=== PATIENT | female | born 1970 | race Asian ===

== ENCOUNTER 2018-06-27 02:19 | Outpatient (CLI) | payer MEDICAID, SELFPAY ==
--- NOTE | 2018-06-27 09:00 | DI.US_ITS ---
SYMPTOM/DIAGNOSIS: LT RENAL CYST, N28.1, Z87.441, H.O NEPHROLITHIASIS, YEARLY MONITORING RENAL ULTRASOUND: The kidneys are normal in size and shape. There are multiple echogenic foci seen in both kidneys consistent with nephrolithiasis. No evidence of hydronephrosis. There is a small simple cyst of the mid pole of the left kidney measuring about 10 mm in diameter. Urinary bladder is unremarkable in appearance and empties well with voiding. CONCLUSION: Bilateral non obstructing renal calculi.
== END 2018-06-27 02:39 ==
PROVIDERS: PCP Family Medicine; Visit Provider Family Medicine
DX: N28.1 Cyst of kidney, acquired (principal); N20.0 Calculus of kidney
CPT/HCPCS: 76770

== ENCOUNTER 2018-07-30 19:06 | Emergency (ER) | payer MEDICAID, SELFPAY ==
[2018-07-30 19:10] VITALS: BP 157/90; PULSE 73; RESP 16; TEMP 36.6; O2SAT 100
--- NOTE | 2018-07-30 19:14 | ED.GENADUL_ITS ---
Discharge Plan Disposition Patient Disposition: HOME Condition: Improving Discharge Details Chief Complaint: Abd Prob Clinical Impression: Abdominal pain Primary Care Provider: Jenny Guerra ED Provider: Vicky Greer Home Meds and New Rx's Prescriptions: Continued multivitamin Tablet 1 tab PO DAILY RF: 0 Discharge Instructions Instructions: Abdominal Pain (ED) Additional Instructions: Your CT scan today shows thickening of your bowel, this is likely associated with your diarrhea from yesterday. This is likely the source of your abdominal pain. You have kidney stones that are non obstructing. Your labs are reassuring. You will need to follow up with general surgery for reevaluation and to discuss your CT. Please keep upcoming appointment with primary care physician. If you develop fever/chills, increased pain, inability to stay hydrated or other new/worsening symptoms please seek care urgently once again. Referrals: Ijeoma Bui MD [[facility] STAFF PHYSICIAN] - Jenny Guerra MD [Primary Care Provider] - Medical Decision Making <RICH Austin - Last Filed: 07/30/18 23:19> Patient is a 48-year-old female with history of nephrolithiasis presenting today with chief complaint of upper abdominal pain that began this morning. Reports the pain is moderate, rates at 8/10. States that yesterday she had multiple episodes of watery diarrhea. This seems to have dissipated today. Denies any fevers or chills. No chest pain or shortness of breath. No previous abdominal surgeries. Pain does not change with p.o. intake. Also endorsing a dry cough for the past 2 months. States the cough is worse when she is outside, particular in the morning. Reports that she is attempted to contact her primary care but is been unsuccessful at making appointment. Denies any recent travel. No recent antibiotics. On exam, patient appears comfortable. She is in no acute distress. She is diffusely tender across the upper abdomen but seems quite tender in the right upper quadrant more so. No guarding or peritoneal findings. Abdomen is not tympanitic. Patient is noted to be hypertensive but otherwise vital signs within normal limits. Lungs are clear. No cough noted at this time. Consider pancreatitis, acute cholecystitis, gastric source such as ulcer, cardiac source. Plan to obtain chest x-ray although low suspicion for pneumonia or consolidation. However, this would be to evaluate her ongoing cough. Given the worsening of the cough when outside in the morning, I am considering allergies source of her chronic cough. Will obtain EKG, laboratory evaluation as well as CT of the abdomen. Discussed this patient is in agreement EKG reviewed by Dr. Smith, he was able to compare to previous with no acute abnormalities noted. CXR reviewed by radiologist: FINDINGS: Lungs: Unremarkable. No consolidation. Pleural space: Unremarkable. No pleural effusion. No pneumothorax. Heart/Mediastinum: Unremarkable. No cardiomegaly. Bones/joints: Unremarkable. IMPRESSION: No evidence of active pulmonary disease. I reviewed CT and do not see any pathology, awaiting read from radiologist. Will give GI cocktail. RAdiologist reviewed CT: ABDOMEN: Liver: Normal. No mass. Gallbladder and bile ducts: There is focal thickening and enhancement of the gallbladder wall that may represent adenomyomatosis. Pancreas: Normal. No ductal dilation. Spleen: Normal. No splenomegaly. Adrenals: Normal. No mass. Kidneys and ureters: 3 small 1-2 mm nonobstructing left lower pole renal calculi. Several small bilateral subcentimeter hypodensities too small for accurate CT number determination. Stomach and bowel: There is segmental submucosal thickening of a loop of small bowel anteriorly a trace amount of fluid in the mesentery. Appendix: No evidence of appendicitis. PELVIS: Bladder: Unremarkable as visualized. Reproductive: Unremarkable as visualized. ABDOMEN and PELVIS: Intraperitoneal space: Normal. No free air. No significant fluid collection. Bones/joints: Degenerative changes of the lumbar spine without acute osseous abnormality. Soft tissues: Unremarkable. Vasculature: Atherosclerotic calcifications of the aorta and iliac arteries without evidence of aneurysm. Lymph nodes: Normal. No enlarged lymph nodes. IMPRESSION: 1. There is segmental submucosal thickening of a loop of small bowel anteriorly with a trace amount of fluid in the mesentery. Differential diagnosis would include infection, early changes of inflammatory bowel disease, or ischemia. Clinical correlation is required. 2. There is focal thickening and enhancement of the gallbladder wall that may represent adenomyomatosis. 3. 3 small 1-2 mm nonobstructing left lower pole renal calculi. Patietn feeling improved after GI cocktail. Discussed findings with the patient. Laboratory evaluation is reassuring with no leukocytosis, electrolyte abnormalities, change in kidney or liver function. Lipase is normal. Advised on the thickening of the small bowel. This does correlate with infection given her recent bout of diarrhea although diarrhea has improved. This abdominal pain did come on shortly after her diarrhea. Advised likely viral etiology. She has not had any recent travel or antibiotics. We also discussed the diagnosis of adenomyomatosis. Advised follow-up with the general surgery. Referral will be sent. Encourage hydration. Advise she may continue with Mylanta to help with her discomfort. She is given strict return precautions. All of her questions and concerns were addressed she is in agreement this plan. In regard to her cough times the last 2 months, advised this may be allergic in nature and that she can discuss this further with her primary care. May also try [id number] antihistamines no evidence of infection on clinical exam or chest x-ray. <Cj Smith MD - Last Filed: 07/30/18 20:16> ECG Data Attestation: I personally reviewed and interpreted this ECG (s) as follows: Prior ECG tracings: available for review Interpretation: sinus rhythm, rate of 64, pr 154, no acute st t wave changes compared to ekg from 2014 HPI <RICH Austin - Last Filed: 07/30/18 23:19> General Mode of arrival: ambulatory . Date/Time Provider Initiated Documentation: 07/30/18 19:07 . Limitations to Documentation: no limitations . Information obtained by: patient and RN notes reviewed . History of Present Illness 48 year old F presents to the emergency department with the chief complaint of upper abdominal pain, described as moderate, with intensity rated at 8. Quality is described as aching, and is localized to the abdomen. Patient reports no radiation. Patient started experiencing this day(s) (1) and it has been constant. No relieving factors improve symptom(s), No exacerbating factors reported . Patient notes denies chest pain, cough, diaphoresis, fever/chills, headaches, loss of appetite, nausea/vomiting, shor tness of breath, syncope and weakness. Patient did receive the following treatments prior to arrival, none Related Data Home Medications Medication Instructions Recorded Confirmed multivitamin 1 tab PO DAILY 07/30/18 07/30/18 Allergies Allergy/AdvReac Type Severity Reaction Status Date / Time environmental Allergy Unknown Uncoded 07/30/18 19:14 Review of Systems <RICH Austin - Last Filed: 07/30/18 23:19> Constitutional Reports as per HPI, Denies chills, Denies fatigue, Denies fever(s) and Denies headache(s) ENT Denies headache(s) Cardiovascular Reports as per HPI, Denies chest pain and Denies dyspnea Respiratory Reports as per HPI, Reports cough (dry cough x 2 months, worse in AM and when outside) and Denies dyspnea Gastrointestinal Reports as per HPI, Reports abdominal pain, Denies belching, Denies melena, Reports change in bowel habits, Reports diarrhea (yesterday, since resolved), Denies nausea, Denies vomiting and Denies hematemesis Genitourinary Denies system reviewed and no additional complaints, except as docu (denies change in urinary habits) Musculoskeletal Reports as per HPI and Denies back pain Integumentary/Breasts Reports as per HPI and Denies rash Neurologic Reports as per HPI and Denies headache(s) Endocrine Denies fatigue PFSH <RICH Austin - Last Filed: 07/30/18 23:19> Social History Smoking/Tobacco Use Status: Never Alcohol Intake: never Drug use: Never Do you feel safe at home: Yes Do you feel safe in your relationship?: Yes Female Reproductive History Menstrual control method: none Exam <RICH Austin - Last Filed: 07/30/18 23:19> Const General: cooperative, healthy appearing, comfortable, no acute distress and well developed Nutritional Appearance: average body habitus and well nourished Orientation: alert and awake HENMT Head: normal to inspection Mouth: moist mucous membranes Resp Effort & Inspection: normal respiratory effort, able to speak in complete sentences and no respiratory distress Auscultation: clear to auscultation bilaterally, no rales, no rhonchi and no wheezes Cardio Rate: regular rate Rhythm: regular rhythm Heart Sounds: S1 normal and S2 normal GI Inspection: no abdominal wall ecchymosis, no edema, non-distended, no incisions, no large pannus and no obesity Palpation: soft, no hepatosplenomegaly, no aortic enlargement, not firm, no guarding, not rigid and tender in the epigastrum, in the LUQ and in the RUQ; not at McBurney's point, not periumbilically, not suprapubicly, Ann's sign negative, obturator sign negative, psoas sign negative and with no rebound tenderness Percussion: normal to percussion Auscultation: hypoactive bowel sounds Back/Spine/Pelvis Back: no CVA tenderness Skin General skin exam: no rashes or lesions noted Trauma: no lacerations or abrasions Neuro General: alert and awake Cognition: normal cognition Speech: speech normal Gait: normal gait Extrem General: normal to inspection, normal capillary refill, no pedal edema and no calf tenderness Psych Appearance: grossly normal and well kempt Mental Status: mental status grossly normal Speech and Movement: speech and movement normal
[2018-07-30] MEDS: Normal Saline Flush 10 ML SYR IVP ×2 (20:05→20:44)
[2018-07-30] MEDS: Normal Saline 1,000 ML 1000 ML IV (20:06)
[2018-07-30 20:19] LABS: Abs Immature Grans 0.01 k/cumm (0.0-0.09); Absolute Basophil Count 0.04 k/cumm (0.0-0.2); Absolute Eosinophil Count 0.29 k/cumm (0.0-0.7); Absolute Lymphocyte Count 2.13 k/cumm (1.2-3.4); Absolute Monocyte Count 0.68 k/cumm (0.11-0.7); Absolute Neutrophil Count 3.93 k/cumm (1.2-6.7); Basophils % 0.6; Eosinophils % 4.1; HCT 45.8 % (36.0-46.0); HGB 15.5 g/dL (12.0-15.5); Immature Grans % 0.1; Lymphocytes % 30.1; Mean Corp. HGB Concentration 33.8 g/dL (32.0-36.0); Mean Corpuscular Volume 85.8 fL (80-95); Mean Platelet Volume 9.7 fL (8.0-11.0); Monocytes % 9.6; Neutrophils % 55.5; Platelet Count 253 x1000/uL (130-400); RBC 5.34 m/cumm (4.00-5.20); RBC Distribution Width 13.9 % (11.7-14.6); White Blood Cell Count 7.08 k/cumm (4.4-10.8)
--- NOTE | 2018-07-30 20:23 | DI.COMBO_ITS ---
SYMPTOM/DIAGNOSIS: COUGH, UPPER ABD PAIN PA AND LATERAL CHEST: The heart is normal in size. The lungs are clear. The mediastinal structures and pleura appear intact. CONCLUSION: Normal chest. ABDOMEN AND PELVIC CT: CT examination of the abdomen and pelvis was performed with a bolus infusion of 69 cc's of Omnipaque 350. Images obtained through the lung bases are unremarkable. Liver and spleen appear normal. Gallbladder has a questionably thickened wall. No biliary dilatation is seen. There are tiny non obstructing left renal calculi. Probable tiny bilateral renal cysts also noted. No evidence of hydronephrosis or ureterolithiasis. Abdominal aorta is of normal diameter and no major vascular abnormality is seen. No abdominal wall hernia is seen. No significant abdominal or pelvic adenopathy. [employer]ER structures appear intact. Appendix is normal. There are multiple loops of thick walled small bowel in the mid abdomen including a loop in the mid abdomen with a markedly thickened wall with associated mesenteric edema. The findings are nonspecific but could be associated with enteritis. Inflammatory bowel disease not excluded. No evidence of obstruction. Question mild wall thickening of colon noted at a few sites as well. CONCLUSION: Findings raising the possibility of a predominantly small bowel enteritis. Other etiologies including inflammatory bowel disease not excluded. Appropriate follow up studies requested. Incidental non obstructing left renal calculi noted.
[2018-07-30] MEDS: Omnipaque 350 MG/ML 100 ML BTL IJ (20:28)
--- NOTE | 2018-07-30 20:35 | DI.VRAD_ITS ---
EXAM: XR Chest, 2 Views EXAM DATE/TIME: 07/30/2018 8:29 PM CLINICAL HISTORY: 48 years old, female; Signs and symptoms; Patient HX: Cough for 2 weeks TECHNIQUE: Imaging protocol: XR of the chest, 2 views. COMPARISON: CR CHEST 2 VIEWS PA,LAT 01/23/2014 12:51 AM FINDINGS: Lungs: Unremarkable. No consolidation. Pleural space: Unremarkable. No pleural effusion. No pneumothorax. Heart/Mediastinum: Unremarkable. No cardiomegaly. Bones/joints: Unremarkable. IMPRESSION: No evidence of active pulmonary disease. Dictated and Authenticated by: Bruno Barajas MD. Ordering:GIOVANI Perry MD
[2018-07-30 20:37] LABS: ALT 25 U/L (12-78); AST 13 U/L (15-37); Albumin 3.4 g/dL (3.4-5.0); Alkaline Phosphatase 62 U/L (46-116); Anion Gap 7.5 mmol/L (3-11); BUN 12 mg/dL (7-18); Bilirubin, Total 0.6 mg/dL (0.2-1.0); CO2 29.5 mmol/L (21.0-32.0); CREATININE 0.63 mg/dL (0.55-1.02); Calcium 8.9 mg/dL (8.5-10.1); Chloride 103 mmol/L (98-107); Glucose 101 mg/dL (70-100); Lipase 160 U/L (73-393); Magnesium 2.1 mg/dL (1.8-2.4); Potassium 3.3 mmol/L (3.5-5.1); Sodium 140 mmol/L (136-145); Total Protein 7.5 g/dL (6.4-8.2)
[2018-07-30 20:39] LABS: Troponin I < 0.02 ng/mL (0.00-0.06)
[2018-07-30 20:58] LABS: Bilirubin Negative (Negative); Blood Negative (Negative); Clarity Clear; Glucose Negative (Negative); Ketones Negative (Negative); Leukocyte Esterase Negative (Negative); Nitrite Negative (Negative); Urobilinogen 0.2 EU/dL (Up TO 0.2)
--- NOTE | 2018-07-30 21:03 | DI.VRAD_ITS ---
EXAM: CT Abdomen and Pelvis With Contrast EXAM DATE/TIME: 07/30/2018 7:28 PM CLINICAL HISTORY: 48 years old, female; Localized; Lower; Patient HX: Abdominal pain x2 days. TECHNIQUE: Imaging protocol: Axial computed tomography images of the abdomen and pelvis with intravenous contrast. Coronal and sagittal reformatted images were created and reviewed. Radiation optimization: All CT scans at this facility use at least one of these dose optimization techniques: automated exposure control; mA and/or kV adjustment per patient size (includes targeted exams where dose is matched to clinical indication); or iterative reconstruction. Contrast material: OMNIPAQUE 350; Contrast volume: 69 ml; Contrast route: IV; COMPARISON: CR RT HIP COMPLETE AP PELVIS 09/27/2016 8:38 AM FINDINGS: ABDOMEN: Liver: Normal. No mass. Gallbladder and bile ducts: There is focal thickening and enhancement of the gallbladder wall that may represent adenomyomatosis. Pancreas: Normal. No ductal dilation. Spleen: Normal. No splenomegaly. Adrenals: Normal. No mass. Kidneys and ureters: 3 small 1-2 mm nonobstructing left lower pole renal calculi. Several small bilateral subcentimeter hypodensities too small for accurate CT number determination. Stomach and bowel: There is segmental submucosal thickening of a loop of small bowel anteriorly a trace amount of fluid in the mesentery. Appendix: No evidence of appendicitis. PELVIS: Bladder: Unremarkable as visualized. Reproductive: Unremarkable as visualized. ABDOMEN and PELVIS: Intraperitoneal space: Normal. No free air. No significant fluid collection. Bones/joints: Degenerative changes of the lumbar spine without acute osseous abnormality. Soft tissues: Unremarkable. Vasculature: Atherosclerotic calcifications of the aorta and iliac arteries without evidence of aneurysm. Lymph nodes: Normal. No enlarged lymph nodes. IMPRESSION: 1. There is segmental submucosal thickening of a loop of small bowel anteriorly with a trace amount of fluid in the mesentery. Differential diagnosis would include infection, early changes of inflammatory bowel disease, or ischemia. Clinical correlation is required. 2. There is focal thickening and enhancement of the gallbladder wall that may represent adenomyomatosis. 3. 3 small 1-2 mm nonobstructing left lower pole renal calculi. Dictated and Authenticated by: Bruno Barajas MD. Ordering:GIOVANI Perry MD
[2018-07-30 21:15] VITALS: BP 145/80; PULSE 65; RESP 16; TEMP 37; O2SAT 99
--- NOTE | 2018-07-31 07:08 | NUR.NOTE ---
Nursing Note: Referral faxed to General Surgery for follow up. Catherine Huang.
== END 2018-07-30 21:25 | disposition home or self-care (01) ==
PROVIDERS: Emergency Provider Physician Assistant; PCP Family Medicine
DX: R10.10 Upper abdominal pain, unspecified (principal); R19.7 Diarrhea, unspecified; R05 Cough; N20.0 Calculus of kidney; Z87.442 Personal history of urinary calculi
CPT/HCPCS: 36415; 80053; 83690; 93005; 96360; 99285; 71046; 74177; 81003; 83735; 84484; 85025; 93010; J3490

== ENCOUNTER 2018-07-31 18:26 | Observation (INO) | payer MEDICAID, SELFPAY ==
[2018-07-31 18:35] VITALS: BP 156/68; PULSE 65; RESP 16; TEMP 36.7; O2SAT 99
[2018-07-31 18:53] LABS: Abs Immature Grans 0.02 k/cumm (0.0-0.09); Absolute Basophil Count 0.03 k/cumm (0.0-0.2); Absolute Eosinophil Count 0.17 k/cumm (0.0-0.7); Absolute Monocyte Count 0.77 k/cumm (0.11-0.7); Absolute Neutrophil Count 6.54 k/cumm (1.2-6.7); Basophils % 0.3; Eosinophils % 1.8; HCT 44.7 % (36.0-46.0); HGB 15.5 g/dL (12.0-15.5); Immature Grans % 0.2; Mean Corp. HGB Concentration 34.7 g/dL (32.0-36.0); Mean Corpuscular Hemoglobin 29.7 pg (27.0-33.0); Mean Corpuscular Volume 85.6 fL (80-95); Mean Platelet Volume 9.6 fL (8.0-11.0); Monocytes % 8.1; Neutrophils % 68.6; Platelet Count 248 x1000/uL (130-400); RBC 5.22 m/cumm (4.00-5.20); RBC Distribution Width 13.8 % (11.7-14.6); White Blood Cell Count 9.54 k/cumm (4.4-10.8)
[2018-07-31] MEDS: Normal Saline 1,000 ML 1000 ML IV (19:00)
[2018-07-31 19:13] LABS: ALT 22 U/L (12-78); AST 12 U/L (15-37); Albumin 3.1 g/dL (3.4-5.0); Alkaline Phosphatase 55 U/L (46-116); Anion Gap 10.4 mmol/L (3-11); BUN 12 mg/dL (7-18); Bilirubin, Total 0.6 mg/dL (0.2-1.0); CO2 26.6 mmol/L (21.0-32.0); CREATININE 0.51 mg/dL (0.55-1.02); Chloride 102 mmol/L (98-107); Glucose 116 mg/dL (70-100); Sodium 139 mmol/L (136-145); Total Protein 6.7 g/dL (6.4-8.2)
[2018-07-31 19:15] LABS: Potassium 2.9 mmol/L (3.5-5.1)
--- NOTE | 2018-07-31 19:35 | DI.CT_ITS ---
SYMPTOM/DIAGNOSIS: RIGHT SIDED ABD PAIN, WORSENING, R/O MES ISCH ABDOMINAL AND PELVIC CT ANGIOGRAM 07/31 CT angiography was performed with multi slice acquisition and multi planar and 3D reconstruction. CT angiography of the abdomen and pelvis was performed with a bolus infusion of 100 cc Omnipaque 350. Images obtained through the lung bases show a 4-5 mm in diameter right basilar intrapulmonary nodule, chest CT follow up suggested in 12 months. Liver, spleen and pancreas appear normal. Gallbladder is unremarkable in appearance. No biliary dilatation seen. Adrenals and kidneys appear normal. Abdominal wall is intact with no significant hernia. No abdominal or pelvic adenopathy. [employer]GER structures are unremarkable. Appendix appears normal. Note is made of marked wall thickening and apparent wall edema of portions of the duodenum and jejunum including an area of very marked wall thickening in what appears to be a jejunal loop at the level of the umbilicus. The findings are most consistent with enteritis. Abdominal aorta, celiac trunk, superior mesentery, renal arteries, inferior mesenteric artery, and major branches including SMA branches supplying the jejunum are within normal limits except for minimal atheromatous aortic calcification. Common internal and external iliac arteries appear normal. CONCLUSION: Findings most consistent with enteritis. Doubt ischemic etiology of small bowel process although this is not absolutely excluded on the basis of this examination. Infectious or inflammatory etiologies are more likely.
[2018-07-31 20:14] LABS: Magnesium 2.2 mg/dL (1.8-2.4)
[2018-07-31 20:19] LABS: Bilirubin Negative (Negative); Blood Negative (Negative); Clarity Clear; Glucose Negative (Negative); Ketones Trace mg/dL (Negative); Leukocyte Esterase Negative (Negative); Nitrite Negative (Negative); Specific Gravity 1.015 (1.005-1.025); Urobilinogen 0.2 EU/dL (Up TO 0.2)
[2018-07-31] MEDS: Omnipaque 350 MG/ML 100 ML BTL IJ (20:39)
[2018-07-31 21:03] VITALS: BP 105/88; PULSE 76; RESP 18; O2SAT 99
--- NOTE | 2018-07-31 21:57 | DI.VRAD_ITS ---
EXAM: CT Angiography Abdomen and Pelvis With Contrast EXAM DATE/TIME: 07/31/2018 7:38 PM CLINICAL HISTORY: 48 years old, female; Localized; Right upper quadrant (ruq); Patient HX: Right sided abdominal pain, worsening, R/O mes isch TECHNIQUE: Imaging protocol: Axial computed tomographic angiography images of the abdomen and pelvis with intravenous contrast material. Coronal and sagittal reformatted images were created and reviewed. 3D rendering: MIP reconstructed images were created and reviewed. Contrast material: OMNIPAQUE 350; Contrast volume: 60 ml; Contrast route: IV RAC; COMPARISON: CT ABDOMEN PELVIS W 07/30/2018 8:17 PM FINDINGS: Lungs: There is a 5 mm noncalcified granulomata right lung base.There is mild scarring in the lungs. This is this is a 6 VASCULATURE: Aorta: There is minimal atherosclerotic calcification the distal donor aorta and common iliac arteries well and the right. The celiac axis superior mesenteric artery and inferior mesenteric artery show no definite abnormality. No definite abnormality seen of the mesenteric veins. Celiac trunk and mesenteric arteries: See Aorta Finding. Renal arteries: No occlusion or significant stenosis. Right iliac arteries: No occlusion or significant stenosis. Left iliac arteries: No occlusion or significant stenosis. ABDOMEN: Liver: No mass. Gallbladder and bile ducts: Unremarkable. No calcified stones. No ductal dilation. Pancreas: Unremarkable. No mass. No ductal dilation. Spleen: Unremarkable. No splenomegaly. Adrenals: Unremarkable. No mass. Kidneys and ureters: Unremarkable. No solid mass. No hydronephrosis. Stomach and bowel: There is a large amount of residual food material and fluid in the stomach. In the anterior midabdomen there is a single dilated loop of small bowel is dilated up to 3.2 cm. However there is marked thickening of the bowel wall measuring up to 8 mm in this loop of bowel and to a lesser extent in a few of the adjacent loops of small bowel. There is no extraluminal air. There is no pneumatosis. However this abnormally thickened wall of small bowel appears to show densely less enhancement of the wall compared to more normal-appearing loops of small bowel. Appendix: No evidence of appendicitis. PELVIS: Bladder: Unremarkable. No mass. Reproductive: The uterus is deviated toward the left. There is a small mild free fluid in the cul-de-sac ABDOMEN and PELVIS: Bones/joints: No acute fracture. No dislocation. Soft tissues: Unremarkable. Lymph nodes: Unremarkable. No enlarged lymph nodes. IMPRESSION: #1 although I cannot detect any abnormality of the main intestinal arteries or veins, there is a abnormally thickened loop of small bowel probably in the mid jejunum that shows decreased enhancement suggesting it may be ischemic. There is no extraluminal air or pneumatosis associated. #2 there is a small mild fluid in the cul-de-sac with this can be normal for the second phase of menstrual cycle. These findings were discussed with Dr. Moran by telephone on July 31 at 9:55 PM Eastern standard time Dictated and Authenticated by: Cj Bonilla MD. Ordering:LINCOLN Maya MD
--- NOTE | 2018-07-31 22:03 | ED.GENADUL_ITS ---
Discharge Plan Disposition Patient Disposition: [facility] Condition: Improving Discharge Details Chief Complaint: Abd Prob Clinical Impression: Enteritis, Abdominal pain Primary Care Provider: Jenny Guerra ED Provider: Francesco Moran Home Meds and New Rx's Prescriptions: No Action multivitamin Tablet 1 tab PO DAILY RF: 0 Medical Decision Making This is a 48-year-old female who presents for evaluation of abdominal pain. She was seen and assessed here 48 hours ago, had a thorough laboratory work-up and CT scan which showed some small bowel thickening, but was otherwise relatively benign. She was discharged home after she is feeling much better and she had notably reassuring vital signs. She had significant worsening of her symptoms today, her last meal was at lunch. Exam demonstrates notably reassuring vital signs, however she does have mild to moderate mid abdominal pain. Previous CT scan did show thickening which could be of concern for an ischemic component, however she has no risk factors of A. fib, cholesterol, family history of vascular disease or other abnormality. I did discuss with the patient the risks and benefits of repeat imaging, there is shared decision making process we will perform a repeat CT scan for further evaluation in addition to laboratory work- up, lactate, hydration here. 12:30 AM Patient's laboratory work-up has returned, vital signs continue to remain stable. No tachycardia, or fever. Laboratory work-up demonstrates normal white count, no left shift or bandemia. Electrolytes demonstrate a decreasing potass ium at 2.9, normal magnesium, calcium that is low at 8.0, benign urinalysis, lipase yesterday was negative. Repeat CT imaging demonstrates slight increase in small bowel thickening. Vessels appear normal and demonstrate no signs of significant stenosis. However there is concern for bowel irritation versus ischemia. I did contact surgery and discussed the case with Dr. Graves, she came in and personally reviewed the images and assessed the patient. At this time she does not feel that the patient signs or symptoms are clinically consistent with ischemic gut. She feels that it is still most likely secondary to enteritis, from her previous episodes of diarrhea. After 4 of morphine the patient's pain is notably improved. Dr. Graves recommends admission for observation, electrolyte replacement, repeat evaluation. Surgery recommends admission under the hospitalist, and states that the have no problem being consulted for reevaluation of the patient in the morning. IV potassium supplementation and calcium supplementation has been administered. I contacted Dr. Andrade and discussed the case with him. I have extensively reviewed the treatment plan with the patient. I have addressed all patient concerns at this time. I have also discussed the plan with the admitting physician and they agree with the current assessment and plan and have agreed to assume responsibility for the patient. All parties demonstrate verbal understanding and agreement with our assessment and plan at this time. FINDINGS: Lungs: There is a 5 mm noncalcified granulomata right lung base.There is mild scarring in the lungs. This is this is a 6 VASCULATURE: Aorta: There is minimal atherosclerotic calcification the distal donor aorta and common iliac arteries well and the right. The celiac axis superior mesenteric artery and inferior mesenteric artery show no definite abnormality. No definite abnormality seen of the mesenteric veins. Celiac trunk and mesenteric arteries: See Aorta Finding. Renal arteries: No occlusion or significant stenosis. Right iliac arteries: No occlusion or significant stenosis. Left iliac arteries: No occlusion or significant stenosis. ABDOMEN: Liver: No mass. Gallbladder and bile ducts: Unremarkable. No calcified stones. No ductal dilation. Pancreas: Unremarkable. No mass. No ductal dilation. Spleen: Unremarkable. No splenomegaly. Adrenals: Unremarkable. No mass. Kidneys and ureters: Unremarkable. No solid mass. No hydronephrosis. Stomach and bowel: There is a large amount of residual food material and fluid in the stomach. In the anterior midabdomen there is a single dilated loop of small bowel is dilated up to 3.2 cm. However there is marked thickening of the bowel wall measuring up to 8 mm in this loop of bowel and to a lesser extent in a few of the adjacent loops of small bowel. There is no extraluminal air. There is no pneumatosis. However this abnormally thickened wall of small bowel appears to show densely less enhancement of the wall compared to more normal-appearing loops of small bowel. Appendix: No evidence of appendicitis. PELVIS: Bladder: Unremarkable. No mass. Reproductive: The uterus is deviated toward the left. There is a small mild free fluid in the cul-de-sac ABDOMEN and PELVIS: Bones/joints: No acute fracture. No dislocation. Soft tissues: Unremarkable. Lymph nodes: Unremarkable. No enlarged lymph nodes. IMPRESSION: #1 although I cannot detect any abnormality of the main intestinal arteries or veins, there is a abnormally thickened loop of small bowel probably in the mid jejunum that shows decreased enhancement suggesting it may be ischemic. There is no extraluminal air or pneumatosis associated. #2 there is a small mild fluid in the cul-de-sac with this can be normal for the second phase of menstrual cycle. These findings were discussed with Dr. Moran by telephone on July 31 at 9:55 PM Eastern standard time Dictated and Authenticated by: Cj Bonilla MD. Ordering:LINCOLN Maya MD [facility] General Date/Time Provider Initiated Documentation: 07/31/18 19:24 . HPI Narrative: This is a pleasant 48-year-old female with no significant past medical history who presents today for evaluation of abdominal pain. She was seen and assessed here 48 hours ago where she had a thorough work-up, laboratory work-up was relatively benign. CT scan at that time showed some bowel thickening in the small bowel, however with her previous history of diarrhea it is felt that this may be secondary to that. She was feeling better, vital signs are reassuring and she was discharged home. Patient states that today her pain notably worsened, and with no improvement of her symptoms she came in for reevaluation. Her last meal was 12 hours ago, she continues to describe the pain as stabbing and achy in the center of her abdomen. She denies any relieving factors. It is worsened with palpation, eating, and movement. She denies any vomiting but admits to notable nausea. She has not had any diarrhea for the last few days at this time. She denies any fever or chills. Past family history is negative for A. fib, aneurysm, severe claudication, or other severe vascular disease per the patient. Patient has no other complaints at this time. No additional modifying factors. Related Data Home Medications Medication Instructions Recorded Confirmed multivitamin 1 tab PO DAILY 07/30/18 07/31/18 Allergies Allergy/AdvReac Type Severity Reaction Status Date / Time environmental Allergy Unknown Uncoded 07/31/18 18:38 General Stated Complaint: Abd Prob WILDER: 3 Review of Systems Review of Systems All systems reviewed & are unremarkable except as noted in HPI and below PFSH Medical History Kidney stones (Chronic) Social History Smoking/Tobacco Use Status: Never Alcohol Intake: never Drug use: Never Do you feel safe at home: Yes Do you feel safe in your relationship?: Yes Female Reproductive History Menstrual control method: none Exam Narrative Exam Narrative: 1.Const: Well-nourished, Well-developed, appearing stated age 2.Eyes: PERRL, no conjunctival injection, and symmetrical lids. 3.ENT: Atraumatic external nose and ears. Moist MM. Neck: Symmetric, trachea midline, No thyromegaly. 4.CVS: +S1/S2, No murmurs or gallops. Peripheral pulses 2+ and equal in all extremities. Brisk capillary refill in all extremities. 5.RESP: Unlabored respiratory effort. Clear to auscultation bilaterally. No wheezes rales or rhonchi 6.GI: Soft, Nondistended, No hepatosplenomegaly. Notable tenderness in the epigastric and midabdominal region. No guarding. Negative Rovsing sign. No pain at McBurney's point. 7.MSK: Normocephalic/Atraumatic, Extremities w/o deformity or ttp No cyanosis or clubbing, Normal movement of all extremities 8.Skin: Warm, Dry. No rashes or lesions. 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 Sensation grossly intact, no focal neurologic deficits. 10.Psych: (AAO) x3. Appropriate mood and affect Course Vital Signs Temperature 36.7 C 07/31/18 18:35 Pulse 65 07/31/18 18:35 Respiratory Rate 16 07/31/18 18:35 Blood Pressure 156/68 H 07/31/18 18:35 Pulse Oximetry 99 07/31/18 18:35 Temperature 36.7 C 07/31/18 18:35 Temperature Source Skin 07/31/18 18:35 Pulse 76 07/31/18 21:03 Respiratory Rate 18 07/31/18 21:03 Respiratory Effort Non-Labored 07/31/18 18:37 Blood Pressure 105/88 07/31/18 21:03 Pulse Oximetry 99 07/31/18 21:03 Oxygen Delivery Method Room Air 07/31/18 21:03 Oxygen Flow Rate 0 07/31/18 21:03 Pain Level 8 07/31/18 21:03 Lab/Test Results Lab/Test Results: Laboratory Tests Range/Units 07/31/18 07/31/18 07/31/18 18:45 18:45 18:45 WBC (4.4-10.8) k/cumm 9.54 D RBC (4.00-5.20) m/cumm 5.22 H Hgb (12.0-15.5) g/dL 15.5 Hct (36.0-46.0) % 44.7 MCV (80-95) fL 85.6 MCH (27.0-33.0) pg 29.7 MCHC (32.0-36.0) g/dL 34.7 RDW (11.7-14.6) % 13.8 Plt Count (130-400) x1000/uL 248 MPV (8.0-11.0) fL 9.6 Immature Gran % 0.2 Neutrophils % 68.6 Lymphocytes % 21.0 Monocytes % 8.1 Eosinophils % 1.8 Basophils % 0.3 Absolute Neutrophils (1.2-6.7) k/cumm 6.54 Absolute Lymphocytes (1.2-3.4) k/cumm 2.00 Absolute Monocytes (0.11-0.7) k/cumm 0.77 H Absolute Eosinophils (0.0-0.7) k/cumm 0.17 Absolute Basophils (0.0-0.2) k/cumm 0.03 Sodium (136-145) mmol/L 139 Potassium (3.5-5.1) mmol/L 2.9 L* Chloride (98-107) mmol/L 102 Carbon Dioxide (21.0-32.0) mmol/L 26.6 Anion Gap (3-11) mmol/L 10.4 BUN (7-18) mg/dL 12 Creatinine (0.55-1.02) mg/dL 0.51 L Estimated GFR/1.73 m2 (mL/min/1.73m2) >= 60.00 Glucose (70-100) mg/dL 116 H Calcium (8.5-10.1) mg/dL 8.0 L Magnesium (1.8-2.4) mg/dL 2.2 Total Bilirubin (0.2-1.0) mg/dL 0.6 AST (15-37) U/L 12 L ALT (12-78) U/L 22 Alkaline Phosphatase (46-116) U/L 55 Total Protein (6.4-8.2) g/dL 6.7 Albumin (3.4-5.0) g/dL 3.1 L Urine Color (Yellow) Urine Clarity Urine pH (5-8) Ur Specific Whittaker (1.005-1.025) Urine Protein (Negative) mg/dL Urine Ketones (Negative) mg/dL Urine Blood (Negative) Urine Nitrite (Negative) Urine Bilirubin (Negative) Urine Urobilinogen (Up TO 0.2) EU/dL Ur Leukocyte Esterase (Negative) Urine Glucose (Negative) mg/dL Range/Units 07/31/18 20:08 WBC (4.4-10.8) k/cumm RBC (4.00-5.20) m/cumm Hgb (12.0-15.5) g/dL Hct (36.0-46.0) % MCV (80-95) fL MCH (27.0-33.0) pg MCHC (32.0-36.0) g/dL RDW (11.7-14.6) % Plt Count (130-400) x1000/uL MPV (8.0-11.0) fL Immature Gran % Neutrophils % Lymphocytes % Monocytes % Eosinophils % Basophils % Absolute Neutrophils (1.2-6.7) k/cumm Absolute Lymphocytes (1.2-3.4) k/cumm Absolute Monocytes (0.11-0.7) k/cumm Absolute Eosinophils (0.0-0.7) k/cumm Absolute Basophils (0.0-0.2) k/cumm Sodium (136-145) mmol/L Potassium (3.5-5.1) mmol/L Chloride (98-107) mmol/L Carbon Dioxide (21.0-32.0) mmol/L Anion Gap (3-11) mmol/L BUN (7-18) mg/dL Creatinine (0.55-1.02) mg/dL Estimated GFR/1.73 m2 (mL/min/1.73m2) Glucose (70-100) mg/dL Calcium (8.5-10.1) mg/dL Magnesium (1.8-2.4) mg/dL Total Bilirubin (0.2-1.0) mg/dL AST (15-37) U/L ALT (12-78) U/L Alkaline Phosphatase (46-116) U/L Total Protein (6.4-8.2) g/dL Albumin (3.4-5.0) g/dL Urine Color (Yellow) Yellow Urine Clarity Clear Urine pH (5-8) 7.0 Ur Specific Whittaker (1.005-1.025) 1.015 Urine Protein (Negative) mg/dL Negative Urine Ketones (Negative) mg/dL Trace H Urine Blood (Negative) Negative Urine Nitrite (Negative) Negative Urine Bilirubin (Negative) Negative Urine Urobilinogen (Up TO 0.2) EU/dL 0.2 Ur Leukocyte Esterase (Negative) Negative Urine Glucose (Negative) mg/dL Negative
[2018-07-31 22:13] LABS: Lactate-non-spesis 0.7 mmol/l (0.6-1.4)
[2018-07-31 22:48] VITALS: BP 138/69; PULSE 71; RESP 18; O2SAT 99
[2018-07-31 23:38] VITALS: BP 116/70; PULSE 67; RESP 16; O2SAT 97
[2018-07-31 23:39] VITALS: BP 116/70; PULSE 67; RESP 16; O2SAT 97
[2018-08-01] VITALS (16 sets, daily range): BP systolic 104–137; BP diastolic 60–81; PULSE 66–72; RESP 16–20; TEMP 35.9–38.1; O2SAT 96–99
[2018-08-01] MEDS: POTASSIUM CHLORIDE 20 MEQ/100 ML BAG 50 MEQ IVPB (00:16)
--- NOTE | 2018-08-01 00:46 | W.SURGCON ---
Date of service: 07/31/18 Time of Service: 23:46 Assessment and Plan (1) Abdominal pain: Current visit: Yes Status: Acute The pt's vital signs have been stable. No tachycardia, or fever. Laboratory work-up demonstrates normal white count, no left shift or bandemia. Electrolytes demonstrate potassium is 2.9, normal magnesium, calcium that is low at 8.0, and benign urinalysis. Repeat CT imaging demonstrates slight increase in small bowel thickening. Vessels appear normal and demonstrate no signs of significant stenosis. However, radiology stated there is concern for bowel irritation versus ischemia. I evaluated the full clinical picture and reviewed the imaging myself. Though the physical exam may have been masked by the recent administration of opiates, I do not believe that the clinical picture reflects an ischemic picture. I believe that dehydration and significant electrolyte derangements from diarrhea are contributing to this patient's presentation. I recommend admission to the hospitalist service for resuscitation with IV fluids, and electrolyte replacements, repeat labs, and avoidance of opiates. If her pain has subsided, she may undergo a PO challenge and possible d/c home later in the day. These recommendations were discussed with Dr. Moran of the ED, and explained to the patient and her family at the bedside. History of Present Illness Chief Complaint: abdominal pain Narrative: 48yo healthy female presents with progressive abdominal pain. She had several episodes of loose diarrhea starting on 07/28 and into 07/29. She states that she previously felt fine on 07/27. She denies any fever/chills, nausea/vomiting, and anorexia. She has had an appetite and has been eating throughout. However, she initially presented to the ED on 07/30 due to increasing abdominal discomfort. She was evaluated at that time annd was found to have a clinical exam and CT scan consistent with enteritis. However, she continued to have sharp mid-abdominal pain today, and re-presented to the ED. She has been able to tolerate PO intake, and had one bowel movement. She denies any personal or family history of afib, IBD, or IBS. She has never had similar symptoms in the past. 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 No sick contacts, nor has her family been sick, and they consume the same meals. She does relate that she has noticed a minimally productive cough in the mornings and evenings over the last two months, but denies any reflux, heartburn, or dysphagia. Review of Systems Constitutional Denies anorexia, Denies chills, Denies fever(s), Denies headache(s), Denies lethargy and Denies poor appetite Eyes Reports system reviewed and no additional complaints, except as docu ENT Reports system reviewed and no additional complaints, except as docu, Denies dysphagia, Denies headache(s), Denies odynophagia, Denies post nasal drip and Denies sore throat Cardiovascular Denies chest pain and Denies irregular heart rhythm Respiratory Reports cough and Denies excessive phlegm production Gastrointestinal Reports abdominal pain, Denies melena, Denies dysphagia, Reports diarrhea and Denies odynophagia Genitourinary Denies dysuria Musculoskeletal Reports system reviewed and no additional complaints, except as docu Neurologic Reports system reviewed and no additional complaints, except as docu and Denies headache(s) Endocrine Reports system reviewed and no additional complaints, except as docu [facility] Social History Smoking/Tobacco Use Status: Never Alcohol Intake: never Drug use: Never 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 Do you feel safe at home: Yes Do you feel safe in your relationship?: Yes Female Reproductive History Menstrual control method: none Exam Narrative Exam Narrative: Of note, the pt recive Morphine 4mg just prior to my evaluation Const General: cooperative, no acute distress and well developed HENMT Head: normocephalic and atraumatic Neck Neck: trachea midline and supple Chest Chest: no crepitus Resp Effort & Inspection: normal respiratory effort and no respiratory distress Auscultation: clear to auscultation bilaterally Cardio Rhythm: regular rhythm Heart Sounds: S1 normal and S2 normal GI Inspection: no abdominal wall ecchymosis and no edema Palpation: soft, not firm, not rigid and nontender Percussion: normal to percussion Auscultation: normal bowel sounds Back/Spine/Pelvis Back: no CVA tenderness Neuro General: alert, awake and oriented x3 Cognition: normal cognition Speech: speech normal Psych Appearance: grossly normal Speech and Movement: speech and movement normal Mood: congruent mood Affect: normal affect Attitude: cooperative Results Last Vital Signs Temp 98.1 F 07/31/18 18:35 Pulse 67 08/01/18 00:29 Resp 16 08/01/18 00:29 BP 116/70 08/01/18 00:29 Pulse Ox 97 08/01/18 00:29 Labs : 08/01/18 08:50 08/01/18 08:50 Laboratory Results - last 24 hr 07/31/18 07/31/18 07/31/18 18:45 18:45 18:45 WBC 9.54 D RBC 5.22 H Hgb 15.5 Hct 44.7 MCV 85.6 MCH 29.7 MCHC 34.7 RDW 13.8 Plt Count 248 MPV 9.6 Immature Gran % 0.2 Neutrophils % 68.6 Lymphocytes % 21.0 Monocytes % 8.1 Eosinophils % 1.8 Basophils % 0.3 Absolute Neutrophils 6.54 Absolute Lymphocytes 2.00 Absolute Monocytes 0.77 H Absolute Eosinophils 0.17 Absolute Basophils 0.03 Sodium 139 Potassium 2.9 L* Chloride 102 Carbon Dioxide 26.6 Anion Gap 10.4 BUN 12 Creatinine 0.51 L Estimated GFR/1.73 m2 >= 60.00 Glucose 116 H Lactate Calcium 8.0 L Magnesium 2.2 Total Bilirubin 0.6 AST 12 L ALT 22 Alkaline Phosphatase 55 Total Protein 6.7 Albumin 3.1 L Urine Color Urine Clarity Urine pH Ur Specific Eckert Urine Protein Urine Ketones Urine Blood Urine Nitrite Urine Bilirubin Urine Urobilinogen Ur Leukocyte Esterase Urine Glucose 07/31/18 07/31/18 20:08 22:05 WBC RBC Hgb Hct MCV MCH MCHC RDW Plt Count MPV Immature Gran % Neutrophils % Lymphocytes % Monocytes % Eosinophils % Basophils % Absolute Neutrophils Absolute Lymphocytes Absolute Monocytes Absolute Eosinophils Absolute Basophils Sodium Potassium Chloride Carbon Dioxide Anion Gap BUN Creatinine Estimated GFR/1.73 m2 Glucose Lactate 0.7 Calcium Magnesium Total Bilirubin AST ALT Alkaline Phosphatase Total Protein Albumin Urine Color Yellow Urine Clarity Clear Urine pH 7.0 Ur Specific Eckert 1.015 Urine Protein Negative Urine Ketones Trace H Urine Blood Negative Urine Nitrite Negative Urine Bilirubin Negative Urine Urobilinogen 0.2 Ur Leukocyte Esterase Negative Urine Glucose Negative
--- NOTE | 2018-08-01 00:54 | SCONE_ITS ---
Date of service: 07/31/18 Time of Service: 23:46 Assessment and Plan (1) Abdominal pain: Current visit: Yes Status: Acute The pt's vital signs have been stable. No tachycardia, or fever. Laboratory work-up demonstrates normal white count, no left shift or bandemia. Electrolytes demonstrate potassium is 2.9, normal magnesium, calcium that is low at 8.0, and benign urinalysis. Repeat CT imaging demonstrates slight increase in small bowel thickening. Vessels appear normal and demonstrate no signs of sig nificant stenosis. However, radiology stated there is concern for bowel irritation versus ischemia. I evaluated the full clinical picture and reviewed the imaging myself. Though the physical exam may have been masked by the recent administration of opiates, I do not believe that the clinical picture reflects an ischemic picture. I believe that dehydration and significant electrolyte derangements from diarrhea are contributing to this patient's presentation. I recommend admission to the hospitalist service for resuscitation with IV fluids, and electrolyte replacements, repeat labs, and avoidance of opiates. If her pain has subsided, she may undergo a PO challenge and possible d/c home later in the day. These recommendations were discussed with Dr. Moran of the ED, and explained to the patient and her family at the bedside. History of Present Illness Chief Complaint: abdominal pain Narrative: 48yo healthy female presents with progressive abdominal pain. She had several episodes of loose diarrhea starting on 07/28 and into 07/29. She states that she previously felt fine on 07/27. She denies any fever/chills, nausea/vomiting, and anorexia. She has had an appetite and has been eating throughout. However, she initially presented to the ED on 07/30 due to increasing abdominal discomfort. She was evaluated at that time annd was found to have a clinical exam and CT scan consistent with enteritis. However, she continued to have sharp mid-abdominal pain today, and re-presented to the ED. She has been able to tolerate PO intake, and had one bowel movement. She denies any personal or family history of afib, IBD, or IBS. She has never had similar symptoms in the past. 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 No sick contacts, nor has her family been sick, and they consume the same meals. She does relate that she has noticed a minimally productive cough in the mornings and evenings over the last two months, but denies any reflux, heartburn, or dysphagia. Review of Systems Constitutional Denies anorexia, Denies chills, Denies fever(s), Denies headache(s), Denies lethargy and Denies poor appetite Eyes Reports system reviewed and no additional complaints, except as docu ENT Reports system reviewed and no additional complaints, except as docu, Denies dysphagia, Denies headache(s), Denies odynophagia, Denies post nasal drip and Denies sore throat Cardiovascular Denies chest pain and Denies irregular heart rhythm Respiratory Reports cough and Denies excessive phlegm production Gastrointestinal Reports abdominal pain, Denies melena, Denies dysphagia, Reports diarrhea and Denies odynophagia Genitourinary Denies dysuria Musculoskeletal Reports system reviewed and no additional complaints, except as docu Neurologic Reports system reviewed and no additional complaints, except as docu and Denies headache(s) Endocrine Reports system reviewed and no additional complaints, except as docu [facility] Social History Smoking/Tobacco Use Status: Never Alcohol Intake: never Drug use: Never 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 Do you feel safe at home: Yes Do you feel safe in your relationship?: Yes Female Reproductive History Menstrual control method: none Exam Narrative Exam Narrative: Of note, the pt recive Morphine 4mg just prior to my evaluation Const General: cooperative, no acute distress and well developed HENMT Head: normocephalic and atraumatic Neck Neck: trachea midline and supple Chest Chest: no crepitus Resp Effort & Inspection: normal respiratory effort and no respiratory distress Auscultation: clear to auscultation bilaterally Cardio Rhythm: regular rhythm Heart Sounds: S1 normal and S2 normal GI Inspection: no abdominal wall ecchymosis and no edema Palpation: soft, not firm, not rigid and nontender Percussion: normal to percussion Auscultation: normal bowel sounds Back/Spine/Pelvis Back: no CVA tenderness Neuro General: alert, awake and oriented x3 Cognition: normal cognition Speech: speech normal Psych Appearance: grossly normal Speech and Movement: speech and movement normal Mood: congruent mood Affect: normal affect Attitude: cooperative Results Last Vital Signs Temp 98.1 F 07/31/18 18:35 Pulse 67 08/01/18 00:29 Resp 16 08/01/18 00:29 BP 116/70 08/01/18 00:29 Pulse Ox 97 08/01/18 00:29 Labs : 08/01/18 08:50 08/01/18 08:50 Laboratory Results - last 24 hr 07/31/18 07/31/18 07/31/18 18:45 18:45 18:45 WBC 9.54 D RBC 5.22 H Hgb 15.5 Hct 44.7 MCV 85.6 MCH 29.7 MCHC 34.7 RDW 13.8 Plt Count 248 MPV 9.6 Immature Gran % 0.2 Neutrophils % 68.6 Lymphocytes % 21.0 Monocytes % 8.1 Eosinophils % 1.8 Basophils % 0.3 Absolute Neutrophils 6.54 Absolute Lymphocytes 2.00 Absolute Monocytes 0.77 H Absolute Eosinophils 0.17 Absolute Basophils 0.03 Sodium 139 Potassium 2.9 L* Chloride 102 Carbon Dioxide 26.6 Anion Gap 10.4 BUN 12 Creatinine 0.51 L Estimated GFR/1.73 m2 >= 60.00 Glucose 116 H Lactate Calcium 8.0 L Magnesium 2.2 Total Bilirubin 0.6 AST 12 L ALT 22 Alkaline Phosphatase 55 Total Protein 6.7 Albumin 3.1 L Urine Color Urine Clarity Urine pH Ur Specific [place] Urine Protein Urine Ketones Urine Blood Urine Nitrite Urine Bilirubin Urine Urobilinogen Ur Leukocyte Esterase Urine Glucose 07/31/18 07/31/18 20:08 22:05 WBC RBC Hgb Hct MCV MCH MCHC RDW Plt Count MPV Immature Gran % Neutrophils % Lymphocytes % Monocytes % Eosinophils % Basophils % Absolute Neutrophils Absolute Lymphocytes Absolute Monocytes Absolute Eosinophils Absolute Basophils Sodium Potassium Chloride Carbon Dioxide Anion Gap BUN Creatinine Estimated GFR/1.73 m2 Glucose Lactate 0.7 Calcium Magnesium Total Bilirubin AST ALT Alkaline Phosphatase Total Protein Albumin Urine Color Yellow Urine Clarity Clear Urine pH 7.0 Ur Specific [place] 1.015 Urine Protein Negative Urine Ketones Trace H Urine Blood Negative Urine Nitrite Negative Urine Bilirubin Negative Urine Urobilinogen 0.2 Ur Leukocyte Esterase Negative Urine Glucose Negative
[2018-08-01] MEDS: MAGNESIUM SULFATE 1 GM/100 ML BAG IVPB (02:03)
--- NOTE | 2018-08-01 02:09 | NUR.NOTE ---
Patient was admitted to the Med/Surg unit this morning with History of diarrhoea and abdominal pain starting 3-4 days ago. Was seen the ER prior to tonight medicated and sent home but condition returned yesterday and worsened, subsequently came returned to the ER last evening for re-assessment and then admitted. Patient voiced no pain but state she is thirsty due to the fact she was not allowed to have anything by mouth while being treated. She was placed in bed, head to toe assessment done.
--- NOTE | 2018-08-01 02:38 | W.PM.HP.N ---
Date of service: 08/01/18 Time of Service: 02:38 Assessment and Plan (1) Enteritis: Current visit: Yes Status: Acute will check stool for lactoferrin, stool pathogens, viral enteritis; treat empirically w/ iv fluid hydration, replace electrolytes and give anti-emetics prn. avoid narcotic analgesics as this will only slow her parastalsis and cause retention of any enteric pathogens and possibly lead to ileus. serial abdominal exams observe for any peritoneal signs that would suggest an acute surgical abdomen. Surgical consult was obtained by Dr. Moran and Dr. Graves evaluated the patient in the ER. I will repeat her labs in the a.m. including repeat BMP and CBC w/ diff. I will also try her on clear liquids and if tolerating then she can be advanced to regular diet tomorrow. Of note, she indicated that she has been able to drink and eat throughout the course of her illness w/out vomiting and eating did not seem to make her pain any worse. (2) Abdominal pain: Current visit: Yes Status: Acute serial assessments and repeat labs in the a.m. surgical consultation appreciated. will give Tylenol only for abdominal cramping but no narcotics. History of Present Illness Chief Complaint: abdominal pain Narrative: 48-year-old female who presents to the emergency department for her second visit in the last 2 days. She was initially seen in the emergency room on July 30, 2018 for complaints of diffuse abdominal pain associated with diarrhea. Onset of her diarrhea was July 28 and continued through July 29 which she had 8-10 watery stools associated with crampy abdominal pain but no associated fever or chills. She still had some loose but semi-formed stools on Saturday, July 29 and but presented to the emergency department because of the abdominal pain. She was evaluated in the emergency room by RICH Burden. Thorough work-up included laboratory studies and a CT scan of the abdomen and pelvis. CT the abdomen pelvis showed segmental submucosal thickening of a loop of small bowel anteriorly with trace amount of fluid in the mesentery and focal thickening and enhancement of the gallbladder wall the was read by the radiologist and suggested of adenomyomatosis. She also had 3 small 1 to 2 mm nonobstructing renal calculi of her left lower kidney pole. She has a known history of nephrolithiasis. Her symptoms improved after IV fluids and a GI cocktail. Her laboratory studies were all unremarkable including a CBC, CMP, lipase, troponin level. She is since returned to the emergency department because of continued abdominal pain although the diarrhea has subsided. She has had no vomiting. She was reevaluated by Dr. Francesco Moran who performed a CTA of her abdomen pelvis to rule out ischemic colitis. No abnormalities were detected of the intestinal arteries or veins but there was some thickening of a loop of small bowel in the mid jejunum that showed decreased enhancement suggestive but not diagnostic for ischemia. The patient had no extraluminal air and no pneumatosis. She has a small amount of fluid in the cul-de-sac. Surgical consultation was obtained with Dr. Graves who feels that the patient is suffering from an enteritis and does not feel that the CT represents mesenteric ischemia. She recommended IV fluid hydration and correction of her electrolyte abnormalities which included a low calcium of 8.0 and a low potassium at 2.9. Her CBC again shows no leukocytosis. Her urinalysis is unremarkable except for trace of ketones. Patient states that she has not had a recent foreign travel in her family including her and children eat all the same foods as she does and none of them have been ill. Patient works in a [employer] and is done so for the last 23 years. She denies any new chemical exposures. She has noted a nonproductive cough over the last couple months its worse at night and worse in the morning. Is been no associated fever chills or sputum production. Chest x-ray was performed couple days ago when she was in the emergency room and showed no acute abnormalities. Patient is now admitted for IV fluid hydration and antiemetics and serial abdominal examinations. Working diagnosis is viral enteritis. Review of Systems Review of Systems All systems reviewed & are unremarkable except as noted in HPI and below Constitutional Denies anorexia, Denies chills, Denies fever(s) and Denies poor appetite Eyes Reports system reviewed and no additional complaints, except as docu ENT Reports system reviewed and no additional complaints, except as docu Cardiovascular Reports system reviewed and no additional complaints, except as docu and Denies dyspnea Respiratory Denies change in phlegm color, Denies chest congestion, Reports cough, Denies excessive phlegm production and Denies dyspnea Gastrointestinal Reports abdominal pain, Reports cramping, Reports diarrhea and Reports loose stools Genitourinary Reports system reviewed and no additional complaints, except as docu Musculoskeletal Reports system reviewed and no additional complaints, except as [facility] Integumentary/Breasts Reports system reviewed and no additional complaints, except as [facility] Neurologic Reports system reviewed and no additional complaints, except as [facility] Endocrine Reports system reviewed and no additional complaints, except as [facility] Hematologic/Lymphatic Reports system reviewed and no additional complaints, except as [facility] Allergic/Immunologic Reports system reviewed and no additional complaints, except as [facility] Social History Smoking/Tobacco Use Status: Never Alcohol Intake: never Drug use: Never 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 Do you feel safe at home: Yes Do you feel safe in your relationship?: Yes Female Reproductive History Menstrual control method: none Meds Home Medications Medication Instructions Recorded Confirmed Type multivitamin 1 tab PO DAILY 07/30/18 07/31/18 History Allergies Allergy/AdvReac Type Severity Reaction Status Date / Time environmental Allergy Unknown Uncoded 07/31/18 18:38 Exam Const General: cooperative, no acute distress and well groomed Nutritional Appearance: average body habitus and well nourished Orientation: alert, awake and oriented x3 HENMT Head: normal to inspection, no palpable skull fracture, normocephalic and atraumatic Face and sinus: normal facial exam, sinuses nontender and face symmetric Mouth: oral mucosae normal, lip normal, tongue normal, oropharynx normal and moist mucous membranes Teeth and gingiva: dentition normal and gingiva normal Throat: posterior oropharynx normal and uvula midline Eyes General: appearance normal, both eyes and all related structures Visual Grigsby: normal visual grigsby by confrontation Alignment and Position: alignment normal Periorbital: periorbital findings normal Eyelids: eyelids normal Conjunctivae: conjunctivae normal Sclera: sclerae normal Cornea: corneas normal Pupils: PERRL, normal by confrontation and accommodation normal EOM: EOM intact bilaterally Neck Neck: normal visual inspection, full ROM, no lymphadenopathy, trachea midline and supple Thyroid: thyroid normal Carotids: normal carotid upstroke Lymphatic: no lymphadenopathy noted Chest Chest: normal inspection of the chest and normal palpation of entire chest wall Resp Effort & Inspection: normal respiratory effort and able to speak in complete sentences Auscultation: clear to auscultation bilaterally Percussion: percussion normal Cardio Jugular venous pressure: no JVD Palpation: normal PMI Rate: regular rate Rhythm: regular rhythm Heart Sounds: S1 normal, S2 normal, normal, physiologic split S2 and murmur systolic early, soft, I/ and at the apex Pulses: normal peripheral pulses GI Inspection: normal to inspection Palpation: soft, no hepatosplenomegaly and tender periumbilically; with no rebound tenderness Percussion: normal to percussion Auscultation: normal bowel sounds General: bimanual renal exam normal bilaterally, bladder normal to inspection, bladder normal to palpation and No CVA tenderness Bimanual Exam- Vagina & Uterus: bladder normal to palpation Back/Spine/Pelvis Back: no CVA tenderness Cervical Spine: normal cervical lordosis and cervical ROM normal Thoracic/Lumbar Spine: thoracic and lumbar spine normal to inspection and thoraco-lumbar ROM normal Skin General skin exam: no rashes or lesions noted, elasticity normal and turgor normal Lesions: no lesions Rashes: no rashes Trauma: no lacerations or abrasions Hair: normal Nails: normal Neuro General: alert, awake, oriented x3, moves all extremities and no focal motor deficits Cognition: normal cognition Speech: speech normal Motor: muscle tone normal throughout, strength 5/5 throughout, no pronator drift, no movement abnormalities noted and no fasciculations Sensory Exam: no sensory deficits noted Extrem General: normal to inspection, full ROM, normal capillary refill, no joint enlargement, no clubbing, cyanosis or edema and no calf tenderness bilaterally Psych Appearance: grossly normal Mental Status: mental status grossly normal Speech and Movement: speech and movement normal Mood: congruent mood Affect: normal affect Attitude: cooperative Thought Process: normal Thought Content: normal Insight: insight good Judgment: judgment good Results Imaging CT scan - pelvis: report reviewed (IMPRESSION: #1 although I cannot detect any abnormality of the main intestinal arteries or veins, there is a abnormally thickened loop of small bowel probably in the mid jejunum that shows decreased enhancement suggesting it may be ischemic. There is no extraluminal air or pneumatosis associated) Labs : 07/31/18 18:45 07/31/18 18:45 Laboratory Results - last 24 hr 07/31/18 07/31/18 07/31/18 18:45 18:45 18:45 WBC 9.54 D RBC 5.22 H Hgb 15.5 Hct 44.7 MCV 85.6 MCH 29.7 MCHC 34.7 RDW 13.8 Plt Count 248 MPV 9.6 Immature Gran % 0.2 Neutrophils % 68.6 Lymphocytes % 21.0 Monocytes % 8.1 Eosinophils % 1.8 Basophils % 0.3 Absolute Neutrophils 6.54 Absolute Lymphocytes 2.00 Absolute Monocytes 0.77 H Absolute Eosinophils 0.17 Absolute Basophils 0.03 Sodium 139 Potassium 2.9 L* Chloride 102 Carbon Dioxide 26.6 Anion Gap 10.4 BUN 12 Creatinine 0.51 L Estimated GFR/1.73 m2 >= 60.00 Glucose 116 H Lactate Calcium 8.0 L Magnesium 2.2 Total Bilirubin 0.6 AST 12 L ALT 22 Alkaline Phosphatase 55 Total Protein 6.7 Albumin 3.1 L Urine Color Urine Clarity Urine pH Ur Specific [place] Urine Protein Urine Ketones Urine Blood Urine Nitrite Urine Bilirubin Urine Urobilinogen Ur Leukocyte Esterase Urine Glucose 07/31/18 07/31/18 20:08 22:05 WBC RBC Hgb Hct MCV MCH MCHC RDW Plt Count MPV Immature Gran % Neutrophils % Lymphocytes % Monocytes % Eosinophils % Basophils % Absolute Neutrophils Absolute Lymphocytes Absolute Monocytes Absolute Eosinophils Absolute Basophils Sodium Potassium Chloride Carbon Dioxide Anion Gap BUN Creatinine Estimated GFR/1.73 m2 Glucose Lactate 0.7 Calcium Magnesium Total Bilirubin AST ALT Alkaline Phosphatase Total Protein Albumin Urine Color Yellow Urine Clarity Clear Urine pH 7.0 Ur Specific [place] 1.015 Urine Protein Negative Urine Ketones Trace H Urine Blood Negative Urine Nitrite Negative Urine Bilirubin Negative Urine Urobilinogen 0.2 Ur Leukocyte Esterase Negative Urine Glucose Negative Last Vital Signs Temp 36.7 C 08/01/18 01:33 Pulse 70 08/01/18 01:33 Resp 18 08/01/18 01:33 BP 108/60 08/01/18 01:33 Pulse Ox 97 08/01/18 01:33
[2018-08-01] MEDS: POTASSIUM CHLORIDE/0.9% NACL 1,000 ML 150 MEQ IV ×2 (03:24→11:01)
[2018-08-01] MEDS: Enoxaparin 40 MG/0.4 ML SYR SC (05:52)
[2018-08-01 08:58] LABS: Abs Immature Grans 0.01 k/cumm (0.0-0.09); Absolute Basophil Count 0.03 k/cumm (0.0-0.2); Absolute Eosinophil Count 0.13 k/cumm (0.0-0.7); Absolute Lymphocyte Count 1.86 k/cumm (1.2-3.4); Absolute Monocyte Count 0.69 k/cumm (0.11-0.7); Basophils % 0.4; Eosinophils % 1.8; HCT 40.3 % (36.0-46.0); HGB 13.7 g/dL (12.0-15.5); Immature Grans % 0.1; Lymphocytes % 25.8; Mean Corpuscular Hemoglobin 29.5 pg (27.0-33.0); Mean Corpuscular Volume 86.7 fL (80-95); Mean Platelet Volume 9.7 fL (8.0-11.0); Monocytes % 9.6; Neutrophils % 62.3; Platelet Count 231 x1000/uL (130-400); RBC 4.65 m/cumm (4.00-5.20); White Blood Cell Count 7.22 k/cumm (4.4-10.8)
[2018-08-01 09:09] LABS: BUN 9 mg/dL (7-18); C-Reactive Protein 4.24 mg/dL (0.0-0.3); CREATININE 0.42 mg/dL (0.55-1.02); Calcium 7.3 mg/dL (8.5-10.1); Chloride 108 mmol/L (98-107); Glucose 137 mg/dL (70-100); Magnesium 2.2 mg/dL (1.8-2.4); Potassium 3.2 mmol/L (3.5-5.1); Sodium 140 mmol/L (136-145)
--- NOTE | 2018-08-01 10:25 | PDOC.CMIN ---
- If Service Date Differs Date of service: 08/01/18 Time of Service: 10:25 Care Management Initial Assess REASON FOR HOSPITALIZATION:: Abdominal pain, gastroenteritits PAST MEDICAL HISTORY/PAST SURGICAL HISTORY:: Kidney stones, renal cyst, UTI's. PREVIOUS FUNCTIONAL STATUS/SOCIAL/FAMILY SUPPORTS:: Vicenta is a 48 year old female who lives with her spouse and four children. 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 shares that she has lived in [place] for 15 years, has been in the [facility] for 23 years. Pt is originally from [place]. Pt identifies herself as independent, drives her own vehicle manages her own needs. CURRENT FUNCTIONAL STATUS:: Vicenta is lying in bed she is alert. She states she has no more nausea and no pain. She is hopeful to be discharged home today. Anticipate she will need antibioitcs for colitis. She states she will not need any other services and will return home with her spouse. ADVANCE DIRECTIVES:: None on file Has patient been provided with information about the portal?: Yes Did the patient sign up for the portal?: No CODE STATUS:: Full Code INSURANCE COVERAGE / FINANCIAL ISSUES:: Medicaid CURRENT HOME/COMMUNITY SERVICES/EQUIPMENT:: No current services at this time. PRIMARY CARE PHYSICIAN:: POTENTIAL DISCHARGE NEEDS:: Follow up with primary as directed. PATIENT/FAMILY EDUCATION NEEDS:: Discharge education, limitations and follow up plan including ask me three and self management. ANTICIPATED BARRIERS TO DISCHARGE:: None identified. TRANSPORTATION:: Via private car with family at time of discharge. PLAN:: Vicenta is being rehydrated with IV fluids, she will have repeat labs and maybe discharge home today. She remains observation status. She will need to follow up with primary care as outpatient. CM to continue to provide support discharge planning.
[2018-08-01 10:29] LABS: ESR 17 MM/HR (0-20)
--- NOTE | 2018-08-01 10:41 | PHARADMIT ---
Admission Pharmacy Clinical Review ABDOMINAL PAIN, GASTROENTERITIS Code Status Full Code Current Weight Wgt-49.1 kg Renally Cleared and Narrow Therapeutic Index Meds CrCl~ 61.1 mL/min Meds-OK QTc Value / Action Taken QTc-417 na BP Control, Fever BP-114/73 Tmax- 38.1C Electrolytes reviewed Na- 140 K+3.2 Mag-2.2 DVT Prophylaxis Lovenox Opiate Usage / Scheduled Bowel Regimen Ordered No no Plt/SCr for Heparin / Enoxaparin Plts-231 SCr-0.42 INR for Warfarin NA H/H stable, WBC/Bands H&H- 13.7/40.3 WBC- 7.22 Antibiotic appropriateness none Cultures and Sensitivities Pukkt-Yzagdrjngxf-Ekeernd Surgical ABX d/c within 24 hr na DM control / Insulin Dosing BG-137 Heart Failure (Check EF%) (ANU's, B-Block, Diuretics) none IV to PO Switch No Home Meds Reviewed Yes Home Meds Not Ordered M-Adelia Comments
--- NOTE | 2018-08-01 10:59 | INITIAL_ITS ---
- If Service Date Differs Date of service: 08/01/18 Time of Service: 10:25 Care Management Initial Assess REASON FOR HOSPITALIZATION:: Abdominal pain, gastroenteritits PAST MEDICAL HISTORY/PAST SURGICAL HISTORY:: Kidney stones, renal cyst, UTI's. PREVIOUS FUNCTIONAL STATUS/SOCIAL/FAMILY SUPPORTS:: Vicenta is a 48 year old female who lives with her spouse and four children. 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 shares that she has lived in [place] for 15 years, has been in the [facility] for 23 years. Pt is originally from [place]. Pt identifies herself as independent, drives her own vehicle manages her own needs. CURRENT FUNCTIONAL STATUS:: Vicenta is lying in bed she is alert. She states she has no more nausea and no pain. She is hopeful to be discharged home today. Anticipate she will need antibioitcs for colitis. She states she will not need any other services and will return home with her spouse. ADVANCE DIRECTIVES:: None on file Has patient been provided with information about the portal?: Yes Did the patient sign up for the portal?: No CODE STATUS:: Full Code INSURANCE COVERAGE / FINANCIAL ISSUES:: Medicaid CURRENT HOME/COMMUNITY SERVICES/EQUIPMENT:: No current services at this time. PRIMARY CARE PHYSICIAN:: POTENTIAL DISCHARGE NEEDS:: Follow up with primary as directed. PATIENT/FAMILY EDUCATION NEEDS:: Discharge education, limitations and follow up plan including ask me three and self management. ANTICIPATED BARRIERS TO DISCHARGE:: None identified. TRANSPORTATION:: Via private car with family at time of discharge. PLAN:: Vicenta is being rehydrated with IV fluids, she will have repeat labs and maybe discharge home today. She remains observation status. She will need to follow up with primary care as outpatient. CM to continue to provide support discharge planning.
[2018-08-01] MEDS: POTASSIUM CHLORIDE 20 MEQ, POTASSIUM CHLORIDE 10 MEQ 30 MEQ PO (11:55)
--- NOTE | 2018-08-01 13:24 | PGE_ITS ---
Date of Service Date of service: 08/01/18 Time of Service: 13:13 Assessment and Plan (1) Abdominal pain: Start date: 07/30/18 Current visit: Yes Status: Acute Improving. Pt's last dose of opiates was greater than 12 hours ago in the ED, and she is without pain at this time. (2) Enteritis: Current visit: Yes Status: Acute Continue IV fluids and electrolyte replacement May advance diet May consider d/c home this evening if pt tolerates PO challenge without pain d/w Dr. Henley Subjective Patient reports: feels better, tolerating liquids well, no bowel movement and afebrile; denies nausea Exam Const General: cooperative, healthy appearing, comfortable, no acute distress and well developed Nutritional Appearance: average body habitus and well nourished Orientation: alert, awake and oriented x3 HENMT Head: normal to inspection and normocephalic Neck Neck: normal visual inspection and supple Resp Effort & Inspection: normal respiratory effort and able to speak in complete sentences GI Inspection: normal to inspection and non-distended Palpation: soft, not firm, no guarding and tender (very minimal periumbilical tenderness to deep palpation) Neuro General: alert, awake and oriented x3 Cranial Nerves: no nystagmus Cognition: normal cognition Speech: speech normal Psych Appearance: grossly normal Speech and Movement: speech and movement normal Affect: normal affect Attitude: cooperative Objective Objective Clinical Data: Abnormal lab results 07/31/18 07/31/18 07/31/18 Range/Units 18:45 18:45 20:08 RBC 5.22 H (4.00-5.20) m/cumm Absolute Monocytes 0.77 H (0.11-0.7) k/cumm Potassium 2.9 L* (3.5-5.1) mmol/L Chloride (98-107) mmol/L Creatinine 0.51 L (0.55-1.02) mg/dL Glucose 116 H (70-100) mg/dL Calcium 8.0 L (8.5-10.1) mg/dL AST 12 L (15-37) U/L C-Reactive Protein (0.0-0.3) mg/dL Albumin 3.1 L (3.4-5.0) g/dL Urine Ketones Trace H (Negative) mg/dL 05/10/19 Range/Units 08:50 RBC (4.00-5.20) m/cumm Absolute Monocytes (0.11-0.7) k/cumm Potassium 3.2 L (3.5-5.1) mmol/L Chloride 108 H (98-107) mmol/L Creatinine 0.42 L (0.55-1.02) mg/dL Glucose 137 H (70-100) mg/dL Calcium 7.3 L (8.5-10.1) mg/dL AST (15-37) U/L C-Reactive Protein 4.24 H (0.0-0.3) mg/dL Albumin (3.4-5.0) g/dL Urine Ketones (Negative) mg/dL Vital Signs Temperature 99.3 F 08/01/18 11:15 Temperature Source Tympanic 08/01/18 11:15 Pulse 67 08/01/18 11:15 Pulse Rhythm Regular 08/01/18 09:30 Respiratory Rate 18 08/01/18 11:15 Respiratory Effort Non-Labored 08/01/18 09:30 Respiratory Depth Normal 08/01/18 09:30 Respiratory Pattern Normal 08/01/18 09:30 Blood Pressure 137/81 08/01/18 11:15 Pulse Oximetry 98 08/01/18 11:15 Oxygen Delivery Method Room Air 08/01/18 11:15 Oxygen Flow Rate 0 08/01/18 11:15 Pain Level 2 08/01/18 01:20 Intake & Output 07/31/18 08/01/18 08/01/18 23:59 11:59 23:59 Intake Total 1000 / 1000 1500 / 1500 Balance 1000 / 1000 1500 / 1500 Weight 106 lb 0.007 oz 108 lb 3.951 oz Intake: IV 1000 / 1000 1260 / 1260 Oral 240 / 240 Other: Urine Appearance Clear Laboratory Results WBC 7.22 k/cumm (4.4-10.8) 08/01/18 08:50 RBC 4.65 m/cumm (4.00-5.20) 08/01/18 08:50 Hgb 13.7 g/dL (12.0-15.5) 08/01/18 08:50 Hct 40.3 % (36.0-46.0) 08/01/18 08:50 MCV 86.7 fL (80-95) 08/01/18 08:50 MCH 29.5 pg (27.0-33.0) 08/01/18 08:50 MCHC 34.0 g/dL (32.0-36.0) 08/01/18 08:50 RDW 14.0 % (11.7-14.6) 08/01/18 08:50 Plt Count 231 x1000/uL (130-400) 08/01/18 08:50 MPV 9.7 fL (8.0-11.0) 08/01/18 08:50 Immature Gran % 0.1 08/01/18 08:50 Neutrophils % 62.3 08/01/18 08:50 Lymphocytes % 25.8 08/01/18 08:50 Monocytes % 9.6 08/01/18 08:50 Eosinophils % 1.8 08/01/18 08:50 Basophils % 0.4 08/01/18 08:50 Absolute Neutrophils 4.50 k/cumm (1.2-6.7) 08/01/18 08:50 Absolute Lymphocytes 1.86 k/cumm (1.2-3.4) 08/01/18 08:50 Absolute Monocytes 0.69 k/cumm (0.11-0.7) 08/01/18 08:50 Absolute Eosinophils 0.13 k/cumm (0.0-0.7) 08/01/18 08:50 Absolute Basophils 0.03 k/cumm (0.0-0.2) 08/01/18 08:50 ESR 17 MM/HR (0-20) 08/01/18 08:50 Sodium 140 mmol/L (136-145) 08/01/18 08:50 Potassium 3.2 mmol/L (3.5-5.1) L 08/01/18 08:50 Chloride 108 mmol/L (98-107) H 08/01/18 08:50 Carbon Dioxide 25.0 mmol/L (21.0-32.0) 08/01/18 08:50 Anion Gap 7.0 mmol/L (3-11) 08/01/18 08:50 BUN 9 mg/dL (7-18) 08/01/18 08:50 Creatinine 0.42 mg/dL (0.55-1.02) L 08/01/18 08:50 Estimated GFR/1.73 m2 >= 60.00 (mL/min/1.73m2) 08/01/18 08:50 Glucose 137 mg/dL (70-100) H 08/01/18 08:50 Lactate 0.7 mmol/l (0.6-1.4) 07/31/18 22:05 Calcium 7.3 mg/dL (8.5-10.1) L 08/01/18 08:50 Magnesium 2.2 mg/dL (1.8-2.4) 08/01/18 08:50 Total Bilirubin 0.6 mg/dL (0.2-1.0) 07/31/18 18:45 AST 12 U/L (15-37) L 07/31/18 18:45 ALT 22 U/L (12-78) 07/31/18 18:45 Alkaline Phosphatase 55 U/L (46-116) 07/31/18 18:45 C-Reactive Protein 4.24 mg/dL (0.0-0.3) H 08/01/18 08:50 Total Protein 6.7 g/dL (6.4-8.2) 07/31/18 18:45 Albumin 3.1 g/dL (3.4-5.0) L 07/31/18 18:45 Urine Color Yellow (Yellow) 07/31/18 20:08 Urine Clarity Clear 07/31/18 20:08 Urine pH 7.0 (5-8) 07/31/18 20:08 Ur Specific [place] 1.015 (1.005-1.025) 07/31/18 20:08 Urine Protein Negative mg/dL (Negative) 07/31/18 20:08 Urine Ketones Trace mg/dL (Negative) H 07/31/18 20:08 Urine Blood Negative (Negative) 07/31/18 20:08 Urine Nitrite Negative (Negative) 07/31/18 20:08 Urine Bilirubin Negative (Negative) 07/31/18 20:08 Urine Urobilinogen 0.2 EU/dL (Up TO 0.2) 07/31/18 20:08 Ur Leukocyte Esterase Negative (Negative) 07/31/18 20:08 Urine Glucose Negative mg/dL (Negative) 07/31/18 20:08
[2018-08-01] MEDS: metroNIDAZOLE 500 MG TAB PO (14:42)
--- NOTE | 2018-08-01 17:36 | DSE_ITS ---
Date of service: 08/01/18 Time of Service: 17:22 DS: Diagnosis Discharge Diagnosis (1) Abdominal pain: Status: Acute (2) Enteritis: Status: Acute Discharge Plan Disposition Patient Disposition: HOME Condition: Improving Discharge Details Reason For Visit: ABDOMINAL PAIN, GASTROENTERITIS Admit Date/Time: 08/01/18 00:29 Admit Provider: Austen Andrade Attending Provider: Austen Andrade Primary Care Provider: Jenny Guerra [facility] Course Hospital Course: Vicenta Burns is a very pleasant 48-year-old female with a past medical history significant for kidney stones who presented to the emergency department last night for the second visit in 2 days. At the time of her presentation, she reported diffuse crampy abdominal pain with nausea. She reported that she was previously experiencing watery stools, 8 to 10/day, however she was no longer experiencing diarrhea at the time of her presentation yesterday. On her prior visit to the emergency department, she had a CT abdomen and pelvis which showed segmental submucosal thickening of a loop of small bowel anteriorly with trace amount of fluid in the mesentery and focal thickening and enhancement of the gallbladder wall the was read by the radiologist and suggested of adenomyomatosis. She also had 3 small 1 to 2 mm nonobstructing renal calculi of her left lower kidney pole. Her labs at that time were unremarkable. She was given IV fluids and a GI cocktail with resolution of her symptoms. When she returned back to the emergency department yesterday on 07/31/2018, she had a CTA abdomen pelvis to rule out ischemic colitis. The CTA showed Findings most consistent with enteritis. Doubt ischemic etiology of small bowel process although this is not absolutely excluded on the basis of this examination. Infectious or inflammatory etiologies are more likely. She was found to have hypokalemia with a potassium of 2.9, no leukocytosis. A surgical consult was placed, she was seen by Dr. Graves who recommended observation admission for IV fluid hydration and correction of her electrolyte abnormalities. [facility] and given IV fluids overnight. Today, she continued to have low potassium, she was given fluids containing potassium as well as oral potassium supplementation. She did not have hazel kocytosis. Her CRP was elevated. She continued to have mild LLQ abdominal pain and she had a mild fever. Her diet was advanced and she was able to tolerate regular foods without increased pain. Stool studies are pending. The patient is eager for discharge. Given the ongoing abdominal pain, currently day 5, with fever, she was started on Cipro and Flagyl due to concern for infectious enteritis. She will follow up with her PCP with in the next 2 weeks. She is advised to contact her PCP on Saturday to set up a follow up appointment. She should return to the ED if her symptoms worsen or persist. Home Meds and New Rx's Prescriptions: New metronidazole 500 mg Tablet 500 mg PO Q8H Qty: 21 RF: 0 ciprofloxacin HCl 500 mg Tablet 500 mg PO BID Qty: 14 RF: 0 Continued multivitamin Tablet 1 tab PO DAILY RF: 0 Discharge Instructions Instructions: Hypokalemia (DC), Infectious Colitis (GEN) Additional Instructions: You will need to take antibiotics for 7 days. Call you PCP on Saturday to set up a hospital follow up appointment. Advance your diet slowly. You will need to have blood work done on Saturday to recheck your potassium level. Take care! Stand Alone Forms: Nursing Discharge Form Referrals: Jenny Guerra MD [Primary Care Provider] - (Call Saturday to make follow up appointment. ) Activity:: Activity as Tolerated Equipment/Supplies:: No Equipment Needed Diet:: As Tolerated Discharge Orders Discharge Orders: Discharge Order (Routine); Ordered 08/01/18 Ordered By: Lesvia Bucio Other Ambulatory Orders: Basic Metabolic Panel (Routine) Timeframe: [id number] Location: Determined by Patient Ordered By: Lesvia Bucio Exam Narrative Exam Narrative: General: Laying in bed, alert and oriented, in no acute distress. HEENT: Normocephalic, atraumatic, pupils equal round, mucous membranes moist, EOMs intact. Neck: Supple, no JVD. Cardiovascular: Heart has regular rate and rhythm, no murmur appreciated. Respiratory: Respirations even and unlabored, lung sounds clear to auscultation throughout. GI: Normoactive bowel sounds, abdomen soft, no guarding, minimal tenderness on palpation of left lower quadrant. Extremities: Well perfused, no clubbing, cyanosis or edema. DS: Data Vitals/I&O Vitals and I&O: Vital Signs Temperature 38 C H 08/01/18 15:51 Temperature Source Tympanic 08/01/18 15:51 Pulse 69 08/01/18 15:51 Pulse Rhythm Regular 08/01/18 09:30 Respiratory Rate 17 08/01/18 15:51 Respiratory Effort Non-Labored 08/01/18 09:30 Respiratory Depth Normal 08/01/18 09:30 Respiratory Pattern Normal 08/01/18 09:30 Blood Pressure 109/67 08/01/18 15:51 Pulse Oximetry 99 08/01/18 15:51 Oxygen Delivery Method Room Air 08/01/18 15:51 Oxygen Flow Rate 0 08/01/18 15:51 Pain Level 2 08/01/18 01:20 Comment 08/01/18 15:51 Intake & Output 07/31/18 08/01/18 08/01/18 23:59 11:59 23:59 Intake Total 1000 / 1000 1500 / 1500 Output Total 1300 / 1300 Balance 1000 / 1000 1500 / 200 -1300 / 200 Weight 48.081 kg 49.1 kg Intake: IV 1000 / 1000 1260 / 1260 Oral 240 / 240 Output: Urine 1300 / 1300 Other: Urine Color Yellow Urine Appearance Clear Clear Urine Odor None Completed studies during hospitalization [Text1]: EXAM: CT Abdomen and Pelvis With Contrast EXAM DATE/TIME: 07/30/2018 7:28 PM CLINICAL HISTORY: 48 years old, female; Localized; Lower; Patient HX: Abdominal pain x2 days. TECHNIQUE: Imaging protocol: Axial computed tomography images of the abdomen and pelvis with intravenous contrast. Coronal and sagittal reformatted images were created and reviewed. Radiation optimization: All CT scans at this facility use at least one of these dose optimization techniques: automated exposure control; mA and/or kV adjustment per patient size (includes targeted exams where dose is matched to clinical indication); or iterative reconstruction. Contrast material: OMNIPAQUE 350; Contrast volume: 69 ml; Contrast route: IV; COMPARISON: CR RT HIP COMPLETE AP PELVIS 09/27/2016 8:38 AM FINDINGS: ABDOMEN: Liver: Normal. No mass. Gallbladder and bile ducts: There is focal thickening and enhancement of the gallbladder wall that may represent adenomyomatosis. Pancreas: Normal. No ductal dilation. Spleen: Normal. No splenomegaly. Adrenals: Normal. No mass. Kidneys and ureters: 3 small 1-2 mm nonobstructing left lower pole renal calculi. Several small bilateral subcentimeter hypodensities too small for accurate CT number determination. Stomach and bowel: There is segmental submucosal thickening of a loop of small bowel anteriorly a trace amount of fluid in the mesentery. Appendix: No evidence of appendicitis. PELVIS: Bladder: Unremarkable as visualized. Reproductive: Unremarkable as visualized. ABDOMEN and PELVIS: Intraperitoneal space: Normal. No free air. No significant fluid collection. Bones/joints: Degenerative changes of the lumbar spine without acute osseous abnormality. Soft tissues: Unremarkable. Vasculature: Atherosclerotic calcifications of the aorta and iliac arteries without evidence of aneurysm. Lymph nodes: Normal. No enlarged lymph nodes. IMPRESSION: 1. There is segmental submucosal thickening of a loop of small bowel anteriorly with a trace amount of fluid in the mesentery. Differential diagnosis would include infection, early changes of inflammatory bowel disease, or ischemia. Clinical correlation is required. 2. There is focal thickening and enhancement of the gallbladder wall that may represent adenomyomatosis. 3. 3 small 1-2 mm nonobstructing left lower pole renal calculi. PA AND LATERAL CHEST: The heart is normal in size. The lungs are clear. The mediastinal structures and pleura appear intact. CONCLUSION: Normal chest. ABDOMEN AND PELVIC CT: CT examination of the abdomen and pelvis was performed with a bolus infusion of 69 cc's of Omnipaque 350. Images obtained through the lung bases are unremarkable. Liver and spleen appear normal. Gallbladder has a questionably thickened wall. No biliary dilatation is seen. There are tiny non obstructing left renal calculi. Probable tiny bilateral renal cysts also noted. No evidence of hydronephrosis or ureterolithiasis. Abdominal aorta is of normal diameter and no major vascular abnormality is seen. No abdominal wall hernia is seen. No significant abdominal or pelvic adenopathy. SHOE PULLER structures appear intact. Appendix is normal. There are multiple loops of thick walled small bowel in the mid abdomen including a loop in the mid abdomen with a markedly thickened wall with associated mesenteric edema. The findings are nonspecific but could be associated with enteritis. Inflammatory bowel disease not excluded. No evidence of obstruction. Question mild wall thickening of colon noted at a few sites as well. CONCLUSION: Findings raising the possibility of a predominantly small bowel enteritis. Other etiologies including inflammatory bowel disease not excluded. Appropriate follow up studies requested. Incidental non obstructing left renal calculi noted. 07/31/18: ABDOMINAL AND PELVIC CT ANGIOGRAM 07/31 CT angiography was performed with multi slice acquisition and multi planar and 3D reconstruction. CT angiography of the abdomen and pelvis was performed with a bolus infusion of 100 cc Omnipaque 350. Images obtained through the lung bases show a 4-5 mm in diameter right basilar intrapulmonary nodule, chest CT follow up suggested in 12 months. Liver, spleen and pancreas appear normal. Gallbladder is unremarkable in appearance. No biliary dilatation seen. Adrenals and kidneys appear normal. Abdominal wall is intact with no significant hernia. No abdominal or pelvic adenopathy. SHOE PULLER structures are unremarkable. Appendix appears normal. Note is made of marked wall thickening and apparent wall edema of portions of the duodenum and jejunum including an area of very marked wall thickening in what appears to be a jejunal loop at the level of the umbilicus. The findings are most consistent with enteritis. Abdominal aorta, celiac trunk, superior mesentery, renal arteries, inferior mesenteric artery, and major branches including SMA branches supplying the jejunum are within normal limits except for minimal atheromatous aortic calcification. Common internal and external iliac arteries appear normal. CONCLUSION: Findings most consistent with enteritis. Doubt ischemic etiology of small bowel process although this is not absolutely excluded on the basis of this examination. Infectious or inflammatory etiologies are more likely. Labs on day of discharge: Labs from last 24 hours 08/01/18 08/01/18 08/01/18 Unknown Unknown 08:50 WBC 7.22 RBC 4.65 Hgb 13.7 Hct 40.3 MCV 86.7 MCH 29.5 MCHC 34.0 RDW 14.0 Plt Count 231 MPV 9.7 Immature Gran % 0.1 Neutrophils % 62.3 Lymphocytes % 25.8 Monocytes % 9.6 Eosinophils % 1.8 Basophils % 0.4 Absolute Neutrophils 4.50 Absolute Lymphocytes 1.86 Absolute Monocytes 0.69 Absolute Eosinophils 0.13 Absolute Basophils 0.03 ESR 17 Sodium Potassium Chloride Carbon Dioxide Anion Gap BUN Creatinine Estimated GFR/1.73 m2 Glucose Lactate Calcium Magnesium Total Bilirubin AST ALT Alkaline Phosphatase C-Reactive Protein Total Protein Albumin Urine Color Urine Clarity Urine pH Ur Specific [place] Urine Protein Urine Ketones Urine Blood Urine Nitrite Urine Bilirubin Urine Urobilinogen Ur Leukocyte Esterase Urine Glucose Stool Rotavirus Antigen Pending Stool Campylobacter PCR Pending Stool Salmonella PCR Pending Stool Shigella PCR Pending Shiga Toxin (PCR) Pending 08/01/18 07/31/18 07/31/18 08:50 22:05 20:08 WBC RBC Hgb Hct MCV MCH MCHC RDW Plt Count MPV Immature Gran % Neutrophils % Lymphocytes % Monocytes % Eosinophils % Basophils % Absolute Neutrophils Absolute Lymphocytes Absolute Monocytes Absolute Eosinophils Absolute Basophils ESR Sodium 140 Potassium 3.2 L Chloride 108 H Carbon Dioxide 25.0 Anion Gap 7.0 BUN 9 Creatinine 0.42 L Estimated GFR/1.73 m2 >= 60.00 Glucose 137 H Lactate 0.7 Calcium 7.3 L Magnesium 2.2 Total Bilirubin AST ALT Alkaline Phosphatase C-Reactive Protein 4.24 H Total Protein Albumin Urine Color Yellow Urine Clarity Clear Urine pH 7.0 Ur Specific [place] 1.015 Urine Protein Negative Urine Ketones Trace H Urine Blood Negative Urine Nitrite Negative Urine Bilirubin Negative Urine Urobilinogen 0.2 Ur Leukocyte Esterase Negative Urine Glucose Negative Stool Rotavirus Antigen Stool Campylobacter PCR Stool Salmonella PCR Stool Shigella PCR Shiga Toxin (PCR) 07/31/18 07/31/18 07/31/18 18:45 18:45 18:45 WBC 9.54 D RBC 5.22 H Hgb 15.5 Hct 44.7 MCV 85.6 MCH 29.7 MCHC 34.7 RDW 13.8 Plt Count 248 MPV 9.6 Immature Gran % 0.2 Neutrophils % 68.6 Lymphocytes % 21.0 Monocytes % 8.1 Eosinophils % 1.8 Basophils % 0.3 Absolute Neutrophils 6.54 Absolute Lymphocytes 2.00 Absolute Monocytes 0.77 H Absolute Eosinophils 0.17 Absolute Basophils 0.03 ESR Sodium 139 Potassium 2.9 L* Chloride 102 Carbon Dioxide 26.6 Anion Gap 10.4 BUN 12 Creatinine 0.51 L Estimated GFR/1.73 m2 >= 60.00 Glucose 116 H Lactate Calcium 8.0 L Magnesium 2.2 Total Bilirubin 0.6 AST 12 L ALT 22 Alkaline Phosphatase 55 C-Reactive Protein Total Protein 6.7 Albumin 3.1 L Urine Color Urine Clarity Urine pH Ur Specific [place] Urine Protein Urine Ketones Urine Blood Urine Nitrite Urine Bilirubin Urine Urobilinogen Ur Leukocyte Esterase Urine Glucose Stool Rotavirus Antigen Stool Campylobacter PCR Stool Salmonella PCR Stool Shigella PCR Shiga Toxin (PCR) 08/01/18 02:47 Stool Lactoferrin Latex Agglutination - Pending Preliminary micro results at discharge 08/01/18 02:47 Lactoferrin Latex Agglutination - Pending Stool PFSH Medical History Kidney stones (Chronic) Social History Smoking/Tobacco Use Status: Never Alcohol Intake: never Drug use: Never 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
[2018-08-01] MEDS: Normal Saline Flush 10 ML SYR IVP (17:53)
== END 2018-08-01 18:35 | disposition home or self-care (01) ==
LOC: ER 08-01 00:47 → MS 08-01 01:29
PROVIDERS: Admitting Provider Internal Medicine; Emergency Provider Student in an Organized Health Care Education/Training Program; PCP Family Medicine; Visit Provider Internal Medicine
DX: A09 Infectious gastroenteritis and colitis, unspecified (principal); K52.9 Noninfective gastroenteritis and colitis, unspecified; R10.32 Left lower quadrant pain; E87.6 Hypokalemia; R79.82 Elevated C-reactive protein (CRP); R50.9 Fever, unspecified; E83.51 Hypocalcemia; Z87.442 Personal history of urinary calculi; Z23 Encounter for immunization
CPT/HCPCS: 36415; 80048; 80053; 85652; 96360; 96361; 99219; 99224; 99231; 99239; 99253; 99285; J1650; 74174; 81003; 83605; 83630; 83735; 85025; 86140; 99284; G0378; J0610; J3475; J3480; J3490

== ENCOUNTER 2018-08-04 08:04 | Outpatient (CLI) | payer MEDICAID, SELFPAY ==
[2018-08-04 09:35] LABS: Anion Gap 8.9 mmol/L (3-11); BUN 13 mg/dL (7-18); CO2 28.1 mmol/L (21.0-32.0); Calcium 8.6 mg/dL (8.5-10.1); Chloride 104 mmol/L (98-107); Glucose 101 mg/dL (70-100); Sodium 141 mmol/L (136-145)
== END 2018-08-04 08:24 ==
PROVIDERS: PCP Family Medicine; Visit Provider Nurse Practitioner
DX: E87.6 Hypokalemia (principal)
CPT/HCPCS: 36415; 80048

== ENCOUNTER 2018-08-21 10:41 | Outpatient (REF) | payer MEDICAID, SELFPAY ==
--- NOTE | 2018-08-21 08:30 | PAPFT_PTH ---
PATIENT: Vicenta Burns LOC: [facility] U#:[id number] AGE/SX: 48/F ROOM: RE08/21/[address]: Jenny Guerra : 1970 BED: DIS: 08/21/2018 SPEC #: [id number] RECD: 08/21/18 12:50 STATUS: AXEL RERaji #: [id number] GERARDO: 08/21/18 08:[address]: Jenny Guerra DEPT: [facility] Cytology RECD BY: Irma Lam Tissues: 1 - CX/ENDOCX FOR PAP SMEARS Procedures: PAP THIN PREP/UVM Screening HPV DNA PROBE Comments: [id number]
== END 2018-08-21 11:01 ==
LOC: NCHCN 10:41
PROVIDERS: PCP Family Medicine; Visit Provider Family Medicine
DX: Z12.4 Encounter for screening for malignant neoplasm of cervix (principal); Z11.51 Encounter for screening for human papillomavirus (HPV); Z00.00 Encounter for general adult medical examination without abnormal findings
CPT/HCPCS: 88142; 87624

== ENCOUNTER 2018-09-03 00:44 | Outpatient (CLI) | payer MEDICAID, SELFPAY ==
--- NOTE | 2018-09-03 08:15 | DI.MAMMO_ITS ---
SYMPTOM/DIAGNOSIS: SCREENING, Z12.31 MAMMOGRAMS: Mammograms were interpreted according to the usual protocol including computer analysis with CAD system, tomosynthesis and C view imaging. Comparison is with prior examinations. No suspicious masses or microcalcifications are seen. The well-circumscribed nodular density in the upper outer quadrant of the left breast appears stable. Skin and axillae are unremarkable. IMPRESSION: No evidence for malignancy. Yearly mammography is recommended. Category 2, breast density C. MQSA ASSESSMENT OF FINDINGS: Negative with benign findings. Category 2. Patient will receive a letter notifying them of these results. Bi-RADS category C. The breasts are heterogeneously dense, which may obscure small masses.
== END 2018-09-03 01:04 ==
PROVIDERS: PCP Family Medicine; Visit Provider Family Medicine
DX: Z12.31 Encounter for screening mammogram for malignant neoplasm of breast (principal)
CPT/HCPCS: 77063; 77067

== ENCOUNTER 2018-11-21 22:55 | Emergency (ER) | payer MEDICAID, SELFPAY ==
[2018-11-21 22:57] VITALS: BP 160/94; PULSE 64; RESP 16; TEMP 36.4; O2SAT 97
--- NOTE | 2018-11-21 23:04 | W.ED.GENAD ---
Discharge Plan Disposition Patient Disposition: HOME Discharge Details Chief Complaint: Urinary Clinical Impression: UTI (urinary tract infection) Primary Care Provider: Jenny Guerra ED Provider: Jacob Talamantes Home Meds and New Rx's Prescriptions: New sulfamethoxazole-trimethoprim [Bactrim DS] 800-160 mg tablet 1 tab PO Q12H 3 Days Qty: 6 RF: 0 phenazopyridine [Pyridium] 100 mg tablet 100 mg PO TID PRN (Reason: pain) Qty: 6 RF: 0 No Action Premarin 0.625 mg/gram cream 1 applic Vaginal HS Qty: 30 RF: 6 multivitamin Tablet 1 tab PO DAILY RF: 0 Discharge Instructions Instructions: Urinary Tract Infection in Women (ED) Additional Instructions: Your urine today is concerning for infection. We have started you on antibiotic to help combat your symptoms. We have also given you medication pyridium, that will reduce your pain will also turn your urine orange. You must return to the emergency department should you develop worsening symptoms including fever, severe back pain or vomiting. Referrals: Jenny Guerra MD [Primary Care Provider] - 1 week Medical Decision Making This is a nontoxic-appearing 48-year-old female presenting with symptoms concerning for urinary tract infection. Her urinalysis shows blood, positive leuks, greater than 50 RBCs and WBCs. Her vital signs are stable here. Her exam reveals no focal symptoms. She has no flank pain or CVA tenderness to suggest a stone. She is without fever here. We will start her on a course of antibiotics for her suspected urinary tract infection. We will follow-up with culture results HPI General Date/Time Provider Initiated Documentation: 11/21/18 22:56. HPI Narrative: Patient is a 48-year-old female with no significant past medical history who presents to the emergency department with roughly 8 hours of dysuria and urinary urgency. Denies any fevers or back pain. No nausea or vomiting. Related Data Home Medications Medication Instructions Recorded Confirmed multivitamin 1 tab PO DAILY 07/30/18 09/12/18 conjugated estrogens 0.625 mg/gram 1 applic VAGINAL HS #30 gm 09/12/18 09/12/18 vaginal cream phenazopyridine [Pyridium] 100 mg PO TID PRN #6 tab 11/21/18 sulfamethoxazole-trimethoprim 1 tab PO Q12H 3 Days #6 tab 11/21/18 [Bactrim DS] Previous Rx's Medication Instructions Recorded conjugated estrogens 0.625 mg/gram 1 applic VAGINAL HS #30 gm 09/12/18 vaginal cream phenazopyridine [Pyridium] 100 mg PO TID PRN #6 tab 11/21/18 sulfamethoxazole-trimethoprim 1 tab PO Q12H 3 Days #6 tab 11/21/18 [Bactrim DS] Allergies Allergy/AdvReac Type Severity Reaction Status Date / Time environmental Allergy Unknown Uncoded 09/12/18 08:08 General Stated Complaint: Urinary WILDER: 4 Review of Systems Constitutional Denies chills, Denies fatigue, Denies fever(s), Denies malaise, Denies night sweats and Denies weakness Genitourinary Denies hematuria, Reports urinary frequency, Reports difficulty voiding, Reports dysuria, Denies flank pain, Denies urinary incontinence, Reports urinary hesitancy and Reports urinary urgency Musculoskeletal Denies back pain, Denies myalgias, Denies joint swelling and Denies muscle cramps Neurologic Denies weakness Endocrine Denies fatigue PFS Medical History Kidney stones (Chronic) Social History Smoking/Tobacco Use Status: Never Alcohol Intake: never Drug use: Never 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 Do you feel safe at home: Yes Do you feel safe in your relationship?: Yes Female Reproductive History Menstrual control method: none Menopause type: natural (2016) Exam Const General: cooperative, healthy appearing, comfortable and no acute distress HENMT Head: normal to inspection Eyes General: appearance normal, both eyes and all related structures Chest Chest: normal inspection of the chest Resp Effort & Inspection: normal respiratory effort Auscultation: clear to auscultation bilaterally Cardio Rate: regular rate Rhythm: regular rhythm GI Inspection: normal to inspection Palpation: soft Back/Spine/Pelvis Back: no CVA tenderness Course Vital Signs Temperature 36.4 C L 11/21/18 22:57 Pulse 64 11/21/18 22:57 Respiratory Rate 16 11/21/18 22:57 Blood Pressure 160/94 H 11/21/18 22:57 Pulse Oximetry 97 11/21/18 22:57 Temperature 36.4 C L 11/21/18 22:57 Temperature Source Skin 11/21/18 22:57 Pulse 64 11/21/18 22:57 Respiratory Rate 16 11/21/18 22:57 Respiratory Effort Non-Labored 11/21/18 23:00 Blood Pressure 160/94 H 11/21/18 22:57 Blood Pressure Position Sitting 11/21/18 22:57 Pulse Oximetry 97 11/21/18 22:57 Oxygen Delivery Method Room Air 11/21/18 22:57 Oxygen Flow Rate 0 11/21/18 22:57
[2018-11-21 23:13] LABS: Bilirubin Negative (Negative); Blood Large (Negative); Glucose Negative (Negative); Ketones Negative (Negative); Leukocyte Esterase Large (Negative); Nitrite Negative (Negative); Urobilinogen 0.2 EU/dL (Up TO 0.2)
[2018-11-21 23:17] LABS: Clarity Sl Cloudy (Clear)
[2018-11-21 23:27] LABS: C & S Indicated? Yes; RBC >50 (0-2)
[2018-11-21 23:44] VITALS: BP 160/94; PULSE 64; RESP 16; TEMP 36.4; O2SAT 97
[2018-11-21] MEDS: Phenazopyridine 100 MG TAB PO (23:44)
[2018-11-21] MEDS: Sulfameth/Trimeth DS TAB 1 TAB PO (23:44)
== END 2018-11-21 23:43 | disposition home or self-care (01) ==
PROVIDERS: Emergency Provider Physician Assistant; PCP Family Medicine
DX: N39.0 Urinary tract infection, site not specified (principal); B96.20 Unspecified Escherichia coli [E. coli] as the cause of diseases classified elsewhere; Z87.442 Personal history of urinary calculi
CPT/HCPCS: 87077; 99283; 81003; 81015; 87086; 87186

== ENCOUNTER 2019-08-31 03:12 | Outpatient (CLI) | payer MEDICAID, SELFPAY ==
[2019-08-31 09:32] LABS: Hemoglobin A1C 5.4 % (3.8-5.6)
[2019-08-31 10:07] LABS: ALT 35 U/L (14-59); AST 22 U/L (15-37); Albumin 4.1 g/dL (3.4-5.0); Alkaline Phosphatase 52 U/L (46-116); Anion Gap 9.5 mmol/L (3-11); BUN 22 mg/dL (7-18); Bilirubin, Total 0.8 mg/dL (0.2-1.0); CO2 27.5 mmol/L (21.0-32.0); CREATININE 0.75 mg/dL (0.55-1.02); Calcium 8.9 mg/dL (8.5-10.1); Chloride 105 mmol/L (98-107); Glucose 114 mg/dL (74-106); Potassium 3.7 mmol/L (3.5-5.1); Sodium 142 mmol/L (136-145); Total Protein 7.5 g/dL (6.4-8.2)
== END 2019-08-31 03:32 ==
PROVIDERS: PCP Family Medicine; Visit Provider Family Medicine
DX: R73.09 Other abnormal glucose (principal); N28.89 Other specified disorders of kidney and ureter
CPT/HCPCS: 36415; 80053; 83036

== ENCOUNTER 2019-09-22 01:24 | Outpatient (CLI) | payer MEDICAID, SELFPAY ==
--- NOTE | 2019-09-22 | DI.MAMMO_ITS ---
EXAM: MG MAMMO SCREENING CLINICAL HISTORY: SCREENING, Z12.31 TECHNIQUE: Bilateral full field digital CC and MLO mammographic images were obtained with 3D tomosyn thesis and utilizing computer aided detection (CAD). COMPARISON: Available for comparison. FINDINGS: Masses/Architectural Distortion: The nodule in the upper outer quadrant of the left breast is stable. Microcalcifications: No suspicious pleomorphic-type are seen. Skin Thickening/Nipple Retraction: None. IMPRESSION: 1. No significant interval change with no specific features of malignancy noted. 2. Unless there is more urgent need, screening mammography is recommended, as per [employer] guidelines. BI-RADS Category 2 - Benign Findings Breast Density - Category C - Heterogeneously dense The mammogram demonstrates the patient's breast tissue is dense. Dense breast tissue is very common a nd is not abnormal but dense breast tissue can make it harder to find cancer on a mammogram. Also, de nse breast tissue may increase their breast cancer risk. [facility] was provided to the patient to raise their awareness. Use this report when you speak wi th the patient about their risks for breast cancer, which includes their family history. At that time , you may recommend for more screening tests (Ultrasound or MRI) as they might be useful based on the ir risk. A negative radiographic report should not delay biopsy if a dominant or clinically suspicious mass is present. Up to ten percent of cancers are not identified on mammography. A negative report may reinforce clinical impression. Adenosis and dense breasts may obscure an underlying neoplasm. False positive reports average 6 to 10%. Patient will receive a letter notifying them of these results.
== END 2019-09-22 01:44 ==
PROVIDERS: PCP Family Medicine; Visit Provider Family Medicine
DX: Z12.31 Encounter for screening mammogram for malignant neoplasm of breast (principal)
CPT/HCPCS: 77063; 77067

== ENCOUNTER 2020-08-31 02:41 | Outpatient (CLI) | payer MEDICAID, SELFPAY ==
[2020-08-31 09:36] LABS: Anion Gap 8.4 mmol/L (3-11); BUN 16 mg/dL (7-18); CO2 28.6 mmol/L (21.0-32.0); CREATININE 0.7 mg/dL (0.55-1.02); Calcium 9.1 mg/dL (8.5-10.1); Chloride 105 mmol/L (98-107); Glucose 107 mg/dL (74-106); Potassium 3.7 mmol/L (3.5-5.1); Sodium 142 mmol/L (136-145)
[2020-08-31 09:51] LABS: Calculated LDL 197 mg/dL (<100); Cholesterol 276 mg/dL (<200); HDL Cholesterol 56 mg/dL (40-60); Triglyceride 116 mg/dL (<150)
[2020-08-31 14:35] LABS: Hemoglobin A1C 5.5 % (<5.7)
[2020-09-01 10:05] LABS: Hepatitis C Ab w Rflx HCV PCR Negative (Negative)
[2020-09-01 10:19] LABS: HIV-1/2 Ag & Ab Screen Negative (Negative)
== END 2020-08-31 02:42 | disposition home or self-care (01) ==
LOC: LBO 02:42
PROVIDERS: PCP Family Medicine; Visit Provider Family Medicine
DX: R73.03 Prediabetes (principal); N28.89 Other specified disorders of kidney and ureter; R03.0 Elevated blood-pressure reading, without diagnosis of hypertension; Z11.4 Encounter for screening for human immunodeficiency virus [HIV]; Z11.59 Encounter for screening for other viral diseases; Z13.220 Encounter for screening for lipoid disorders
CPT/HCPCS: 36415; 80048; 80061; 86803; 87389; 83036

== ENCOUNTER 2020-09-21 01:40 | Outpatient (CLI) | payer MEDICAID, SELFPAY ==
--- NOTE | 2020-09-21 | DI.US_ITS ---
Exam(s) US RENAL EXAM: US RENAL CLINICAL HISTORY: PELVIECTASIS KIDNEY, N28.89, RENAL CYST LT, N28.1, HX NEPHROLITHIASIS TECHNIQUE: Ultrasound of both kidneys performed using standard protocol. COMPARISON: US US renal from 06/27/[address] ABDOMEN/ PELVIS CTA from 07/31/2018 FINDINGS: Prior CT scan July 31, 2018 was reviewed. RIGHT KIDNEY: Measures 10.5 cm in length. There are few small cysts noted, largest measuring 5 millimeters. Normal cortical thickness and corticomedullary differentiation .No solid masses There are few echogenic foci seen in both kidneys, largest measuring 3 millimeters and possibly repre senting nonobstructive calculi LEFT KIDNEY: Measures 10.3 cm in length. There is an 11 x 10 millimeter cyst in the inferior pole the left kidney . Normal cortical thickness and corticomedullary differentiaion. No solids masses. There also few e chogenic foci noted in left kidney, the largest measuring 3 millimeters. URINARY BLADDER: Prevoid volume is 69 cc Postvoid volume is 0 cc No evidence of bladder mass nor diverticuli. Ureterovesical jets: Both identified and appear symmetrical IMPRESSION: 1. There are few small benign renal cysts, the largest measuring 1 cm. There are no solid renal mas ses. Both kidneys exhibit normal size. 2. There are echogenic foci measuring up to 3 millimeter noted in both kidneys which may be nonobstr uctive calculi. These were not evident on CT scan of July 2018, 2 years ago. No hydronephrosis evident. DATA REPOSITORY:
== END 2020-09-21 02:00 ==
PROVIDERS: PCP Family Medicine; Visit Provider Family Medicine
DX: N28.1 Cyst of kidney, acquired (principal); Z87.442 Personal history of urinary calculi
CPT/HCPCS: 76770

== ENCOUNTER 2020-09-22 03:08 | Outpatient (CLI) | payer MEDICAID, SELFPAY ==
--- NOTE | 2020-09-22 08:23 | DI.MAMMO_ITS ---
Exam(s) MAMMO SCREENING EXAM: MAMMO SCREENING CLINICAL HISTORY: SCREENING, Z12.31. TECHNIQUE: Bilateral full field digital CC and MLO mammographic images were obtained with 3D tomosyn thesis and utilizing computer aided detection (CAD). COMPARISON: Prior mammograms dating back to 2011, the most recent being August 2019. FINDINGS: Fibroglandular tissue pattern is again noted be moderately dense, this decreasing the sensitivity of the mammogram for finding in underlying lesions. There are no new spiculated masses nor malignant appearing microcalcification groups. Stable microcalcifications in the right breast are again noted. Nodule in the left breast remains st able from at least 2011. There is no significant architectural distortion nor skin thickening-retraction. IMPRESSION: Stable benign findings. No radiographic evidence of malignancy. BI-RADS Category 2 - Benign Findings Breast Density - Category C - Heterogeneously dense Breast density Category C or D implies that the patient has dense breast tissue. Dense breast tissue can make it harder to find cancer on a mammogram. Dense breast tissue is also associated with an incr eased risk of breast cancer. This information about the result of the mammogram report was provided to the patient to raise their awareness. Use this report when you speak with the patient about their risks for breast cancer, which includes their family history. At that time, you may recommend additional screening tests (Ultrasoun d or MRI) as these tests may add significant information. A negative radiographic report should not delay biopsy if a dominant or clinically suspicious mass is present. Up to ten percent of cancers are not identified on mammography. A negative report may reinforce clinical impression. Adenosis and dense breasts may obscure an underlying neoplasm. False positive reports average 6 to 10%. Patient will receive a letter notifying them of these results.
== END 2020-09-22 03:28 ==
PROVIDERS: PCP Family Medicine; Visit Provider Family Medicine
DX: Z12.31 Encounter for screening mammogram for malignant neoplasm of breast (principal); N28.1 Cyst of kidney, acquired; Z87.442 Personal history of urinary calculi
CPT/HCPCS: 77063; 77067

== ENCOUNTER 2020-12-23 02:16 | Outpatient (CLI) | payer MEDICAID, SELFPAY ==
[2020-12-23 10:23] LABS: ALT 34 U/L (14-59); Calculated LDL 115 mg/dL (<100); Cholesterol 193 mg/dL (<200); HDL Cholesterol 53 mg/dL (40-60); Triglyceride 127 mg/dL (<150)
== END 2020-12-23 02:17 | disposition home or self-care (01) ==
LOC: LBO 02:16
PROVIDERS: PCP Family Medicine; Visit Provider Family Medicine
DX: E78.5 Hyperlipidemia, unspecified (principal)
CPT/HCPCS: 36415; 80061; 84460

== ENCOUNTER 2021-01-31 01:02 | Outpatient (CLI) | payer MEDICAID, SELFPAY ==
--- NOTE | 2021-01-31 08:00 | DI.CT_ITS ---
Exam(s) CT CHEST WO EXAM: CT CHEST WO CLINICAL HISTORY: PULMONARY NODULE R91.1, LT RENAL CYST N28.1, HX NEPHROLITHIASIS Z87.442. TECHNIQUE: Imaging protocol: Axial computed tomography images were obtained and coronal and sagittal reformatted images were created and reviewed. COMPARISON: CT CT ABDOMEN/ PELVIS CTA from 07/31/2018 FINDINGS: Tracheobronchial tree: Patent where visualized. Pulmonary parenchyma: No focal consolidation. No architectural distortion. There is again seen a 5 m m nodule in the lateral aspect of the right middle lobe. There is also 5 mm nodule seen in the later al aspect of the right lower lobe. Mediastinum and Jeannie: No dominant adenopathy or fluid collection. Thyroid gland: Unremarkable. Pleura: No effusion or pneumothorax. Heart: The heart is not dilated. No coronary artery calcifications are seen. No pericardial effusion. Aorta: Thoracic aorta non-dilated. Mild atherosclerosis. Upper abdomen: There is a 1-2 mm calcification in the superior pole of the left kidney. Lymph nodes: Within normal limits. Soft tissues: Unremarkable. Bones:Within normal limits for the patient's age. IMPRESSION: 1. Stable right middle lobe pulmonary nodule. 2. 5 mm pulmonary nodule in the lateral aspect of the right lower lobe. 3. A follow-up CT scan of the chest in 12 months is recommended for re-evaluation. 4. Left nephrolithiasis. RADIATION DOSE DELIVERED: 311.75mGy.cm Total DLP 311.75mGy.cm Total DLP DATA REPOSITORY: All CT scans at this facility are submitted to the National Radiology Data Registry (NRDR) Dose Index Registry (DIR) with the [employer] (A[employer]). RADIATION OPTIMIZATION: All CT scans at this facility use at least one of these dose optimization te chniques: automated exposure control; mA and/or kV adjustment per patient size (includes targeted exa ms where dose is matched to clinical indication); or iterative reconstruction.
== END 2021-01-31 01:22 ==
PROVIDERS: PCP Family Medicine; Visit Provider Family Medicine
DX: N28.9 Disorder of kidney and ureter, unspecified (principal); R91.1 Solitary pulmonary nodule; N20.0 Calculus of kidney
CPT/HCPCS: 71250

== ENCOUNTER 2021-01-31 04:11 | Outpatient (CLI) | payer MEDICAID, SELFPAY ==
[2021-02-01 02:32] LABS: Anion Gap 10.1 mmol/L (3-11); BUN 20 mg/dL (7-18); CO2 26.9 mmol/L (21.0-32.0); CREATININE 0.6 mg/dL (0.55-1.02); Calcium 8.7 mg/dL (8.5-10.1); Chloride 107 mmol/L (98-107); Glucose 110 mg/dL (74-106); Potassium 3.9 mmol/L (3.5-5.1); Sodium 144 mmol/L (136-145)
== END 2021-01-31 04:12 | disposition home or self-care (01) ==
LOC: LBO 04:11
PROVIDERS: PCP Family Medicine; Visit Provider Family Medicine
DX: I10 Essential (primary) hypertension (principal)
CPT/HCPCS: 36415; 80048

== ENCOUNTER 2021-03-03 01:01 | Outpatient (CLI) | payer MEDICAID, SELFPAY ==
[2021-03-03 11:17] LABS: Source Nasal/Nares
[2021-03-04 00:36] LABS: COVID-19 PCR Negative (Negative)
== END 2021-03-03 01:02 | disposition home or self-care (01) ==
PROVIDERS: PCP Family Medicine; Visit Provider Surgery
DX: Z20.822 Contact with and (suspected) exposure to COVID-19 (principal); Z01.818 Encounter for other preprocedural examination
CPT/HCPCS: 87635

== ENCOUNTER 2021-03-06 08:08 | Day surgery (SDC) | payer MEDICAID, SELFPAY ==
--- NOTE | 2021-03-06 06:24 | W.ANESPRE ---
General Info Date of Service Date Performed: 03/06/21 Height: 4 ft 11 in Weight: 48.081 kg Body Mass Index (BMI): 21.4 Surgical Procedure: Operation Date: 03/06/21 08:50 Proposed Procedures Side Surgeon p Colonoscopy Ijeoma Bui MD Meds Allergies and Home Medications Allergies Allergy/AdvReac Type Severity Reaction Status Date / Time environmental Allergy Unknown Uncoded 03/06/21 08:24 Home Medication Medication Instructions Recorded multivitamin 1 tab PO DAILY 07/30/18 fluticasone propionate 50 2 spray INTRANASAL DAILY PRN 09/01/20 mcg/actuation nasal spray,suspension omega-3 fatty acids-fish oil 340 1 cap PO DAILY 09/01/20 mg-1,000 mg capsule ascorbate calcium (vitamin C) 500 500 mg PO DAILY 10/14/20 mg tablet bisacodyl 5 mg tablet,delayed 5 mg PO ONCE #4 tab 02/09/21 release lisinopril 10 mg tablet 10 mg PO DAILY 02/09/21 polyethylene glycol 3350 17 17 g PO ONCE #238 g 02/09/21 gram/dose oral powder Current Visit Medications: Current Medications Generic Name Dose Route Start Last Admin Trade Name Freq PRN Reason Stop Dose Admin Ringer's Solution 1,000 mls @ 80 mls/hr 03/06/21 06:00 IV 04/02/21 23:59 INFUSION LINDA IV Miscellaneous Supplies 1 each 03/06/21 06:00 Iv Access IV 04/02/21 23:59 DIRECTED LINDA Sodium Chloride 0 ml 03/06/21 06:00 Normal Saline Flush 10 Ml Syr IV 04/02/21 23:59 PRN PRN Sodium Chloride 0 ml 03/06/21 06:00 Normal Saline 10 Ml Vial IJ 04/02/21 23:59 DIRECTED PRN Sterile Water 0 ml 03/06/21 06:00 Water,Injection,Sterile 10 Ml Vial IJ 04/02/21 23:59 DIRECTED PRN PFSH Active Problems Active Problems: Problem Status Onset Code Screening for colon cancer Z12.11 Tinnitus H93.19 Enteritis K52.9 Abdominal pain R10.9 Myalgia 01/23/14 M79.1 Renal cyst, left 10/14/17 N28.1 Globus sensation 03/14/15 F45.8 Medical History Active Problem List Screening for colon cancer (Acute) Tinnitus (Acute) Enteritis (Acute) Abdominal pain (Acute) Myalgia (Acute 01/23/14) Renal cyst, left (Acute 10/14/17) Globus sensation (Acute 03/14/15) Medical History Abnormal auditory perception Allergic rhinitis Elevated blood pressure reading Heart murmur Normal ECHO History of nephrolithiasis (10/14/17) History of shingles History of urinary tract infection Impacted cerumen of both ears (03/14/15) Kidney stones Otalgia, right ear Pelviectasis of kidney Prediabetes Shingles Solitary pulmonary nodule Vaginismus Tobacco Smoking/Tobacco Use Status: Never Alcohol Alcohol Intake: never Substance Use Substance use: Never Substance use type: does not use Vital Signs and Lab Results Vital Signs Most Recent Vital Signs in EMR: Temp Pulse Resp BP Pulse Ox 36.3 C L 70 18 115/82 99 03/06/21 08:15 03/06/21 08:15 03/06/21 08:15 03/06/21 08:15 03/06/21 08:15 Lab Results Blood Type / Crossmatch: No Data to Display Complete Blood Count: No Data to Display Complete Metabolic Panel: No Data to Display Liver Function Panel: No Data to Display Coagulation Panel: No Data to Display Cardiac Panel: No Data to Display Arterial Blood Gas: No Data to Display Venous Blood Gas: No Data to Display Pancreas Panel: No Data to Display Thyroid Panel: No Data to Display Infectious Disease: Coronavirus (COVID-19)(PCR) Negative (Negative) 03/03/21 08:27 03/03/21 Coronavirus 2019 Source Nasal/Nares 03/03/21 08:27 03/03/21 Blood Cultures: No Data to Display Toxicology Panel: No Data to Display Panel: No Data to Display Anesthesia Assessment and Plan Anesthesia History Personal History: No History of Anesthesia Complications Family History: No Family History of Anesthesia Complications Exercise Tolerance Exercise Tolerance: Metabolic Equivalents>4 Cardiac & Pulmonary Exam Cardiac Exam: Normal S1/S2 Heart Sounds Pulmonary Exam: Clear Bilateral Breath Sounds Implantable Cardiac Device Does patient have a Pacemaker or an ICD?: No Airway Exam Known Difficult Airway: No Mallampati Class: 3 Mouth Opening: Narrow (< 3cm) Thyromental Distance: Less than 3 cm Neck Range of Motion: Full ROM Neck Circumference: Normal Teeth Condition: Normal Dentition ASA Classification ASA Score: ASA 2 Emergency Case?: No NPO Status NPO Status: NPO Clears >2 hours, Solids >8 hours Status Status: Not Per Patient Anesthesia Plan Resuscitation Status: Full Code Anesthesia Technique: General Anesthesia Airway Planned: Natural Airway Monitors Used: Standard Monitors Preoperative Comments:: 50 yo female for screening colonoscopy. Sig PMHx: HTN (lisinopril), pre DM, murmur with history of normal ECHO (none in our system. Previous Anes: igel 3. mac 3 grade 1, easy mask.
--- NOTE | 2021-03-06 06:40 | W.COLOREPORT ---
Colonoscopy Report Date of procedure: 03/06/21 Pre-op diagnosis general: Screening colonoscopy Post-op diagnosis procedure note: same Procedure: COlonoscopy Surgeon: Ijeoma Bui Anesthesia Type: General:No Airway (Durga Campo CRNA) Estimated blood loss (mL): 0 Pathology: none sent Complications: None Disposition: same day Indications: Mrs Burns is a pleasant 50-year-old female who is here today to discuss her for screening colonoscopy. She is quite healthy. She has had no changes in bowel habits, melena, hematochezia, abdominal pain or unintentional weight loss. She has no family history of colon cancer. Per reviewed the procedure, risks and benefits as well as the prep. The patient wished to proceed. Risks, benefits and complications have been reviewed. Complications include but are not limited to bleeding, pain, perforation, missed small lesion/polyp, sore throat, aspiration and adverse reaction to the medications. Questions were entertained and answered to their satisfaction and they wished to proceed. No guarantees were given or implied. Proceed with colonoscopy under sedation Prep: Miralax/Dulcolax Procedure Start Time: 08:52 Procedure End Time: 09:10 Retraction Time: 7 minutes Findings: Mild right sided diverticulosis Procedure Description: After informed consent was obtained the patient was taken to the procedure room and placed in a left decubitous position. Monitors were applied and a time out was done. The patients name, date of , procedure, allergies to medications and metal in their body was reviewed. The patient was then sedated. Once sedated and comfortable a rectal exam was done. External exam was normal. Internal exam revealed a normal sphincter tone and no palpable masses. The scope was then introduced and retro-flexed. No internal hemorrhoids, polyps or masses were identified on retro-flexion. The scope was then advanced to the cecum without difficulty. The ileocecal vlave and appendiceal orifice were identified. The prep was adequate. The scope was advanced into the terminal ileum which was normal. The scope was then slowly retracted over 7 minutes back into the rectum. There were no Polyps identified. There was mild ascending colon diverticulosis noted. The scope was removed and the patient was woken up and taken back to Same day surgery in stable condition. The patient tolerated the procedure well and there were no immediate complications. Follow up: The patient should follow up in 10 years unless they develop changes in bowel habits or other new gastrointestinal complaints.
--- NOTE | 2021-03-06 06:41 | W.PM.DSUDISC ---
Discharge Plan Disposition Patient Disposition: HOME Condition: Good Discharge Details Reason For Visit: Colonoscopy Attending Provider: Ijeoma Bui Primary Care Provider: Jenny Guerra Home Meds and New Rx's Prescriptions: Continued lisinopril 10 mg tablet 10 mg PO DAILY RF: 0 Fish Oil 340-1,000 mg capsule 1 cap PO DAILY RF: 0 fluticasone propionate 50 mcg/actuation spray,suspension 2 spray intranasal DAILY PRNRF: 0 ascorbate calcium (vitamin C) 500 mg tablet 500 mg PO DAILY RF: 0 multivitamin Tablet 1 tab PO DAILY RF: 0 Discontinued bisacodyl [Dulcolax (bisacodyl)] 5 mg tablet,delayed release (DR/EC) 5 mg PO ONCE Qty: 4 RF: 0 polyethylene glycol 3350 17 gram/dose powder 17 g PO ONCE Qty: 238 RF: 0 Discharge Instructions Instructions: Diverticulosis (DC) Additional Instructions: Findings: mild diverticulosis Follow up: 10 years Please call if you develop: fevers >101.5 Nausea or Vomiting Abdominal pain that is not transient Rectal bleeding that is more then a tbsp A hard abdomen and inability to pass gas DAY SURGERY UNIT POST ENDOSCOPY INSTRUCTIONS Instructions for everyone who is given Anesthesia: For your safety, please do the following for the next 24 Hours: a. Do not drive or operate dangerous equipment b. Do not drink alcohol beverages or use any recreational drugs for the first 24 hours or while taking pain medications. The medications in your body may have a reaction that can be dangerous. c. Do not make any important decisions or sign any important papers 1. Generally there are no restrictions on your activity after a day or so has gone by, but you may feel a bit fatigued for a few days. 2. After you arrive home you may have a light meal and return to a normal diet as you can tolerate it without feeling sick to your stomach. 3. After surgery, you may feel pain or discomfort. This should be only transient, but if it persists please contact your doctor. 4. If there are any questions regarding the findings of your procedure, please feel free to contact your doctor. 6. If you are unable to contact your doctor with a problem, contact the hospital at [phone]. 7. Continue all your regular medications unless directed otherwise. I understand the above instructions and have no questions. Signature of Patient or Responsible Adult Escort Date/Time Name of Responsible Adult Escort Signature of Nurse Date/Time Activity:: Activity as Tolerated Diet:: high fiber diet Discharge Orders Discharge Orders: Discharge Order (Routine); Ordered 03/06/21 Ordered By: Ijeoma Bui
[2021-03-06 08:15] VITALS: BP 115/82; PULSE 70; RESP 18; TEMP 36.3; O2SAT 99
[2021-03-06 08:33] VITALS: BMI 21.4
[2021-03-06] MEDS: Lactated Ringers 1,000 ML 80 ML IV (08:37)
[2021-03-06 09:15] VITALS: BP 97/67; PULSE 57; RESP 18; TEMP 36.3; O2SAT 98
[2021-03-06 09:45] VITALS: BP 113/73; PULSE 50; RESP 16; TEMP 36.4; O2SAT 100
--- NOTE | 2021-03-06 09:50 | W.ANESPOSTOP ---
Postoperative Evaluation Date, Time and Location Date Performed: 03/06/21 Time Performed: 09:50 Patient Location: Day Surgery Unit Vital Signs Most Recent Imported Vital Signs: Most Recent Vital Signs Temp Pulse Resp BP Pulse Ox 36.4 C L 50 L 16 113/73 100 03/06/21 09:45 03/06/21 09:45 03/06/21 09:45 03/06/21 09:45 03/06/21 09:45 Pain Score Most Recent Pain Score: Most Recent Pain Score Pain Level 0 03/06/21 09:45 Assessment Mental Status: Awake (Alert & Oriented to Patient Baseline) Airway and Respiratory Function: Patent airway with normal (patient baseline) respiratory exam Cardiovascular Function: Hemodynamically Stable Hydration Status: Adequately Hydrated Nausea & Vomiting: No Nausea or Vomiting Pain: Pt. Denies Any Pain Peripheral Nerve Block: Patient did not receive a nerve block
== END 2021-03-06 10:13 | disposition home or self-care (01) ==
LOC: SUR 08:09
PROVIDERS: PCP Family Medicine; Visit Provider Surgery
PROC: 0DJD8ZZ Inspection of Lower Intestinal Tract, Via Natural or Artificial Opening Endoscopic (ICD-10-PCS; CPT 45378; principal; 2021-03-06 08:45)
DX: Z12.11 Encounter for screening for malignant neoplasm of colon (principal); K57.30 Diverticulosis of large intestine without perforation or abscess without bleeding
CPT/HCPCS: 45378; J2001

== ENCOUNTER 2021-09-04 04:08 | Outpatient (CLI) | payer MEDICAID, SELFPAY ==
[2021-09-04 08:13] LABS: Hemoglobin A1C 5.8 % (<5.7)
[2021-09-04 08:57] LABS: Anion Gap 8.1 mmol/L (3-11); BUN 23 mg/dL (7-18); CO2 27.9 mmol/L (21.0-32.0); CREATININE 0.7 mg/dL (0.55-1.02); Calcium 8.6 mg/dL (8.5-10.1); Chloride 107 mmol/L (98-107); Glucose 113 mg/dL (74-106); Potassium 3.6 mmol/L (3.5-5.1); Sodium 143 mmol/L (136-145)
[2021-09-04 14:57] LABS: Calculated LDL 208 mg/dL (<100); Cholesterol 286 mg/dL (<200); HDL Cholesterol 57 mg/dL (40-60); Triglyceride 108 mg/dL (<150)
== END 2021-09-04 04:09 | disposition home or self-care (01) ==
LOC: LBO 04:08
PROVIDERS: PCP Family Medicine; Visit Provider Family Medicine
DX: E78.5 Hyperlipidemia, unspecified (principal); R73.03 Prediabetes; I10 Essential (primary) hypertension
CPT/HCPCS: 36415; 80048; 80061; 83036

== ENCOUNTER → 2021-10-10 00:10 | Outpatient (CLI) | payer MEDICAID, SELFPAY ==
--- OUTSIDE RECORDS SUMMARY | 2021-10-10 00:12 | XMS_ITS | Encounter Summary ---
:1970 Author Organization [facility] [place] [address] Care Team Providers Name Role Phone Jenny Guerra MD Primary Care Provider Reason for Referral Diagnostic Test (Routine) - Closed Specialty Diagnoses / Procedures Referred By Contact Refer red To Contact Radiology Diagnoses Nephrolithiasis Complex renal cyst Gus Mckinnon Jr., MD [facility] Rad Ct Scan Procedures CT Abdomen & Pelvis wwo Contrast (Generic) [facility] [place] [address] [place] [address] Referral ID Status Reason Start Date Expiration Date Visits V isits Requested Authorized [id number] Closed Specialty 08/17/2016 09/15/2016 1 1 Service Requested Reason for Visit Diagnostic Test (Routine) - Closed Specialty Diagnoses / Procedures Referred By Contact Refer red To Contact Radiology Diagnoses Nephrolithiasis Complex renal cyst Gus Mckinnon Jr., MD [facility] Rad Ct Scan Procedures CT Abdomen & Pelvis wwo Contrast (Generic) [facility] [place] [address] [place] [address] Referral ID Status Reason Start Date Expiration Date Visits V isits Requested Authorized [id number] Closed Specialty 08/17/2016 09/15/2016 1 1 Service Requested Encounter Details Date Type Department Care Team Description 08/22/[address] [place] [facility] Mckinnon Nephrolithiasis; [facility] MD Carolyn Complex renal cyst [address] [place] [address] UROLOGY DEPT. [phone] [place] [address] Social History Tobacco Use Types Packs/Day Years Used Date Never Smoker Alcohol Use Standard Drinks/Week Comments No 0 (1 standard drink = 0.6 oz pure alcoho l) Sex Assigned at Date Recorded Not on file documented as of this encounter Medications at Time of Discharge Medication Sig Dispensed Refills Start Date End Date predniSONE (DELTASONE) 50 mg Take one tablet by 3 tablet 0 08/22/2016 Tablet mouth [address] scan, then one tablet 7 hours prior and then one tablet [address] scan. diphenhydrAMINE (BENADRYL) Take one capsule by 1 capsule 0 08/22/2016 50 mg Capsule mouth one hour prior to CT scan fish oil-omega-3 fatty acids Take 2 g by mouth 0 1,000 mg Capsule daily. ascorbic acid (VITAMIN C) Take 500 mg by 0 500 mg Tablet mouth daily. multivitamin with minerals Take 1 tablet by 0 (THERA-M) 9-0.4 mg Tablet mouth daily. documented as of this encounter Plan of Treatment Not on filedocumented as of this encounter Procedures Procedure Name Priority Date/Time Associated Diagnosis Comme nts CT ABD/PELVIS W OR Routine 08/28/2016 8:44 AM Nephrolith iasis Results for this WO CONTRAST EDT Complex renal cyst procedure are in the results section. documented in this encounter Results CT Abdomen & Pelvis wwo Contrast (Generic) (08/28/2016 8:44 AM EDT) Anatomical Region Laterality Modality Abdomen, Pelvis Computed Tomography Specimen (Source) Anatomical Location Collection Method / Collectio n Time Received Time / Laterality Volume Impressions 08/28/2016 9:57 AM EDT 1. ??Unchanged punctate calcifications in the inferior pole calyx of the left kidney. 2. ??Unchanged left renal cysts. 3. ??Unchanged mild dilatation of the ri ght renal pelvis and proximal ureter without filling defects within the image d portion of the collecting system. Narrative 08/28/2016 9:57 AM EDT EXAMINATION: ??CT ABDOMEN AND PELVIS WWO CONTRAST (GENERIC) CLINICAL HISTORY: ??1) assess stone cholo en and location 2) follow up on complex renal cysts TECHNIQUE: Helical CT of the abdomen and pelvis was performed before and after the intravenous administration of contra st. 66 cc of Omnipaque 350 was given. Oral contrast was not administered. COMPARISON: December 10, 2014 FINDINGS: Lung bases are clear. No peric ardial or pleural effusions are seen. Liver, spleen, pancreas, decompressed ga llbladder, and the adrenal glands are unremarkable. Normal appearance of the l eft kidney with exception of a 10 mm simple inferior pole parenchymal cyst an d a number of smaller parenchymal hypodensities, too small to adequately c haracterize, but most likely representing simple cysts. A number of p unctate nonobstructing calcifications project in the lower pole calyx. Persistent mild dilatation of the right renal collecting system and the proximal right ureter down to the level of the pe lvic brim. No renal calcifications detected. No filling defects within the renal collecting systems and proximal ureters. Pelvis: Unremarkable reproductive organs and the urinary bladder. No adenopathy or free fluid. No suspicious osseous lesions noted upon review of bone windows. Bilateral SI joint arthropathy changes identified. Procedure Note Olman Leary MD - 08/28/2016For matting of this note might be different from the original. EXAMINATION: CT ABDOMEN AND PELVIS WWO C ONTRAST (GENERIC) CLINICAL HISTORY: 1) assess stone burden and location 2) follow up on complex renal cysts TECHNIQUE: Helical CT of the abdomen and pelvis was performed before and after the intravenous administration of contra st. 66 cc of Omnipaque 350 was given. Oral contrast was not administered. COMPARISON: December 10, 2014 FINDINGS: Lung bases are clear. No peric ardial or pleural effusions are seen. Liver, spleen, pancreas, decompressed ga llbladder, and the adrenal glands are unremarkable. Normal appearance of the l eft kidney with exception of a 10 mm simple inferior pole parenchymal cyst an d a number of smaller parenchymal hypodensities, too small to adequately c haracterize, but most likely representing simple cysts. A number of p unctate nonobstructing calcifications project in the lower pole calyx. Persistent mild dilatation of the right renal collecting system and the proximal right ureter down to the level of the pe lvic brim. No renal calcifications detected. No filling defects within the renal collecting systems and proximal ureters. Pelvis: Unremarkable reproductive organs and the urinary bladder. No adenopathy or free fluid. No suspicious osseous lesions noted upon review of bone windows. Bilateral SI joint arthropathy changes identified. IMPRESSION 1. Unchanged punctate calcifications in the inferior pole calyx of the left kidney. 2. Unchanged left renal cysts. 3. Unchanged mild dilatation of the righ t renal pelvis and proximal ureter without filling defects within the image d portion of the collecting system. Gus Mckinnon Jr., MD IMG CT ORDERABLES documented in this encounter Visit Diagnoses Diagnosis Nephrolithiasis Calculus of kidney Complex renal cyst Other specified congenital cystic kidney disease documented in this encounter Care Teams Meat Supervisor Relationship Specialty Start Date End Date Jenny Guerra MD PCP - General 02/14/10 [address] [place] [address] documented as of this encounter
--- OUTSIDE RECORDS SUMMARY | 2021-10-10 00:12 | XMS_ITS | Encounter Summary ---
:1970 Author Organization [facility] [place] [address] Care Team Providers Name Role Phone Jenny Guerra MD Primary Care Provider Encounter Details Date Type Department Care Team Description 03/01/2015 Notes Only Urology at [facility] Gus Mckinnon Jr., MD [facility] [place] [address] UROLOGY DEPT. [phone] [place], [place] [address] (Wo rk) Social History Tobacco Use Types Packs/Day Years Used Date Never Smoker Alcohol Use Standard Drinks/Week Comments No 0 (1 standard drink = 0.6 oz pure alcoho l) Sex Assigned at Date Recorded Not on file documented as of this encounter Progress Notes Janette Hill LNA - 03/01/2015 1:54 PM EST Urine culture from [facility] on 02/26/2015 was a no growth at 48 hours. documented in this encounter Plan of Treatment Not on filedocumented as of this encounter Visit Diagnoses Not on filedocumented in this encounter Care Teams Theatre Professor Relationship Specialty Start Date End Date Jenny Guerra MD PCP - General 02/14/10 [address] [place], [place] [address] documented as of this encounter
--- OUTSIDE RECORDS SUMMARY | 2021-10-10 00:12 | XMS_ITS | Encounter Summary ---
:1970 Author Organization [facility] [place] [address] Care Team Providers Name Role Phone Jenny Guerra MD Primary Care Provider Encounter Details Date Type Department Care Team Description 03/06/2016 Orders Only Urology at [facility] Gus Mckinnon Jr., MD [facility] [place] [address] UROLOGY DEPT. [phone] [place], [place] [address] (Wo rk) Social History Tobacco Use Types Packs/Day Years Used Date Never Smoker Alcohol Use Standard Drinks/Week Comments No 0 (1 standard drink = 0.6 oz pure alcoho l) Sex Assigned at Date Recorded Not on file documented as of this encounter Plan of Treatment Not on filedocumented as of this encounter Visit Diagnoses Not on filedocumented in this encounter Care Teams Planishing Press Operator Relationship Specialty Start Date End Date Jenny Guerra MD PCP - General 02/14/10 [address] [place] [address] documented as of this encounter
--- OUTSIDE RECORDS SUMMARY | 2021-10-10 00:12 | XMS_ITS | Encounter Summary ---
:1970 Author Organization [facility] [place] [address] Care Team Providers Name Role Phone Jenny Guerra MD Primary Care Provider Reason for Referral Diagnostic X-Ray (Routine) - Closed Specialty Diagnoses / Procedures Referred By Contact Refer red To Contact Radiology Diagnoses Nephrolithiasis Radha Mckinnon Jr., MD [facility] Rad Ultrasound Procedures US Retroperitoneal Complete [facility] [place] [address] [place] [address] Referral ID Status Reason Start Date Expiration Date Visits Requ ested Visits Authorized [id number] Closed 06/11/2015 06/10/2016 1 1 Reason for Visit Reason Comments Follow-up Encounter Details Date Type Department Care Team Description 12/13/2014 Follow-Up [place]rology [place] [facility] Radha Mckinnon Jr., MD [facility] [place] [address] Nephrolithiasis [facility] Tony Sadler MD [facility] [place] [address] [place] [address] Social History Tobacco Use Types Packs/Day Years Used Date Never Smoker Alcohol Use Standard Drinks/Week Comments No 0 (1 standard drink = 0.6 oz pure alcoho l) Sex Assigned at Date Recorded Not on file documented as of this encounter Last Filed Vital Signs Vital Sign Reading Time Taken Comments Blood Pressure 143/84 12/13/2014 9:08 AM EDT Pulse 99 12/13/2014 9:08 AM EDT Temperature - - Respiratory Rate - - Oxygen Saturation 100% 12/13/2014 9:08 AM EDT Inhaled Oxygen Concentration - - Weight 48.1 kg (106 lb) 12/13/2014 9:08 AM EDT Height - - Body Mass Index 21.41 11/16/2014 8:52 AM EDT documented in this encounter Progress Notes Radha Mckinnon Jr., MD - 12/13/2014 12:20 PM EDT I saw and examined Edouard Ruggiero with Dr. Honeycutt and have independently reviewed her imaging studies. Iagree with history, exam, impression, and plan as noted. Tony Honeycutt - 12/13/2014 9:53 AM EDT UROLOGY CLINIC FOLLOW-UP HPI: Edouard Ruggiero is a 44 y.o. woman who returns for urologic follow up regarding urolithiasis. She initially presented on 01/23/14 with a distal right ureteral stone seen on outside CT. She subsequently underwent elective stent placement by Dr North on 01/26/14 and was sent for definitive ureteroscopy on 02/16/14. At that time, after the stent was removed, no stone was identified, with suspicion of interval passage prior to initial stent placement. Semirigid distal ureteroscopy as well as flexible ureteroscopy including mapping pyelogram and full endoscopic inspection of the intrarenal collecting system was performed. As brisk drainage from the ureter was noted, no stent was left. 04/06/14 - Renal ultrasound showed no residual hydronephrosis, possible right pelviectasis, possiblesmall bilateral non-obstructing renal stones, and renal cysts. 10/12/14 - CT of the abdomen and pelvis showed a low-attenuation left renal lesions one in the posterior interpolar region the other in the lower pole c/w simple cysts. A 4mm non obstructing LLP stone.An asymmetric right-sided nephrogram with a more focal area of wedge-shaped low attenuation in the anterior interpolar region and mild urothelial enhancement as well as proximal ureterectasis and pelviectasis. The decision at that time was made to obtain a CT urogram in 6 weeks and she presents today for follow-up and review of her imaging. In the interim, she has been well. She denies any abdominal or flank pain, or hematuria. She has hadno UTI symptoms. Review of Systems Constitution: Negative for fever. Gastrointestinal: Negative for abdominal pain Genitourinary: Negative for flank pain and hematuria. PMHx: none additional PSHx: right ureteroscopy (January 2014), Right ureteral stent FamHx: no family h/o urolithiasis SocHx: No tobacco Physical Exam Constitutional: She is oriented to person, place, and time. She appears well- developed and well-nourished. No distress. Cardiovascular: Normal rate. Pulmonary/Chest: Effort normal. Abdominal: Soft. She exhibits no distension. There is no tenderness. There is no rebound and no guarding. Genitourinary: No CVA tenderness to percussion bilaterally Neurological: She is alert and oriented to person, place, and time. Skin: She is not diaphoretic. Psychiatric: She has a normal mood and affect. Her behavior is normal. Vitals reviewed. Imaging Studies: CT Urogram from 12/13/14 was independently reviewed and compared to her previous abdominopelvic imaging from 04/06/14 and 10/12/14. There is interval improvement in the wedge shaped interpolar defect previously seen on the right kidney. There is persistent pelviectasis and proximal ureterectasis but there is a symmetric nephrogram and both ureters drain completely on delayed imaging. Impression/Plan: Left-sided non-obstructing nephrolithiasis, right-sided pelviectasis and left-sidedkidney cysts. 1) Regarding the left sided stone, we reviewed management options, including watchful waiting, shockwave lithotripsy, and ureteroscopy. She declined surgical intervention, opts for watchful waiting. 2)Right pelviectasis. We reviewed the Ct, possible etiologies including stricture, tumor, anatomic variant, and discussed follow up mgmt options, including direct endoscopic inspection as well as repeat contrast study. She declines endoscopic inspection with ureteroscopy and wishes to hold off on repea t contrast studies at this point. She will plan to return in 9-12 months with repeat renal ultrasound. If perisstent/ncreased pelviectasis is noted, we will revisit options noted above. She has been instructed to call or return in the interval if new signs or symptoms of stone passage/renal colic should develop. 3)Left renal cysts -- No evidence of enhancement on CT. Plan follow up on u/s as noted above. STAFF ADDENDUM: I saw and examined Edouard Ruggiero with Dr. Honeycutt,have independently reviewed her CT, and concur with history, exam, impression, and plan as noted and amended above. RADHA MCKINNON JR, MD documented in this encounter Plan of Treatment Not on filedocumented as of this encounter Results US Retroperitoneal Complete (08/29/2015 8:56 AM EDT) Anatomical Region Laterality Modality Abdomen Ultrasound Specimen (Source) Anatomical Collection Method Collection Time Re ceived Time Location / / Volume Laterality 08/29/2015 8:57 AM EDT Impressions 08/29/2015 9:20 AM EDT Impression Retroperitoneal Complete Summary 1. ?? Unchanged appearance to the two c omplex cysts lower pole left kidney. 2. ?? bilateral several nonobstructing renal calculi in both kidneys. ??Largest ??4mm Lt mid pole. 3. ?? Mild pelviectasis Left, stable. ? ?Right mild pelviectasis, decreased from previous s can. 4. ?? Urinary bladder normally distende d. I ??viewed the images and agree with shania hernandez above interpretation. ?Valese Yunior Ley MD Electronically Signed Final Report ?? 09:19 am Narrative 08/29/2015 9:20 AM EDT Renal ?(Signed Final 08/29/2015 09:19 am) Patient Info ID #: ? [id number] ?: ??[birth year] (45 yrs) Name: ? EDOUARD BAHMAN ? Visit Date: 08/29/2015 08:57 am Performed By Performed By: ? Mohit Antonio RDMS Attending: ?Jil MITCHELL, There J. Referred By: ?RADHA MCKINNON MD Service(s) Provided ??URETRO - Retroperitoneal Complete - I [id number] ? [id number] Indications ??? perisstent pelviecatsis, f/u stones and ??renal cysts Comparison Ultrasound: Renal/Bladder 10/12/14 Right Kidney Size (cm) ?L: ??10.4 Cortical Thickness: ?Normal Cortical Echogenicity: ?? Normal Hydronephrosis: ?Mild pelv iectasis Comment: ?Several non-obstructing r enal calculi seen, largest ? measuring 3.5 mm seen in the mid pole. ??AP ? diameter of the renal pelvis 9.0 mm. Left Kidney Size (cm) ?L: ??10.4 Cortical Thickness: ?Normal Cortical Echogenicity: ?? Normal Hydronephrosis: ?Mild pelv iectasis Comment: ?Several non-obstructing r enal calculi seen, largest ? measuring 4.0 mm seen in the mid pole. ??AP ? diameter renal pelvis ??7.4 mm Two complex ??cysts ? ,Inf pole measures 0. 9x0.7x0.9 with wall calci. Mid ? pole measures 0.9x0.7 x1.0 cm septated Urinary Bladder Right Urinary Jet: Visualized Left Urinary Jet: ??Visualized Pre-void (cm) ? L: ??8.8 ? A P: ??7.6 ? TV: ??8.1 Vol (ml): ?283.6 Comment: ?Partially distended, norm al contour Procedure Note Vale Ley MD - 08/29/2015Forma tting of this note might be different from the original. Renal (Signed Final 08/29/2015 09:19 am ) Patient Info ID #: [id number] : [birth year] (45 y rs) Name: EDOUARD RUGGIERO Visit Date: 08/29/2015 0 8:57 am Performed By Performed By: Mohit Antonio RDMS Attending: Vale Ley MD Referred By: RADHA MCKINNON MD Service(s) Provided URETRO - Retroperitoneal Complete - [facility] [address]17 [id number] Indications ? perisstent pelviecatsis, f/u stones a nd renal cysts Comparison Ultrasound: Renal/Bladder 10/12/14 Right Kidney Size (cm) L: 10.4 Cortical Thickness: Normal Cortical Echogenicity: Normal Hydronephrosis: Mild pelviectasis Comment: Several non-obstructing renal calculi seen, largest measuring 3.5 mm seen in the mid pole. AP diameter of the renal pelvis 9.0 mm. Left Kidney Size (cm) L: 10.4 Cortical Thickness: Normal Cortical Echogenicity: Normal Hydronephrosis: Mild pelviectasis Comment: Several non-obstructing renal calculi seen, largest measuring 4.0 mm seen in the mid pole. AP diameter renal pelvis 7.4 mm Two comple x cysts ,Inf pole measures 0.9x0.7x0.9 with wal l calci. Mid pole measures 0.9x0.7x1.0 cm septated Urinary Bladder Right Urinary Jet: Visualized Left Urinary Jet: Visualized Pre-void (cm) L: 8.8 AP: 7.6 TV: 8.1 Vol (ml): 283.6 Comment: Partially distended, normal co ntour IMPRESSION Impression Retroperitoneal Complete Summary 1. Unchanged appearance to the two comp rufus cysts lower pole left kidney. 2. bilateral several nonobstructing annita al calculi in both kidneys. Largest 4mm Lt mid pole. 3. Mild pelviectasis Left, stable. Righ t mild pelviectasis, decreased from previous s can. 4. Urinary bladder normally distended. I viewed the images and agree with the above interpretation. Vale Ley MD Electronically Signed Final Report 08/28 09:19 am Radha Mckinnon Jr., MD IM US GEN ORDERABLES documented in this encounter Visit Diagnoses Diagnosis Nephrolithiasis Calculus of kidney Nephrolithiasis Calculus of kidney documented in this encounter Care Teams Advertising Agent Relationship Specialty Start Date End Date Jenny Guerra MD PCP - General 02/14/10 [address] [place] [address] documented as of this encounter
--- OUTSIDE RECORDS SUMMARY | 2021-10-10 00:12 | XMS_ITS | Encounter Summary ---
:1970 Author Organization [place] [address] Care Team Providers Name Role Phone Jenny Guerra MD Primary Care Provider Reason for Visit Diagnostic Test (Routine) - Closed Specialty Diagnoses / Procedures Referred By Contact Refer red To Contact Radiology Diagnoses Nephrolithiasis Complex renal cyst Gus Mckinnon Jr., MD [facility] Rad Ct Scan Procedures CT Abdomen & Pelvis wwo Contrast (Generic) [facility] [place] [address] [place] [address] Referral ID Status Reason Start Date Expiration Date Visits V isits Requested Authorized [id number] Closed Specialty 08/17/2016 09/15/2016 1 1 Service Requested Encounter Details Date Type Department Care Team Description 08/28/[address] Scan at [facility] Gus Mckinnon Jr. [facility] [place] [address] UROLOG[address]PT[address] [place], [place] [address] (Wo rk) Social History Tobacco [...] mouth daily. documented as of this encounter Progress Notes Humberto Rosales MD - 08/28/2016 8:58 AM EDT I was called to see Ms. Burns for a suspected breakthrough reaction to iodinated contrast. She has a documented history of congestion, watery eyes and throat dryness after her last injection of IV contrast, and for that she was premedicated today with oral prednisone and benadryl in accordance with the Shabb[facility] edmonds protocol. Immediately after her injection today, she had a single sneeze. I assessed her and she denied congestion, watery eyes, throat dryness, SOB, chest pain, itch or rash. Her vitals signs including BP, heart rate, and SpO2 were within normal limits. Her lungs were clear to auscultation b ilaterally. She was alert, calm, and no visible cutaneous rash was present. In my opinion this sneeze may or may not be a breakthrough allergic-like reaction to the contrast. If it is a true reaction, I do not believe she is at high risk for a severe breakthrough reaction in the future. According the ACR Manual on Contrast Media (v 10.2): Frequency and severity of repeat contrast reactions in premedicated patients (so-called breakthrough reactions) was recently studied [[id number]] resulting in several important conclusions: 1) Breakthrough reaction severity, signs, and symptoms are most often similar to the index reaction; 2) The majority of low-osmolality contrast injections in premedicated patients with a prior breakthrough reaction will not result in a repeat breakthrough reaction; 3) Patients with a mild index reaction have an extremely low risk of developing a severe breakthrough reaction; 4) Patients with a moderate or severe index or breakthrough reaction are at higher risk for developing another moderate or severe reaction should breakthrough occur; 5) Severe allergies to any other substance (which includes IV iodinated contrast) are associated with a somewhat higher risk of developing a moderate or severe breakthrough reaction. This is also true of patients with more than four allergies, any drug allergy, and chronic use of oral corticosteroids [37]. Based on the events today and the above information, I believe it is safe for Ms. Burns to have iodinated contrast in the future after premedication with the [facility] protocol. Humberto Rosales MD Body MRI Fellow Pager [phone] Humberto Rosales MD - 08/28/2016 8:46 AM EDT I was called to see Ms. Burns for a suspected breakthrough reaction to iodinated contrast. She has a documented history of congestion, watery eyes and throat dryness after her last injection of IV contrast, and for that she was premedicated today with oral prednisone and benadryl in accordance with the Shabb[facility] edmonds protocol. Immediately after her injection today, she had a single sneeze. I assessed her and she denied congestion, watery eyes, throat dryness, SOB, chest pain, itch or rash. Her vitals signs including BP, heart rate, and SpO2 were within normal limits. Her lungs were clear to auscultation b ilaterally. She was alert, calm, and no visible cutaneous rash was present. In my opinion this sneeze may or may not be a breakthrough allergic-like reaction to the contrast. If it is a true reaction, I do not believe she is at high risk for a severe breakthrough reaction in the future. According the ACR Manual on Contrast Media (v 10.2): Frequency and severity of repeat contrast reactions in premedicated patients (so-called breakthrough reactions) was recently studied [[id number]] resulting in several important conclusions: 1) Breakthrough reaction severity, signs, and symptoms are most often similar to the index reaction; 2) The majority of low-osmolality contrast injections in premedicated patients with a prior breakthrough reaction will not result in a repeat breakthrough reaction; 3) Patients with a mild index reaction have an extremely low risk of developing a severe breakthrough reaction; 4) Patients with a moderate or severe index or breakthrough reaction are at higher risk for developing another moderate or severe reaction should breakthrough occur; 5) Severe allergies to any other substance (which includes IV iodinated contrast) are associated with a somewhat higher risk of developing a moderate or severe breakthrough reaction. This is also true of patients with more than four allergies, any drug allergy, and chronic use of oral corticosteroids [37]. Based on the events today and the above information, I believe it is safe for Ms. Burns to have iodinated contrast in the future after premedication with the [facility] protocol. Humberto Rosales MD Body MRI Fellow Pager [phone] Marry Fowler, ELIZABETH - 08/28/2016 8:45 AM EDT Called to [address] Kramer for possible contrast reaction. Pt took Benadryl and Prednisone per protocol. Sneezed once, no hives no rash noted, BP 142/81 (96), HR 84, Sat 98%. To follow up with MD in clinic after CT. documented in this encounter Plan of Treatment Not on filedocumented as of this encounter Procedures Procedure Name Priority Date/Time Associated Diagnosis Comme nts CT ABD/PELVIS W OR Routine 08/28/2016 8:44 AM Nephrolith iasis Results for this WO CONTRAST EDT Complex renal cyst procedure are in the results section. documented in this encounter Visit Diagnoses Not on filedocumented in this encounter Administered Medications Inactive Administered Medications - up to 3 most recent administrations Medication Order MAR Action Action Date Dose Rate Site iohexol (OMNIPAQUE) 350 mg/mL Given 08/28/2016 8:45 AM EDT 23,10 0 mg solution 23,100 mg 23,100 mg (66 mL), Intravenous, ONCE PRN, 1 dose, Starting on Sat08/28/16 at 0844, Until Sat08/28/16 at 0845, Per Protocol, Warning Vesicant/Irritant Medication , Routine documented in this encounter Care Teams Credit Reporting Clerk Relationship Specialty Start Date End Date Jenny Guerra MD PCP - General 02/14/10 [address] [place] [address] documented as of this encounter
--- OUTSIDE RECORDS SUMMARY | 2021-10-10 00:12 | XMS_ITS | Encounter Summary ---
:1970 Author Organization [facility] [place] [address] Care Team Providers Name Role Phone Jenny Guerra MD Primary Care Provider Encounter Details Date Type Department Care Team Description 08/22/2016 Orders Only Urology at [facility] [place] Gus Mckinnon Jr., MD [facility] [place] [address] UROLOGY DEPT. [phone] [place], [place] [address] (Wo rk) Social History Tobacco [...] on filedocumented in this encounter Care Teams Photo Mask Pattern Generator Relationship Specialty Start Date End Date Jenny Guerra MD PCP - General 02/14/10 [address] [place] [address] documented as of this encounter
--- OUTSIDE RECORDS SUMMARY | 2021-10-10 00:12 | XMS_ITS | Encounter Summary ---
:1970 Author Organization [facility] [address] Care Team Providers Name Role Phone Jenny Guerra MD Primary Care Provider Reason for Visit Reason Onset Date Comments Results 10/19/2014 Encounter Details Date Type Department Care Team Description 10/19/2014 Telephone Urology at [facility] Gus Mckinnon Jr., MD Results [facility] [place] [address] UROLOGY DEPT. [phone] [place], [place] [address] (Wo rk) Social History Tobacco Use Types Packs/Day Years Used Date Never Smoker Alcohol Use Standard Drinks/Week Comments No 0 (1 standard drink = 0.6 oz pure alcoho l) Sex Assigned at Date Recorded Not on file documented as of this encounter Miscellaneous Notes Telephone Encounter - Gus Mckinnon Jr., MD - 10/19/2014 5:21 PM EDT I attempted to call her x2 to discuss CT report with unexpected finding. I left a message for her that we have received the CT report, and that it was noted that she should consider a followup CT to re-assess low attenuation region in left kidney with mild urothelial enhancement. Clinically consistentwith her report of pyelonephritis, although per report repeat CT could help ...to exclude the less likely possibility of infiltrative neoplasm.... I left a message for her to call the urology office to discuss and that she may also discuss with Elle whom she also saw in urology. IMPRESSION: 1. 2 small low-attenuation left renal lesions one in the posterior interpolar region the other in the lower pole, largest compatible with a cyst with suspected fine septation, the other 2 small to characterize accurately and also appears to have a fine septation. 2. 4 mm linear calcification in the lower pole of left kidney, likely representing a small nonobstructing left renal calculus. No additional radiopaque urinary tract calculi identified. 3. Unexpected finding: Slightly heterogeneous asymmetric right-sided nephrogram with a more focal area of wedge-shaped low attenuation in the anterior interpolar region and mild urothelial enhancement as well as proximal ureterectasis and pelvocaliectasis. Findings are not entirely specific and though could be due to pyelonephritis in the appropriate clinical scenario. Suggests clinical correlation and consider a follow-up CT to reassess the interpolar region to exclude the less likely possibility of infiltrative neoplasm. 4. Small sclerotic lesion of bone in the T10 vertebral body, unchanged and indeterminate though statistically likely represent a bone island in the absence of known malignancy. 5. Shortly following the injection of intravenous contrast, the patient reported nasal congestion, watery eyes and subjective feeling of throat sticking. Patient was evaluated by the manager of radiology with stable vital signs and administered 25 mg PO Benadryl. documented in this encounter Plan of Treatment Not on filedocumented as of this encounter Visit Diagnoses Not on filedocumented in this encounter Care Teams Mathematical Engineer Relationship Specialty Start Date End Date Jenny Guerra MD PCP - General 02/14/10 [address] [place] [address] documented as of this encounter
--- OUTSIDE RECORDS SUMMARY | 2021-10-10 00:12 | XMS_ITS | Encounter Summary ---
:1970 Author Organization [facility] [place] [address] Care Team Providers Name Role Phone Jenny Guerra MD Primary Care Provider Encounter Details Date Type Department Care Team Description 10/15/[address] Scan at [facility] Gus Mckinnon Jr., MD [facility] [place] [address] [place] [address] Social History Tobacco Use Types Packs/Day Years Used Date Never Smoker Alcohol Use Standard Drinks/Week Comments No 0 (1 standard drink = 0.6 oz pure alcoho l) Sex Assigned at Date Recorded Not on file documented as of this encounter Medications at Time of Discharge Medication Sig Dispensed Refills Start Date End Date multivitamin with minerals Take 1 tablet by 0 (THERA-M) 9-0.4 mg Tablet mouth daily. documented as of this encounter Progress Notes Marry Fowler RN - 10/15/2014 8:59 AM EDT Patient seen sitting on CT table, O2 on and sats 99%, VS at 0850 159/92, HR 62, BP at 0855 152/84. Seen by Dr. Burton. Advised to sit in waiting room for 10-15 minutes prior to leaving with . Given po Benadry at 0855. Informed that she may feel sleepy and to monitor self at work. TobaccovilleJerardo castellonalireza Macias - 10/15/2014 8:56 AM EDT Documentation of IV Contrast Reaction Time/Date of Reaction: 8:45 am IV Contrast Material: OMNIPAQUE (IOHEXOL) Volume Administered: 110cc HPI: After the routine administration of IV contrast for a CT scan, the patient developed congestion, watery eyes and subjective 'throat sticking'. No chest pain, shortness of breath, wheezing or cough. Physical Exam: General: in no apparent distress Heart: normal rate, regular rhythm, normal S1, S2, no murmurs, rubs, clicks or gallops, S1 and S2 normal Chest: clear to auscultation, no wheezes, rales or rhonchi, symmetric air entry Skin: dry Vital Signs: HR: <80 BP: 159/92 RR: 14 SPO2: 98% RA Assessment/Plan: This is a 44 y.o. female who presents with the reaction described above after routine administrationof IV contrast for a CT scan. Patient was monitored in the CT suite with stable vital signs and improvement in symptoms after approximately 10 minutes of observation. - Transport to waiting area for observatio - Administer Diphenhydramine 25 mg PO x 1 (patient told not to drive) - Discharge once stable - This reaction has been documented in eDH Allergies documented in this encounter Plan of Treatment Not on filedocumented as of this encounter Procedures Procedure Name Priority Date/Time Associated Diagnosis Comme nts CT ABD/PELVIS W OR Routine 10/15/2014 8:58 AM Res ults for this WO CONTRAST EDT procedure are i n the results section. documented in this encounter Results (ABNORMAL) CT abdomen & pelvis with/WO contrast (10/15/2014 8:58 AM EDT) Anatomical Region Laterality Modality Abdomen, Pelvis Computed Tomography Specimen (Source) Anatomical Collection Method Collection Time Re ceived Time Location / / Volume Laterality 10/15/2014 8:58 AM EDT Impressions 10/15/2014 9:45 AM EDT IMPRESSION: 1. 2 small low-attenuation left renal le sions one in the posterior interpolar region the other in the lower pole, larg est compatible with a cyst with suspected fine septation, the other 2 sm all to characterize accurately and also appears to have a fine septation. 2. 4 mm linear calcification in the lowe r pole of left kidney, likely representing a small nonobstructing left renal calculus. No additional radiopaque urinary tract calculi identif ied. 3. Unexpected finding: Slightly heteroge neous asymmetric right-sided nephrogram with a more focal area of wedge-shaped l ow attenuation in the anterior interpolar region and mild urothelial en hancement as well as proximal ureterectasis and pelvocaliectasis. Find ings are not entirely specific and though could be due to pyelonephritis in the appropriate clinical scenario. Suggests clinical correlation and consid er a follow-up CT to reassess the interpolar region to exclude the less li cheko possibility of infiltrative neoplasm. 4. Small sclerotic lesion of bone in the T10 vertebral body, unchanged and indeterminate though statistically likel y represent a bone island in the absence of known malignancy. 5. Shortly following the injection of in travenous contrast, the patient reported nasal congestion, watery eyes and subjec tive feeling of throat sticking. Patient was evaluated by the radiology r esident with stable vital signs and administered 25 mg PO Benadryl. Narrative 10/15/2014 9:45 AM EDT EXAMINATION: ??CT Abdomen / Pelvis With and Without Contrast CLINICAL HISTORY: ??assess bilateral kid sunitha stones and left sided renal cysts TECHNIQUE: Helical CT of the abdomen and pelvis was performed before and after the intravenous administration of contra st. 110 cc of Omnipaque 350 was given. No oral contrast was administered. COMPARISON: ??Renal bladder ultrasound , 04/06/2014, CT of the abdomen and pelvis without contrast 01/25/2014 FINDINGS: On the noncontrast portion of the study, there is a 5 mm linear calcification in the lower pole of the left kidney which likely represents a small nonobstructing renal calculus. No additional radiopaque tract calculi are identified. In the nephrographic phase, there is sli ghtly asymmetric heterogeneous right-sided nephrogram with ill-defined areas of low-attenuation most pronounced in the anterior interpolar region of the right kidney on the coronal image 45 series 604 and series for-26. Finding is accompanied by mild pelvocaliectasis and proximal ureterectasis with a mild a symmetric urothelial enhancement. No perinephric fat stranding is identified. Findings are nonspecific and could represent pyelonephritis in the appropri ate clinical setting. At the left kidney, there is a 13 mm pos terior interpolar region low-attenuation lesion with attenuation values measuring 11 mm compatible with a renal cyst with subtle vague linear possible septation o n coronal image 52. A smaller 9 mm indeterminate left lower pole renal lesi on is seen with attenuation value measuring approximately 81 [address] un its and associated with fine probable septation on series 5-219. Additional ballard b-5 mm left lower pole and interpolar low-attenuation renal cortical structure s are too small to characterize though statistically likely to represent cysts. Other findings: The visualized lung base s are clear. The visualized portion of the liver appears normal. No focal liver lesion. No biliary ductal dilatation. The gallbladder, pancreas, adrenals, and spleen are normal. No abdominal aortic aneurysm is identifi ed. No dilated bowel to bowel thickening. No intra-abdominal lymphaden opathy. The pelvis, bladder is moderately disten ded with the borderline wall thickening, which is likely due to incomplete disten tion. No gradients bladder calculi. Gynecologic structures are unremarkable for a approximately 2.7 x 2.1 cm low-attenuation right adnexal cystic sukh earing structure on series 2-51, not optimally characterized. No pelvic sidew all or inguinal lymphadenopathy is identified. Review of bone windows demonstrates no f racture. There is a small vague area of sclerosis in the left aspect of the T10 vertebral body on coronal image 48 of series 601 and sagittal image 51 of seri es 602, unchanged since 01/25/2014. Resulting Agency Comment Unexpected Finding Procedure Note José Valentin MD - 10/15/2014Formatti ng of this note might be different from the original. EXAMINATION: CT Abdomen / Pelvis With an d Without Contrast CLINICAL HISTORY: assess bilateral kidne y stones and left sided renal cysts TECHNIQUE: Helical CT of the abdomen and pelvis was performed before and after the intravenous administration of contra st. 110 cc of Omnipaque 350 was given. No oral contrast was administered. COMPARISON: Renal bladder ultrasound 09/23, 04/06/2014, CT of the abdomen and pelvis without contrast 01/25/2014 FINDINGS: On the noncontrast portion of the study, there is a 5 mm linear calcification in the lower pole of the left kidney which likely represents a small nonobstructing renal calculus. No additional radiopaque tract calculi are identified. In the nephrographic phase, there is sli ghtly asymmetric heterogeneous right-sided nephrogram with ill-defined areas of low-attenuation most pronounced in the anterior interpolar region of the right kidney on the coronal image 45 series 604 and series for-26. Finding is accompanied by mild pelvocaliectasis and proximal ureterectasis with a mild a symmetric urothelial enhancement. No perinephric fat stranding is identified. Findings are nonspecific and could represent pyelonephritis in the appropri ate clinical setting. At the left kidney, there is a 13 mm pos terior interpolar region low-attenuation lesion with attenuation values measuring 11 mm compatible with a renal cyst with subtle vague linear possible septation o n coronal image 52. A smaller 9 mm indeterminate left lower pole renal lesi on is seen with attenuation value measuring approximately 81 [place]oun[place]field un its and associated with fine probable septation on series 5-219. Additional ballard b-5 mm left lower pole and interpolar low-attenuation renal cortical structure s are too small to characterize though statistically likely to represent cysts. Other findings: The visualized lung base s are clear. The visualized portion of the liver appears normal. No focal liver lesion. No biliary ductal dilatation. The gallbladder, pancreas, adrenals, and spleen are normal. No abdominal aortic aneurysm is identifi ed. No dilated bowel to bowel thickening. No intra-abdominal lymphaden opathy. The pelvis, bladder is moderately disten ded with the borderline wall thickening, which is likely due to incomplete disten tion. No gradients bladder calculi. Gynecologic structures are unremarkable for a approximately 2.7 x 2.1 cm low-attenuation right adnexal cystic sukh earing structure on series 2-51, not optimally characterized. No pelvic sidew all or inguinal lymphadenopathy is identified. Review of bone windows demonstrates no f racture. There is a small vague area of sclerosis in the left aspect of the T10 vertebral body on coronal image 48 of series 601 and sagittal image 51 of seri es 602, unchanged since 01/25/2014. IMPRESSION IMPRESSION: 1. 2 small low-attenuation left renal le sions one in the posterior interpolar region the other in the lower pole, larg est compatible with a cyst with suspected fine septation, the other 2 sm all to characterize accurately and also appears to have a fine septation. 2. 4 mm linear calcification in the lowe r pole of left kidney, likely representing a small nonobstructing left renal calculus. No additional radiopaque urinary tract calculi identif ied. 3. Unexpected finding: Slightly heteroge neous asymmetric right-sided nephrogram with a more focal area of wedge-shaped l ow attenuation in the anterior interpolar region and mild urothelial en hancement as well as proximal ureterectasis and pelvocaliectasis. Find ings are not entirely specific and though could be due to pyelonephritis in the appropriate clinical scenario. Suggests clinical correlation and consid er a follow-up CT to reassess the interpolar region to exclude the less li cheko possibility of infiltrative neoplasm. 4. Small sclerotic lesion of bone in the T10 vertebral body, unchanged and indeterminate though statistically likel y represent a bone island in the absence of known malignancy. 5. Shortly following the injection of in travenous contrast, the patient reported nasal congestion, watery eyes and subjec tive feeling of throat sticking. Patient was evaluated by the radiology r esident with stable vital signs and administered 25 mg PO Benadryl. Maine Gilmore MD IMG CT ORDERABLES documented in this encounter Visit Diagnoses Not on filedocumented in this encounter Administered Medications Inactive Administered Medications - up to 3 most recent administrations Medication Order MAR Action Action Date Dose Rate Site diphenhydrAMINE (BENADRYL) capsule Given 10/15/2014 8:55 AM EDT 25 mg 25 mg 25 mg, Oral, ONCE, 1 dose, On Sat10/15/14 at 0915, Routine iohexol (OMNIPAQUE) 350 mg/mL solution Given 10/15/2014 8:32 AM EDT 38,500 mg 38,500 mg 38,500 mg (110 mL), Intravenous, ONCE PRN, 1 dose, Starting on Sat10/15/14 at 0829, Until Sat10/15/14 at 0832, Per Protocol, Routine documented in this encounter Care Teams Lithographic Photographer Relationship Specialty Start Date End Date Jenny Guerra MD PCP - General 02/14/10 [address] [place] [address] documented as of this encounter
--- OUTSIDE RECORDS SUMMARY | 2021-10-10 00:12 | XMS_ITS | Encounter Summary ---
:1970 Author Organization [facility] [address] Care Team Providers Name Role Phone Jenny Guerra MD Primary Care Provider Encounter Details Date Type Department Care Team Description 10/20/2014 Telephone Urology Maine Gilmore MD [facility] [address] [place] [address] UROLOGY DEPT [phone] [place] [phone] (Wo rk) Social History Tobacco Use Types Packs/Day Years Used Date Never Smoker Alcohol Use Standard Drinks/Week Comments No 0 (1 standard drink = 0.6 oz pure alcoho l) Sex Assigned at Date Recorded Not on file documented as of this encounter Miscellaneous Notes Telephone Encounter - Maine Gilmore MD - 10/20/2014 10:06 AM EDT Attempted to call Vicenta Burns with results of her recent CT scan, but again, no answer. Maine Gilmore MD Urology PGY-2 Pager: [phone] documented in this encounter Plan of Treatment Not on filedocumented as of this encounter Visit Diagnoses Not on filedocumented in this encounter Care Teams Flatlock Sewing Machine Operator Relationship Specialty Start Date End Date Jenny Guerra MD PCP - General 02/14/10 [address] [place] [address] documented as of this encounter
--- OUTSIDE RECORDS SUMMARY | 2021-10-10 00:12 | XMS_ITS | Encounter Summary ---
:1970 Author Organization [facility] [place] [address] Care Team Providers Name Role Phone Jenny Guerra MD Primary Care Provider Encounter Details Date Type Department Care Team Description 11/16/2014 Orders Only Urology at [facility] Jason [place], Renal lesion (Primary [facility] TAMI Moore Dx) [place] [address] UROLOGY DEPT. [place], [place] [address] Social History Tobacco Use Types Packs/Day Years Used Date Never Smoker Alcohol Use Standard Drinks/Week Comments No 0 (1 standard drink = 0.6 oz pure alcoho l) Sex Assigned at Date Recorded Not on file documented as of this encounter Plan of Treatment Not on filedocumented as of this encounter Results (ABNORMAL) Creatinine (11/16/2014 10:13 AM EDT) athologist Signature Creatinine 0.60 (L) 0.70 - CERNER 1.20 mg/dL [facility] Comment: Please note that the pediatric reference intervals supplied above were not validated at [facility]. Results from pediatri c patients should be interpreted in conjunction to the patient's age, height and muscle mass. Estimated GFR >60 >=60 CERNER YAZ Emmanuel Comment: This estimated GFR (eGFR) value was calc ulated using the MDRD equation which has been validated on patients between t he ages of 18 and 70. The MDRD should not be used to assess kidney function in patients < 18 years of age or in patients with extremes of body mass, or in patients with acute kidney failure. This value should be multiplied by 1.2 f or patients. For further information please copy and past e the following links into your internet browser. [email or web address]/DHnkdep [email or web address]/DHMCnkf Specimen Anatomical Collection Method Collection Time Receive d Time (Source) Location / / Volume Laterality Blood specimen 11/16/2014 10:13 5 (specimen) AM EDT 10:34 AM EDT Resulting Agency Comment Spec In Lab Ashutosh Miranda MD CHEMISTRY ORDERABLES Performing Organization Address City/State/ZIP Code Phon e Number [address] LABORATORY [facility] documented in this encounter Visit Diagnoses Diagnosis Renal lesion - Primary Unspecified disorder of kidney and urete r documented in this encounter Care Teams Volunteer Services Supervisor Relationship Specialty Start Date End Date Jenny Guerra MD PCP - General 02/14/10 [address] [place] [address] documented as of this encounter
--- OUTSIDE RECORDS SUMMARY | 2021-10-10 00:12 | XMS_ITS | Encounter Summary ---
:1970 Author Organization [facility] [place] [address] Care Team Providers Name Role Phone Jenny Guerra MD Primary Care Provider Reason for Referral Diagnostic X-Ray (Routine) - Closed Specialty Diagnoses / Procedures Referred By Contact Refer red To Contact Radiology Diagnoses Nephrolithiasis Radha Mejia Jr., MD [facility] Rad Ultrasound Procedures US Retroperitoneal Complete [facility] UROLOGY DEPT. [place], [place] [id number] [place] [phone] Referral ID Status Reason Start Date Expiration Date Visits Requ ested Visits Authorized [id number] Closed 06/11/2015 06/10/2016 1 1 Reason for Visit Diagnostic X-Ray (Routine) - Closed Specialty Diagnoses / Procedures Referred By Contact Refer red To Contact Radiology Diagnoses Nephrolithiasis Radha Mejia Jr., MD [facility] Rad Ultrasound Procedures US Retroperitoneal Complete [facility] UROLOGY DEPT. [place], [place] [address] [place] [phone] Referral ID Status Reason Start Date Expiration Date Visits Requ ested Visits Authorized [id number] Closed 06/11/2015 06/10/2016 1 1 Encounter Details Date Type Department Care Team Description 08/29/2015 Hospital Encounter Ultrasound at [facility] Radha Mejia Nephrolithiasis [facility] [place] [address] UROLOGY DEPT. [phone] [place], [place] [address] Social History Tobacco Use Types Packs/Day Years Used Date Never Smoker Alcohol Use Standard Drinks/Week Comments No 0 (1 standard drink = 0.6 oz pure alcoho l) Sex Assigned at Date Recorded Not on file documented as of this encounter Medications at Time of Discharge Medication Sig Dispensed Refills Start Date End Date fish oil-omega-3 fatty Take 2 g by mouth 0 acids 1,000 mg Capsule daily. ascorbic acid (VITAMIN C) Take 500 mg by mouth 0 500 mg Tablet daily. multivitamin with minerals Take 1 tablet by 0 (THERA-M) 9-0.4 mg Tablet mouth daily. documented as of this encounter Plan of Treatment Not on filedocumented as of this encounter Procedures Procedure Name Priority Date/Time Associated Diagnosis Comme nts US RETROPERITONEAL Routine 08/29/2015 8:56 Nephrolithiasis Res ults for this COMPLETE AM EDT procedure are i n the results section. documented in this encounter Results US Retroperitoneal Complete (08/29/2015 [...] and agree with shania hernandez above interpretation. ?Vale Yunior Ley MD Electronically Signed Final Report ?? 09:19 am Narrative 08/29/2015 9:20 AM EDT Renal ?(Signed Final 08/29/2015 09:19 am) Patient Info ID #: ? [id number] ?: [birth year] (45 yrs) Name: ? EDOUARD RUGGIERO ? Visit Date: 08/29/2015 08:57 am Performed By Performed By: ? Mohit Antonio RDMS Attending: ?Jil MITCHELL, Enedina Mojica. Referred By: ?RADHA MEJIA MD Service(s) Provided ??URETRO - Retroperitoneal Complete - I [id number] ? [id number] Indications ??? perisstent pelviecatsis, f/u stones and [...] 09:19 am ) Patient Info ID #: [id number] : [id number] (45 y rs) Name: EDOUARD RUGGIERO Visit Date: 08/29/2015 0 8:57 am Performed By Performed By: Mohit Antonio RDMS Attending: Vale Ley MD Referred By: RADHA MEJIA MD Service(s) Provided URETRO - Retroperitoneal Complete - [facility] [id number] Indications ? perisstent pelviecatsis, f/u stones a [...] Signed Final Report 08/28 09:19 am Radha Mejia Jr., MD IM US GEN ORDERABLES documented in this encounter Visit Diagnoses Diagnosis Nephrolithiasis Calculus of kidney documented in this encounter Care Teams Cryptological Technician Relationship Specialty Start Date End Date Jenny Guerra MD PCP - General 02/14/10 [address] [place] [address] documented as of this encounter
--- OUTSIDE RECORDS SUMMARY | 2021-10-10 00:12 | XMS_ITS | Encounter Summary ---
:1970 Author Organization [facility] [place] [address] Care Team Providers Name Role Phone Jenny Guerra MD Primary Care Provider Encounter Details Date Type Department Care Team Description 10/12/2014 Telephone Urology at [facility] [place] [address] Social History Tobacco Use Types Packs/Day Years Used Date Never Smoker Alcohol Use Standard Drinks/Week Comments No 0 (1 standard drink = 0.6 oz pure alcoho l) Sex Assigned at Date Recorded Not on file documented as of this encounter Miscellaneous Notes Telephone Encounter - Solange Balbuena - 10/12/2014 10:[address] safety questions documented in this encounter Plan of Treatment Not on filedocumented as of this encounter Visit Diagnoses Not on filedocumented in this encounter Care Teams Television Station Manager Relationship Specialty Start Date End Date Jenny Guerra MD PCP - General 02/14/10 [address] [place] [address] documented as of this encounter
--- OUTSIDE RECORDS SUMMARY | 2021-10-10 00:12 | XMS_ITS | Encounter Summary ---
:1970 Author Organization [facility] [place] [address] Care Team Providers Name Role Phone Jenny Guerra MD Primary Care Provider Encounter Details Date Type Department Care Team Description 10/28/2017 Telephone Urology at [facility] Gus Mckinnon Jr., MD [facility] [place] [address] UROLOGY DEPT. [phone] [place], [place] [address] (Wo rk) Social History Tobacco Use Types Packs/Day Years Used Date Never Smoker Alcohol Use Standard Drinks/Week Comments No 0 (1 standard drink = 0.6 oz pure alcoho l) Sex Assigned at Date Recorded Not on file documented as of this encounter Miscellaneous Notes Telephone Encounter - Luis Felipe Miller - 10/28/2017 1:34 PM EDT Contacted patient to schedule a one-year recheck with Dr. Mckinnon. She states she is seeing a local urologist now and no longer needs an appointment at [facility]. documented in this encounter Plan of Treatment Not on filedocumented as of this encounter Visit Diagnoses Not on filedocumented in this encounter Care Teams Marketing And Development Coordinator Relationship Specialty Start Date End Date Jenny Guerra MD PCP - General 02/14/10 [address] [place] [address] documented as of this encounter
--- OUTSIDE RECORDS SUMMARY | 2021-10-10 00:12 | XMS_ITS | Encounter Summary ---
:1970 Author Organization [facility] [place] [address] Care Team Providers Name Role Phone Jenny Guerra MD Primary Care Provider Encounter Details Date Type Department Care Team Description 02/26/2015 Telephone Urology at [facility] [place] [address] UROLOGY DEPT [phone] [place], [place] [address] (Wo rk) Social History Tobacco Use Types Packs/Day Years Used Date Never Smoker Alcohol Use Standard Drinks/Week Comments No 0 (1 standard drink = 0.6 oz pure alcoho l) Sex Assigned at Date Recorded Not on file documented as of this encounter Miscellaneous Notes Telephone Encounter - Brandt Castle MD - 02/26/2015 1:15 PM EST Ms. Burns called to report dysuria. She is undergoing evaluation of recurrent UTIs. No fevers, chills, or constitutional symptoms. She would like to provide urine for culture at [facility]. I called [facility] lab and ordered U/A and culture. The results will be faxed to our clinic. I communicated this to the patient, who will provide a urine sample later today. The plan was explained in detail to the caller, who agreed. All questions were answered to the caller's satisfaction. documented in this encounter Plan of Treatment Not on filedocumented as of this encounter Visit Diagnoses Diagnosis Dysuria documented in this encounter Care Teams Behavioral Health Professional Relationship Specialty Start Date End Date Jenny Guerra MD PCP - General 02/14/10 [address] [place] [address] documented as of this encounter
--- OUTSIDE RECORDS SUMMARY | 2021-10-10 00:12 | XMS_ITS | Encounter Summary ---
:1970 Author Organization [facility] Address [facility] [place] [address] Care Team Providers Name Role Phone Jenny Guerra MD Primary Care Provider Encounter Details Date Type Department Care Team Description 11/16/2014 Follow-Up Urology at [facility] Jason Gurinder, Ureteral stone with hydronep hrosis; [facility] TAMI Moore Renal lesion; Drive [facility] Lower urinary [place] [address] UROLOGY DEPT. [place], [place] [address] (Wo rk) Social History Tobacco Use Types Packs/Day Years Used Date Never Smoker Alcohol Use Standard Drinks/Week Comments No 0 (1 standard drink = 0.6 oz pure alcoho l) Sex Assigned at Date Recorded Not on file documented as of this encounter Last Filed Vital Signs Vital Sign Reading Time Taken Comments Blood Pressure 152/77 11/16/2014 8:52 AM EDT Pulse 63 11/16/2014 8:52 AM EDT Temperature 36.7 ??C (98.1 ??F) 11/16/2014 8:52 AM EDT Respiratory Rate 18 11/16/2014 8:52 AM EDT Oxygen Saturation 100% 11/16/2014 8:52 AM EDT Inhaled Oxygen Concentration - - Weight 47.6 kg (105 lb) 11/16/2014 8:52 AM EDT Height 149.9 cm (4' 11) 11/16/2014 8:52 AM EDT Body Mass Index 21.21 11/16/2014 8:52 AM EDT documented in this encounter Patient Instructions Patient InstructionsTeresa Lakhani APRN - 11/16/2014 9:45 AM EDT We are working to book your follow up CT for you. Please call Dr. Mckinnon if you have NOT heard from him at least 1 week after your imaging study Call us when you have symptoms of a urinary infection. We will do a urine culture locally at that time and treat per the results. I will see you back in 4-5 months, sooner with concerns or symptoms. documented in this encounter Progress Notes Teresa Lakhani APRN - 11/16/2014 9:18 AM EDT UROLOGY CLINIC FOLLOW-UP HPI: Vicenta Burns is a 44 y.o. woman who returns for urologic follow up regarding possible UTIS. She does feel she is understanding me here without her sister. She does generally have a scuba dive training instructor for her appts. She is ok having a scuba dive training instructor today and we can call her sister to discuss. We requested a formal scuba dive training instructor but pt did not have one for her visit today. Ms. Burns states that she has bladder symptoms, always the week prior to her menses, a few times per year. She had this last before she saw Dr. Mckinnon. As soon as her menses starts, her symptoms resolve. She has pain with holding her urine, and burning with voiding. No fever/chills. She has urgency and frequency with these symptoms. She has never had urine testing at this time. She states she has been treated with abx, and she thinks this helps. She can't tolerate her symptoms. No gross hematuria other than with the stone in 01/2014. She has no other triggers for her symptoms like stress or intercourse. She drinks 2 litres of water per day. She voids every 30-60 min during the day given hydration, and 1 time at night. She does not leak urine. She moves her bowels every to every other day. She drinks only water per above, and 16 oz of iced coffee intermittently. She has no bladder symptoms today He is followed by Dr. Mckinnon for her stones and renal lesion. She she should be having a follow up CT in Mid November. Review of Systems Constitution: Negative for fever. Gastrointestinal: Negative for abdominal pain and nausea. Genitourinary: Negative for flank pain and hematuria. PMHx: none additional PSHx: right ureteroscopy (January 2014) FamHx: no family h/o urolithiasis Physical Exam Constitutional: She is oriented to person, place, and time. She appears well- developed and well-nourished. No distress. Cardiovascular: Normal rate. Pulmonary/Chest: Effort normal. Abdominal: Soft. She exhibits no distension. There is no tenderness. There is no rebound and no guarding. Genitourinary: No CVA tenderness to percussion bilaterally : normal external genitalia. Meatus and urethra normal. No bladder discomfort. She has no cystocele. She can not kegel. No obvious pelvic masses. Uterus well supported. Neurological: She is alert and oriented to person, place, and time. Skin: She is not diaphoretic. Psychiatric: She has a normal mood and affect. Her behavior is normal. Vitals reviewed. UA: negative so culture sent to prove she is negative PVR: 20-25 cc with scanner Imaging Studies: 10/12/2014: 1. Unchanged two sub-5 mm nonobstructing left renal calculi. 2. No sonographically evident right renal calculi seen today, but interval development in moderate pelvicaliectasis as well as dilatation of the visualized proximal right ureter, no calculi identified in the visualized proximal ureter. A right ureteral jet is present. Findings may represent the sequela of a recently passed calculus. Please correlate clinically. 3. Two persistent complex left renal cysts as above. 4. Bladder unremarkable. 10/15/14: CTIMPRESSION: 1. 2 small low-attenuation left renal lesions [...] throat sticking. Patient was evaluated by the senior vice president & general counsel with stable vital signs and administered 25 mg PO Benadryl. Impression/Plan: Left-sided non-obstructing nephrolithiasis, right-sided pelviectasis and left- sided kidney cysts that need follow up CT-all followed by Dr. Mckinnon cre today and repeat CT as this has not been booked yet. Follow up with Dr. Mckinnon. Pt will call if she does not hear from Dr. Mckinnon by a week after her imaging Intermittent irritative voiding symptoms without cultures to review We discussed her symptoms and possible contributors. I do not have cultures to review. We discussed the difference between positive urine cultures and nonbacterial irritative voiding symptoms. At this time, when she has symptoms, she will call us so we may send a UA and culture order to her local hospital. We will treat per or pending the culture results. If she has 3 culture proven infections in 6 months, we will consider abx prophylaxis daily x 6 months or self start therapy. If she has persistentUTIs that do not clear, will consider having Dr. Mckinnon do a cystoscopy. If her cultures are negative,we will discuss further therapies for nonbacterial irritation/pelvic congestion around the time of her menses. All of her questions were answered to her apparent satisfaction. She felt she understood me well today. However, I would like a formal scuba dive training instructor in clinic next time to have one. She states she will likely have her sister come to the appt with her in 4-5 months with me. 40 min spent with pt with > 20 min spent in discussion of options and rationale. Teresa Fairchild APRN documented in this encounter Miscellaneous Notes Addendum Note - Erin Bailey LPN - 11/16/2014 10:13 AM EDT Addended by: ERIN BAILEY on: 11/16/2014 10:13 AM Modules accepted: Orders Addendum Note - Barry Altman - 11/16/2014 10:13 AM EDT Addended by: BARRY ALTMAN on: 11/16/2014 10:13 AM Modules accepted: Orders documented in this encounter Plan of Treatment Not on filedocumented as of this encounter Procedures Procedure Name Priority Date/Time Associated Diagnosis Comme nts CREATININE STAT 11/16/2014 10:13 AM Renal lesion Results for this EDT procedure are i n the results section . URINE CULTURE Routine 11/16/2014 10:03 AM Ureteral stone with Results for this EDT hydronephrosis procedure are in the Renal lesion results section. Lower urinary tract symptoms documented in this encounter Results (ABNORMAL) Creatinine (11/16/2014 10:13 AM EDT) athologist Signature Creatinine 0.60 (L) 0.70 - CERNER 1.20 mg/dL [facility] Comment: Please note that the pediatric reference intervals supplied above were not validated at [facility]. Results from pediatri c patients should be interpreted in conjunction to the patient's age, height and muscle mass. Estimated GFR >60 >=60 QUOCNER LULYIU M Comment: This estimated GFR (eGFR) value was [...] the following links into your internet browser. [email or web address] [email or web address]/[facility]ARK[facility]f Specimen Anatomical Collection Method Collection Time Receive d Time (Source) Location / / Volume Laterality Blood specimen 11/16/2014 10:13 5 (specimen) AM EDT 10:34 AM EDT Resulting Agency Comment Spec In Lab Ashutosh Miranda MD CHEMISTRY ORDERABLES Performing Organization Address City/[facility]/[place] [address] CERNER MILLENNIUM Urine culture Clean Catch Urine (11/16/2014 10:03 AM EDT) [facility] Method Time Signature Urine Culture No growth CERNER (Less than MILLENNIUM 1,000 cfu/ml). Specimen (Source) Anatomical Collection Method Collection Time Re ceived Time Location / / Volume Laterality Urine specimen 11/16/2014 10:03 5 obtained by clean AM EDT 12:02 PM E DT catch procedure (specimen) Resulting Agency Comment Spec In Lab Ashutosh Miranda MD MICROBIOLOGY - GENERAL ORDER MONSTER Performing Organization Address City/[facility]/[place] [address] CERNER MILLENNIUM documented in this encounter Visit Diagnoses Diagnosis Ureteral stone with hydronephrosis Calculus of ureter Renal lesion Unspecified disorder of kidney and urete r Lower urinary tract symptoms Other symptoms involving urinary system documented in this encounter Care Teams Ivory Polisher Relationship Specialty Start Date End Date Jenny Guerra MD PCP - General 02/14/10 [address] [place] [address] documented as of this encounter
--- OUTSIDE RECORDS SUMMARY | 2021-10-10 00:12 | XMS_ITS | Encounter Summary ---
:1970 Author Organization [facility] [place] [address] Care Team Providers Name Role Phone Jenny Guerra MD Primary Care Provider Encounter Details Date Type Department Care Team Description 10/20/2014 Telephone Urology Maine Gilmore MD [facility] [place] [address] UROLOGY DEPT [phone] [place], [place] [address] (Wo rk) Social History Tobacco Use Types Packs/Day Years Used Date Never Smoker Alcohol Use Standard Drinks/Week Comments No 0 (1 standard drink = 0.6 oz pure alcoho l) Sex Assigned at Date Recorded Not on file documented as of this encounter Miscellaneous Notes Telephone Encounter - Maine Gilmore MD - 10/20/2014 7:04 PM EDT TELEPHONE NOTE Date of call: 10/20/2014 Time of call: 7:05 PM Attempted to call patient back at [phone], but no answer, Voicemail left again. Maine Gilmore MD Urology PGY-2 Pager: [phone] documented in this encounter Plan of Treatment Not on filedocumented as of this encounter Visit Diagnoses Not on filedocumented in this encounter Care Teams Tentering Machine Feeder Relationship Specialty Start Date End Date Jenny Guerra MD PCP - General 11/23/10 [address] [place] [address] documented as of this encounter
--- OUTSIDE RECORDS SUMMARY | 2021-10-10 00:12 | XMS_ITS | Encounter Summary ---
:1970 Author Organization [facility] [place] [address] Care Team Providers Name Role Phone Jenny Guerra MD Primary Care Provider Encounter Details Date Type Department Care Team Description 12/10/[address] Scan at [facility] Gus Mckinnon Complex renal cyst [facility] MD Carolyn [facility] [address] UROLOGY DEPT. [phone] [place] [address] Social History Tobacco Use Types Packs/Day Years [...] Comme nts CT ABD/PELVIS W OR Routine 12/10/2014 10:55 AM Re sults for this WO CONTRAST EDT procedure are i n the results section. documented in this encounter Results (ABNORMAL) CT Abdomen & Pelvis With/Wo Contrast (12/10/2014 10:55 AM EDT) Anatomical Region Laterality Modality Abdomen, Pelvis Computed Tomography Specimen (Source) Anatomical Collection Method Collection Time Re ceived Time Location / / Volume Laterality 12/10/2014 10:55 AM EDT Impressions 12/10/2014 12:04 PM EDT IMPRESSION: 1. ??Interval retraction of hypodense we dge-shaped right renal parenchymal lesion previously worrisome for pyelonephritis with abscess. 2. ??Nonobstructing punctate left lower pole renal calculi. 3. ??Hypodense lesions in the left renal parenchyma cannot be fully characterized on this study though I suspect these rep resent cysts. 4. ??Incomplete opacification of the mid right ureter. 5. ??No filling defects within the opaci fied portions of the right ureter nor the right central collecting system though a symmetric right pelviectasis and ureterectasis persists. No intravesicle masses or calculi. 6. ??Ureteroscopic and cystoscopic corre lation may be helpful. Narrative 12/10/2014 12:04 PM EDT EXAMINATION: CT Abdomen / Pelvis With and Without Contrast CLINICAL HISTORY: unexpected finding on 10/15 CT in right kidney (urothelial enhancement), concerning for possible ne oplasm vs pyelonephritis. Recommended re-scanning at 6 weeks to better charact erize right kidney TECHNIQUE: Noncontrast CT scan of the ab domen and pelvis followed by contrast-enhanced CT scan of the abdomen and pelvis following intravenous ministration 110 cc Omnipaque 350 intrav enous contrast. 3-D volume rendered and MIP images were reformatted on separate workstation reviewed as part of this study. COMPARISON: October 15, 2014 FINDINGS: Stable nonobstructing left lower pole ne phrolithiasis. No right-sided nephrolithiasis. No bladder calculi. Imaged portions of lung bases are normal . Review of osseous structures are normal. Visualized portions of the liver, gallbl adder, pancreas and spleen are normal. Both adrenal glands are normal. No enlarged lymph nodes. No ascites. Loops of large and small bowel are skyla l in caliber without perienteric inflammatory change or mural thickening. Appendix is normal. Prompt symmetric bilateral nephrograms w ithout suspicious renal mass. Hypodense left renal parenchymal lesions cannot be fully characterized on this study though I suspect they represent cysts. P reviously noted wedge-shaped hypodense lesion in the right renal parenchyma has retracted and is considerably smaller on the current study. Prompt symmetric b ilateral pyelograms without central collecting system filling defect. Incomp lete opacification of the mid right ureter. No filling defects within the op acified portions of either ureter. Asymmetric right pelviectasis and ureter ectasis. No intravesicle masses. Resulting Agency Comment Unexpected Finding Procedure Note Marry Curtis MD - 12/10/2014 EXAMINATION: CT Abdomen / Pelvis With an d Without Contrast CLINICAL HISTORY: unexpected finding on 10/15 CT in right kidney (urothelial enhancement), concerning for possible ne oplasm vs pyelonephritis. Recommended re-scanning at 6 weeks to better charact erize right kidney TECHNIQUE: Noncontrast CT scan of the ab domen and pelvis followed by contrast-enhanced CT scan of the abdomen and pelvis following intravenous ministration 110 cc Omnipaque 350 intrav enous contrast. 3-D volume rendered and MIP images were reformatted on separate workstation reviewed as part of this study. COMPARISON: October 15, 2014 FINDINGS: Stable nonobstructing left lower pole ne phrolithiasis. No right-sided nephrolithiasis. No bladder calculi. Imaged portions of lung bases are normal . Review of osseous structures are normal. Visualized portions of the liver, gallbl adder, pancreas and spleen are normal. Both adrenal glands are normal. No enlarged lymph nodes. No ascites. Loops of large and small bowel are skyla l in caliber without perienteric inflammatory change or mural thickening. Appendix is normal. Prompt symmetric bilateral nephrograms w ithout suspicious renal mass. Hypodense left renal parenchymal lesions cannot be fully characterized on this study though I suspect they represent cysts. P reviously noted wedge-shaped hypodense lesion in the right renal parenchyma has retracted and is considerably smaller on the current study. Prompt symmetric b ilateral pyelograms without central collecting system filling defect. Incomp lete opacification of the mid right ureter. No filling defects within the op acified portions of either ureter. Asymmetric right pelviectasis and ureter ectasis. No intravesicle masses. IMPRESSION IMPRESSION: 1. Interval retraction of hypodense wedg e-shaped right renal parenchymal lesion previously worrisome for pyelonephritis with abscess. 2. Nonobstructing punctate left lower po le renal calculi. 3. Hypodense lesions in the left renal p arenchyma cannot be fully characterized on this study though I suspect these rep resent cysts. 4. Incomplete opacification of the mid r ight ureter. 5. No filling defects within the opacifi ed portions of the right ureter nor the right central collecting system though a symmetric right pelviectasis and ureterectasis persists. No intravesicle masses or calculi. 6. Ureteroscopic and cystoscopic correla tion may be helpful. Gus Mckinnon Jr., MD IMG CT ORDERABLES documented in this encounter Visit Diagnoses Diagnosis Complex renal cyst Other specified congenital cystic kidney disease documented in this encounter Administered Medications Inactive Administered Medications - up to 3 most recent administrations Medication Order MAR Action Action Date Dose Rate Site iohexol (OMNIPAQUE) 350 mg/mL Given 12/10/2014 10:39 AM EDT 38,5 00 mg solution 38,500 mg 38,500 mg (110 mL), Intravenous, ONCE PRN, 1 dose, Starting on Sat12/10/14 at 1017, Until Sat12/10/14 at 1039, Per Protocol, Routine documented in this encounter Care Teams Dryer And Washer Mechanic Relationship Specialty Start Date End Date Jenny Guerra MD PCP - General 02/14/10 [address] [place] [address] documented as of this encounter
--- OUTSIDE RECORDS SUMMARY | 2021-10-10 00:12 | XMS_ITS | Encounter Summary ---
:1970 Author Organization [facility] [place] [address] Care Team Providers Name Role Phone Jenny Guerra MD Primary Care Provider Encounter Details Date Type Department Care Team Description 08/22/2016 Laboratory Appointment Lab 3L [facility] Nephrolithiasis; [facility] [place] [address] Social History Tobacco Use Types Packs/Day Years Used Date Never Smoker Alcohol Use Standard Drinks/Week Comments No 0 (1 standard drink = 0.6 oz pure alcoho l) Sex Assigned at Date Recorded Not on file documented as of this encounter Plan of Treatment Not on filedocumented as of this encounter Procedures Procedure Name Priority Date/Time Associated Diagnosis Comme nts BASIC METABOLIC STAT 08/22/2016 7:14 AM Nephrolithias is Results for this PANEL (NON-FASTING) EDT Complex renal cyst pr ocedure are in the results section. documented in this encounter Results (ABNORMAL) Basic Metabolic Panel (non-fasting) (08/22/2016 7:14 AM EDT) athologist Signature Glucose Lvl 158 65 - 199 [facility] mg/dL [facility] Comment: Diabetes: >=200 mg/dL plus symp toms BUN 26 (H) 8 - 18 mg/dL [facility] Creatinine 0.73 0.70 - 1.20 mg/dL [facility] Comment: Please note that the pediatric reference intervals supplied above were not validated at [facility]. Results from pediatri c patients should be interpreted in conjunction to the patient's age, height and muscle mass. Sodium 144 135 - 145 mmol/L [facility] Potassium 3.5 3.5 - 5.0 mmol/L [facility] Comment: Please note: ??Patients with WBC >100,00 0 may have falsely elevated Potassium levels. ??For accurate Potassium quantif ication in these patients send serum separator tube (gold top) for subsequent determinations. ??Contact the Clinical Chemistry Laboratory if there are any qu estions. Chloride 104 98 - 107 mmol/L [facility] CO2 23 22 - 31 mmol/L [facility] Anion Gap 17 (H) 5 - 15 mmol/L [facility] Calcium 9.1 8.5 - 10.5 mg/dL [facility] Estimated GFR >60 >=60 [facility] Comment: This estimated GFR (eGFR) value was [...] the following links into your internet browser. http://Fileforce/DHnkdep http://Fileforce/DHMCnkf Specimen Anatomical Collection Method Collection Time Receive d Time (Source) Location / / Volume Laterality Blood specimen 08/22/2016 7:14 AM 017 7:22 (specimen) EDT AM EDT Resulting Agency Comment Spec In Lab Gus Mckinnon Jr., MD CHEMISTRY ORDERABLES Performing Organization Address City/State/ZIP Code [place] [address] documented in this encounter Visit Diagnoses Diagnosis Nephrolithiasis Calculus of kidney Complex renal cyst Other specified congenital cystic kidney disease documented in this encounter Care Teams Plastic Tool Maker Relationship Specialty Start Date End Date Jenny Guerra MD PCP - General 02/14/10 [address] [place] [address] documented as of this encounter
--- OUTSIDE RECORDS SUMMARY | 2021-10-10 00:12 | XMS_ITS | Encounter Summary ---
:1970 Author Organization [place] [address] Care Team Providers Name Role Phone Jenny Guerra MD Primary Care Provider Encounter Details Date Type Department Care Team Description 03/06/2016 Hospital Encounter Ultrasound at [facility] Radha Mckinnon Nephrolithiasis [facility] [place] [address] UROLOGY DEPT. [phone] [place], [place] [address] Social History Tobacco Use Types [...] Associated Diagnosis Comme nts US RETROPERITONEAL Routine 03/06/2016 11:05 Nephrolithiasis Re sults for this COMPLETE AM EST procedure are i n the results section. documented in this encounter Results US Retroperitoneal Complete (03/06/2016 11:05 AM EST) Anatomical Region Laterality Modality Abdomen Ultrasound Specimen (Source) Anatomical Collection Method Collection Time Re ceived Time Location / / Volume Laterality 03/06/2016 10:53 AM EST Impressions 03/06/2016 12:33 PM EST ??Ultrasound Dictation: 1. ??Mild right pelviectasis, not signi ficantly changed. 2. ??Right ureteral jet not visualized. 6 mm suspected stone near the right UVJ, without visualized ureteral dilatation. 3. ??Nonobstructing left renal calculi, the largest is 8 mm. Largest left renal calculus measured 4 mm previously. 4. ??Stable nonobstructing right renal stones measuring up to 3 mm. 5. ??Stable 9 mm cyst with wall calcifi cation in the inferior pole the left kidney. 6. ??Small amount of debris in the blad davy. I have personally reviewed the image(s) and the residents interpretation and agree with the findings, Lyssa Cassidy at 03/06/2016 12:25 PM ?Lyssa garcia MD Electronically Signed Final Report ?? 12:32 pm Narrative 03/06/2016 12:33 PM EST Renal ?(Signed Final 03/06/2016 12:32 pm) PATIENT INFO: ID #: ? [id number] ?: ??[birth year] (45 yrs) Name: ? EDOUARD RUGGIERO ? Visit Date: 03/06/2016 10:53 am PERFORMED BY: Performed By: ? Kelly Solares RDMS Attending: ?Ange MITCHELL, Lyssa Baldwin Associate: ?Connie MITCHELL, Alesha Moeller. Referred By: ?RADHA MCKINNON MD Location: ? [facility] SERVICE(S) PROVIDED: ??URETRO - Retroperitoneal Complete - I [id number] ? [id number] INDICATIONS: ??? stone growth; follow renal cysts (c omplex ??per u/s, no enhancement on prior CT) COMPARISON: Ultrasound: 08/29/2015 CTurogrram: 12/10/2014 RIGHT KIDNEY: Size (cm) ?L: ??10.2 Cortical Thickness: ?Normal Cortical Echogenicity: ?? Normal Hydronephrosis: ?Mild pelv iectasis, similar to prior Comment: ?Numerous tiny calcificati ons visualized thoughout ? kidney. Two measurabl e calcifications visualized, ? the largest measuring 3 mm (mid-inferior pole). LEFT KIDNEY: Size (cm) ?L: ??10.6 Cortical Thickness: ?Normal Cortical Echogenicity: ?? Normal Hydronephrosis: ?No sonogr aphic evidence Comment: ?Cyst with wall calcificat ion visualized inferiorly, ? measuring 9 mm. Inter polar cystic lesion not ? visualized on this ex amination. Two non- ? obstructing, inferior pole renal calculi visualized, ? the largest measuring 8 mm. URINARY BLADDER: Right Urinary Jet: Not visualized Left Urinary Jet: ??Visualized Pre-void (cm) ? L: ??8.3 ? A P: ??4.9 ? TV: ??8.6 Vol (ml): ?183.1 Comment: ?Partially distended, norm al contour. ??Debris seen in ? bladder. Bladder calc ification, measuring 6 mm. Procedure Note Lyssa Cassidy MD - 03/06/2016Formatt ing of this note might be different from the original. Renal (Signed Final 03/06/2016 12:32 pm ) PATIENT INFO: ID #: [id number] : [birth year] (45 y rs) Name: EDOUARD RUGGIERO Visit Date: 03/06/2016 1 0:53 am PERFORMED BY: Performed By: Kelly Solares RDMS Attending: Lyssa Cassidy MD Associate: Humberto Rosales MD Referred By: RADHA MCKINNON MD Location: [facility] SERVICE(S) PROVIDED: URETRO - Retroperitoneal Complete - [facility] [id number] INDICATIONS: ? stone growth; follow renal cysts (com plex per u/s, no enhancement on prior CT) COMPARISON: Ultrasound: 08/29/2015 CTurogrram: 12/10/2014 RIGHT KIDNEY: Size (cm) L: 10.2 Cortical Thickness: Normal Cortical Echogenicity: Normal Hydronephrosis: Mild pelviectasis, modesto lar to prior Comment: Numerous tiny calcifications v isualized thoughout kidney. Two measurable calcifications v isualized, the largest measuring 3 mm (mid-inferio r pole). LEFT KIDNEY: Size (cm) L: 10.6 Cortical Thickness: Normal Cortical Echogenicity: Normal Hydronephrosis: No sonographic evidence Comment: Cyst with wall calcification v isualized inferiorly, measuring 9 mm. Interpolar cystic lesio n not visualized on this examination. Two non - obstructing, inferior pole renal calcul i visualized, the largest measuring 8 mm. URINARY BLADDER: Right Urinary Jet: Not visualized Left Urinary Jet: Visualized Pre-void (cm) L: 8.3 AP: 4.9 TV: 8.6 Vol (ml): 183.1 Comment: Partially distended, normal co ntour. Debris seen in bladder. Bladder calcification, measuri ng 6 mm. IMPRESSION Ultrasound Dictation: 1. Mild right pelviectasis, not signifi cantly changed. 2. Right ureteral jet not visualized. 6 mm suspected stone near the right UVJ, without visualized ureteral dilatation. 3. Nonobstructing left renal calculi, t he largest is 8 mm. Largest left renal calculus measured 4 mm previously. 4. Stable nonobstructing right renal st ones measuring up to 3 mm. 5. Stable 9 mm cyst with wall calcifica tion in the inferior pole the left kidney. 6. Small amount of debris in the bladde r. I have personally reviewed the image(s) and the residents interpretation and agree with the findings, Lyssa Cassidy at 03/06/2016 12:25 PM yLssa Cassidy MD Electronically Signed Final Report 03/06 12:32 pm Radha Mckinnon Jr., [facility] ORDERABLES documented in this encounter Visit Diagnoses Diagnosis Nephrolithiasis Calculus of kidney documented in this encounter Care Teams Java Enterprise Architect Relationship Specialty Start Date End Date Jenny Guerra MD PCP - General 02/14/10 [facility] [address] [facility] [address] [place] [address] documented as of this encounter
--- OUTSIDE RECORDS SUMMARY | 2021-10-10 00:12 | XMS_ITS | Encounter Summary ---
:1970 Author Organization [facility] [place] [address] Care Team Providers Name Role Phone Jenny Guerra MD Primary Care Provider Reason for Visit Reason Comments Nephrolithiasis Encounter Details Date Type Department Care Team Description 08/28/2016 Office Visit Urology at [facility] Gus Mckinnon Jr., Single renal cyst; [facility] [place] [address] UROLOGY DEPT. [place], [place] [address] (Wo rk) Social History Tobacco Use Types Packs/Day Years Used Date Never Smoker Alcohol Use Standard Drinks/Week Comments No 0 (1 standard drink = 0.6 oz pure alcoho l) Sex Assigned at Date Recorded Not on file documented as of this encounter Last Filed Vital Signs Vital Sign Reading Time Taken Comments Blood Pressure 138/111 08/28/2016 8:53 AM EDT Pulse 75 08/28/2016 8:53 AM EDT Temperature - - Respiratory Rate - - Oxygen Saturation - - Inhaled Oxygen Concentration - - Weight - - Height - - Body Mass Index - - documented in this encounter Progress Notes Gus Mckinnon Jr., MD - 08/28/2016 8:30 AM EDT HPI: Mamta Burns is a 46 year old woman who returns for follow up re: nephrolithiasis as well as leftrenal cyst. Ultrasound in February 2016 suggested right UVJ stone, although she was asymptomatic anddeclined any further imaging or intervention at that time. She requested to follow up with [address] in order to also follow up left renal cyst. She initially presented on 01/23/14 with a [...] ureter was noted, no stent was left. Subsequent renal ultrasound in 03/2014 showed no residual hydronephrosis, but possible right pelviectasis and possible small bilateral non-obstructing renal stones, and renal cysts. This prompted follow up CT in 09/2014 which showed a low-attenuation left renal lesions one in the posterior interpolar region the other in the lower pole c/w simple cysts and a 4mm non obstructing LLP stone. An asymmetric right-sided nephrogram with a more focal area of wedge-shaped low attenuation inthe anterior interpolar region and mild urothelial enhancement as well as proximal ureterectasis andpelviectasis. F/U CT in 11/2014 showed resolution of the wedge- shaped region, possible resolved pyelonephritis. Since her last visit, she has been well. She denies any witnessed stone passage, suspected renal colic, abdominal or flank pain, hematuria or new LUTS. Review of Systems Constitution: Negative for fever. Gastrointestinal: Negative for abdominal pain. Genitourinary: Negative for flank pain. PMHx: none additional PSHx: right ureteroscopy (January 2014), Right ureteral stent FamHx: no family h/o urolithiasis SocHx: No tobacco Physical Exam Constitutional: She is oriented to person, place, and time. She appears well- developed and well-nourished. No distress. HENT: Head: Normocephalic and atraumatic. Abdominal: Soft. She exhibits no distension. There is no tenderness. There is no rebound and no guarding. Genitourinary: Genitourinary Comments: No CVA tenderness to percussion bilaterally Neurological: She is alert and oriented to person, place, and time. Skin: She is not diaphoretic. Psychiatric: She has a normal mood and affect. Her behavior is normal. Imaging studies: I independently reviewed the CT from today. This reveals no evidence of residual ureteral stone. Stable, punctate, nonobstructing left lower pole calcifications noted. Left lower pole cyst appears simple. There remains trace --stable - right pelviectasis. IMPRESSION 1. Unchanged punctate calcifications in the inferior pole calyx of the left kidney. 2. Unchanged left renal cysts. 3. Unchanged mild dilatation of the right renal pelvis and proximal ureter without filling defects within the imaged portion of the collecting system. Impression/Plan: 1) nephrolithiasis. Only punctate nonobstructing calcifications noted. She declines intervention, plan continued surveillance. 2)Left renal cysts -- We reviewed that per CT report, these appear simple. Thus do not anticipate need for intervention. 3)Right pelviectasis. No evidence of filling defect, with symmetric nephrogram and pyelogram suggesting no functional obstruction. As this remains stable, do not anticipate intervention. She wishes to continue with annual follow up. Plan renal u/s at that time. documented in this encounter Plan of Treatment Not on filedocumented as of this encounter Visit Diagnoses Diagnosis Single renal cyst Congenital single renal cyst Nephrolithiasis Calculus of kidney documented in this encounter Care Teams Dairy Quality Assurance Officer Relationship Specialty Start Date End Date Jenny Guerra MD PCP - General 02/14/10 [address] [place] [address] documented as of this encounter
--- OUTSIDE RECORDS SUMMARY | 2021-10-10 00:12 | XMS_ITS | Encounter Summary ---
:1970 Author Organization [facility] [place] [address] Care Team Providers Name Role Phone Jenny Guerra MD Primary Care Provider Reason for Referral Diagnostic Test (Routine) - Closed Specialty Diagnoses / Procedures Referred By Contact Refer red To Contact Radiology Diagnoses Nephrolithiasis Complex renal cyst Gus Mckinnon Jr., MD [facility] Rad Ct Scan Procedures CT Abdomen & Pelvis wwo Contrast (Generic) [facility] [place] [address] [place] [address] Referral ID Status Reason Start Date Expiration Date Visits V isits Requested Authorized [id number] Closed Specialty 08/17/2016 09/15/2016 1 1 Service Requested Reason for Visit Reason Comments Follow-up Nephrolithiasis Encounter Details Date Type Department Care Team Description 03/06/2016 Office Visit Urology at [facility] Gus Mckinnon Jr., Nephrolithiasis; [facility] [place] [address] UROLOGY DEPT. [place], [place] [address] (Wo rk) Social History Tobacco Use Types Packs/Day Years Used Date Never Smoker Alcohol Use Standard Drinks/Week Comments No 0 (1 standard drink = 0.6 oz pure alcoho l) Sex Assigned at Date Recorded Not on file documented as of this encounter Last Filed Vital Signs Vital Sign Reading Time Taken Comments Blood Pressure 135/85 03/06/2016 11:03 AM EST Pulse 69 03/06/2016 11:03 AM EST Temperature - - Respiratory Rate - - Oxygen Saturation - - Inhaled Oxygen Concentration - - Weight - - Height - - Body Mass Index - - documented in this encounter Progress Notes Gus Mckinnon Jr., MD - 03/06/2016 11:00 AM EST HPI: Mamta Burns is a 45 year old woman who returns for follow up re: nephrolithiasis. She initially presented on 01/23/14 with a [...] the wedge- shaped region, possible resolved pyelonephritis. In the interim, she has been well urologically. She denies any interval urologic complaints, including UTI, pyelonephritis, stone passage, abdominal or flank pain, or hematuria. She feels well today. Several weeks ago, she noted central low back pain that radiated down her legs, was alleviated with change in position, and has not recurred. Review of Systems Musculoskeletal: Positive for back pain (occ'l low back pain radiating down legs). Gastrointestinal: Negative for abdominal pain. Genitourinary: Negative for flank pain and hematuria. PMHx: none additional PSHx: right ureteroscopy (January 2014), Right ureteral stent FamHx: no family h/o urolithiasis SocHx: No tobacco Physical Exam Constitutional: She is oriented to person, place, and time. She appears well- developed and well-nourished. No distress. HENT: Head: Normocephalic and atraumatic. Cardiovascular: Normal rate. Pulmonary/Chest: Effort normal. Abdominal: Soft. She exhibits no distension. There is no tenderness. There is no rebound. Genitourinary: Genitourinary Comments: No CVA tenderness to percussion bilaterally Neurological: She is alert and oriented to person, place, and time. Skin: She is not diaphoretic. Psychiatric: She has a normal mood and affect. Her behavior is normal. Vitals reviewed. Imaging studies: I independently reviewed the renal ultrasound from today. This reveals no evidence of hydronephrosis or hydroureter, with trace --stable - - right pelviectasis without caliectasis. Non-obstructing possible stone in bladder. Stable left lower pole complex renal cyst with wall calcififcation noted. Bilateral non-obstructing renal stones are noted, largest may be as large as 8mm. Ultrasound Dictation: ??1. ??Mild right pelviectasis, not significantly changed. ??2. ??Right ureteral jet not visualized. 6 mm suspected ??stone near the right UVJ, ??without visualized ureteral dilatation. ??3. ??Nonobstructing left renal calculi, the largest is 8 ??mm. Largest left renal ??calculus measured 4 mm previously. ??4. ??Stable nonobstructing right renal stones measuring ??up to 3 mm. ??5. ??Stable 9 mm cyst with wall calcification in the ??inferior pole the left ??kidney. ??6. ??Small amount of debris in the bladder. ??I have personally reviewed the image(s) and the ??residents interpretation and ??agree with the findings, Lyssa Cassidy at 03/06/2016 ??12:25 PM ?Lyssa Cassidy MD Electronically Signed Final Report ?? 03/06/2016 12:32 pm Impression/Plan: 1) Bilateral nephrolithiasis. Regarding the existing stones identified on the above noted imaging, we reviewed at length management options, including watchful waiting, shock wave lithotripsy,and ureteroscopy. We additionally discussed the relative risks, benefits, stone-free success rate, and limitations of each. For now as she re rakan asymptomatic she declines surgical intervention. We discussed possible right UVJ stone. I offered CT now. She agrees to CT in several months, and agrees to return sooner if pain develops (with plan for CT at that time) and is content to monitor. She has been instructed to call or return in the interval if new signs or symptoms of stone passage/renal colic should develop. 2)Left renal cysts -- We reviewed that the left renal cyst is reported as stable. With wall calcification noted, we will plan to reassess on above noted planned CT with contrast enhanced CT as well. documented in this encounter Plan of Treatment Not on filedocumented as of this encounter Results CT Abdomen & Pelvis [...] Gus Mckinnon Jr., MD IMG CT ORDERABLES (ABNORMAL) Basic Metabolic Panel (non-fasting) (08/22/2016 7:14 AM EDT) athologist Signature Glucose Lvl 158 65 - 199 [facility] mg/dL [facility] Comment: Diabetes: >=200 mg/dL plus symp toms BUN 26 (H) 8 - 18 mg/dL [facility] Creatinine 0.73 0.70 - 1.20 mg/dL [facility] Comment: Please note that the pediatric reference intervals supplied above were not validated at [facility]. Results from pediatri c patients should be interpreted in conjunction to the patient's age, height and muscle mass. Sodium 144 135 - 145 mmol/L [facility] Potassium 3.5 3.5 - 5.0 mmol/L [facility] Comment: Please note: ??Patients with WBC >100,00 0 may have falsely elevated Potassium levels. ??For accurate Potassium quantif ication in these patients send serum separator tube (gold top) for subsequent determinations. ??Contact the Clinical Chemistry Laboratory if there are any qu estions. Chloride 104 98 - 107 mmol/L [facility] CO2 23 22 - 31 mmol/L [facility] Anion Gap 17 (H) 5 - 15 mmol/L [facility] Calcium 9.1 8.5 - 10.5 mg/dL [facility] Estimated GFR >60 >=60 [facility] Comment: This estimated GFR (eGFR) [...] the following links into your internet browser. [email or web address] Specimen Anatomical Collection Method Collection Time Receive d Time (Source) Location / / Volume Laterality Blood specimen 08/22/2016 7:14 AM 017 7:22 (specimen) EDT AM EDT Resulting Agency Comment Spec In Lab Gus Mckinnon Jr., MD CHEMISTRY ORDERABLES Performing Organization Address City/State/ZIP [place] [address] documented in this encounter Visit Diagnoses Diagnosis Nephrolithiasis Calculus of kidney Complex renal cyst Other specified congenital cystic kidney disease documented in this encounter Care Teams Bow Rehairer Relationship Specialty Start Date End Date Jenny Guerra MD PCP - General 02/14/10 [address] [place] [address] documented as of this encounter
--- OUTSIDE RECORDS SUMMARY | 2021-10-10 00:12 | XMS_ITS | Encounter Summary ---
:1970 Author Organization [facility] [place] [address] Care Team Providers Name Role Phone Jenny Guerra MD Primary Care Provider Reason for Visit Reason Comments Follow-up Encounter Details Date Type Department Care Team Description 08/29/2015 Office Visit Urology at [facility] Radha Mckinnon Jr., Nephrolithiasis [facility] [place] [address] [facility] [phone] UROLOGY DEPT. [place], [place] [address] (Wo rk) Social History Tobacco Use Types Packs/Day Years Used Date Never Smoker Alcohol Use Standard Drinks/Week Comments No 0 (1 standard drink = 0.6 oz pure alcoho l) Sex Assigned at Date Recorded Not on file documented as of this encounter Last Filed Vital Signs Vital Sign Reading Time Taken Comments Blood Pressure 137/72 08/29/2015 9:18 AM EDT Pulse 59 08/29/2015 9:18 AM EDT Temperature 37.1 ??C (98.7 ??F) 08/29/2015 9:18 AM EDT Respiratory Rate 18 08/29/2015 9:18 AM EDT Oxygen Saturation 99% 08/29/2015 9:18 AM EDT Inhaled Oxygen Concentration - - Weight 47.6 kg (105 lb) 08/29/2015 9:18 AM EDT Height 149.9 cm (4' 11) 08/29/2015 9:18 AM EDT Body Mass Index 21.21 08/29/2015 9:18 AM EDT documented in this encounter Progress Notes Radha Mckinnon Jr., MD - 08/29/2015 9:47 AM EDT HPI: Mamta Ruggiero is a 45 year old woman who [...] simple cysts. A 4mm non obstructing LLP stone. An asymmetric right-sided nephrogram with a more focal area of wedge-shaped low attenuation in the anterior interpolar region and mild urothelial enhancement as well as proximal ureterectasis and pelviectasis. F/U CT in 11/2014 showed resolution of the wedge- shaped region, possible resolved pyelonephritis. In the interim, she has been well. She denies any interval UTI, pyelonephritis, stone passage, abdominal or flank pain, or hematuria. Review of Systems: As above, otherwise unchanged since last visit of 11/2014 PMHx: none additional PSHx: right ureteroscopy (January [...] renal ultrasound from today. This reveals no evidenceof hydronephrosis or hydroureter. Stable left lower pole complex renal cysts are noted. Bilateral non-obstructing renal stones are noted, largest 4mm. Stable bilateral pelviectasis is noted. Impression/Plan: 1) Bilateral nephrolithiasis. Regarding the existing stones identified on the above noted imaging, we reviewed at length management options, including watchful waiting, shock wave lithotripsy,and ureteroscopy. We additionally discussed the relative risks, benefits, stone-free success rate, and limitations of each. For now she declines surgical intervention and is content to monitor. We will thus plan 6 month follow up with renal ultrasound, sooner prn. She has been instructed to call or return in the interval if new signs or symptoms of stone passage/renal colic should develop. 2)Mild bilateral pelviectasis. We discussed that this remains stable. I again offered direct endoscopic inspection as well as repeat contrast study, but she declines. 3)Left renal cysts -- We reviewed that these are reported as stable, discussed role of repeat contrast CT. She is content to monitor, plan 6 month repeat renal u/s. documented in this encounter Plan of Treatment Not on filedocumented as of this encounter Results US Retroperitoneal Complete (03/06/2016 [...] 12:32 pm) PATIENT INFO: ID #: ? [id number] ?: ??[birth year] (45 yrs) Name: ? EDOUARD RUGGIERO ? Visit Date: 03/06/2016 10:53 am PERFORMED BY: Performed By: ? Kelly Solares RDMS Attending: ?Ange MITCHELL, Lyssa Baldwin Associate: ?Connie MITCHELL, Alesha Colindres Referred By: ?RADHA MCKINNON MD Location: ? [place] SERVICE(S) PROVIDED: ??URETRO - Retroperitoneal Complete - [id number] ? [id number] INDICATIONS: ??? stone growth; follow renal cysts [...] 12:32 pm ) PATIENT INFO: ID #: [id number] : [birth year] (45 y rs) Name: EDOUARD RUGGIERO Visit Date: 03/06/2016 1 0:53 am PERFORMED BY: Performed By: Kelly Solares RDMS Attending: Lyssa Cassidy MD Associate: Humberto Rosales MD Referred By: RADHA MCKINNON MD Location: [place] SERVICE(S) PROVIDED: URETRO - Retroperitoneal Complete - [id number] INDICATIONS: ? stone growth; follow renal cysts [...] findings, Lyssa Cassidy at 03/06/2016 12:25 PM Lyssa Cassidy MD Electronically Signed Final Report 03/06 12:32 pm Radha Mckinnon Jr., MD IMG US GEN ORDERABLES documented in this encounter Visit Diagnoses Diagnosis Nephrolithiasis Calculus of kidney Nephrolithiasis Calculus of kidney documented in this encounter Care Teams Brusher Warp Relationship Specialty Start Date End Date Jenny Guerra MD PCP - General 02/14/10 [address] [place] [address] documented as of this encounter
--- OUTSIDE RECORDS SUMMARY | 2021-10-10 00:12 | XMS_ITS | Encounter Summary ---
:1970 Author Organization [facility] [place] [address] Care Team Providers Name Role Phone Jenny Guerra MD Primary Care Provider Encounter Details Date Type Department Care Team Description 10/25/2014 Telephone [facility] [address] [place] [address] UROLOGY DEPT [phone] [place], [place] [address] (Wo rk) Social History Tobacco Use Types Packs/Day Years Used Date Never Smoker Alcohol Use Standard Drinks/Week Comments No 0 (1 standard drink = 0.6 oz pure alcoho l) Sex Assigned at Date Recorded Not on file documented as of this encounter Miscellaneous Notes Telephone Encounter - Pretty Brown MD - 10/25/2014 5:12 PM EDT Patient called clinic to discuss her 10/15 CT results (see previous telephone notes). I discussed with her that we and radiology recommend a f/u CT to evaluate her right kidney. She agreed to undergo the scan. I ordered the CT abdomen. I informed her we will schedule it approximately 6 weeks after her i nitial scan - based on my discussion with radiology, if these are pyelonephritic changes, to allow the area to heal and return to normal. Briefly discussed pt's concerns about radiation exposure, and answered all her questions. PRETTY BROWN MD 10/25/2014 documented in this encounter Plan of Treatment Not on filedocumented as of this encounter Visit Diagnoses Diagnosis Complex renal cyst Other specified congenital cystic kidney disease documented in this encounter Care Teams Plate Fitter Relationship Specialty Start Date End Date Jenny Guerra MD PCP - General 02/14/10 [address] [place] [address] documented as of this encounter
--- OUTSIDE RECORDS SUMMARY | 2021-10-10 00:12 | XMS_ITS | Encounter Summary ---
:1970 Author Organization [facility] [place] [address] Care Team Providers Name Role Phone Jenny Guerra MD Primary Care Provider Encounter Details Date Type Department Care Team Description 07/27/2016 Orders Only Urology at [facility] Gus Mckinnon Jr., MD [facility] [place] [address] UROLOGY DEPT. [phone] [place], [place] [address] (Wo rk) Social History Tobacco [...] on filedocumented in this encounter Care Teams Inspector Health Care Facilities Relationship Specialty Start Date End Date Jenny Guerra MD PCP - General 02/14/10 [address] [place] [address] documented as of this encounter
--- OUTSIDE RECORDS SUMMARY | 2021-10-10 00:12 | XMS_ITS | Encounter Summary ---
:1970 Author Organization [facility] [place] [address] Care Team Providers Name Role Phone Jenny Guerra MD Primary Care Provider Encounter Details Date Type Department Care Team Description 08/22/2016 Telephone Urology at [facility] José Orr, [place] [address] Social History Tobacco Use Types Packs/Day Years Used Date Never Smoker Alcohol Use Standard Drinks/Week Comments No 0 (1 standard drink = 0.6 oz pure alcoho l) Sex Assigned at Date Recorded Not on file documented as of this encounter Miscellaneous Notes Telephone Encounter - José Orr RN - 08/22/2016 8:[address] scan calling regarding the pt. The pt did not have a Greenberger Protocol ordered for her Iodine allergy and the radiologist suggest she have it. CT scan and office appointment re-scheduled for the pt and she was given instructions on how to take the Greenberger Protocol prior to the CT scan. Medications orders sent to the pt's pharmacy of choice. documented in this encounter Plan of Treatment Not on filedocumented as of this encounter Visit Diagnoses Not on filedocumented in this encounter Care Teams Family Resource Management Professor Relationship Specialty Start Date End Date Jenny Guerra MD PCP - General 02/14/10 [address] [place] [address] (work) documented as of this encounter
--- OUTSIDE RECORDS SUMMARY | 2021-10-10 00:13 | XMS_ITS | Encounter Summary ---
:1970 Author Organization [facility] [place] [address] Care Team Providers Name Role Phone Jenny Guerra MD Primary Care Provider Encounter Details Date Type Department Care Team Description 02/16/2014 Surgery Outpatient Surgery Radha Mckinnon Jr., CY STOURETEROSCOPY, Desmet Xochitl Wiggins MD DIAGNOSTIC (WRVU 5.75) [facility] [address] [place] [address] [place] [address] [phone] (Wo rk) Social History Tobacco Use Types Packs/Day Years Used Date Never Smoker Alcohol Use Standard Drinks/Week Comments No 0 (1 standard drink = 0.6 oz pure alcoho l) Sex Assigned at Date Recorded Not on file documented as of this encounter Last Filed Vital Signs Vital Sign Reading Time Taken Comments Blood Pressure 119/65 02/16/2014 2:15 PM EST Pulse 60 02/16/2014 2:32 PM EST Temperature 37.1 ??C (98.8 ??F) 02/16/2014 1:59 PM EST Respiratory Rate 16 02/16/2014 2:15 PM EST Oxygen Saturation 100% 02/16/2014 2:15 PM EST Inhaled Oxygen Concentration - - Weight 47.6 kg (105 lb) 02/16/2014 12:38 PM EST Height 144.8 cm (4' 9) 02/16/2014 12:38 PM EST Body Mass Index 22.72 02/16/2014 12:38 PM EST documented in this encounter Discharge Instructions Discharge InstructionsMacPhail, Lyssa, RN - 02/16/2014 2:09 PM EST General Anesthesia Discharge Instructions Go home and rest. You may be sleepy for several hours. Take it easy as sudden position changes may cause nausea and/or dizziness. Use caution on stairs. Follow a light to regular diet as tolerated today. If nausea occurs, start with clear liquids, and progress slowly to a regular diet. Do not drive, operate machinery, drink alcoholic beverages or make any legal decisions after having general anesthesia. The medications given change your reaction time and alter your judgement. IV site -- slight redness is normal, you can use warm compresses. If tenderness and redness increases or foul drainage occurs, please contact your M.D. Patients who have had endotracheal tubes/LMA (tubes used by the anesthesia staff to ensure a safe airway during your operation) may have a sore throat. This is normal and cold liquids or soothing lozengers will help ease this discomfort. Narcotic pain medications can cause constipation, please ask the surgeons office what they recommendfor prevention of this. Some non-pharmaceutical means of constipation prevention include increasing intake of fluids, eating more fruits and vegetables as well as fruit juices. If you are uncomfortable and/or unable to urinate within 8 hours of discharge and it is before 5 pm,call your physician. If it is after 5pm go to the closest emergency room or call the hospital cut off operator scorer at [phone] and ask for physician legal transcriptionist covering for your physician. Questions or problems after 5pm or on a weekend: Call the [facility] cut off operator scorer at and ask for the physician legal transcriptionist covering for your doctor. Patient InstructionsMarily De La Paz MD - 02/16/2014 2:00 PM EST Call your doctor for: ??? fevers greater than 100.5 ??? severe nausea or vomiting ??? increasing pain not controlled by pain medications The number for questions is [phone] before 5 PM weekdays and [phone] after 5 PM and weekends. Activity level: As tolerated by your comfort level. Diet: You may resume your regular diet as tolerated. Driving: No driving while still taking opioid pain medications (wait at least 6- 8 hours since last dose). No driving if you are still sore from surgery as it may limit your ability to react quickly if necessary. Shower/Bath: No restrictions. Pain: You may experience some mild discomfort following surgery. This should resolve quickly. Try the following: - take flomax (tamsulosin) 0.4mg daily x 3 days - take ibuprofen (Motrin, Advil, or generic), up to 600-800mg every 8 hours - take acetaminophen (Tylenol), up to 650mg every 4 hours (regular strength) or 1000mg every 6 hours(extra strength) Follow up Appointments: Follow-up appointment will be scheduled with Dr Mckinnon in about 6 weeks with [place] prior to that visit. Please call [phone] if you do not receive your appointment. documented in this encounter Medications at Time of Discharge Medication Sig Dispensed Refills Start Date End Date multivitamin with Take 1 tablet by 0 minerals (THERA-M) 9-0.4 mouth daily. mg Tablet tamsulosin (FLOMAX) 0.4 Take 1 capsule by 30 capsule 1 01/2702/26/2014 mg Capsule, Sust. Release mouth daily for 30 24 hr days. acetaminophen (TYLENOL) Take 2 tablets by 0 01/2704/06/2014 325 mg Tablet mouth every 6 hours as needed for Pain or Fever. ibuprofen (ADVIL;MOTRIN) Take 800 mg by 0 04/06/2014 800 mg Tablet mouth every 6 hours as needed. documented as of this encounter Progress Notes Lyssa Hodge RN - 02/16/2014 2:46 PM EST MD De La Paz called to clarify flomax order. Plan for med (to be taken for 3 days only-per discharge med instructions) given to pt and son Amrik. Lyssa Hodge RN - 02/16/2014 2:32 PM EST Discharge instructions given and questions answered. Dash Rowley at bedside. documented in this encounter H&P Notes Marily De La Paz MD - 02/16/2014 12:49 PM EST Patient Name: Edouard Ruggiero Patient Age: 43 y.o. Birthdate: 1970 Admit date: 02/16/2014 Attending Physician: Radha Mckinnon Jr., MD Urology Pre-Op H&P ID: [id number] y.o. F with distal R ureteral stone s/p stent placement presents for planned ureteroscopy Interval: No fevers Doing well with stent PMH: No past medical history on file. Patient Active Problem List Diagnosis Code ??? Ureteral stone with hydronephrosis 592.1 ROS: No acute illnesses Negative for F/C, no CP or SOB, no N/V or abd pain Meds: No current facility-administered medications on file prior to encounter. Current Outpatient Prescriptions on File Prior to Encounter Medication Sig Dispense Refill ??? acetaminophen (TYLENOL) 325 mg Tablet Take 2 tablets by mouth every 6 hours as needed for Pain or Fever. ??? tamsulosin (FLOMAX) 0.4 mg Capsule, Sust. Release 24 hr Take 1 capsule by mouth daily for 30 days. 30 capsule 1 ??? ibuprofen (ADVIL;MOTRIN) 800 mg Tablet Take 800 mg by mouth every 6 hours as needed. Exam: Filed Vitals: 02/16/14 1238 BP: 143/80 Pulse: 67 Temp: 36.3 ??C (97.3 ??F) Resp: 18 NAD, pleasant Labs: Urine culture reviewed. A/P. Consent obtained and site marked. Proceed as planned. MARILY DE LA PAZ MD documented in this encounter Miscellaneous Notes Op Note - Marily De La Paz MD - 02/16/2014 2:09 PM EST [facility] [place] Operative Note Patient Name: Edouard Ruggiero : [id number] MR#: [id number] Case Date: 02/16/2014 Surgeon: Surgeon(s) and Role: * Radha Mckinnon Jr., MD - Primary * Marily De La Paz MD Preoperative diagnosis: right ureteral stone Postoperative diagnosis: right ureteral stone Procedure(s): CYSTOURETEROSCOPY, DIAGNOSTIC CYSTO, REMOVAL OF STENT, FOREIGN BODY OR CALCULUS, SIMPLE Anesthesia: General Estimated Blood Loss: min Specimens removed during surgery: None Drains: none Surgical Closure: n/a (endoscopic case) Disposition: awakened from anesthesia, extubated and taken to the recovery room in a stable condition, having suffered no apparent untoward event. Condition: doing well without problems (Please see the Surgical Encounter Summary for any Implant and Specimen details pertinent to this patient.) HPI/Surgical Indications: Edouard Ruggiero is a 43 y.o. woman who underwent ureteral stent placement for a distal right ureteral stone in the setting of infection. She presents today for planned ureteroscopy. Procedure Description: The patient was identified and greeted in the preoperative holding area. She was marked and consented for the procedure and brought to the operating room. She was placed supine on the OR table, general anesthesia was induced and the patient was moved to the dorsal lithotomy posit ion. She was prepped and draped in the standard fashion. A timeout was performed. The 22 urdu rigid cystoscope was inserted. The cystsocope was advanced and the indwelling right ureteral stent was grasped with a stent grasper and delivered through the urethral meatus. A [place] wire was passed throughthe stent and into the renal pelvis. It was seen on fluoroscopy to be in good position. The cystoscope was removed. The semirigid ureteroscope was advanced along side the wire into the ureter. The entire distal and mid ureter were inspected with the semirigid scope and no stone was seen. As it was with drawn, the bladder was inspected again and no stones were seen. The flexible ureteroscope was inserted and passed along side the wire into the ureter. The entire ureter was inspected. The intrarenal collecting system was opacified with contrast and a mapping pyelogram was performed. The entire collecting system was inspected and no stones were encountered. The ureteroscope was removed, again inspecting the ureter. The cystoscope was reinserted. A pollock catheter was passed into the distal ureter and a formal retrograde pyelogram was performed by instillation of contrast. Again there were no filling defects seen. There was visible drainage from the ureteral orifice. The bladder was emptied and the cystoscope removed. The patient was awakened from anesthesia and taken to the recovery area in stable condition. Associated attestation - Radha Mckinnon Jr., MD - 02/16/2014 2:55 PM EST Attestation: Case Date: 02/16/2014 I was present and I participated during the entire procedure. RADHA MCKINNON JR, MD 02/16/2014 Brief Op Note - Marily De La Paz MD - 02/16/2014 1:59 PM EST Brief Operative Note Patient Name: Edouard CortezB: [id number] MR#: [id number] Case Date: 02/16/2014 Surgeon: Surgeon(s) and Role: * Radha Mckinnon Jr., MD - Primary * Marily De La Paz MD Preoperative diagnosis: right ureteral stone Postoperative diagnosis: right ureteral stone Procedure(s): CYSTOURETEROSCOPY, DIAGNOSTIC CYSTO, REMOVAL OF STENT, FOREIGN BODY OR CALCULUS, SIMPLE Anesthesia: General Findings: Normal bladder. R ureter and kidney inspected with no evidence of stone. Retrograde pyelogram with no filling defects. Visible drainage of contrast from R ureter. Complications: none Fluids: see anesthesia record Estimated Blood Loss: min Drains: none Disposition: awakened from anesthesia, extubated and taken to the recovery room in a stable condition, having suffered no apparent untoward event. Condition: doing well without problems (Please see the Surgical Encounter Summary for any Implant and Specimen details pertinent to this patient.) Associated attestation - Radha Mckinnon Jr., MD - 02/16/2014 2:54 PM EST I was present and I participated during the entire procedure. No stone identified on full ureteroscopic inspection. Brisk efflux of contrast from ureter. documented in this encounter Plan of Treatment Pending Results Name Type Priority Associated Diagnoses Date/Ti me XR Fluoro OR c-arm Imaging Routine 4 2:00 PM EST storage only Scheduled Orders Name Type Priority Associated Diagnoses Order S chedule XR Fluoro OR c-arm Imaging Routine Once PRN (for Radiant storage only use) for 1 Occu rrences starting 2013 until 02/16/2014 documented as of this encounter Procedures Procedure Name Priority Date/Time Associated Diagnosis Comme nts CYSTO, REMOVAL OF STENT, Yes 02/16/2014 12:58 PM right ure teral stone FOREIGN BODY OR EST CALCULUS, SIMPLE (WRVU 2.81) CYSTOURETEROSCOPY, Yes 02/16/2014 12:58 PM right ureteral stone DIAGNOSTIC (WRVU 5.75) EST documented in this encounter Results US retroperitoneal complete (04/06/2014 3:49 PM EST) Anatomical Region Laterality Modality Abdomen Ultrasound Specimen (Source) Anatomical Collection Method Collection Time Re ceived Time Location / / Volume Laterality 04/06/2014 3:49 PM EST Narrative 04/06/2014 3:54 PM EST Renal ?(Signed Final 04/06/2014 03:53 ? pm) Patient Info ID #: ? [id number] ?: [birth year] (43 yrs) Name: ? EDOUARD RUGGIERO ? Visit Date: 04/06/2014 03:44 pm Performed By Performed By: ?Jose Eduardo Conrad RDMS Attending: ? Prince MITCHELL, Azar Collins Referred By: ? MARILY DE LA PAZ MD Service(s) Provided ??URETRO - Retroperitoneal Complete - [phone] [id number] ? [id number] Indications ??s/p ureteroscopy, eval for hydro or s tone Comparison Ultrasound: 01/25/14, CT: 01/25/14 Right Kidney Size (cm) ?L: ??10.5 Cortical Thickness: ?Normal Cortical Echogenicity: ?? Normal Hydronephrosis: ?No sonogr aphic evidence Comment: ?Two stones noted within t he mid pole of the kidney, ? the largest measuring 4.0 mm. Left Kidney Size (cm) ?L: ??10.8 Cortical Thickness: ?Normal Cortical Echogenicity: ?? Normal Hydronephrosis: ?No sonogr aphic evidence Comment: ?Two stones noted within t he inferior pole of the ? kidney, the largest m easuring 3.0 mm. Additionally, ? there are two complex cysts noted within the ? inferior pole of the left kidney. A) 2.6 x 2.4 x 2.3 cm ? and B) 1.3 x 1.3 x 1. 0 cm. Urinary Bladder Right Urinary Jet: Visualized Left Urinary Jet: ??Visualized Pre-void (cm) ? L: ??5.4 ? A P: ??6.2 ? TV: ??8.4 Vol (ml): ?147.3 Comment: ?Partially distended, norm al contour Impression Ultrasound - ??Retroperitoneal Complete - Summary 2 small stones in lower pole bilaterall y, no hydronephrosis. Bladder OK. Both ureteral jets seen. I ??viewed the images and agree with shania hernandez above interpretation. ? Cholo Edouard Electronically Signed Final Report ?? 03:53 pm Procedure Note Azar Morrison MD - 04/06/2014Formatt ing of this note might be different from the original. Renal (Signed Final 04/06/2014 03:53 pm) Patient Info ID #: [id number] : [birth year] (43 y rs) Name: EDOUARD RUGGIERO Visit Date: 04/06/2014 0 3:44 pm Performed By Performed By: Jose Eduardo Conrad RDMS Attending: Azar Morrison MD Referred By: MARILY DE LA PAZ MD Service(s) Provided URETRO - Retroperitoneal Complete - [phone] [id number] Indications s/p ureteroscopy, eval for hydro or sto ne Comparison Ultrasound: 01/25/14, CT: 01/25/14 Right Kidney Size (cm) L: 10.5 Cortical Thickness: Normal Cortical Echogenicity: Normal Hydronephrosis: No sonographic evidence Comment: Two stones noted within the mi d pole of the kidney, the largest measuring 4.0 mm. Left Kidney Size (cm) L: 10.8 Cortical Thickness: Normal Cortical Echogenicity: Normal Hydronephrosis: No sonographic evidence Comment: Two stones noted within the in ferior pole of the kidney, the largest measuring 3.0 mm. A dditionally, there are two complex cysts noted withi n the inferior pole of the left kidney. A) 2. 6 x 2.4 x 2.3 cm and B) 1.3 x 1.3 x 1.0 cm. Urinary Bladder Right Urinary Jet: Visualized Left Urinary Jet: Visualized Pre-void (cm) L: 5.4 AP: 6.2 TV: 8.4 Vol (ml): 147.3 Comment: Partially distended, normal co ntour Impression Ultrasound - Retroperitoneal Complete - Summary 2 small stones in lower pole bilaterall y, no hydronephrosis. Bladder OK. Both ureteral jets seen. I viewed the images and agree with the above interpretation. Azar Morrison MD Electronically Signed Final Report 04/06 03:53 pm Radha Mckinnon Jr., MD [facility] [place] GEN ORDERABLES documented in this encounter Visit Diagnoses Not on filedocumented in this encounter Administered Medications Inactive Administered Medications - up to 3 most recent administrations Medication Order MAR Action Action Date Dose Rate Site iohexol (OMNIPAQUE) Given 02/16/2014 1:32 PM 10 mLs 19- Surgical Site injection EST ONCE PRN, Starting on 02/16/14 at 1332, Until 02/16/14 at 1912, Intra-Operative (Intra-Procedure), Routine documented in this encounter Active and Recently Administered Medications Times are shown in EST. Continuous Medication Order 02/14/2014 02/15/2014 02/16/2014 lactated ringers infusion 1,000 mL (CANCELED) 1257 (New Bag - Provider: Sandra Ornelas CRNA)1349 (Anesthesia Volume Adjustment - Provider: Kim Ornelas CRNA) 1,000 mL, at 100 mL/hr, Intravenous, CON TINUOUS, Starting 02/16/14 at 1300, Until e 02/16/14 at 1912, Day of Surgery (Day of Procedure) PRN Medication Order 02/14/2014 02/15/2014 02/16/2014 iohexol (OMNIPAQUE) injection (CANCELED) 1332 (Given - Provider: Radha Mckinnon Jr., MD) ONCE PRN, Starting 02/16/14 at 1332, Until 02/16/14 at 1912, Intra- Operative (Intra-Procedure), Routine documented in this encounter Care Teams Automotive Artist Relationship Specialty Start Date End Date Jenny Guerra MD PCP - General 02/14/10 [address] [place] [address] documented as of this encounter
--- OUTSIDE RECORDS SUMMARY | 2021-10-10 00:13 | XMS_ITS | Encounter Summary ---
:1970 Author Organization [facility] Address [facility] [place] [address] Care Team Providers Name Role Phone Jenny Guerra MD Primary Care Provider Encounter Details Date Type Department Care Team Description 01/25/2014 Telephone Urology at [facility] Khari North MD [facility] [place] [address] UROLOGY [phone] [place], [place] [address] (Wo rk) Social History Tobacco Use Types Packs/Day Years Used Date Never Assessed Sex Assigned at Date Recorded Not on file documented as of this encounter Miscellaneous Notes Telephone Encounter - Khari North MD - 01/25/2014 2:58 PM EST Call from [facility] 1.4cm UVJ stone. Positive Blood cultures Currently stable I will arrange transfer for stent placement Khari North documented in this encounter Plan of Treatment Not on filedocumented as of this encounter Visit Diagnoses Not on filedocumented in this encounter Care Teams Skilled Labor Relationship Specialty Start Date End Date Jenny Guerra MD PCP - General 02/14/10 [address] [place] [address] documented as of this encounter
--- OUTSIDE RECORDS SUMMARY | 2021-10-10 00:13 | XMS_ITS | Encounter Summary ---
:1970 Author Organization [facility] [place] [address] Care Team Providers Name Role Phone Jenny Guerra MD Primary Care Provider Encounter Details Date Type Department Care Team Description 01/25/2014 Orders Only Urology at [facility] [place] [place] Khari North MD [facility] [place] [address] UROLOGY [phone] [place] [id number] (Wo rk) Social History Tobacco Use Types Packs/Day Years Used Date Never Assessed Sex Assigned at Date Recorded Not on file documented as of this encounter Plan of Treatment Not on filedocumented as of this encounter Procedures Procedure Name Priority Date/Time Associated Comments Diagnosis FILM LIBRARY STORAGE Routine 01/25/2014 8:15 AM R esults for this ONLY ULTRASOUND EST procedure ar e in STUDY the results section. documented in this encounter Results Film Library- Storage only Ultrasound Study (01/25/2014 8:15 AM EST) Anatomical Region Laterality Modality Other Specimen (Source) Anatomical Collection Method Collection Time Re ceived Time Location / / Volume Laterality 01/25/2014 8:15 AM EST Narrative 01/25/2014 5:38 PM EST This is a Non-reportable exam Procedure Note ARIANE, UNSIGNED REPORT - 01/25/2014Formatt ing of this note might be different from the original. This is a Non-reportable exam Khari North MD IMG FILM LIBRARY ORDERABLES documented in this encounter Visit Diagnoses Not on filedocumented in this encounter Care Teams Strategic Planner Relationship Specialty Start Date End Date Jenny Guerra MD PCP - General 02/14/10 [address] [facility] [place] [address] documented as of this encounter
--- OUTSIDE RECORDS SUMMARY | 2021-10-10 00:13 | XMS_ITS | Encounter Summary ---
:1970 Author Organization [place] [address] Care Team Providers Name Role Phone Jenny Guerra MD Primary Care Provider Encounter Details Date Type Department Care Team Description 10/12/2014 Hospital En[place] [facility] [place] [address] Social History Tobacco Use Types Packs/Day [...] Procedure Name Priority Date/Time Associated Comments Diagnosis US RETROPERITONEAL Routine 10/12/2014 8:58 Right ureteral Resu lts for this COMPLETE AM EDT calculus procedure are i n the results section. documented in this encounter Results US retroperitoneal complete (10/12/2014 8:58 AM EDT) Anatomical Region Laterality Modality Abdomen Ultrasound Specimen (Source) Anatomical Collection Method Collection Time Re ceived Time Location / / Volume Laterality 10/12/2014 8:58 AM EDT Narrative 10/12/2014 9:47 AM EDT Renal ?(Signed Final 10/12/2014 09:46 ? am) Patient Info ID #: ? [id number] ?: ??[birth year] (44 yrs) Name: ? EDOUARD RUGGIERO ? Visit Date: 10/12/2014 08:55 am Performed By Performed By: ?Jose Eduardo Conrad RDMS Attending: ? Ange MITCHELL, Lyssa Collins Referred By: ? RADHA MCKINNON MD Service(s) Provided ??URETRO - Retroperitoneal Complete - [phone] [id number] ? [id number] Indications ??? stone growth Comparison Ultrasound: 04/06/14 Right Kidney Size (cm) ?L: ??10.8 Cortical Thickness: ?Normal Cortical Echogenicity: ?? Normal Hydronephrosis: ?Moderate pelvicaliectasis Ureter: ?Dilat ed proximally Comment: ?No stones visualized in t he kidney or in the ? visualized proximal u reter. ? Pelviectasis greater than caliectasis. Left Kidney Size (cm) ?L: ??10.9 Cortical Thickness: ?Normal Cortical Echogenicity: ?? Normal Hydronephrosis: ?Mild pelv icaliectasis Comment: ?Two 4 mm stones noted wit hin the inferior pole. ? Septated cyst measuri ng 1.6 x 1.4 x 1.6 cm at the ? mid pole and a comple x/septated cyst measuring ? 1.6 x 1.3 x 1.3 cm at the inferior pole, neither with ? internal vascularity. Urinary Bladder Right Urinary Jet: Visualized Left Urinary Jet: ??Visualized Pre-void (cm) ? L: ??8.1 ? A P: ??6.0 ? TV: ??7.6 Vol (ml): ?193.4 Comment: ?Partially distended, norm al contour. Impression Ultrasound - ??Retroperitoneal Complete - Summary 1. ??Unchanged two sub-5 mm nonobstruct ing left renal calculi. 2. ??No sonographically evident right r enal calculi seen today, but interval development in mode rate pelvicaliectasis as well as dilatation of the visualized proximal right ureter, no calculi ident ified in the visualized proximal ureter. A right ure teral jet is present. ??Findings may represent the s equela of a recently passed calculus. ??Please adriane elate clinically. 3. ??Two persistent complex left renal cysts as above. 4. ??Bladder unremarkable. I ??viewed the images and agree with shania post interpretation. ? Cholo Tamayo Electronically Signed Final Report ?? 09:46 am Procedure Note Lyssa Cassidy MD - 10/12/2014Formatt ing of this note might be different from the original. Renal (Signed Final 10/12/2014 09:46 am) Patient Info ID #: [id number] : [birth year] (44 y rs) Name: EDOUARD RUGGIERO Visit Date: 10/12/2014 0 8:55 am Performed By Performed By: Jose Eduardo Conrad RDMS Attending: Lyssa Cassidy MD Referred By: RADHA MCKINNON MD Service(s) Provided URETRO - Retroperitoneal Complete - [phone] [id number] Indications ? stone growth Comparison Ultrasound: 04/06/14 Right Kidney Size (cm) L: 10.8 Cortical Thickness: Normal Cortical Echogenicity: Normal Hydronephrosis: Moderate pelvicaliectas is Ureter: Dilated proximally Comment: No stones visualized in the ki dney or in the visualized proximal ureter. Pelviectasis greater than caliectasis. Left Kidney Size (cm) L: 10.9 Cortical Thickness: Normal Cortical Echogenicity: Normal Hydronephrosis: Mild pelvicaliectasis Comment: Two 4 mm stones noted within t he inferior pole. Septated cyst measuring 1.6 x 1.4 x 1.6 cm at the mid pole and a complex/septated cyst me asuring 1.6 x 1.3 x 1.3 cm at the inferior pole , neither with internal vascularity. Urinary Bladder Right Urinary Jet: Visualized Left Urinary Jet: Visualized Pre-void (cm) L: 8.1 AP: 6.0 TV: 7.6 Vol (ml): 193.4 Comment: Partially distended, normal co ntour. Impression Ultrasound - Retroperitoneal Complete - Summary 1. Unchanged two sub-5 mm nonobstructin g left renal calculi. 2. No sonographically evident right annita al calculi seen today, but interval development in mode rate pelvicaliectasis as well as dilatation of the visualized proximal right ureter, no calculi ident ified in the visualized proximal ureter. A right ure teral jet is present. Findings may represent the seq uela of a recently passed calculus. Please correl ate clinically. 3. Two persistent complex left renal cy sts as above. 4. Bladder unremarkable. I viewed the images and agree with the above interpretation. Lyssa Cassidy MD Electronically Signed Final Report 10/12 09:46 am Radha Mckinnon Jr., MD IMG US GEN ORDERABLES documented in this encounter Visit Diagnoses Diagnosis Right ureteral calculus Calculus of ureter documented in this encounter Care Teams Bus Washer Relationship Specialty Start Date End Date Jenny Guerra MD PCP - General 02/14/10 [address] [place] [address] documented as of this encounter
--- OUTSIDE RECORDS SUMMARY | 2021-10-10 00:13 | XMS_ITS | Encounter Summary ---
:1970 Author Organization [facility] Address [address] [place] [address] Care Team Providers Name Role Phone Jenny Guerra MD Primary Care Provider Reason for Visit Reason Comments Nephrolithiasis Encounter Details Date Type Department Care Team Description 10/12/2014 Follow-Up Urology [place] [facility] [place] FANG Kidney stones; [facility] Gus Reyna Jr., MD [facility] [place] [address] [place] [address] Social History Tobacco Use Types Packs/Day Years Used Date Never Smoker Alcohol Use Standard Drinks/Week Comments No 0 (1 standard drink = 0.6 oz pure alcoho l) Sex Assigned at Date Recorded Not on file documented as of this encounter Last Filed Vital Signs Vital Sign Reading Time Taken Comments Blood Pressure 135/84 10/12/2014 9:06 AM EDT Pulse 64 10/12/2014 9:06 AM EDT Temperature - - Respiratory Rate - - Oxygen Saturation 98% 10/12/2014 9:06 AM EDT Inhaled Oxygen Concentration - - Weight 47.6 kg (105 lb) 10/12/2014 9:06 AM EDT Height 139.7 cm (4' 7) 10/12/2014 9:06 AM EDT Body Mass Index 24.4 10/12/2014 9:06 AM EDT documented in this encounter Progress Notes Gus Mckinnon Jr., MD - 10/12/2014 12:55 PM EDT I saw and examined Vicenta Burns with Dr. Garcia and have independently reviewed her imaging studies. I agree with history, exam, impression, and plan as noted. Plan CT to follow up renal u/s findings ofright pelviectasis and complex renal cyst. Maine Gilmore MD - 10/12/2014 9:11 AM EDT UROLOGY CLINIC FOLLOW-UP HPI: Vicenta [...] ureter was noted, no stent was left. At prior visit 04/06/14, ultrasound showed no residual hydronephrosis, possible right pelviectasis, possible small bilateral non-obstructing renal stones, and renal cysts. I had offered and recommended CT at that time, but she declined, opted for 6 month renal u/s follow up. In the interim, she has been well. She drinks 2 L of water per day. She denies any residual abdominal or flank pain, or hematuria. She does report today that she gets a kidney infection every month when she has her period. She experiences dysuria and bladder pain, although does not recount that urine cultures were obtained. Interpretation was further aided by the patient's sister, whom she called during the visit. Review of Systems Constitution: Negative for fever. [...] behavior is normal. Vitals reviewed. Imaging Studies: 10/12/2014: 1. Unchanged two sub-5 [...] renal cysts as above. 4. Bladder unremarkable. Impression/Plan: Left-sided non-obstructing nephrolithiasis, right-sided pelviectasis and left-sidedkidney cysts. We again reviewed management options, including watchful waiting, shock wave lithotripsy, and ureteroscopy, as well as follow up imaging with CT to better assess whether they truly represent stones (vsartifact). We additionally discussed the relative risks, benefits, stone-free success rate, and limitations of each. She still declines surgical intervention and is content to monitor. Given persistent/increased right pelviectasis, I again recommended CT to better assess. She is willing to proceed andwe have ordered this. She has been instructed to call or return in the interval if new signs or symptoms of stone passage/renal colic should develop. Additionally, in order to also better assess her renal cysts, we discussed contrast enhanced phases to the CT scan. She was amenable to this idea. We will set up for a CT scan hopefully later today, ifpossible. As far as her pain she experiences while urination with her menstrual cycle, she was encouraged to have her urine checked for u/a and culture during her menses and to alsseek the medical advise of a airline hostess and to submit a urine sample for culture the next time she experiences these symptoms. We will also have her seen Teresa Gomez APRN, in our office, for consultation regarding possible recurrent UTI. Lastly, we will order a BMP today to assess her kidney function. Maine Gilmore MD Urology PGY-2 Pager: [phone] STAFF ADDENDUM: I saw and examined Viecnta Burns with Dr. Gilmore and have independently reviewed her imaging studies. I agree with history, exam, impression, and plan as noted and amended above. Gus Mckinnon Jr., MD documented in this encounter Plan of Treatment Not on filedocumented as of this encounter Procedures Procedure Name Priority Date/Time Associated Diagnosis Comme nts BASIC METABOLIC STAT 10/12/2014 10:07 AM Kidney stones Resu lts for this PANEL (NON-FASTING) EDT procedur e are in the results section. documented in this encounter Results Basic Metabolic Panel (non-fasting) (10/12/2014 10:07 AM EDT) athologist Signature Glucose Lvl 99 65 - 199 CERNER mg/dL MILLENNIUM Comment: Diabetes: >=200 mg/dL plus symp toms BUN 18 8 - 18 mg/dL CERNER MILLENNIUM Creatinine 0.70 0.70 - 1.20 mg/dL CERNER MILL ENNIUM Comment: Please note that the pediatric reference intervals supplied above were not validated [place] [facility] Results from pediatri c patients should be interpreted in conjunction to the patient's age, height and muscle mass. Sodium 142 135 - 145 mmol/L CERNER KOKO NIUM Potassium 3.9 3.5 - 5.0 mmol/L CERNER KOKO NIUM Comment: Please note: ??Patients with WBC >100,00 0 may have falsely elevated Potassium levels. ??For accurate Potassium quantif ication in these patients send serum separator tube (gold top) for subsequent determinations. ??Contact the Clinical Chemistry Laboratory if there are any qu estions. Chloride 102 98 - 107 mmol/L CERNER MILLENN IUM CO2 27 22 - 31 mmol/L CERNER MILLENNI UM Anion Gap 13 5 - 15 mmol/L CERNER MILLENNIU M Calcium 9.0 8.5 - 10.5 mg/dL CERNER KOKO NIUM Estimated GFR >60 >=60 MACK Emmanuel Comment: This estimated GFR (eGFR) value [...] the following links into your internet browser. [email or web address] Specimen Anatomical Collection Method Collection Time Receive d Time (Source) Location / / Volume Laterality Blood specimen 10/12/2014 10:07 5 (specimen) AM EDT 10:31 AM EDT Resulting Agency Comment Spec In Lab Gus Mckinnon Jr., MD CHEMISTRY ORDERABLES Performing Organization Address City/State/[place] [address] MACK GARCIA documented in this encounter Visit Diagnoses Diagnosis Kidney stones Calculus of kidney Kidney cysts Unspecified congenital cystic kidney dis ease documented in this encounter Care Teams Train Braker Relationship Specialty Start Date End Date Jenny Guerra MD PCP - General 02/14/10 [address] [place] [address] documented as of this encounter
--- OUTSIDE RECORDS SUMMARY | 2021-10-10 00:13 | XMS_ITS | Encounter Summary ---
:1970 Author Organization [facility] [address] Care Team Providers Name Role Phone Jenny Guerra MD Primary Care Provider Encounter Details Date Type Department Care Team Description 04/06/2014 Hospital En[place] [facility] [facility] [place] [id number] Social History Tobacco Use Types Packs/Day Years [...] Associated Diagnosis Comme nts US RETROPERITONEAL Routine 04/06/2014 3:49 Ureteral stone with Results for this COMPLETE PM EST hydronephrosis procedure are in the results section. documented in this encounter Results US retroperitoneal complete (04/06/2014 3:49 PM EST) Anatomical Region Laterality Modality Abdomen Ultrasound Specimen (Source) Anatomical Collection Method Collection Time Re ceived Time Location / / Volume Laterality 04/06/2014 3:49 PM EST Narrative 04/06/2014 3:54 PM EST Renal ?(Signed Final 04/06/2014 03:53 ? pm) Patient Info ID #: ? [id number] ?: ??[birth year] (43 yrs) Name: ? EDOUARD BAHMAN ? Visit Date: 04/06/2014 03:44 pm Performed By Performed By: ?Jose Eduardo Conrad RDMS Attending: ? Prince MITCHELL, Azar Collins Referred By: ? JONG MARSH MD Service(s) Provided ??URETRO - Retroperitoneal Complete - [phone] [id number] ? [id number] Indications ??s/p ureteroscopy, eval for hydro or [...] 04/06/2014 03:53 pm) Patient Info ID #: [id number] : [birth year] (43 y rs) Name: EDOUARD BURNS Visit Date: 04/06/2014 0 3:44 pm Performed By Performed By: Jose Eduardo Conrad RDMS Attending: Azar Morrison MD Referred By: JONG MARSH MD Service(s) Provided URETRO - Retroperitoneal Complete - [phone] Indications s/p ureteroscopy, eval for hydro or [...] Electronically Signed Final Report 04/06 03:53 pm Gus Mckinnon Jr., MD IMG US GEN ORDERABLES documented in this encounter Visit Diagnoses Diagnosis Ureteral stone with hydronephrosis Calculus of ureter documented in this encounter Care Teams Hydraulic Dredge Operator Relationship Specialty Start Date End Date Jenny Guerra MD PCP - General 02/14/10 [address] [place] [address] documented as of this encounter
--- OUTSIDE RECORDS SUMMARY | 2021-10-10 00:13 | XMS_ITS | Encounter Summary ---
:1970 [place] [address] Care Team Providers Name Role Phone Jenny Guerra MD Primary Care Provider Encounter Details Date Type Department Care Team Description 02/16/2014 Anesthesia Event Outpatient Surgery Darlyn Allen [facility] [place] [address] [place] Xochitl PinedaDixonHarpreet Rush MD [facility] [place] [place] [address] [place] [address] Anesthesia Record Procedure Summary Procedure Name Responsible Anesthesia Start Anesthesia Stop Anesthesiologist Time Time CYSTOURETEROSCOPY, Paul Allen DO 02/16/14 1257 02/16/14 1400 DIAGNOSTIC (WRVU 5.75) (Right Bladder) Events Date Time Event Comment 02/16/2014 1243 1257 Start 1258 AN Verify 1300 An Start Data 1304 An Induction 1308 An Intubation 1312 Anesthesia Ready 1323 Procedure Start 1350 Procedure Stop 1353 Extubation/LMA Out SV, adequate TV and RR. Oral suctioning, LMA removed without incident. 1355 an stop data 1400 Stop Transport to PAC U with face mask with 6L/min O2. VSS, pt resting comfortably and following commands, report given to RN Name Total fentaNYL 50 mcg Propofol 200 mg Ondansetron 4 mg Dexamethasone 4 mg ceFAZolin 1 g Ciprofloxacin 400 mg ketorolac 15 mg lactated ringers infusion 1,000 mL 350 mL Agents Name O2 Air N2O Desflurane (et) Blood No blood administrations on file. Lines, Drains, and Airways Type Details Placement Removal PIV 02/16/14; 1252; metacarpal 02/16/14 1252 by Perr on, 07/08/17 0921 by Elias, vein right (top of hand); Vicenta Rivers RN User [id number] catheter system; 20 gauge, 1 in length; intradermal injection, distraction; 07/08/17 (Auto removal via utility); 09 (Auto removal via utility) Supraglottic Mask Ventilation: Easy 02/16/14 1308 by 02/16/14 1353 by (1); LMA Type: iGel Kim Ornelas, Kim Ornelas, (failed placement with BUSINESS MANAGER BUSINESS MANAGER unique x2 attempts); LMA Size: 3; Inserted by: Alejandro documented in this encounter Social History Tobacco Use Types Packs/Day Years Used Date Never Smoker Alcohol Use Standard Drinks/Week Comments No 0 (1 standard drink = 0.6 oz pure alcoho l) Sex Assigned at Date Recorded Not on file documented as of this encounter OR Notes Anesthesia Postprocedure Evaluation - Paul Allen DO - 02/16/2014 4:25 PM EST Patient: Vicenta Burns Procedure(s) Performed: Procedure(s): CYSTOURETEROSCOPY, DIAGNOSTIC CYSTO, REMOVAL OF STENT, FOREIGN BODY OR CALCULUS, SIMPLE Actual Anesthetic: general Patient location: PACU Post-op pain: Adequate analgesia Post-op nausea: no nausea or vomiting Last Vitals: Filed Vitals: 02/16/14 1432 BP: Pulse: 60 Temp: Resp: Post-op cardiovascular and respiratory status: is stable Level of consciousness: awake, alert and oriented Complications: no apparent complications and tolerated the procedure well Fluid Status: normal Anesthesia Preprocedure Evaluation - Paul Allen DO - 02/16/2014 12:41 PM EST Pre-Anesthesia Evaluation for: Vicenta Burns a 43 y.o. female. Procedure(s): CYSTO, STENT PLACEMENT Patient Active Problem List Diagnosis ??? Ureteral stone with hydronephrosis RIGHT UVJ stone No past medical history on file. Past Surgical History Procedure Laterality Date ??? Cystoscopy, insert ureteral stent 01/26/2014 CYSTO, STENT PLACEMENT performed by Khari North MD at [facility] History Substance Use Topics ??? Smoking status: Never Smoker ??? Smokeless tobacco: Not on file ??? Alcohol Use: No History Drug Use No No Known Allergies Medications: MAR and/or home medications have been reviewed. Physical Exam: Filed Vitals: 02/16/14 1238 BP: 143/80 Pulse: 67 Temp: 36.3 ??C (97.3 ??F) Resp: 18 Body mass index is 22.72 kg/(m^2). Height: 144.8 cm (4' 9) Weight - Scale: 47.628 kg (105 lb) Airway Assessment: Mallampati: I TM distance: >3 FB Neck ROM: full Cardiovascular Assessment: Rhythm: regular Rate: normal cardiovascular exam normal Pulmonary Assessment: breath sounds clear to auscultation pulmonary exam normal Dental Assessment: - normal exam Misc Assessment: Patient is wearing No contact(s). IV access: Peripheral line Anesthesia Plan: ASA 1 general, with a(n) intravenous induction Vicenta is a 43 yo healthy female. Patient denies any cardiac or pulmonary disease, exercises almost daily, does not smoke or drink. Patient denies any family or personal history of anesthetic complications. Patient denies GERD, NPO since midnight. Plan for GA, standard ASA monitors. Anesthetic plan along with risks discussed with patient and her son. All questions answered. Consent obtained and placedin chart. Region - Other Informed Consent: Anesthetic plan and risks discussed with patient. Use of blood products discussed with patient whom consented to blood products. Plan discussed with attending and BUSINESS MANAGER. [facility]. Assessment: documented in this encounter Plan of Treatment Not on filedocumented as of this encounter Visit Diagnoses Not on filedocumented in this encounter Administered Medications Inactive Administered Medications - up to 3 most recent administrations Medication Order MAR Action Action Date Dose Rate Site ceFAZolin (ANCEF) 1g in dextrose 5% Given 02/16/2014 1:14 PM EST 1 g 50mL PRN, Starting on Sat02/16/14 at 1314, Until Sat02/16/14 at 1402, Administer over 30 Minutes, Anesthesia Intra-op ciprofloxacin (CIPRO) 400mg in dextrose 5% Given 02/16/2014 12:57 PM EST 400 mg 200mL PRN, Starting on Sat02/16/14 at 1257, Until Sat02/16/14 at 1402, Administer over 60 Minutes, Anesthesia Intra-op dexamethasone (DECADRON) injection Given 02/16/2014 1:19 PM EST 4 mg PRN, Starting on Sat02/16/14 at 1319, Until Sat02/16/14 at 1402, Anesthesia Intra-op, Routine fentaNYL 50mcg/mL injection Given 02/16/2014 1:18 PM EST 25 mcg PRN, Starting on Sat02/16/14 at 1304, Until Sat02/16/14 at 1402, Pain, Anesthesia Intra-op, Routine Given 02/16/2014 1:04 PM EST 25 mcg ketorolac (TORADOL) injection Given 02/16/2014 1:48 PM EST 15 mg PRN, Starting on Sat02/16/14 at 1348, Until Sat02/16/14 at 1402, Pain, Anesthesia Intra-op, Routine lactated ringers infusion 1,000 mL New Bag 02/16/2014 12:57 PM EST 1,000 mL, at 100 mL/hr, Intravenous, CONTINUOUS, Starting on Sat02/16/14 at 1300, Until Sat02/16/14 at 1912, Day of Surgery (Day of Procedure) ondansetron (ZOFRAN) injection Given 02/16/2014 1:48 PM EST 4 mg PRN, Starting on Sat02/16/14 at 1348, Until Sat02/16/14 at 1402, Nausea, Anesthesia Intra-op, Routine propofol (DIPRIVAN) 10 mg/mL bolus injection Given 4 1:06 PM EST 50 mg (Anesthesia) PRN, Starting on Sat02/16/14 at 1304, Until Sat02/16/14 at 1402, Anesthesia Intra-op Given 02/16/2014 1:04 PM EST 150 mg documented in this encounter Care Teams Crater And Packer Relationship Specialty Start Date End Date Jenny Guerra MD PCP - General 02/14/10 [address] [place] [address] documented as of this encounter
--- OUTSIDE RECORDS SUMMARY | 2021-10-10 00:13 | XMS_ITS | Encounter Summary ---
:1970 Author Organization [facility] [place] [address] Care Team Providers Name Role Phone Jenny Guerra MD Primary Care Provider Encounter Details Date Type Department Care Team Description 01/23/2014 Orders Only Urology [place] [facility] Khari North MD [facility] [place] [address] UROLOGY [phone] [place] [id number] (Wo rk) Social History Tobacco Use Types Packs/Day Years Used Date Never Assessed Sex Assigned at Date Recorded Not on file documented as of this encounter Plan of Treatment Not on filedocumented as of this encounter Procedures Procedure Name Priority Date/Time Associated Diagnosis Comme nts FILM LIBRARY Routine 01/23/2014 8:51 AM Results f or this STORAGE ONLY DX EDT procedure ar e in CHEST the results section. documented in this encounter Results Film Library- Storage only DX Chest (01/23/2014 8:51 AM EDT) Anatomical Region Laterality Modality Other Specimen (Source) Anatomical Collection Method Collection Time Re ceived Time Location / / Volume Laterality 01/23/2014 8:51 AM EDT Narrative 01/25/2014 5:38 PM EST This is a Non-reportable exam Procedure Note ARIANE, UNSIGNED REPORT - 01/25/2014Formatt ing of this note might be different from the original. This is a Non-reportable exam Khari North MD IMG FILM LIBRARY ORDERABLES documented in this encounter Visit Diagnoses Not on filedocumented in this encounter Care Teams Hack Driver Relationship Specialty Start Date End Date Jenny Guerra MD PCP - General 02/14/10 [address] [place] [address] documented as of this encounter
--- OUTSIDE RECORDS SUMMARY | 2021-10-10 00:13 | XMS_ITS | Encounter Summary ---
:1970 Author Organization [facility] [place] [address] Care Team Providers Name Role Phone Jenny Guerra MD Primary Care Provider Encounter Details Date Type Department Care Team Description 01/25/2014 [place] Only [place] [facility] [place] [facility] [place] [address] UROLOGY [phone] [place] [phone] (Wo rk) Social History Tobacco Use Types Packs/Day Years Used Date Never Assessed Sex Assigned at Date Recorded Not on file documented as of this encounter Plan of Treatment Not on filedocumented as of this encounter Procedures Procedure Name Priority Date/Time Associated Diagnosis Comme nts FILM LIBRARY Routine 01/25/2014 8:15 AM Results f or this STORAGE ONLY CT EST procedure ar e in ABDOMEN AND PELVIS the resul ts section. documented in this encounter Results Film Library- Storage only CT abdomen & pelvis (01/25/2014 8:15 AM EST) Anatomical Region Laterality Modality Abdomen, Pelvis Other Specimen (Source) Anatomical Collection Method Collection Time Re ceived Time Location / / Volume Laterality 01/25/2014 8:15 AM EST Narrative 01/25/2014 5:38 PM EST This is a Non-reportable exam Procedure Note ARIANE, UNSIGNED REPORT - 01/25/2014Formatt ing of this note might be different from the original. This is a Non-reportable exam Khari North MD [facility] [place] FILM LIBRARY ORDERABLES documented in this encounter Visit Diagnoses Not on filedocumented in this encounter Care Teams Horse Trainer Relationship Specialty Start Date End Date Jenny Guerra MD PCP - General 02/14/10 [address] [place] [address] documented as of this encounter
--- OUTSIDE RECORDS SUMMARY | 2021-10-10 00:13 | XMS_ITS | Encounter Summary ---
:1970 Author Organization [facility] [place] [address] Care Team Providers Name Role Phone Jenny Guerra MD Primary Care Provider Encounter Details Date Type Department Care Team Description 01/26/2014 Surgery Main Operating Room Rajani Whiting MD CYSTO, STENT PLACEMENT [facility] [place] [address] [place] [address] [phone] Social History Tobacco Use Types Packs/Day Years Used Date Never Smoker Alcohol Use Standard Drinks/Week Comments No 0 (1 standard drink = 0.6 oz pure alcoho l) Sex Assigned at Date Recorded Not on file documented as of this encounter Last Filed Vital Signs Vital Sign Reading Time Taken Comments Blood Pressure 130/63 01/27/2014 10:01 AM EST Pulse 61 01/27/2014 10:01 AM EST Temperature 36.8 ??C (98.2 ??F) 01/27/2014 10:01 AM EST Respiratory Rate 16 01/27/2014 10:01 AM EST Oxygen Saturation 100% 01/27/2014 10:01 AM EST Inhaled Oxygen Concentration - - Weight 45.9 kg (101 lb 3.1 oz) 01/25/2014 6:17 PM EST Height 144.8 cm (4' 9) 01/27/2014 6:28 AM EST Per Nurs e Body Mass Index 21.9 01/25/2014 6:17 PM EST documented in this encounter Discharge Instructions Patient InstructionsHolland Jamison MD - 01/26/2014 9:50 AM EST Call your doctor for: fevers greater than 101 severe nausea or vomiting increasing pain not controlled by pain medications The number for questions is [phone] before 5 PM weekdays and [phone] after 5 PM and weekends. Activity level: Increased activity may lead to more stent discomfort and more blood in your urine. Your activity level will be determined by your comfort level. Diet: You may resume your regular diet as tolerated. Driving: No driving while still taking opioid pain medications (wait at least 6- 8 hours since last dose). No driving if you are still sore from surgery as it may limit your ability to react quickly if necessary. Shower/Bath: No restrictions. Stent Discomfort: Most patients experience some degree of discomfort related to their ureteral stent. Symptoms include flank pain (increased during urination), frequency and urgency of urination, burning or pain in the bladder or urethral with urination, pelvic discomfort, and blood in the urine. Yoursymptoms may be exacerbated by activity. To manage your stent symptoms, try the following: - drink plenty of fluid (~2 liters per day or enough to make urine clear or pale yellow) - take ibuprofen (Motrin, Advil, or generic), up to 600-800mg every 8 hours - take acetaminophen (Tylenol), up to 650mg every 4 hours (regular strength) or 1000mg every 6 hours(extra strength) - take other narcotic pain medications as prescribed. If taking vicodin or percocet, do not take Tylenol in addition. Follow up Appointments: You will be scheduled for future removal of your kidney stone in ~2-3 weeks time. Please call [phone] if you do not hear from the Urologic clinic in the next couple of daysabout when your procedure will be scheduled. It is important to remember that your ureteral stent cannot stay in place permanently. If it remainsin place too long it may become encrusted with stone and require additional surgery to remove it. Please call our office if you do not receive your appointment or if you need to reschedule. documented in this encounter Medications at Time of Discharge Medication Sig Dispensed Refills Start Date End Date ciprofloxacin (CIPRO) 500 Take 1 tablet by 20 tablet 0 07/201302/06/2014 mg Tablet mouth 2 times daily for 10 days. tamsulosin (FLOMAX) 0.4 Take 1 capsule by [...] documented as of this encounter Progress Notes Kenna Pandya RN - 01/27/2014 11:30 AM EST Patient Name: Edouard Ruggiero Patient Age: 43 y.o. Birthdate: 1970 Admit date: 01/25/2014 Attending Physician: Rajani Whiting MD 11:30 Discharge instructions and medications reviewed with Pt. Pt verbalizes understanding of discharge instructions. Pt had appropriate questions which were answered. Pt voiding adequate amounts of urine and has no c/o pain. Pt awaits family members for ride home. Camelia Rajan RN - 01/27/2014 10:05 AM EST Met with Edouard and she is feeling well and will be discharged today. She denies any needs and will have her prescriptions filled at [facility] in [place], [place] . She has a ride home and RN will review instructiosn, medications, activity and f/u appointment prior to discharge. CAMELIA RAJAN RN 01/27/2014 Holland Jamison MD - 01/27/2014 7:56 AM EST Urology Resident Inpatient Progress Note ID: Edouard Ruggiero ( ) is a 43 y.o. female who transferred from OSH for 1.4cm Right UVJ stonein setting of GNR bacteremia. Now POD#1 s/p cystoscopy with stent placement. 24hr events: ?? Tolerated procedure well ?? Afebrile overnight ?? Reports minimal abdominal pain overnight, reports some dysuria overnight ?? Tolerating PO intake Subjective: Pt denies SOB, chest pain, abdominal pain, n/v or worsening of pain. O: Last value Range last 24 hrs Temperature Temp: 36.6 ??C (97.9 ??F) Temp: [36.3 ??C (97.3 ??F)-36.9 ??C (98.4 ??F)] Heart Rate Heart Rate: 54 Heart Rate: [52-69] Blood Pressure BP: 106/60 mmHg BP: (103-120)/(60-64) Respiratory Rate Resp: 16 Resp: [14-16] SpO2 SpO2: 98 % SpO2: [96 %-100 %] I/O last 3 completed shifts: In: 3269 [I.V.:3269] Out: 3300 [Urine:3300] Physical Exam: General: NAD, resting comfortably CVS: RRR, no m/r/g Pulm: CTAB, no wheezes or rhonchi Abd: soft, nontender, nondistended, no CVA tenderness appreciated : no merritt Skin: warm, dry Ext: no LE edema noted, SCDs in place Recent Labs Basename 01/27/1421001/26/1423401/25/141917 WBC 6.4 5.2 5.7 HGB 13.0 13.2 14.0 HCT 37.1 37.8 39.7 PLATELET 276 240 276 PT -- -- -- INR -- -- -- PTT -- -- -- Recent Labs Basename 01/27/1421001/26/1423401/25/141917 NA 139 143 140 K 3.7 3.2* 3.8 CL 102 102 99 CO2 23 25 27 BUN 15 13 14 CREATININE 0.73 0.74 0.87 GLUCOSE 176 98 102 CALCIUM 8.6 9.3 9.8 MAGNESIUM -- -- -- PHOS -- -- -- Microbiology: 01/25 Blood culture x2 - no growth x 1 day 01/25 Blood culture from [facility] - GNR, sent over to [facility] for bacterial identification New Imaging: No new ASSESSMENT / PLAN: Edouard Ruggiero is a 43 y.o. female with 1.4 cm Right UVJ stone with GNR bacteremia noted at OSH. Transferred here for further care. Now POD#1 s/p cystoscopy with ureteral stent placement. Has been afebrile overnight with IV cipro. Switched to PO Cipro this morning. Regular diet this morning and plan to d/c home later today with 2 week course of Cipro with plans for definitive stone management in 2-3 weeks. Neuro: pain controlled with tylenol and ibuprofen prn CV: hemodynamically stable, continue to monitor Pulm: breathing well on RA, encourage OOB/ambulation GI: regular diet, zofran and compazine ordered prn : no merritt, continue to monitor UOP FEN: hep-locked, electrolyte WNL Heme: WBC normal and stable since admission, HB normal, SCDs ID: GNR bacteremia, febrile to 40C at OSH, afebrile since arriving here, switched to PO cipro, will f/u culture data and adjust outpatient abx if needed Endo: no issues Dispo: floor status, full code, plan for d/c home later today HOLLAND JAMISON MD Lorena Hamilton RN - 01/26/2014 3:54 PM EST 1545- Waiting for transpo. Pt. Dozing - remains comfortable. Lorena Hamilton RN - 01/26/2014 2:54 PM EST 1445- Pt. Started on sips of H2O. Cont. To deny any discomfort. Camelia Rajan RN - 01/26/2014 10:47 AM EST Seen on IDR and awaiting time for OR procedure. She denies acute pain and is receiving IVF/Cipro 400mg IV bid. Voiding in BR and ambulating in room. Will continue to follow, assess and facilitate discharge. CAMELIA RAJAN RN 01/26/2014 Holland Jamison MD - 01/26/2014 7:27 AM EST Urology Resident Inpatient Progress Note ID: Edouard Ruggiero ( ) is a 43 y.o. female who transferred from OSH for 1.4cm Right UVJ stonein setting of GNR bacteremia. 24hr events: ?? Admitted to regular surgical floor last night ?? Afebrile overnight ?? Reports minimal abdominal pain overnight ?? NPO since midnight, IVF running Subjective: Pt denies SOB, chest pain, abdominal pain, n/v or worsening of pain. O: Last value Range last 24 hrs Temperature Temp: 37.1 ??C (98.8 ??F) Temp: [36.8 ??C (98.2 ??F)-37.1 ??C (98.8 ??F)] Heart Rate Heart Rate: 53 Heart Rate: [51-65] Blood Pressure BP: 137/82 mmHg BP: (122-141)/(69-82) Respiratory Rate Resp: 16 Resp: [16] SpO2 SpO2: 98 % SpO2: [97 %-99 %] I/O last 3 completed shifts: In: 1039 [I.V.:1039] Out: - Physical Exam: General: NAD, resting comfortably CVS: RRR, no m/r/g Pulm: CTAB, no wheezes or rhonchi Abd: soft, nontender, nondistended, no CVA tenderness appreciated : no merritt Skin: warm, dry Ext: no LE edema noted, SCDs in place Recent Labs Basename 01/26/1423401/25/141917 WBC 5.2 5.7 HGB 13.2 14.0 HCT 37.8 39.7 PLATELET 240 276 PT -- -- INR -- -- PTT -- -- Recent Labs Basename 01/26/1401/25/14 1918 NA 143 140 K 3.2* 3.8 CL 102 99 CO2 25 27 BUN 13 14 CREATININE 0.74 0.87 GLUCOSE 98 102 CALCIUM 9.3 9.8 MAGNESIUM -- -- PHOS -- -- Microbiology: 01/25 Blood culture - pending 01/25 Blood culture from [facility] - GNR New Imaging: No new ASSESSMENT / PLAN: Edouard Ruggiero is a 43 y.o. female with 1.4 cm Right UVJ stone with GNR bacteremia noted at OSH. Transferred here for further care. Has been afebrile overnight with IV cipro. Will follow up repeat blood culture results here as well as follow up sensitivities of blood cultures at OSH. NPO since midnight with plan for add-on cysto/stent placement in the OR later today, consent obtained. Continue with IVF and potassium IV repletion this morning. Neuro: pain controlled with tylenol and ibuprofen prn CV: hemodynamically stable, continue to monitor closely for signs of worsening infection Pulm: breathing well on RA, encourage OOB/ambulation GI: NPO, zofran and compazine ordered prn : no merritt, continue to monitor UOP FEN: IVF @ 125cc/hr, repleting K this morning, after procedure will advance diet as tolerated Heme: WBC normal and stable since admission, HB normal, SCDs ID: GNR bacteremia, febrile to 40C at OSH, afebrile since arriving here, continue IV cipro, f/u culture data here and at OSH Endo: no issues Dispo: floor status, full code, plan for add-on to OR later today for cysto/stent placement HOLLAND JAMISON MD Kenna Pandya RN - 01/25/2014 6:20 PM EST 18:15 Pt received into 214 via ambulance from [facility]. Pt in NAD; has no c/o pain. VSS. Pt oriented to unit, room and call ramires as well as hourly rounding and NKE. Vascular access paged for PIV insertion. documented in this encounter H&P Notes Rajani Whiting MD - 01/25/2014 7:34 PM EST Images from the original note were not included. UROLOGY INPATIENT ADMISSION NOTE CC RIGHT distal ureteral stone; GNR bacteremia HPI Edouard Ruggiero is a 43 y.o. female with no significant medical history, presenting in transfer from OSH with 1.4 cm RIGHT UVJ stone in the setting of GNR bacteremia. She presented to OSH on 01/23/2014 with two days of subjective fever. In the ED her temp was 40.3. She denies having pain, chills, dysuria, or other constitutional symptoms at presentation. Blood and urine cultures were obtained; these have subsequently demonstrated GNR bacteremia, pending identification of organism. IV ciprofloxacin was started. She felt markedly better during the hospitalization andcontinued to deny pain. Renal ultrasound revealed RIGHT hydroureteronephrosis. Subsequent CT abdomen/pelvis confirmed these findings and showed a 1.4 cm obstructing stone at the RIGHT UVJ. This is her first stone episode. She has no personal or family history of stones. She was also noted to have elevated liver enzymes. RUQ abdominal US was normal. She has not been jaundiced. At present she feels well and is clinically stable. She was transferred to [facility] for consideration ofureteral stent placement and definitive management of the stone. Of note, her [place] language is [place]. This history was obtained via a medical recruiter. MEDICAL AND SURGICAL HISTORY No past medical history. History reviewed. No pertinent past surgical history. ALLERGIES No Known Allergies MEDICATIONS No current facility-administered medications on file prior to encounter. No current outpatient prescriptions on file prior to encounter. SH History Social History ??? Marital Status: Spouse Name: N/A Number of Children: 2 ??? Years of Education: N/A Occupational History ??? Not on file. Social History Main Topics ??? Smoking status: Not on file ??? Smokeless tobacco: Not on file ??? Alcohol Use: Not on file ??? Drug Use: Not on file ??? Sexually Active: Not on file Other Topics Concern ??? Not on file Social History Narrative ??? No narrative on file FH Non-contributory. ROS Except above, a ten-point review of systems was negative. PHYSICAL EXAM Temp: [36.8 ??C (98.2 ??F)] Heart Rate: [65] Resp: [16] BP: (123)/(85) SpO2: [97 %] GEN: Resting comfortably in bed, conversant, NAD. HEENT: NCAT. CHEST: Normal work of breathing. CTAB. CV: NSR. ABD: Soft, flat, NTND. No CVA tenderness. : Voiding spontaneously. EXTR: Moving spontaneously. No edema or calf swelling. NEURO: Alert and follows commands. Recent Labs Basename 01/25/141917 WBC 5.7 HGB 14.0 HCT 39.7 PLATELET 276 Recent Labs Basename 01/25/141917 NA 140 K 3.8 CL 99 CO2 27 BUN 14 CREATININE 0.87 GLUCOSE 102 CALCIUM 9.8 MAGNESIUM -- PHOS -- Recent Labs Basename 01/25/141917 BILITOT 0.4 BILIDIR 0.1 AST 44* ALT 139* ALKPHOS 188* AMYLASE -- LIPASE -- ASSESSMENT 43 y.o. female with GNR bacteremia and a 1.4 cm RIGHT UVJ stone, now presenting in transfer for surgical management. She is doing remarkably well and has been afebrile since she first presented to OSH.Given her clinical picture, she does not require urgent ureteral stent placement. Since she will notpass a stone of this size spontaneously, we will plan for this surgery tomorrow with ureteroscopy and lithotripsy in 2-3 weeks to address the stone. We discussed the details, risks, and benefits of watchful waiting versus stent placement and ureteroscopy. She is not a candidate for SWL given the position of the stone. Consent was obtained for cystourethroscopy, RIGHT ureteral stent placement, possible RIGHT ureteroscopy and laser lithotripsy, possible RIGHT nephrostomy tube. She has been afebrile on IV ciprofloxacin, which we will continue. We are awaiting final culture results from OSH. In the meantime, we will draw another set of cultures to demonstrate cure. Should she decompensate overnight, she will likely need urgent intervention, stent placement versus IR nephrostomy tube placement. PLAN # NEURO: Acetaminophen and ibuprofen prn. # CV: Stable. # PULM: Stable. # GI: Stable. # FEN: NS 125 mL/hr. NPO (give meds) for surgery tomorrow. # : Voiding spontaneously. RIGHT ureteral stent placement tomorrow. # ID: Ciprofloxacin 400 mg IV q12h. Blood cultures now. Follow OSH blood cultures. # PPX: Heparin 5000 units sc q12h. SCDs. # LINES: PIV. # DISPO: Floor status. Full code. Brandt Castle MD Attending Addendum I have seen the patient and reviewed the history and examination. I agree with the details as written. The assessment and plan were formulated in discussion with me and I agree with them as documented. I would add the following: Edouard Ruggiero is a 43 y.o. female with no significant medical history, presenting in transfer from OSH with 1.4 cm RIGHT UVJ stone in the setting of GNR bacteremia. Patient afebrile and stable on antibiotics. We will place a right stent and plan delayed laser lithotripsy. Rationale and risk discussed Rajani Whiting documented in this encounter Procedure Notes Provider, Scanning - 01/28/2014 12:00 AM ESTAssociated Order(s): SCAN DOC: ECG Provider, Scanning - 01/28/2014 12:00 AM ESTAssociated Order(s): SCAN DOC: IMPLANTABLE DEVICES documented in this encounter Miscellaneous Notes Miscellaneous - Provider, Scanning - 01/28/2014 12:00 AM EST Miscellaneous - Provider, Scanning - 01/28/2014 12:00 AM EST Discharge Summary - Holland Jamison MD - 01/27/2014 8:46 AM EST DISCHARGE SUMMARY Patient Name: Edouard Ruggiero Age: 43 y.o. Date of : 1970 Date of Admission: 01/25/2014 Date of Discharge: 01/27/2014 Attending Provider: Rajani Whiting MD Discharge Diagnoses (Hospital Problems) Active Hospital Problems Diagnosis ??? Ureteral stone with hydronephrosis RIGHT UVJ stone Resolved Hospital Problems Diagnosis Date Resolved No resolved problems to display. Secondary Diagnoses (Chronic Problems) There are no active non-hospital problems to display for this patient. Operations and Major Procedures Operations Procedure(s) with comments: CYSTO, STENT PLACEMENT History of Presentation Edouard Ruggiero is a 43 y.o. female presenting in transfer with GNR bacteremia and a 1.4 cm RIGHT UVJ stone. She presented to OSH on 01/23/2014 with two days of subjective fever. In the ED her temp was 40.3. She denies having pain, chills, dysuria, or other constitutional symptoms at presentation. Blood and urine cultures were obtained; these have subsequently demonstrated GNR bacteremia, pending identification of organism. IV ciprofloxacin was started. She felt markedly better during the hospitalization and continued to deny pain. Renal ultrasound revealed RIGHT hydroureteronephrosis. Subsequent CT abdomen/pelvis confirmed these findings and showed a 1.4 cm obstructing stone at the RIGHT UVJ. This is herfirst stone episode. Hospital Course Edouard Ruggiero underwent cystoscopy with ureteral stent placement on 01/26/2014 and tolerated the procedurewell without complications. Following a brief recovery in the Post-Anesthesia Care Unit, she was transferred to the regular surgical floor for post-operative management. Her cultures showed GNR in her urine and she was treated with PO cipro. She remained afebrile with a normal WBC while hospitalized. The OSH urine culture could not be grown out further so it was sent over the [facility]'s laboratory for further growth. The post-operative course was unremarkable. She tolerated an oral diet and was able to ambulate and void spontaneously. She was deemed medically appropriate for discharge on post-op day # 1. Physical Exam at Discharge GEN: Alert and conversant. CHEST: Clear to auscultation. CV: Normal sinus rhythm. ABD: Soft, minimally tender. EXTR: Moving spontaneously. Lab Data and Studies Recent Labs Basename 01/27/14 0211 WBC 6.4 HGB 13.0 PLATELET 276 Recent Labs Basename 01/27/14 0211 NA 139 K 3.7 CL 102 CO2 23 BUN 15 CREATININE 0.73 Studies 01/23/2014 blood culture (OSH). GNR, unable to grow out, sent to [facility] for further growth 01/25/2014 blood culture [facility] NG x 1 day Pending Studies and Lab Data The patient will need the following 4 tests completed on: 01/25/2014 1. XR Fluoro OR c-arm storage only 3. Bacterial Identification 2. Bacterial Identification 4. Bacterial Identification Authorizing Provider: Rajani Whiting MD, Jenny Guerra MD Discharge to: Home Discharge Medications Your Medications As of 01/27/2014 9:31 AM New Medications Dose Details acetaminophen 325 mg Tab Commonly known as: TYLENOL Take 2 tablets by mouth every 6 hours as needed for Pain or Fever. 650 mg Refills: 0 tamsulosin 0.4 mg Cp24 Commonly known as: FLOMAX Take 1 capsule by mouth daily for 30 days. 0.4 mg Quantity: 30 capsule Refills: 1 Continued medications, unchanged Dose Details ciprofloxacin 500 mg Tab Commonly known as: CIPRO Take 1 tablet by mouth 2 times daily for 10 days. 500 mg Quantity: 20 tablet Refills: 0 ibuprofen 800 mg Tab Commonly known as: ADVIL;MOTRIN Take 800 mg by mouth every 6 hours as needed. 800 mg Refills: 0 Updated Allergies and Drug Reactions No Known Allergies Immunizations Given this Hospitalization There is no immunization history on file for this patient. Functional and Cognitive Status Ambulatory and cognitively intact Smoking Status at Discharge History Smoking status ??? Not on file Smokeless tobacco ??? Not on file Follow-up Recommendations for Providers Patient will be scheduled for definitive management of her UVJ stone in 2-3 weeks with a Urology attending. Instructions Given to Patient at Discharge Patient Instructions Call your doctor for: fevers greater than 101 severe nausea or vomiting increasing pain not controlled by pain medications The number for questions is [phone] before 5 PM weekdays and [phone] after 5 PM and weekends. Activity level: Increased activity may lead to more stent discomfort and more blood in your urine. Your activity level will be determined by your comfort level. Diet: You may resume your regular diet as tolerated. Driving: No driving while still taking opioid pain medications (wait at least 6- 8 hours since last dose). No driving if you are still sore from surgery as it may limit your ability to react quickly if necessary. Shower/Bath: No restrictions. Stent Discomfort: Most patients experience some degree of discomfort related to their ureteral stent. Symptoms include flank pain (increased during urination), frequency and urgency of urination, burning or pain in the bladder or urethral with urination, pelvic discomfort, and blood in the urine. Yoursymptoms may be exacerbated by activity. To manage your stent symptoms, try the following: - drink plenty of fluid (~2 liters per day or enough to make urine clear or pale yellow) - take ibuprofen (Motrin, Advil, or generic), up to 600-800mg every 8 hours - take acetaminophen (Tylenol), up to 650mg every 4 hours (regular strength) or 1000mg every 6 hours(extra strength) - take other narcotic pain medications as prescribed. If taking vicodin or percocet, do not take Tylenol in addition. Follow up Appointments: You will be scheduled for future removal of your kidney stone in ~2-3 weeks time. Please call [phone] if you do not hear from the Urologic clinic in the next couple of daysabout when your procedure will be scheduled. It is important to remember that your ureteral stent cannot stay in place permanently. If it remainsin place too long it may become encrusted with stone and require additional surgery to remove it. Please call our office if you do not receive your appointment or if you need to reschedule. General Instructions None Discharge References/Attachments Discharge References/Attachments None CC: PCP: JENNY GUERRA MD Referring: Xochitl Moreno Md Hospitalist [facility] [address] [place] [address] [place] [address] Plan of Care - Ernestine Bliss RN - 01/27/2014 1:08 AM EST Problem: General Plan of Care Goal: Plan of Care Review Outcome: Therapy, goal partially met Pt resting comfortably, expressed some pain throughout the night, medicated per MD orders, pain improving, urinating fine with some slight burning, no distress noted at this time, will cont to monitor pt for signs and symptoms of complications. OR Attestation - Rajani Whiting MD - 01/26/2014 10:17 PM EST Attestation: Case Date: 01/26/2014 I performed the procedure with the assistance of the resident. I performed or directly supervised all critical aspects. Notes: Normal bladder Right ureteral stone 6 variable contor stent placed Patient will undergo delayed ureteroscopy and stone fragmentation RAJANI WHITING MD 01/26/2014 Op Note - Rajani Whiting MD - 01/26/2014 4:59 PM EST Operative Note Patient Name: Edouard CortezB: [id number] MR#: [id number] Case Date: 01/26/2014 Surgeon: Surgeon(s) and Role: * Rajani Whiting MD - Primary * Ethel Shah MD - Resident-Surgeon Chief * Johnson Quiroz MD - Resident-Surgeon Chief Preoperative diagnosis: R ureteral stent. UTI Postoperative diagnosis: R ureteral stent. UTI Procedure(s): CYSTO, STENT PLACEMENT Anesthesia: General Findings: Distal ureteral stone. 6 Fr 26 cm stent placed. Complications: None Fluids: 450 mL Estimated Blood Loss: None Drains: 6 Fr 26 cm right ureteral stent Disposition: awakened from anesthesia, extubated and taken to the recovery room in a stable condition, having suffered no apparent untoward event. Condition: doing well without problems CLARIFICATION NEEDED Operative Indication: Mrs. Ruggiero has a large distal ureteral stone with UTI. She presents for stenting. Operative Description: After patient had given informed consent, she was taken to the Operating Room where she was placed in the dorsal lithotomy position, placed under general anesthesia, prepped and draped. A time out was performed, and no concerns were raised. We entered the bladder with a 30-degree scope identifying normal urethra and normal bladder with the exception at the right ureteral orifice there was a large bulge. The ureteral orifice was small, and no stone could be seen through the ureteral orifice. A 70-degree cystoscope did not add any other pathology. We placed a glidewire up into the ureter passed the stone. We then placed a Pollack up to the collecting system and measured that it was appropriate for a 24-cm stent. We installed contrast into the collecting system and placed a 6-Vietnamese 24-cm stent under fluoroscopic assistance and guidance and emptied the bladder. No purulent efflux was noted from the stent, only clear efflux. Brief Op Note - Johnson Quiroz MD - 01/26/2014 3:32 PM EST Brief Operative Note Patient Name: Edouard Ruggiero : [id number] MR#: [id number] Case Date: 01/26/2014 Surgeon: Surgeon(s) and Role: * Rajani Whiting MD - Primary * Ethel Shah MD - Resident-Surgeon Chief * Johnson Quiroz MD - Resident-Surgeon Chief Preoperative diagnosis: R ureteral stent. UTI Postoperative diagnosis: R ureteral stent. UTI Procedure(s): CYSTO, STENT PLACEMENT Anesthesia: General Findings: Distal ureteral stone. 6 Fr 26 cm stent placed. Complications: None Fluids: 450 mL Estimated Blood Loss: None Drains: 6 Fr 26 cm right ureteral stent Disposition: awakened from anesthesia, extubated and taken to the recovery room in a stable condition, having suffered no apparent untoward event. Condition: doing well without problems (Please see the Surgical Encounter Summary for any Implant and Specimen details pertinent to this patient.) Initial Assessments - Camelia Rajan RN - 01/26/2014 9:33 AM EST Office of Care Management (OCM) / Clinical Stereo Equipment Installer (CRC)/ Initial Assessment Discussed patient with Provider Team and in multidisciplinary discharge-planning rounds. Reviewed record and interviewed patient. Introduced/reviewed CRC role and services accepted. REASON for HOSPITALIZATION: Ureteral stone with hydronephrosistransferred from OSH for 1.4cm Right UVJ stone in setting of GNR bacteremia IVF 125, Cipro IV bid, tylenol/advil/motrin prn pain, compzine/zofran, ,I&O, labs, OOB chair, ambulate w staff,. 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 She is independent in all activities and has supports in her local area. ADVANCE DIRECTIVES: None on file and will provide a booklet for review and completion. HEALTH /PRESCRIPTION COVERAGE: [place] [facility] with prescription coverage with co-pays CURRENT HOME/COMMUNITY SERVICES/EQUIPMENT: DME: None Home Health Agency: None Other: [employer]LE[employer] REFERRAL: No needs identified at this time. PRIMARY CARE PHYSICIAN: JENNY GUERRA MD [facility] [phone] / [facility] [id number] POTENTIAL DISCHARGE NEEDS: None anticipated at this time. PATIENT/FAMILY EDUCATION NEEDS: Pain/bowel management, fluid intake, medications, activity ANTICIPATED BARRIERS TO DISCHARGE: None identified at this time. TRANSPORTATION @ D/C: Family or friends PLAN: CRC will continue to monitor progress, follow for continuity of care and assist with dischargeplanning while hospitalized RN to review instructions, medications, activity and f/u appointment prior to discharge. CAMELIA RAJAN RN 01/26/2014 . Plan of Care - Tasha López RN - 01/26/2014 4:51 AM EST Problem: General Plan of Care Goal: Individualization and Mutuality Plan of care reviewed with patient. Pt has no c/o of pain this shift. MD spoke w/patient using cause analyst phone to aid in communication regarding plan to go to OR this morning. MD reviewed and answered questions. Pt remained NPO. Miscellaneous - Provider, Scanning - 01/25/2014 12:00 AM EST Miscellaneous - Provider, Scanning - 01/25/2014 12:00 AM EST documented in this encounter Plan of Treatment Pending Results Name Type Priority Associated Diagnoses Date/Ti me XR Fluoro OR c-arm Imaging Routine 4 2:44 PM EST storage only Scheduled Orders Name Type Priority Associated Diagnoses Order S chedule XR Fluoro OR c-arm Imaging Routine Once PRN (for Radiant storage only use) for 1 Occu rrences starting 2013 until 01/26/2014 documented as of this encounter Procedures Procedure Name Priority Date/Time Associated Comments Diagnosis IMPLANTABLE DEVICES 01/28/2014 12:00 Resu lts for this SCAN AM EST procedure are i n the results section. ECG SCAN 01/28/2014 12:00 Results for this AM EST procedure are i n the results section. HEMOGRAM Routine 01/27/2014 2:11 AM Results f or this EST procedure are i n the results section. DIFFERENTIAL, AUTOMATED Routine 01/27/2014 2:11 AM Results for this EST procedure are i n the results section. CBC (WITH DIFF) Routine 01/27/2014 2:11 AM EST BASIC METABOLIC PANEL Routine 01/27/2014 2:11 AM Results for this (NON-FASTING) EST procedure are in the results section. BACTERIAL Routine 01/26/2014 8:23 PM Results f or this IDENTIFICATION EST procedure are in the results section. BACTERIAL Routine 01/26/2014 8:23 PM Results f or this IDENTIFICATION EST procedure are in the results section. CYSTO, STENT PLACEMENT 01/26/2014 1:47 PM R ureteral s tent. (WRVU 2.82) EST UTI CYSTO, STENT PLACEMENT Routine 01/26/2014 6:17 AM EST HEMOGRAM Routine 01/26/2014 2:35 AM Results f or this EST procedure are i n the results section. DIFFERENTIAL, AUTOMATED Routine 01/26/2014 2:35 AM Results for this EST procedure are i n the results section. CBC (WITH DIFF) Routine 01/26/2014 2:35 AM EST BASIC METABOLIC PANEL Routine 01/26/2014 2:35 AM Results for this (NON-FASTING) EST procedure are in the results section. BLOOD CULTURE STAT 01/25/2014 8:15 PM Results for this EST procedure are i n the results section. BLOOD CULTURE STAT 01/25/2014 8:12 PM Results for this EST procedure are i n the results section. HEMOGRAM Routine 01/25/2014 7:18 PM Results f or this EST procedure are i n the results section. DIFFERENTIAL, AUTOMATED Routine 01/25/2014 7:18 PM Results for this EST procedure are i n the results section. CBC (WITH DIFF) Routine 01/25/2014 7:18 PM EST HEPATIC FUNCTION PANEL Routine 01/25/2014 7:18 PM Results for this EST procedure are i n the results section. BASIC METABOLIC PANEL Routine 01/25/2014 7:18 PM Results for this (NON-FASTING) EST procedure are in the results section. documented in this encounter Results SCAN DOC: IMPLANTABLE DEVICES (01/28/2014 12:00 AM EST) Narrative 01/28/2014 12:00 AM EST Procedure Note Provider, Scanning - 01/28/2014 12:00 AM EST Scanning Provider MEDIA MGR SCAN EXT ORDR/RSLT SCAN DOC: ECG (01/28/2014 12:00 AM EST) Narrative 01/28/2014 8:21 AM EST Procedure Note Provider, Scanning - 01/28/2014 12:00 AM EST Scanning Provider MEDIA MGR SCAN EXT ORDR/RSLT Differential, Automated (01/27/2014 2:11 AM EST) P athologist Signature Neutrophils % 58.2 % CERNER MILLENNIUM Neutr Abs (ANC) 3.70 1.50 - CERNER 6.30 MILLENNIUM x10(3)/mcL Lymphocytes % 31.6 % CERNER MILLENNIUM Lymphocytes Abs 2.0 1.0 - 3.6 CERNER x10(3)/mcL MILLENNIUM Monocytes % 8.8 % CERNER MILLENNIUM Monocyte Abs 0.6 0.2 - 1.0 CERNER x10(3)/mcL MILLENNIUM Eosinophils % 0.6 % CERNER MILLENNIUM Eosinophils Abs 0.0 0.0 - 0.5 CERNER x10(3)/mcL MILLENNIUM Basophils % 0.5 % CERNER MILLENNIUM Basophils Abs 0.0 0.0 - 0.2 CERNER x10(3)/mcL MILLENNIUM Immature Gran % 0.30 % CERNER MILLENNIUM Comment: Immature granulocytes(IG's)percentage an d absolute count will include metamyelocytes, myelocytes, and promyelo cytes. Blood smears from CBCs yielding IG's will be scanned manually for concor dance. If this scan disagrees with the automated IG or if promyelocytes are not ed, a manual differential will be performed. Stephanie Gran Abs 0.02 0.00 - 0.05 x10(3)/mcL CER NER MILLENNIUM Specimen Anatomical Collection Method Collection Time Receive d Time (Source) Location / / Volume Laterality Blood specimen 01/27/2014 2:11 AM 014 2:22 (specimen) EST AM EST Resulting Agency Comment Spec In Lab Rajani Whiting MD HEMATOLOGY ORDERABLES Performing Organization Address City/State/[place] [address] CERNER MILLENNIUM Hemogram (01/27/2014 2:11 AM EST) P athologist Signature WBC 6.4 4.0 - 10.0 CERNER x10(3)/mcL MILLENNIUM RBC 4.42 3.93 - 5.22 CERNER x10(6)/mcL MILLENNIUM Hemoglobin 13.0 11.2 - 15.7 CERNER gm/dL MILLENNIUM Hematocrit 37.1 34.0 - 45.0 CERNER % MILLENNIUM MCV 83.9 79.0 - 94.0 CERNER fL MILLENNIUM MCH 29.4 26.6 - 32.2 CERNER pg MILLENNIUM MCHC 35.0 32.0 - 36.5 CERNER gm/dL MILLENNIUM Platelets 276 145 - 370 CERNER x10(3)/mcL MILLENNIUM RDWSD 39.2 35.0 - 46.0 CERNER fL MILLENNIUM RDWCV 12.8 10.9 - 14.4 CERNER % MILLENNIUM MPV 9.7 9.0 - 12.0 CERNER fL MILLENNIUM Specimen Anatomical Collection Method Collection Time Receive d Time (Source) Location / / Volume Laterality Blood specimen 01/27/2014 2:11 AM 014 2:22 (specimen) EST AM EST Resulting Agency Comment Spec In Lab Rajani Whiting MD HEMATOLOGY ORDERABLES Performing Organization Address City/State/[place] [address] CERNER MILLENNIUM Basic Metabolic Panel (non-fasting) (01/27/2014 2:11 AM EST) P athologist Signature Glucose Lvl 176 60 - 199 CERNER mg/dL MILLENNIUM Comment: Diabetes: >=200 mg/dL plus symp toms BUN 15 8 - 18 mg/dL CERNER MILLENNIUM Creatinine 0.73 0.70 - 1.20 mg/dL CERNER MILL ENNIUM Comment: Please note that the pediatric reference intervals supplied above were not validated at [facility]. Results from pediatri c patients should be interpreted in conjunction to the patient's age, height and muscle mass. Sodium 139 135 - 145 mmol/L CERNER KOKO NIUM Potassium 3.7 3.5 - 5.0 mmol/L CERNER KOKO NIUM Comment: Please note: ??Patients with WBC >100,00 0 may have falsely elevated Potassium levels. ??For accurate Potassium quantif ication in these patients send serum separator tube (gold top) for subsequent determinations. ??Contact the Clinical Chemistry Laboratory if there are any qu estions. Chloride 102 98 - 107 mmol/L CERNER MILLENN IUM CO2 23 22 - 31 mmol/L CERNER MILLENNI UM Anion Gap 14 5 - 15 mmol/L CERNER MILLENNIU M Calcium 8.6 8.5 - 10.5 mg/dL CERNER KOKO NIUM Estimated GFR >60 >=60 CERNER MILLENNIU M Comment: This estimated GFR (eGFR) value [...] the following links into your internet browser. [email or web address] [email or web address]SAnkf Specimen Anatomical Collection Method Collection Time Receive d Time (Source) Location / / Volume Laterality Blood specimen 01/27/2014 2:11 AM 014 2:22 (specimen) EST AM EST Resulting Agency Comment Spec In Lab Rajani Whiting MD CHEMISTRY ORDERABLES Performing Organization Address City/State/[place] [address] MACK GARCIA Bacterial Identification (01/26/2014 8:23 PM EST) Component Value Ref Test Analysis Performed At [facility] Range Method Time Signature Bacterial CERNER Identification ? Patient Name: LE, OLIVERIO IE ?Ordered By: JENNY GUERRA ? MR#: [id number] ?LOC: ??2WST ? /Sex: ??1970 (43 years), ? Female ? PROCEDURE: Bacterial Identification ?SOURCE: Isolate ? COLLECTED: 01/26/2014 20:23 ? STARTED: 01/26/2014 20:26 ? FINAL REPORT ? Final Report ? Verified:02/13/2014 08:12 ? Gram Positive Cocci isolated ? unable to identify ? PRELIMINARY REPORT ? Preliminary Report ? Verified:01/27/2014 11:33 ? Culture in progress ? Specimen (Source) Anatomical Collection Method Collection Time Re ceived Time Location / / Volume Laterality Microbial isolate 01/26/2014 8:23 014 8:26 specimen PM EST PM EST (specimen) Resulting Agency Comment Spec In Lab Jenny Guerra MD MICROBIOLOGY - GENERAL ORDER MONSTER Performing Organization Address City/State/[place] [address] MACK GARCIA Bacterial Identification (01/26/2014 8:23 PM EST) Component Value Ref Test Analysis Performed At [facility] Range Method Time Signature Bacterial CERNER Identification ? Patient Name: LE, OLIVERIO IE ?Ordered By: JENNY GUERRA ? MR#: [id number] ?LOC: ??2WST ? /Sex: ??1970 (43 years), ? Female ? PROCEDURE: Bacterial Identification ?SOURCE: Isolate ? COLLECTED: 01/26/2014 20:23 ? STARTED: 01/26/2014 20:26 ? FINAL REPORT ? Final Report ? Verified:02/11/2014 11:34 ? Gram Positive Cocci isolated ? Not able to identify isolate. ? Unable to complete culture ? PRELIMINARY REPORT ? Preliminary Report ? Verified:01/27/2014 11:38 ? Culture in progress ? Specimen (Source) Anatomical Collection Method Collection Time Re ceived Time Location / / Volume Laterality Microbial isolate 01/26/2014 8:23 014 8:23 specimen PM EST PM EST (specimen) Resulting Agency Comment Spec In Lab Jenny Guerra MD MICROBIOLOGY - GENERAL ORDER MONSTER Performing Organization Address City/State/[place] [address] CERNER MILLENNIUM Differential, Automated (01/26/2014 2:35 AM EST) P athologist Signature Neutrophils % 48.5 % CERNER MILLENNIUM Neutr Abs (ANC) 2.51 1.50 - CERNER 6.30 MILLENNIUM x10(3)/mcL Lymphocytes % 39.8 % CERNER MILLENNIUM Lymphocytes Abs 2.1 1.0 - 3.6 CERNER x10(3)/mcL MILLENNIUM Monocytes % 7.0 % CERNER MILLENNIUM Monocyte Abs 0.4 0.2 - 1.0 CERNER x10(3)/mcL MILLENNIUM Eosinophils % 3.9 % CERNER MILLENNIUM Eosinophils Abs 0.2 0.0 - 0.5 CERNER x10(3)/mcL MILLENNIUM Basophils % 0.6 % CERNER MILLENNIUM Basophils Abs 0.0 0.0 - 0.2 CERNER x10(3)/mcL MILLENNIUM Immature Gran % 0.20 % CERNER MILLENNIUM Comment: Immature granulocytes(IG's)percentage an d absolute count will include metamyelocytes, myelocytes, and promyelo cytes. Blood smears from CBCs yielding IG's will be scanned manually for gabrielle best. If this scan disagrees with the automated IG or if promyelocytes are not ed, a manual differential will be performed. Stephanie Gran Abs 0.01 0.00 - 0.05 x10(3)/mcL CER NER MILLENNIUM Specimen Anatomical Collection Method Collection Time Receive d Time (Source) Location / / Volume Laterality Blood specimen 01/26/2014 2:35 AM 014 2:45 (specimen) EST AM EST Resulting Agency Comment Spec In Lab Rajani Whiting MD HEMATOLOGY ORDERABLES Performing Organization Address City/State/ZIP Code Phon e Number [place] [phone] CERNER MILLENNIUM Hemogram (01/26/2014 2:35 AM EST) athologist Signature WBC 5.2 4.0 - 10.0 CERNER x10(3)/mcL MILLENNIUM RBC 4.51 3.93 - 5.22 CERNER x10(6)/mcL MILLENNIUM Hemoglobin 13.2 11.2 - 15.7 CERNER gm/dL MILLENNIUM Hematocrit 37.8 34.0 - 45.0 CERNER % MILLENNIUM MCV 83.8 79.0 - 94.0 CERNER fL MILLENNIUM MCH 29.3 26.6 - 32.2 CERNER pg MILLENNIUM MCHC 34.9 32.0 - 36.5 CERNER gm/dL MILLENNIUM Platelets 240 145 - 370 CERNER x10(3)/mcL MILLENNIUM RDWSD 39.2 35.0 - 46.0 CERNER fL MILLENNIUM RDWCV 13.0 10.9 - 14.4 CERNER % MILLENNIUM MPV 9.6 9.0 - 12.0 CERNER fL MILLENNIUM Specimen Anatomical Collection Method Collection Time Receive d Time (Source) Location / / Volume Laterality Blood specimen 01/26/2014 2:35 AM 014 2:45 (specimen) EST AM EST Resulting Agency Comment Spec In Lab Rajani Whiting MD HEMATOLOGY ORDERABLES Performing Organization Address City/State/ZIP Code Phon e Number [address] CERNER MILLENNIUM (ABNORMAL) Basic Metabolic Panel (non-fasting) (01/26/2014 2:35 AM EST) athologist Signature Glucose Lvl 98 60 - 199 CERNER mg/dL MILLENNIUM Comment: Diabetes: >=200 mg/dL plus symp toms BUN 13 8 - 18 mg/dL CERNER MILLENNIUM Creatinine 0.74 0.70 - 1.20 mg/dL CERNER MILL ENNIUM Comment: Please note that the pediatric reference intervals supplied above were not validated at [facility]. Results from pediatri c patients should be interpreted in conjunction to the patient's age, height and muscle mass. Sodium 143 135 - 145 mmol/L CERNER KOKO NIUM Potassium 3.2 (L) 3.5 - 5.0 mmol/L CERNER KOKO NIUM Comment: Please note: ??Patients with WBC >100,00 0 may have falsely elevated Potassium levels. ??For accurate Potassium quantif ication in these patients send serum separator tube (gold top) for subsequent determinations. ??Contact the Clinical Chemistry Laboratory if there are any qu estions. Chloride 102 98 - 107 mmol/L CERNER MILLENN IUM CO2 25 22 - 31 mmol/L CERNER MILLENNI UM Anion Gap 16 (H) 5 - 15 mmol/L CERNER MILLENNIU M Calcium 9.3 8.5 - 10.5 mg/dL CERNER KOKO NIUM Estimated GFR >60 >=60 CERNER MILLENNIU M Comment: This estimated GFR (eGFR) value [...] the following links into your internet browser. [email or web address] [email or web address] Specimen Anatomical Collection Method Collection Time Receive d Time (Source) Location / / Volume Laterality Blood specimen 01/26/2014 2:35 AM 014 2:45 (specimen) EST AM EST Resulting Agency Comment Spec In Lab Rajani Whiting MD CHEMISTRY ORDERABLES Performing Organization Address City/State/ZIP Code Phon e Number [place] [phone] CERNER MILLENNIUM Blood culture (01/25/2014 8:15 PM EST) [facility] Method Time Signature Blood Culture CERNER ? Patient Name: EDOUARD RUGGIERO ?Ordered By: RAJANI WHITING ? MR#: [id number] ?LOC: ??2WST ? /Sex: ??1970 (43 years), ? Female ? PROCEDURE: Blood Culture ?SOURCE: Blood ? COLLECTED: 01/25/2014 20:15 ?FREE TEXT SOURCE: [place] ? STARTED: 01/25/2014 20:45 ? FINAL REPORT ? Final Report ? Verified:01/30/2014 23:01 ? No growth at 5 days. ? PRELIMINARY REPORT ? Preliminary Report ? Verified:01/29/2014 23:01 ? No growth at 4 days. ? Specimen Anatomical Collection Method Collection Time Receive d Time (Source) Location / / Volume Laterality Blood specimen 01/25/2014 8:15 PM 014 8:45 (specimen) EST PM EST Comment: LA Resulting Agency Comment Spec In Lab Rajani Whiting MD MICROBIOLOGY - BLOOD ORDERAB LES Performing Organization Address City/State/[place] [address] MACK GARCIA Blood culture (01/25/2014 8:12 PM EST) [employer] gist Method Time Signature Blood Culture CERQUINCY ? Patient Name: EDOUARD RUGGIERO ?Ordered By: RAJANI WHITING ? MR#: [id number] ?LOC: ??2WST ? /Sex: ??1970 (43 years), ? Female ? PROCEDURE: Blood Culture ?SOURCE: Blood ? COLLECTED: 01/25/2014 20:12 ?FREE TEXT SOURCE: R ac ? STARTED: 01/25/2014 20:44 ? FINAL REPORT ? Final Report ? Verified:01/30/2014 23:01 ? No growth at 5 days. ? PRELIMINARY REPORT ? Preliminary Report ? Verified:01/29/2014 23:01 ? No growth at 4 days. ? Specimen Anatomical Collection Method Collection Time Receive d Time (Source) Location / / Volume Laterality Blood specimen 01/25/2014 8:12 PM 014 8:44 (specimen) EST PM EST Comment: R AC Resulting Agency Comment Spec In Lab Rajani Whiting MD MICROBIOLOGY - BLOOD ORDERAB LES Performing Organization Address City/State/[place] [address] MACK MILLENNIUM (ABNORMAL) Hepatic Function Panel (01/25/2014 7:18 PM EST) P athologist Signature Total Protein 7.7 6.4 - 8.3 CERNER gm/dL MILLENNIUM Albumin 3.9 3.2 - 5.2 CERNER gm/dL MILLENNIUM AST 44 (H) 0 - 30 CERNER unit/L MILLENNIUM ALT 139 (H) 0 - 30 CERNER unit/L MILLENNIUM Alk Phos 188 (H) 40 - 104 CERNER unit/L MILLENNIUM Total 0.4 0.2 - 1.3 CERNER Bilirubin mg/dL MILLENNIUM Bili, Direct 0.1 0.0 - 0.3 CERNER mg/dL MILLENNIUM Specimen Anatomical Collection Method Collection Time Receive d Time (Source) Location / / Volume Laterality Blood specimen 01/25/2014 7:18 PM 014 7:21 (specimen) EST PM EST Resulting Agency Comment Spec In Lab Rajani Whiting MD CHEMISTRY ORDERABLES Performing Organization Address City/State/[place] [address] CERNER MILLENNIUM Differential, Automated (01/25/2014 7:18 PM EST) P athologist Signature Neutrophils % 51.5 % CERNER MILLENNIUM Neutr Abs (ANC) 2.94 1.50 - CERNER 6.30 MILLENNIUM x10(3)/mcL Lymphocytes % 35.1 % CERNER MILLENNIUM Lymphocytes Abs 2.0 1.0 - 3.6 CERNER x10(3)/mcL MILLENNIUM Monocytes % 8.9 % CERNER MILLENNIUM Monocyte Abs 0.5 0.2 - 1.0 CERNER x10(3)/mcL MILLENNIUM Eosinophils % 3.8 % CERNER MILLENNIUM Eosinophils Abs 0.2 0.0 - 0.5 CERNER x10(3)/mcL MILLENNIUM Basophils % 0.5 % CERNER MILLENNIUM Basophils Abs 0.0 0.0 - 0.2 CERNER x10(3)/mcL MILLENNIUM Immature Gran % 0.20 % CERNER MILLENNIUM Comment: Immature granulocytes(IG's)percentage an d absolute count will include metamyelocytes, myelocytes, and promyelo cytes. Blood smears from CBCs yielding IG's will be scanned manually for concor dance. If this scan disagrees with the automated IG or if promyelocytes are not ed, a manual differential will be performed. Stephanie Gran Abs 0.01 0.00 - 0.05 x10(3)/mcL CER NER MILLENNIUM Specimen Anatomical Collection Method Collection Time Receive d Time (Source) Location / / Volume Laterality Blood specimen 01/25/2014 7:18 PM 014 7:18 (specimen) EST PM EST Resulting Agency Comment Spec In Lab Rajani Whiting MD HEMATOLOGY ORDERABLES Performing Organization Address City/[facility]/ZIP Code Phon e Number [address] [facility] Hemogram (01/25/2014 7:18 PM EST) P athologist Signature WBC 5.7 4.0 - 10.0 CERNER x10(3)/mcL MILLENNIUM RBC 4.73 3.93 - 5.22 CERNER x10(6)/mcL MILLENNIUM Hemoglobin 14.0 11.2 - 15.7 CERNER gm/dL MILLENNIUM Hematocrit 39.7 34.0 - 45.0 CERNER % MILLENNIUM MCV 83.9 79.0 - 94.0 CERNER fL MILLENNIUM MCH 29.6 26.6 - 32.2 CERNER pg MILLENNIUM MCHC 35.3 32.0 - 36.5 CERNER gm/dL MILLENNIUM Platelets 276 145 - 370 CERNER x10(3)/mcL MILLENNIUM RDWSD 39.5 35.0 - 46.0 CERNER fL MILLENNIUM RDWCV 13.0 10.9 - 14.4 CERNER % MILLENNIUM MPV 9.8 9.0 - 12.0 CERNER fL MILLENNIUM Specimen Anatomical Collection Method Collection Time Receive d Time (Source) Location / / Volume Laterality Blood specimen 01/25/2014 7:18 PM 014 7:18 (specimen) EST PM EST Resulting Agency Comment Spec In Lab Rajani Whiting MD HEMATOLOGY ORDERABLES Performing Organization Address City/State/[place] [address] CERNER MILLENNIUM Basic Metabolic Panel (non-fasting) (01/25/2014 7:18 PM EST) P athologist Signature Glucose Lvl 102 60 - 199 CERNER mg/dL [facility] Comment: Diabetes: >=200 mg/dL plus symp toms BUN 14 8 - 18 mg/dL CERNER MILLENNIUM Creatinine 0.87 0.70 - 1.20 mg/dL CERNER MILL ENNIUM Comment: Please note that the pediatric reference intervals supplied above were not validated at [facility]. Results from pediatri c patients should be interpreted in conjunction to the patient's age, height and muscle mass. Sodium 140 135 - 145 mmol/L CERNER KOKO NIUM Potassium 3.8 3.5 - 5.0 mmol/L CERNER KOKO NIUM Comment: Please note: ??Patients with WBC >100,00 0 may have falsely elevated Potassium levels. ??For accurate Potassium quantif ication in these patients send serum separator tube (gold top) for subsequent determinations. ??Contact the Clinical Chemistry Laboratory if there are any qu estions. Chloride 99 98 - 107 mmol/L CERNER MILLENN IUM CO2 27 22 - 31 mmol/L CERNER MILLENNI UM Anion Gap 14 5 - 15 mmol/L CERNER MILLENNIU M Calcium 9.8 8.5 - 10.5 mg/dL CERNER KOKO NIUM Estimated GFR >60 >=60 CERNER MILLENNIU M Comment: This estimated GFR (eGFR) value [...] the following links into your internet browser. [email or web address] [email or web address] Specimen Anatomical Collection Method Collection Time Receive d Time (Source) Location / / Volume Laterality Blood specimen 01/25/2014 7:18 PM 014 7:18 (specimen) EST PM EST Resulting Agency Comment Spec In Lab Rajani Whiting MD CHEMISTRY ORDERABLES Performing Organization Address City/State/ZIP Code Phon e Number [place] [id number] CERNER MILLENNIUM documented in this encounter Visit Diagnoses Not on filedocumented in this encounter Administered Medications Inactive Administered Medications - up to 3 most recent administrations Medication Order MAR Action Action Date Dose Rate Site iohexol (OMNIPAQUE) Given 01/26/2014 2:38 PM 5 mLs 19- Surgical Site injection EST ONCE PRN, Starting on Sat01/26/14 at 1438, Until Sat01/26/14 at 1502, Per Protocol, Intra-Operative (Intra-Procedure), Routine documented in this encounter Active and Recently Administered Medications Times are shown in EST. Scheduled Medication Order 01/25/2014 01/26/2014 01/27/2014 ciprofloxacin (CIPRO) 400mg in dextrose 5% 200mL ([facility] [place] [facility]) 2227 (Given - Provider: Tasha López, ELIZABETH) 1158 (Given - Provider: Jayden Jimenez)1416 ([facility] Hold - Provider: Admin Adt - Reason: Transfer to a Procedural area)1448 ([facility] Unhold - Provider: Lorena Hamilton RN) 0022 (Given - Provider: Ernestine Bliss, ELIZABETH) 400 mg, Intravenous, EVERY 12 HOURS, Fir st dose on Sat01/25/14 at 2300, Until Discontinued, for 60 Minutes, Indication for (Active or Suspected): Bacteremia/Sepsis, Restricted Antibiotic: Please indicat e the most appropriate choice: Ordered from Sepsis Order Set ciprofloxacin (CIPRO) tablet 500 mg 936 (Given - Provider: Brenda Winston RN) 500 mg, Oral, 2 TIMES DAILY, First dose on Sat01/27/14 at 0700, Until Discontinued, Routine heparin (porcine) subcutaneous injection 5,000 Units ( CANCELED) 2104 (Given - Provider: Misty Michel RN) 0814 (Given - Provider: Jayden Jimenez)1416 ([facility] Hold - Provider: Admin Adt - Reason: Transfer to a Procedural area)1608 ([facility] Unhold - Provider: Admin Adt)203 (Given - Provider: Ernestine Bliss RN) 5,000 Units, Subcutaneous, EVERY 12 HOUR S SCHEDULED (2 times per day), First dose on Sat01/25/14 at 2100, Until Discontinued, Routine potassium chloride (K-DUR/KLOR-CON) extended release tablet 40 mEq (COMPLETED) 813 (Given - Provider: Dayday Diallo RN) 40 mEq, Oral, ONCE, 1 dose, Sat01/26/14 at 0815, 20 mEq tablet may be dissolved in water for administration, Routine potassium chloride 10 mEq in 100 mL (CANCELED) 0651 (Given - Provider: Tasha López, ELIZABETH) 10 mEq, Intravenous, EVERY 2 HOURS, 4 do ses, First dose on Sat01/26/14 at 0645, Last dose on Sat01/26/14 at 1245, for 60 Minutes sodium chloride 0.9 % flush 5 mL (CANCELED) 2100 (Give n - Provider: Misty Michel RN) 0816 (Given - Provider: Jayden Jimenez)1416 ([facility] Hold - Provider: Admin Adt - Reason: Transfer to a Procedural area)1608 ([facility] Unhold - Provider: Admin Adt)2039 (Given - Provider: Ernestine Bliss RN) 0900 (Not Given - Provider: Brenda Winston RN - Reason: See comment - Comment: discharged today) 5 mL, Intravenous, 2 TIMES DAILY, First dose on Sat01/25/14 at 2100, Until Discontinued, Routine tamsulosin (FLOMAX) capsule 0.4 mg 0937 (Given - Provider: Brenda Winston RN) 0.4 mg, Oral, DAILY, First dose on Sat03/29/13 at 0900, Until Discontinued, Routine Continuous Medication Order 01/25/2014 01/26/2014 01/27/2014 sodium chloride 0.9% infusion (CANCELED) 2100 (New Bag - Provider: Misty Michel RN) 0552 (New Bag - Provider: Misty taveras RN)1416 ([facility] Hold - Provider: Admin Adt - Reason: Transfer to a Procedural area)1448 ([facility] Unhold - Provider: Lorena Hamilton, ELIZABETH)1450 (New Bag - Provider: Lorena Hamilton, ELIZABETH) 0612 (Rate/Dose Change - Provider: Ernestine Bliss RN) 100 mL/hr, at 100 mL/hr, Intravenous, CO NTINUOUS, Starting Sat01/25/14 at 1930, Until Sat01/27/14 at 0630 2221 (New Bag - Provider: Tasha López, ELIZABETH) PRN Medication Order 01/25/2014 01/26/2014 01/27/2014 acetaminophen (TYLENOL) tablet 650 mg 14 16 ([facility] Hold - Provider: Admin Adt - Reason: Transfer to a Procedural area)1448 ([facility] Unhold - Provider: Lorena Hamilton, RN)1943 (Given - Provider: Ernestine Bliss RN) 650 mg, Oral, EVERY 6 HOURS PRN, Startin g Sat01/25/14 at 1902, Until Sat01/27/14 at 1505, Pain, Fever, Administer for temperature greater than or equal to 38.2 degrees celsius. Maximum daily dose of denilson taminophen from all sources not to exceed 4,000 mg., Routine ibuprofen (ADVIL;MOTRIN) tablet 800 mg (CANCELED) 1416 ([facility] Hold - Provider: Admin Adt - Reason: Transfer to a Procedural area)1448 ([facility] Unhold - Provider: Lorena Hamilton RN)2224 (Given - Provider: Tasha López RN) 800 mg, Oral, EVERY 6 HOURS PRN, Startin g Sat01/25/14 at 1902, Until Sat01/27/14 at 1505, Pain, Administer orally with milk or food to minimize GI irritation, Routine iohexol (OMNIPAQUE) injection (CANCELED) 1438 (Given - Provider: Rajani Whiting MD - Comment: 5mL omnipaque mixed 1:1 with 5mL 0.9% saline) ONCE PRN, Starting Tu01/26/14 at 1438, Until Tu01/26/14 at 1502, Per Protocol, Intra-Operative (Intra-Procedure), Routine documented in this encounter Care Teams District Adviser Relationship Specialty Start Date End Date Jenny Guerra MD PCP - General 02/14/10 [address] [place] [address] documented as of this encounter
--- OUTSIDE RECORDS SUMMARY | 2021-10-10 00:13 | XMS_ITS | Encounter Summary ---
:1970 Author Organization [facility] [place] [address] Care Team Providers Name Role Phone Jenny Guerra MD Primary Care Provider Encounter Details Date Type Department Care Team Description 06/20/2010 Orders Only Radiology Jenny Jarquin MD [address] [place] [id number] [phone] (Wo rk) Social History Tobacco Use Types Packs/Day Years Used Date Never Assessed Sex Assigned at Date Recorded Not on file documented as of this encounter Plan of Treatment Not on filedocumented as of this encounter Procedures Procedure Name Priority Date/Time Associated Diagnosis Comme nts REQUEST FOR 2ND Routine 06/20/2010 10:30 AM Resul ts for this READ MAMMO EDT procedure are i n the results section. documented in this encounter Results REQUEST FOR 2ND READ MAMMO (06/20/2010 10:30 AM EDT) Anatomical Region Laterality Modality Other Specimen (Source) Anatomical Collection Method Collection Time Re ceived Time Location / / Volume Laterality 06/20/2010 10:30 AM EDT Narrative 06/24/2010 9:30 AM EDT INTERPRETATION OF OUTSIDE LEFT UNILATERA L MAMMOGRAM, 06/14/10 FROM [facility] COMPARED TO DIAGNOSTIC IMAGING OF THE LE FT BREAST 11/04/09, SCREENING EXAM, 10/27/09 AND SCREENING EXAM 07/16/07: Dr. Guerra has requested a second opinion with the thought that this may alter patient care . The breast is heterogeneously dense. The re is a stable fibroglandular pattern. On mammogram there is a stable, approxim ately 13mm oval mass which is unchanged in size and shape as compared to the [facility] available mammogram of 07/16/07 and is located at approximately 0200, 2.5cm to the nipple. The margins are partially well circumscribed and partial ly obscured. The mammographic stability over an almost three year interval stron gly favors a benign process such as a fibroadenoma. An accompanying ultrasound report of 06/15/10 from [facility] describes a homogeneous hypoechoic oval lesion whi ch corresponds to the mammographic abnormality and biopsy was recommended. In view of the mammographic stability, this is likely a fibroadenoma. Therefore , biopsy is not recommended. CONCLUSION: BENIGN (BI-RADS Category 2) mammogram fo r a circumscribed and partially obscured mass which has been stable for three years. Suggest continue with routine screening. Note is made of the o [facility] recommendation for biopsy. If the patient wishes to pursue biopsy at t his institution, it may be scheduled as an ultrasound guided core needle biopsy. This case has been reviewed by two radio logists who concurr. Procedure Note Jennifer Sullivan MD - 06/24/2010 INTERPRETATION OF OUTSIDE LEFT UNILATERA L MAMMOGRAM, 06/14/10 FROM [facility] COMPARED TO DIAGNOSTIC IMAGING OF THE LE FT BREAST 11/04/09, SCREENING EXAM, 10/27/09 AND SCREENING EXAM 07/16/07: Dr. Guerra has requested a second opinion with the thought that this may alter patient care . The breast is heterogeneously dense. The re is a stable fibroglandular pattern. On mammogram there is a stable, approxim ately 13mm oval mass which is unchanged in size and shape as compared to the [facility] available mammogram of 07/16/07 and is located at approximately 0200, 2.5cm to the nipple. The margins are partially well circumscribed and partial ly obscured. The mammographic stability over an almost three year interval stron gly favors a benign process such as a fibroadenoma. An accompanying ultrasound report of 06/15/10 from [facility] describes a homogeneous hypoechoic oval lesion whi ch corresponds to the mammographic abnormality and biopsy was recommended. In view of the mammographic stability, this is likely a fibroadenoma. Therefore , biopsy is not recommended. CONCLUSION: BENIGN (BI-RADS Category 2) mammogram fo r a circumscribed and partially obscured mass which has been stable for three years. Suggest continue with routine screening. Note is made of the o [facility] recommendation for biopsy. If the patient wishes to pursue biopsy at t his institution, it may be scheduled as an ultrasound guided core needle biopsy. This case has been reviewed by two radio logists who concurr. Jenny Guerra MD IMG OUTSIDE INTERPRETATION O RDERABLES documented in this encounter Visit Diagnoses Not on filedocumented in this encounter Care Teams Inspector And Tester Relationship Specialty Start Date End Date Jenny Guerra MD PCP - General 02/14/10 [address] [place] [address] documented as of this encounter
--- OUTSIDE RECORDS SUMMARY | 2021-10-10 00:13 | XMS_ITS | Encounter Summary ---
:1970 Author Organization [facility] [place] [address] Care Team Providers Name Role Phone Jenny Guerra MD Primary Care Provider Encounter Details Date Type Department Care Team Description 01/25/2014 - Hospital Encounter 2 [facility] Rajani Whiting MD 01/27/2014 [facility] [address] Souza UROLOGY [place] [address] 6 [id number] [phone] Social History Tobacco Use Types Packs/Day Years [...] pain medications The number for questions is [phone] before 5 PM weekdays and [phone] after 5 PM and weekends. Activity level: [...] stone in ~2-3 weeks time. Please call [phone] if you do not hear from the [...] awaits family members for ride home. Camelia Mooney RN - 01/27/2014 10:05 AM EST Met with Edouard and she is feeling well and will be discharged today. She denies any needs and will have her prescriptions filled at [facility] in [place], [place] . She has a ride home and RN will review instructiosn, medications, activity and f/u appointment prior to discharge. CAMELIA RAJAN RN 01/27/2014 Holland Desai MD - 01/27/2014 7:56 AM EST Urology [...] -- -- PHOS -- -- -- Microbiology: 11/3 Blood culture x2 - no growth x 1 day 01/25 Blood culture from [facility] - GNR, sent over to [facility] for bacterial identification New Imaging: No new [...] -- PTT -- -- Recent Labs Basename 01/26/1423401/25/141917 NA 143 140 K 3.2* 3.8 CL 102 99 CO2 25 27 BUN 13 14 CREATININE 0.74 0.87 GLUCOSE 98 102 CALCIUM 9.3 9.8 MAGNESIUM -- -- PHOS -- -- Microbiology: 01/25 Blood culture - pending 01/25 Blood culture from [facility] - GNR New Imaging: No [...] Pt received into 214 via ambulance from [facility]. Pt in NAD; has no c/o pain. [...] is clinically stable. She was transferred to [facility] for consideration ofureteral stent placement and definitive management of the stone. Of note, her mi'kmaq language is Chilean. This history was obtained via a lpn medical assistant. MEDICAL AND SURGICAL HISTORY No past medical [...] further so it was sent over the [facility]'s laboratory for further growth. The post-operative course [...] GNR, unable to grow out, sent to [facility] for further growth 01/25/2014 blood culture [facility] NG x 1 day Pending Studies and [...] pain medications The number for questions is [phone] before 5 PM weekdays and [phone] after 5 PM and weekends. Activity level: [...] stone in ~2-3 weeks time. Please call [phone] if you do not hear from the [...] MD Referring: Xochitl Moreno Md Hospitalist Services [address] [place] [address] [place] [address] Plan of Care - Ernestine Bliss RN [...] PM EST Operative Note Patient Name: Edouard Ruggiero : [id number] MR#: [id number] Case Date: 01/26/2014 Surgeon: Surgeon(s) and Role: [...] into the collecting system and placed a 6-Pashto 24-cm stent under fluoroscopic assistance and guidance and emptied the bladder. No purulent efflux was noted from the stent, only clear efflux. 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 She is independent in all activities and has supports in her local area. ADVANCE DIRECTIVES: None on file and will provide a booklet for review and completion. HEALTH /PRESCRIPTION COVERAGE: [place] [facility] with prescription coverage with co-pays CURRENT HOME/COMMUNITY SERVICES/EQUIPMENT: DME: None Home Health Agency: None Other: [employer] REFERRAL: No needs identified at this time. PRIMARY CARE PHYSICIAN: JENNY GUERRA MD [facility] [phone] [facility] [id number] POTENTIAL DISCHARGE NEEDS: None anticipated at this [...] pain this shift. MD spoke w/patient using can intake worker phone to aid in communication regarding plan [...] Organization Address City/State/[place] [address] CERNER MILLENNIUM Hemogram (01/27/2014 [...] Organization Address City/State/ZIP Code Phon e Number [place] [phone] CERNER MILLENNIUM Basic Metabolic Panel (non-fasting) (01/27/2014 2:11 AM EST) athologist Signature Glucose Lvl 176 60 - [...] the following links into your internet browser. [email or web address] [email or web address] Specimen Anatomical Collection Method Collection Time Receive d Time (Source) Location / / Volume Laterality Blood specimen 01/27/2014 2:11 AM 014 2:22 (specimen) EST AM EST Resulting Agency Comment Spec In Lab Rajani Whiting MD CHEMISTRY ORDERABLES Performing Organization Address City/State/ZIP Code [place] [address] MACK GARCIA Bacterial Identification (01/26/2014 8:23 PM EST) Component Value Ref Test Analysis Performed At [facility] Range Method Time Signature Bacterial CERNER Identification ? Patient Name: LE, OLIVERIO IE ?Ordered By: JENNY GUERRA ? MR#: [id number] ?LOC: ??2WST ? /Sex: ??1970 (43 years), [...] Organization Address City/State/ZIP Code Phon e Number XOCHITL [facility] [place] [address] QUOCQUINCY ZIEGLERNANI Bacterial Identification (01/26/2014 8:23 PM EST) Component Value Ref Test Analysis Performed At [facility] Range Method Time Signature Bacterial CERNER Identification ? Patient Name: LE, OLIVERIO IE ?Ordered By: JENNY GUERRA ? MR#: [id number] ?LOC: ??2WST ? /Sex: ??1970 (43 years), [...] Organization Address City/State/[place] [address] CERNER MILLENNIUM Differential, Automated [...] Organization Address City/State/ZIP Code Phon e Number [place] [phone] [facility] CERNER MILLENNIUM Hemogram (01/26/2014 2:35 [...] Organization Address City/State/ZIP Code Phon e Number [place] [phone] [facility] [address] [facility] MILLENNIUM (ABNORMAL) Basic Metabolic Panel (non-fasting) (01/26/2014 [...] the following links into your internet browser. [email or web address]://[email or web address]/[email or web address] [email or web address]://[email or web address]/DHMCnkf Specimen Anatomical Collection Method Collection Time Receive d Time (Source) Location / / Volume Laterality Blood specimen 01/26/2014 2:35 AM 014 2:45 (specimen) EST AM EST Resulting Agency Comment Spec In Lab Rajani Whiting MD CHEMISTRY ORDERABLES Performing Organization Address City/State/[place] [address] CERNER KARLIEENNIUM Blood culture (01/25/2014 8:15 PM EST) [facility] Method Time Signature Blood Culture CERNER ? Patient Name: EDOUARD RUGGIERO ?Ordered By: RAJANI WHITING ? MR#: [id number] ?LOC: ??2WST ? /Sex: ??1970 (43 years), [...] Organization Address City/State/[place] [address] MACK GARCIA Blood culture (01/25/2014 8:12 PM EST) [facility] Method Time Signature Blood Culture CERQUINCY ? Patient Name: EDOUARD RUGGIERO ?Ordered By: RAJANI WHITING ? MR#: [id number] ?LOC: ??2WST ? /Sex: ??1970 (43 years), [...] Organization Address City/State/[place] [address] QUOCQUINCY MILLENNIUM (ABNORMAL) Hepatic Function Panel (01/25/2014 7:18 [...] Organization Address City/State/ZIP Code Phon e Number [place] [phone] CERNER MILLENNIUM Differential, Automated [...] Resulting Agency Comment Spec In Lab Rajani Whtiing MD HEMATOLOGY ORDERABLES Performing Organization Address City/[facility]/ZIP [place] [address] CERNER MILLENNIUM Hemogram (01/25/2014 7:18 PM EST) P [...] Whiting MD HEMATOLOGY ORDERABLES Performing Organization Address City/[facility]/ZIP [place] [address] CERNER MILLENNIUM Basic Metabolic Panel (non-fasting) (01/25/2014 7:18 PM EST) P athologist Signature Glucose Lvl 102 60 - 199 CERNER mg/dL MILLENNIUM Comment: [...] the following links into your internet browser. [email or web address] [email or web address]f Specimen Anatomical Collection Method Collection Time Receive d Time (Source) Location / / Volume Laterality Blood specimen 01/25/2014 7:18 PM 014 7:18 (specimen) EST PM EST Resulting Agency Comment Spec In Lab Rajani Whiting MD CHEMISTRY ORDERABLES Performing Organization Address City/State/[place] [address] CERNER MILLENNIUM documented in this encounter Visit Diagnoses Diagnosis Ureteral stone with hydronephrosis - [facility] Calculus of ureter documented in this encounter Administered Medications Inactive Administered Medications - up to 3 most recent administrations Medication Order MAR Action Action Date Dose Rate Site acetaminophen (TYLENOL) tablet 650 Given 01/26/2014 7:43 PM EST 650 mg mg 650 mg, Oral, EVERY 6 HOURS PRN, Starting on Sat01/25/14 at 1902, Until Sat01/27/14 at 1505, Pain, Fever, Administer for temperature greater than or equal to 38.2 degrees celsius. Maximum daily dose of acetaminophen from all sources not to exceed 4,000 mg., Routine ciprofloxacin (CIPRO) 400mg in Given 01/27/2014 12:22 AM EST 400 mg 200 mL/hr dextrose 5% 200mL 400 mg, Intravenous, EVERY 12 HOURS, First dose on Sat01/25/14 at 2300, Until Discontinued, Administer over 60 Minutes, Indication for (Active or Suspected): Bacteremia/Sepsis, Restricted Antibiotic: Please indicate the most appropriate choice: Ordered from Sepsis Order Set Given 01/26/2014 11:58 AM EST 400 mg 200 mL/hr Given 01/25/2014 10:27 PM EST 400 mg 200 mL/hr ciprofloxacin (CIPRO) tablet 500 mg Given 01/27/2014 9:37 AM EST 500 mg 500 mg, Oral, 2 TIMES DAILY, First dose on Sat01/27/14 at 0700, Until Discontinued, Routine heparin (porcine) subcutaneous injection Given 014 8:38 PM EST 5,000 Units 5,000 Units 5,000 Units, Subcutaneous, EVERY 12 HOURS SCHEDULED (2 times per day), First dose on Sat01/25/14 at 2100, Until Discontinued, Routine Given 01/26/2014 8:14 AM EST 5,000 Units Given 01/25/2014 9:05 PM EST 5,000 Units ibuprofen (ADVIL;MOTRIN) tablet 800 mg Given 01/26/2014 10:24 PM EST 800 mg 800 mg, Oral, EVERY 6 HOURS PRN, Starting on Sat01/25/14 at 1902, Until Sat01/27/14 at 1505, Pain, Administer orally with milk or food to minimize GI irritation, Routine potassium chloride (K-DUR/KLOR-CON) extended Given 06/2013 8:14 AM EST 40 mEq release tablet 40 mEq 40 mEq, Oral, ONCE, 1 dose, On Sat01/26/14 at 0815, 20 mEq tablet may be dissolved in water for administration, Routine potassium chloride 10 mEq in 100 mL Given 01/26/2014 6:51 AM EST 10 mEq 100 mL/hr 10 mEq, Intravenous, EVERY 2 HOURS, 4 doses, First dose on Sat01/26/14 at 0645, Last dose on Sat01/26/14 at 1245, Administer over 60 Minutes sodium chloride 0.9 % flush 5 mL Given 01/26/2014 8:39 PM EST 5 mLs 5 mL, Intravenous, 2 TIMES DAILY, First dose on Sat01/25/14 at 2100, Until Discontinued, Routine Given 01/26/2014 8:16 AM EST 5 mLs Given 01/25/2014 9:00 PM EST 5 mLs sodium chloride 0.9% Rate/Dose Change 01/27/2014 6:12 AM 100 mL/hr 1 00 mL/hr infusion EST 100 mL/hr, Intravenous, CONTINUOUS, Starting on Sat01/25/14 at 1930, Until Sat01/27/14 at 0630 New Bag 01/26/2014 10:21 PM EST 125 mL/hr 125 mL/hr New Bag 01/26/2014 2:50 PM EST 125 mL/hr 125 mL/hr tamsulosin (FLOMAX) capsule 0.4 mg Given 01/27/2014 9:37 AM EST 0.4 mg 0.4 mg, Oral, DAILY, First dose on Sat01/27/14 at 0900, Until Discontinued, Routine documented in this encounter Active and Recently Administered Medications Times are shown in EST. Scheduled Medication Order 01/25/2014 01/26/2014 01/27/2014 ciprofloxacin (CIPRO) 400mg in dextrose 5% 200mL ([facility]) 2222 (Given - Provider: Tasha López RN) 1158 (Given - Provider: Jayden Jimenez)1416 (MAR Hold - Provider: Admin Adt - Reason: Transfer to a Procedural area)1448 (MAY Unhold - Provider: Lorena Hamilton RN) 0022 (Given - Provider: Ernestine Bliss RN) 400 mg, Intravenous, EVERY 12 HOURS, Fir st dose on Sat01/25/14 at 2300, Until Discontinued, for 60 Minutes, Indication for (Active or Suspected): Bacteremia/Sepsis, Restricted Antibiotic: Please indicat e the most appropriate choice: Ordered from Sepsis Order Set ciprofloxacin (CIPRO) tablet 500 mg 0937 (Given - Provider: Brenda Winston RN) 500 mg, Oral, 2 TIMES DAILY, First dose on Sat01/27/14 at 0700, Until Discontinued, Routine heparin (porcine) subcutaneous injection 5,000 Units ( CANCELED) 2104 (Given - Provider: Misty Michel RN) 0814 (Given - Provider: Jayden Jimenez)1416 (MAY Hold - Provider: Admin Adt - Reason: Transfer to a Procedural area)160 (MAY Unhold - Provider: Admin Adt)2037 (Given - Provider: Ernestine Bliss, ELIZABETH) 5,000 Units, Subcutaneous, EVERY 12 HOUR S [...] chloride 10 mEq in 100 mL (CANCELED) 650 (Given - Provider: Tasha López RN) 10 mEq, Intravenous, EVERY 2 HOURS, 4 do ses, First dose on Sat01/26/14 at 0645, Last dose on Sat01/26/14 at 1245, for 60 Minutes sodium chloride 0.9 % flush 5 mL (CANCELED) 2099 (Give n - Provider: Misty Michel RN) 0816 (Given - Provider: Jayden Jimenez)1416 (MAR Hold - Provider: Admin Adt - Reason: Transfer to a Procedural area)1607 (MAR Unhold - Provider: Admin Adt)2038 (Given - Provider: Ernestine Bliss, ELIZABETH) 0900 (Not Given - Provider: Brenda Winston RN - Reason: See comment - Comment: discharged today) 5 mL, Intravenous, 2 TIMES DAILY, First dose on Sat01/25/14 at 2100, Until Discontinued, Routine tamsulosin (FLOMAX) capsule 0.4 mg 37 (Given - Provider: Brenda Winston RN) 0.4 mg, Oral, DAILY, First dose on Sat03/29/13 at 0900, Until Discontinued, Routine Continuous Medication Order 01/25/2014 01/26/2014 01/27/2014 sodium chloride 0.9% infusion (CANCELED) 2100 (New Bag - Provider: Misty Michel, RN) 0552 (New Bag - Provider: Misty taveras, RN)1416 ([facility] Hold - Provider: Admin Adt - Reason: Transfer to a Procedural area)1448 (MAR Unhold - Provider: Lorena Hamilton RN)1450 (New Bag - Provider: Lorena Hamilton RN) 0612 (Rate/Dose Change - Provider: Ernestine Bliss, RN) 100 mL/hr, at 100 mL/hr, Intravenous, CO NTINUOUS, Starting Sat01/25/14 at 1930, Until Sat01/27/14 at 0630 2221 (New Bag - Provider: Tasha López, RN) PRN Medication Order 01/25/2014 01/26/2014 01/27/2014 acetaminophen (TYLENOL) tablet 650 mg 14 16 ([facility] Hold - Provider: Admin Adt - Reason: Transfer to a Procedural area)1448 ([facility] Unhold - Provider: Lorena Hamilton RN)1943 (Given - Provider: Ernestine Bliss, ELIZABETH) 650 mg, Oral, EVERY 6 HOURS PRN, Startin g Sat01/25/14 at 1902, Until Sat01/27/14 at 1505, Pain, Fever, Administer for temperature greater than or equal to 38.2 degrees celsius. Maximum daily dose of denilson taminophen from all sources not to exceed 4,000 mg., Routine ibuprofen (ADVIL;MOTRIN) tablet 800 mg (CANCELED) 1416 ([facility] Hold - Provider: Admin Adt - Reason: Transfer to a Procedural area)1448 ([facility] Unhold - Provider: Lorena Hamilton RN)2224 (Given - Provider: Tasha López, ELIZABETH) 800 mg, Oral, EVERY 6 HOURS PRN, Startin g 01/25/14 at 1902, Until Sat01/27/14 at 1505, Pain, Administer orally with milk or food to minimize GI irritation, Routine iohexol (OMNIPAQUE) injection (CANCELED) 1438 (Given - Provider: Rajani Whiting MD - Comment: 5mL omnipaque mixed 1:1 with 5mL 0.9% saline) ONCE PRN, Starting 01/26/14 at 1438, Until 01/26/14 at 1502, Per Protocol, Intra-Operative (Intra-Procedure), Routine documented in this encounter Care Teams Major Gifts Director Relationship Specialty Start Date End Date Jenny Guerra MD PCP - General 02/14/10 [address] [place] [address] documented as of this encounter
--- OUTSIDE RECORDS SUMMARY | 2021-10-10 00:13 | XMS_ITS | Encounter Summary ---
:1970 Author Organization [facility] [place] [address] Care Team Providers Name Role Phone Jenny Guerra MD Primary Care Provider Reason for Visit Reason Comments Follow-up Encounter Details Date Type Department Care Team Description 04/06/2014 Follow-Up Urology at [facility], CONV Right ureteral calculus [facility] Radha Mckinnon Jr., MD [facility] [place] [address] [place] [address] Social History Tobacco Use Types Packs/Day Years Used Date Never Smoker Alcohol Use Standard Drinks/Week Comments No 0 (1 standard drink = 0.6 oz pure alcoho l) Sex Assigned at Date Recorded Not on file documented as of this encounter Last Filed Vital Signs Vital Sign Reading Time Taken Comments Blood Pressure 131/84 04/06/2014 4:24 PM EST Pulse 62 04/06/2014 4:24 PM EST Temperature 37.1 ??C (98.7 ??F) 04/06/2014 4:24 PM EST Respiratory Rate - - Oxygen Saturation 98% 04/06/2014 4:24 PM EST Inhaled Oxygen Concentration - - Weight 47.6 kg (105 lb) 04/06/2014 4:24 PM EST Height 139.7 cm (4' 7) 04/06/2014 4:24 PM EST Body Mass Index 24.4 04/06/2014 4:24 PM EST documented in this encounter Progress Notes Radha Mckinnon Jr., MD - 04/06/2014 6:16 PM EST HPI: Edouard Ruggiero is a 43 y.o. woman who returns for urologic follow up regarding urolithiasis. She initially presented on 01/23/14 with a distal right ureteral stone seen on outside CT. She subsequently underwent elective stent placement by Dr North on 01/26/14 and was sent for definitive ureteroscopy on 02/16/14. At that time, after the stent was removed, no stone was identified, with suspicion f interval passage prior to initial stent placement. Semirigid distal ureteroscopy as well as flexible ureteroscopy including mapping pyelogram and full endoscopic inspection of the intrarenal collecting systemwas performed. As brisk drainage from the ureter was noted, no stent was left. In the interim, she has been well. She denies any residual abdominal or flank pain, hematuria, or other complaints. Review of Systems Constitution: Negative for fever. Gastrointestinal: Negative for abdominal pain and nausea. Genitourinary: Negative for flank pain and hematuria. PMHx: none additional PSHx: right ureteroscopy FamHx: no family h/o urolithiasis Physical Exam [...] behavior is normal. Vitals reviewed. Imaging Studies: I independently reviewed the renal US from today. This reveals no residual hydronephrosis or hydroureter. Bilateral ureteral jets were visualized. Note made of possible small bilateralrenal non-obstructing calcifications. Impression/Plan: Suspect bilateral non-obstructing nephrolithiasis. Regarding the suspcted stones identified on the above noted imaging, we reviewed at length management options, including watchful waiting, shock wave lithotripsy, and ureteroscopy, as well as follow upimaging with CT to better assess whether they truly represent stones (vs artifact). We additionally d iscussed the relative risks, benefits, stone-free success rate, and limitations of each. For now shedeclines surgical intervention and is content to monitor. We will thus plan follow up with renal ultrasound in 6 months, sooner prn. She has been instructed to call or return in the interval if new signs or symptoms of stone passage/renal colic should develop. ADDENDUM: note made in final u/s report of two lower pole left renal cysts. We will be plan to also re-evaluate these at time of planned repeat renal u/s in 6 months documented in this encounter Plan of Treatment Not on filedocumented as of this encounter Results US retroperitoneal complete (10/12/2014 8:58 AM EDT) Anatomical Region Laterality Modality Abdomen Ultrasound Specimen (Source) Anatomical Collection Method Collection Time Re ceived Time Location / / Volume Laterality 10/12/2014 8:58 AM EDT Narrative 10/12/2014 9:47 AM EDT Renal ?(Signed Final 10/12/2014 09:46 ? am) Patient Info ID #: ? [id number] ?: ??[birth year] (44 yrs) Name: ? EDOUARD RUGGIERO ? Visit Date: 10/12/2014 08:55 am Performed By Performed By: ?Jose Eduardo Conrad RDMS Attending: ? Lyssa Cassidy MD Referred By: ? RADHA MCKINNON MD Service(s) Provided ??URETRO - Retroperitoneal Complete - 0 [id number] ? [id number] Indications ??? stone growth Comparison Ultrasound: 04/06/14 [...] 10/12/2014 09:46 am) Patient Info ID #: [id number] : [birth year] (44 y rs) Name: EDOUARD RUGGIERO Visit Date: 10/12/2014 0 8:55 am Performed By Performed By: Jose Eduardo Conrad RDMS Attending: Lyssa Cassidy MD Referred By: RADHA ROBERTO MD Service(s) Provided URETRO - Retroperitoneal Complete - [phone] [id number] Indications ? stone growth Comparison Ultrasound: 04/06/14 [...] 10/12 09:46 am Radha Mckinnon Jr., MD IM US GEN ORDERABLES documented in this encounter Visit Diagnoses Diagnosis Right ureteral calculus Calculus of ureter Right ureteral calculus Calculus of ureter documented in this encounter Care Teams Production Wood Craftsman Relationship Specialty Start Date End Date Jenny Guerra MD PCP - General 02/14/10 [address] [place] [address] documented as of this encounter
--- OUTSIDE RECORDS SUMMARY | 2021-10-10 00:13 | XMS_ITS | Encounter Summary ---
:1970 Author Organization [facility] [place] [address] Care Team Providers Name Role Phone Jenny Guerra MD Primary Care Provider Encounter Details Date Type Department Care Team Description 02/16/2014 Hospital Encounter Outpatient Surgery Radha Mckinnon reteral stone with Center Xochitl Leon MD hydronephrosis [facility] UROLOGY DEPT. [place] [id number] [phone] Social History Tobacco Use Types Packs/Day Years [...] documented in this encounter Discharge Instructions Discharge InstructionsLyssa Hodge RN - 02/16/2014 2:09 PM EST General [...] closest emergency room or call the hospital welding machine operator gas metal arc at [phone] and ask for physician production quality analyst covering for your physician. Questions or problems after 5pm or on a weekend: Call the [facility] welding machine operator gas metal arc at and ask for the physician production quality analyst covering for your doctor. Patient InstructionsMarily De La Paz MD - 02/16/2014 2:00 PM EST Call your doctor for: ??? fevers greater than 100.5 ??? severe nausea or vomiting ??? increasing pain not controlled by pain medications The number for questions is [phone] before 5 PM weekdays and [phone] after 5 PM and weekends. Activity level: [...] Dr Mckinnon in about 6 weeks with kyung melgar prior to that visit. Please call [phone] if you do not receive your appointment. [...] EST Discharge instructions given and questions answered. Son Amrik at bedside. documented in this encounter H&P [...] MD - 02/16/2014 2:09 PM EST [facility] Operative Note Patient Name: Edouard Ruggiero : [id number] MR#: [id number] Case Date: 02/16/2014 Surgeon: Surgeon(s) and Role: [...] fashion. A timeout was performed. The 22 chinese rigid cystoscope was inserted. The cystsocope was advanced and the indwelling right ureteral stent was grasped with a stent grasper and delivered through the urethral meatus. A Haigler wire was passed throughthe stent and into [...] Brief Operative Note Patient Name: Edouard CortezB: [id number] MR#: [id number] Case Date: 02/16/2014 Surgeon: Surgeon(s) and Role: [...] ? pm) Patient Info ID #: ? [id number] ?: [birth year] (43 yrs) Name: ? EDOUARD RUGGIERO ? Visit Date: 04/06/2014 03:44 pm Performed By Performed By: ?Jose Eduardo Conrad RDMS Attending: ? Prince MITCHELL, Azar Collins Referred By: ? MARILY DE LA PAZ MD Service(s) Provided ??URETRO - Retroperitoneal Complete - 0 [id number] ? [id number] Indications ??s/p ureteroscopy, eval for hydro or [...] 04/06/2014 03:53 pm) Patient Info ID #: [id number] : [birth year] (43 y rs) Name: EDOUARD RUGGIERO Visit Date: 04/06/2014 0 3:44 pm Performed By Performed By: Jose Eduardo Conrad RDMS Attending: Azar Morrison MD Referred By: MARILY DE LA PAZ MD Service(s) Provided URETRO - Retroperitoneal Complete - [phone] [id number] Indications s/p ureteroscopy, eval for hydro or [...] 04/06 03:53 pm Radha Mckinnon Jr., MD [facility] [place] US GEN ORDERABLES documented in this encounter Visit Diagnoses Diagnosis Ureteral stone with hydronephrosis Calculus of ureter Ureteral stone with hydronephrosis Calculus of ureter documented in this encounter Active and Recently Administered Medications Times are shown in EST. Continuous Medication Order 02/14/2014 02/15/2014 02/16/2014 lactated ringers infusion 1,000 mL (CANCELED) 1257 (New Bag - Provider: Sandra Ornelas CRNA)1349 (Anesthesia Volume Adjustment - Provider: Kim Ornelas CRNA) 1,000 mL, at 100 mL/hr, Intravenous, CON TINUOUS, Starting 02/16/14 at 1300, Until 02/16/14 at 1912, Day of Surgery (Day of Procedure) PRN Medication Order 02/14/2014 02/15/2014 02/16/2014 iohexol (OMNIPAQUE) injection (CANCELED) 1332 (Given - Provider: Radha Mckinnon Jr., MD) ONCE PRN, Starting 02/16/14 at 1332, Until 02/16/14 at 1912, Intra- Operative (Intra-Procedure), Routine documented in this encounter Care Teams Rug Weaver Relationship Specialty Start Date End Date Jenny Guerra MD PCP - General 02/14/10 [address] [place] [address] documented as of this encounter
--- OUTSIDE RECORDS SUMMARY | 2021-10-10 00:13 | XMS_ITS | Encounter Summary ---
:1970 [place] [address] Care Team Providers Name Role Phone Jenny Guerra MD Primary Care Provider Encounter Details Date Type Department Care Team Description 01/26/2014 Anesthesia Event Main Operating Room Maryanne Paredes ms, MD [facility] [place] [address] [facility] [place] [address] [facility] [place] [address] Anesthesia Record Procedure Summary Procedure Name Responsible Anesthesia Start Anesthesia Stop Time Anesthesiologist Time CYSTO, STENT Maryanne Crump MD 01/26/14 1345 4 1436 PLACEMENT (WRVU 2.82) (N/A Bladder) Events Date Time Event Comment 01/26/2014 1345 Start 1350 AN Verify 1350 An Start Data 1354 An Induction 1356 An Intubation 1404 Anesthesia Ready 1426 Extubation/LMA Out 1428 an stop data 1436 Stop 01/28/2014 0939 Name Total Midazolam 2 mg fentaNYL 50 mcg IV Lidocaine 40 mg Propofol 150 mg Rocuronium 5 mg Ondansetron 4 mg Dexamethasone 4 mg Succinylcholine 30 mg ceFAZolin 1 g Propofol INF 27.54 mg Lactated Ringers 400 mL Agents Name O2 Air N2O Sevoflurane (et) Blood No blood administrations on file. Lines, Drains, and Airways Type Details Placement Removal PIV 01/25/14; 1915; cephalic vein 01/25/14 1916 by Arianna cyr, 01/27/14 1130 by Ya, right (lateral side of arm); ELIZABETH Ortega RN ssfe-dvh-enrned catheter system; 22 gauge, 1 in length; Jorge Hampton RN,VAS; intradermal injection, tolerated well, appears comfortable; 0; 01/27/14; 1130 ETT Mask Ventilation: Easy (1); 01/26/14 1356 by 07/06 1426 by ETT Type: Cuffed, Oral; ETT Bauernschmidt, Jono M, Bauernschmidt, Jono M, Size: 6.5 mm; Mac Blade: 3; OUTREACH EDUCATOR OUTREACH EDUCATOR Notes: Asleep, Pre-O2, Stylette; Attempts: 1; Laryngoscopy Grade: 1; ETT Placement Verified By: Auscultation, Capnometry, Visual; Secured at Teeth: 18 cm; Inserted by: Marquez OUTREACH EDUCATOR documented in this encounter Social History Tobacco Use Types Packs/Day Years Used Date Never Assessed Sex Assigned at Date Recorded Not on file documented as of this encounter OR Notes Anesthesia Postprocedure Evaluation - Maryanne Crump MD - 01/28/2014 9:38 AM EST Patient: Vicenta Burns Procedure(s) Performed: Procedure(s): CYSTO, STENT PLACEMENT Actual Anesthetic: General anesthesia Patient location: [facility] Surgical Floor Post-op pain: Adequate analgesia Post-op nausea: no nausea or vomiting Last Vitals: Filed Vitals: 01/27/14 1001 BP: 130/63 Pulse: 61 Temp: 36.8 ??C (98.2 ??F) Resp: 16 Post-op cardiovascular and respiratory status: is stable Level of consciousness: awake, alert and oriented Complications: no apparent complications and tolerated the procedure well Fluid Status: normal Anesthesia Preprocedure Evaluation - Maryanne Crump MD - 01/26/2014 12:21 PM EST Pre-Anesthesia Evaluation for: Vicenta Le a 43 y.o. female. Procedure(s): CYSTO, STENT PLACEMENT Patient Active Problem List Diagnosis ??? Ureteral stone with hydronephrosis RIGHT UVJ stone No past medical history on file. No past surgical history on file. History Substance Use Topics ??? Smoking status: Not on file ??? Smokeless tobacco: Not on file ??? Alcohol Use: Not on file History Drug Use Not on file No Known Allergies Medications: MAR and/or home medications have been reviewed. Physical Exam: There were no vitals filed for this visit. There is no height or weight on file to calculate BMI. Airway Assessment: Mallampati: I TM distance: >3 FB Neck ROM: full Cardiovascular Assessment: cardiovascular exam normal Pulmonary Assessment: pulmonary exam normal Dental Assessment: - normal exam [facility] Assessment: IV access: Peripheral line Anesthesia Plan: ASA 1 general, with a(n) intravenous induction Vicenta is a 43 yo healthy female with R UVJ stone with hydronephrosis here for right cysto sten placement. Patient denies any cardiac or pulmonary disease, exercises almost daily, does not smoke or drink. She has had a TL but unclear as whether it was done under GA, patient denies any family or personal history of anesthetic complications. No anesthetic records on file. Patient denies GERD, NPO since midnight. Plan for GA, standard ASA monitors. Anesthetic plan along with risks discussed with patient. All questions answered. Consent obtained and placed in chart. Region - Other Informed Consent: Anesthetic plan and risks discussed with patient. Use of blood products discussed with patient whom consented to blood products. Plan discussed with attending. [facility]. Assessment: documented in this encounter Plan of Treatment Not on filedocumented as of this encounter Visit Diagnoses Not on filedocumented in this encounter Administered Medications Inactive Administered Medications - up to 3 most recent administrations Medication Order MAR Action Action Date Dose Rate Site ceFAZolin (ANCEF) 1g in dextrose 5% Given 01/26/2014 2:04 PM EST 1 g 50mL PRN, Starting on 01/26/14 at 1404, Until Sat01/26/14 at 1436, Administer over 30 Minutes, Anesthesia Intra-op dexamethasone (DECADRON) injection Given 01/26/2014 2:09 PM EST 4 mg PRN, Starting on Sat01/26/14 at 1409, Until Sat01/26/14 at 1436, Anesthesia Intra-op, Routine fentaNYL 50mcg/mL injection Given 01/26/2014 2:04 PM EST 25 mcg PRN, Starting on Sat01/26/14 at 1354, Until Sat01/26/14 at 1436, Pain, Anesthesia Intra-op, Routine Given 01/26/2014 1:54 PM EST 25 mcg lactated ringers infusion New Bag 01/26/2014 1:45 PM EST mL CONTINUOUS PRN, Starting on Sat01/26/14 at 1345, Until Sat01/26/14 at 1436, Anesthesia Intra-op lidocaine (PF) (XYLOCAINE) 100 mg/5 mL (2 %) Given 4 1:54 PM EST 40 mg injection PRN, Starting on Sat01/26/14 at 1354, Until Sat01/26/14 at 1436, Anesthesia Intra-op, Routine midazolam (PF) (VERSED) 1 mg/mL injectio n Given 01/26/2014 1:53 PM EST 1 mg PRN, Starting on Sat01/26/14 at 1353, Until Sat01/26/14 at 1436, Sleep, Anesthesia Intra-op, Routine Given 01/26/2014 1:46 PM EST 1 mg ondansetron (ZOFRAN) injection Given 01/26/2014 2:09 PM EST 4 mg PRN, Starting on Sat01/26/14 at 1409, Until Sat01/26/14 at 1436, Nausea, Anesthesia Intra-op, Routine propofol (DIPRIVAN) 10 mg/mL bolus injection Given 06/2013 1:54 PM EST 150 mg (Anesthesia) PRN, Starting on Sat01/26/14 at 1354, Until Sat01/26/14 at 1436, Anesthesia Intra-op propofol (DIPRIVAN) infusion New Bag 01/26/2014 2:04 PM 30 mcg/kg/min 8.3 mL/hr CONTINUOUS PRN, Starting on Sat EST 01/26/14 at 1404, Until Sat01/26/14 at 1436, Anesthesia Intra-op, Routine rocuronium (ZEMURON) injection Given 01/26/2014 1:54 PM EST 5 mg PRN, Starting on Sat01/26/14 at 1354, Until Sat01/26/14 at 1436, Anesthesia Intra-op, Routine succinylcholine (ANECTINE) injection Given 01/26/2014 1:54 PM EST 30 mg PRN, Starting on Sat01/26/14 at 1354, Until Sat01/26/14 at 1436, Anesthesia Intra-op, Routine documented in this encounter Care Teams Four H Club Agent Relationship Specialty Start Date End Date Jenny Guerra MD PCP - General 02/14/10 [address] [place] [address] documented as of this encounter
--- OUTSIDE RECORDS SUMMARY | 2021-10-10 00:14 | XMS_ITS | Encounter Summary ---
:1970 Author Organization [facility] Address [address] [place] [address] Care Team Providers Name Role Phone Jenny Guerra MD Primary Care Provider Reason for Visit Reason Onset Date Comments Medication Management 02/15/2017 Encounter Details Date Type Department Care Team Description 02/15/2017 Telephone [facility] ENT- Gia Strickland [facility] ELIZABETH Narvaez [address] [place] [address] Social History Tobacco Use Types Packs/Day Years Used Date Never Smoker Alcohol Use Standard Drinks/Week Comments No 0 (1 standard drink = 0.6 oz pure alcoho l) Sex Assigned at Date Recorded Not on file documented as of this encounter Miscellaneous Notes Telephone Encounter - Solange Strickland RN - 02/18/2017 0810 EST Omeprazole BID has been approved through 02/15/18. Message left for the patient. Asked the patient to call the office if needed. elephone Encounter - Solange Strickland RN - 02/15/2017 1608 EST Fax received from [employer]. Prior auth started through [employer] for Omeprazole BID. documented in this encounter Plan of Treatment Not on filedocumented as of this encounter Visit Diagnoses Not on filedocumented in this encounter Care Teams Assistant Refinery Operator Relationship Specialty Start Date End Date Jenny Guerra MD PCP - General 08/12/[address] [phone] documented as of this encounter
--- OUTSIDE RECORDS SUMMARY | 2021-10-10 00:14 | XMS_ITS | Encounter Summary ---
:1970 Author Organization [facility] Address [address] [place] [address] Care Team Providers Name Role Phone Unavailable Primary Care Provider Unavailable Encounter Details Date Type Department Care Team Description 10/11/2008 Orders Only [facility] Jenny Holm MD Laboratory Services - [place] [address] [place] [address] [place] [address] [address] [facility] [phone] [place] [address] [phone] Social History Tobacco Use Types Packs/Day Years Used Date Never Assessed Sex Assigned at Date Recorded Not on file documented as of this encounter Plan of Treatment Not on filedocumented as of this encounter Procedures Procedure Name Priority Date/Time Associated Diagnosis Comme nts CYTOPATHOLOGY Routine 10/11/2008 0:00 EDT Results for this procedure are i n the results section . documented in this encounter Results CYTOPATHOLOGY (10/11/2008 0:00 EDT) Pathology Report: CYTOPATHOLOGY REPORT ? [facility] ? LAB Reports generated via electr onic interface contain original data; ? however they are lacking the format of the original report. ? Caution should be taken when reading/interpreting unformatted reports. ? Name: ? LE, EDOUARD ? Accession #: ? [id number] ? : ? 1970 (Age: 38) ??F ?Collect Date: ? 10/11/2008 ? Location: ? [facility] ? Receive Date: ? 10/12/2008 ? Provider: ?JENNY HOLM MD ? Copy to: ? Specimen/Source: ? Pap Test, Cervix/Endocervix, ThinPrep Imaging System ? with manual evaluation ? Last Menstrual Period: ? Other: ? HPVA - HPV testing requested if ASC-US on the current ThinPrep Pap test. ? SPECIMEN ADEQUACY ? Satisfactory for Eval uation ? - transformation zone compon ent present ? GENERAL CATEGORIZATION ? Negative for Intraepi thelial Lesion or Malignancy ? Document reviewed and electr onically signed by: ? Myrtle Colindres [place], [place](ASCP) ? Report Date: ??07/22/ 2009 08:45 ? End of Report ? Specimen Performing Organization Address City/State/ZIP Code Phon e Number [facility] [address] [place] [address] SERVICES [facility] [address] [place] [address] documented in this encounter Visit Diagnoses Not on filedocumented in this encounter
--- OUTSIDE RECORDS SUMMARY | 2021-10-10 00:14 | XMS_ITS | Encounter Summary ---
:1970 Author Organization [facility] Address [address] [place] [address] Care Team Providers Name Role Phone Jenny Guerra MD Primary Care Provider Reason for Visit Reason Comments Follow-up Encounter Details Date Type Department Care Team Description 11/16/2016 Office Visit [facility] Reji Grossmanu s pharyngeus (Primary Dx); ENT- [facility] MD Vern Laryngopharyngeal reflux (LPR) 111 [facility] [address] [phone] [place], [address] [place] [address] Social History Tobacco Use Types Packs/Day Years Used Date Never Smoker Alcohol Use Standard Drinks/Week Comments No 0 (1 standard drink = 0.6 oz pure alcoho l) Sex Assigned at Date Recorded Not on file documented as of this encounter Ordered Prescriptions Prescription Sig Dispensed Refills Start Date End Date omeprazole (PRILOSEC) 40 Take 1 Cap by mouth 60 Cap 11 11/16/2017 mg capsule 2 times daily. documented in this encounter Progress Notes Reji Grossman MD - 11/16/2016 0924 EDT Subjective: Patient ID: Vicenta Burns is an 46 y.o. female. Chief Complaint Patient presents with ??? Follow-up lpr, globus HPI Vicenta Burns is seen today in follow-up from 12/2015 with a sensation of a lump in her throat. This was gradual in onset. She also notes intermittent hoarseness, worse with increased voice use. No dysphagia, cough or weight loss. She denies classic GERD symptoms. No history of sinusitis or allergies. No dyspnea or stridor. No otalgia or hemoptysis. Laryngoscopy with Dr. Guajardo showed no lesions but was consistent with LPR. She did not note improvement in throat symptoms with omeprazole 40 mg once aday for several months. She was increased to BID dosing on the PPI but only for several weeks. We discussed options of resuming the proton pump inhibitor at twice daily dosing for minimum of 3-4 monthsversus proceeding with a 24-hour ambulatory dual pH probe study. Unfortunately, she took the medicine twice daily but only for 1 month. She notes no significant change in her symptoms. She drinks 1-2 coffees a day but no alcohol. No smoking. Objective: There were no vitals taken for this visit. Physical Exam Department of Otolaryngology PHYSICAL EXAMINATION CONSTITUTIONAL: VITAL SIGNS: Not reviewed APPEARANCE: The patient appears alert, cooperative, and comfortable. ABILITY TO COMMUNICATE / VOICE: Normal HEAD AND FACE: INSPECTION: Normal without apparent scars, lesions, or masses. PALPATION: There are no masses or sinus tenderness. SALIVARY GLANDS: Submandibular and Parotid glands are normal bilaterally FACIAL STRENGTH: Intact and symmetrical bilaterally EXTERNAL EAR & NOSE: No external ear or nose deformity noted EYES: EYES: exam not performed EARS, NOSE, MOUTH AND THROAT: OTOSCOPY: Right external auditory canal: patent and non-inflamed Left external auditory canal: patent and non-inflamed Right tympanic membrane: intact and normally mobile without retraction, perforation or effusion Left tympanic membrane: intact and normally mobile without retraction, perforation or effusion WHISPER/TUNING FORK: Normal NOSE: normal turbinates and mucosa: septum in midline LIPS, TEETH & GUMS: normal for age ORAL CAVITY & OROPHARYNX: normal HYPOPHARYNX & PHARYNGEAL ELLIOTT: Deferred. LARYNX: Not examined NASOPHARYNX: Not examined NECK: GENERAL: Supple, no asymmetry or crepitus, trachea midline THYROID: Normal LYMPHATIC: CERVICAL LYMPH NODES: No pathologic cervical lymphadenopathy noted Assessment: Encounter Diagnoses Name Primary? Globus pharyngeus Yes ??? Laryngopharyngeal reflux (LPR) Plan: Her constellation of throat symptoms as well as the mild nonspecific posterior laryngeal erythema onlaryngoscopy is consistent with globus pharyngeus complaints secondary to laryngopharyngeal reflux. She took the omeprazole twice daily but only for 1 month and this is likely not an adequate duration of treatment. We again discussed options of resuming the proton pump inhibitor at twice daily dosing for minimum of 3-4 months versus proceeding with a 24-hour ambulatory dual pH probe study. She prefers to try the medication first but will contact my office if she decides to proceed with pH study earlier. Otherwise, I will see her back in 4 months for follow-up. In the meantime, she was encouraged toeliminate caffeine from her diet and increase her hydration documented in this encounter Plan of Treatment Not on filedocumented as of this encounter Visit Diagnoses Diagnosis Globus pharyngeus - Primary Gastrointestinal malfunction arising fro m mental factors Laryngopharyngeal reflux (LPR) Other diseases of larynx documented in this encounter Discontinued Medications Medication Sig Discontinue Reason Start Date End Date omeprazole (PRILOSEC) Take 1 Cap by mouth Patient Stopped Taking 11/16/2016 40 mg capsule BEFORE BREAKFAST & DINNER. documented as of this encounter Care Teams Patient Service Specialist Relationship Specialty Start Date End Date Jenny Guerra MD PCP - General 08/12/[address] [place] [phone] documented as of this encounter
--- OUTSIDE RECORDS SUMMARY | 2021-10-10 00:14 | XMS_ITS | Encounter Summary ---
:1970 Author Organization [facility] Address [address] [place] [address] Care Team Providers Name Role Phone Jenny Guerra MD Primary Care Provider Reason for Visit Reason Onset Date Comments Prior Auth, Medication 01/18/2016 Encounter Details Date Type Department Care Team Description 01/18/2016 Refill [facility] Rivka Hamilton RN Prior Auth, Medication ENT- [place] [id number] [place] [address] Social History Tobacco Use Types Packs/Day Years Used Date Never Smoker Alcohol Use Standard Drinks/Week Comments No 0 (1 standard drink = 0.6 oz pure alcoho l) Sex Assigned at Date Recorded Not on file documented as of this encounter Miscellaneous Notes Telephone Encounter - Rivka Hamilton - 01/18/2016 1346 EDT Prior authorization obtained for omeprazole 40mg bid dosing. Pharmacy notified. documented in this encounter Plan of Treatment Not on filedocumented as of this encounter Visit Diagnoses Not on filedocumented in this encounter Care Teams Automobile Upholsterer Apprentice Relationship Specialty Start Date End Date Jenny Guerra MD PCP - General 08/12/[address] [place] [phone] documented as of this encounter
--- OUTSIDE RECORDS SUMMARY | 2021-10-10 00:14 | XMS_ITS | Encounter Summary ---
:1970 Author Organization [facility] Address [address] [place] [address] Care Team Providers Name Role Phone Jenny Guerra MD Primary Care Provider Reason for Visit Reason Comments Follow-up Encounter Details Date Type Department Care Team Description 04/01/[address] [facility] Reji Grossmanu s pharyngeus (Primary Dx); ENT- [facility] MD Vern Laryngopharyngeal reflux (LPR) 111 [facility] [address] [place], [place] [address] [place] [address] [facility] [address] [place] [address] Social History Tobacco Use Types Packs/Day Years Used Date Never Smoker Smokeless Tobacco: Never Used Alcohol Use Standard Drinks/Week Comments No 0 (1 standard drink = 0.6 oz pure alcoho l) Sex Assigned at Date Recorded Not on file documented as of this encounter Progress Notes Reji Grossman MD - 04/01/2017 0911 EST Subjective: Patient ID: Vicenta Burns is an 46 y.o. female. Chief Complaint Patient presents with ??? Follow-up lpr, globus HPI Vicenta Burns is seen today in follow-up from 11/16/16 with a sensation of a lump in her throat. This was gradual in onset. She also notes intermittent hoarseness, worse with increased voice use. No dysphagia, cough or weight loss. She denies classic GERD symptoms but her clinical picture is consistent with laryngopharyngeal reflux. No history of sinusitis or allergies. Laryngoscopy with Dr. Guajardo showed no lesions but was consistent with LPR. She did not note improvement in throat symptoms with omeprazole 40 mg once a day for several months. She was increased to BID dosing on the PPI (24 hour dualpH probe study also discussed) last visit. She notes minimal if any change in her throat symptoms despite the twice daily PPI. Fortunately, hersymptoms are only mildly bothersome. No dyspnea or stridor. No otalgia or hemoptysis. She drinks 1-2 coffees a day but [...] & OROPHARYNX: normal HYPOPHARYNX & PHARYNGEAL ELLIOTT: See flexible exam report LARYNX: See flexible exam report NASOPHARYNX: See flexible exam report NECK: GENERAL: Supple, no asymmetry or crepitus, trachea midline THYROID: Normal LYMPHATIC: CERVICAL LYMPH NODES: No pathologic cervical lymphadenopathy noted Endoscopy Procedure Note Pre-procedure Diagnosis: Globus sensation Post-procedure Diagnosis: same Indications: Excessive gag reflex - preventing mirror examination Anesthesia: Cophenylcaine Endoscopy Type: Laryngoscopy using a flexible laryngoscope Procedure Details: With the patient sitting upright in the examining chair informed consent was obtained. The right nostril was topically anesthetized with spray. After waiting an appropriate period of time for anesthesia/ vasoconstriction to become effective (if this was applicable), the scope was passed into the rightnostril and the nasopharynx, oropharynx, hypopharynx and larynx were examined. Condition: Patient tolerated procedure well and left the office in a stable condition. Complications: None Findings: Nasopharynx: Normal exam of choanae, eustachian tubes, and adenoids for age Oropharynx: Normal exam of tongue base, tonsils, and posterior pharynx Hypopharynx: Normal piriform sinuses noted, no pooling of secretions Supraglottis: Normal Posterior Commissure: Mild erythema. Right True Vocal Fold: Normal Left True Vocal Fold: Normal Vocal Fold Mobility: Normal bilaterally Subglottis clear. Assessment: Encounter Diagnoses Name Primary? Globus pharyngeus Yes ??? Laryngopharyngeal reflux (LPR) Plan: Her constellation of throat symptoms as well as the mild nonspecific posterior laryngeal erythema onlaryngoscopy is consistent with globus pharyngeus complaints secondary to laryngopharyngeal reflux. She has now been on the omeprazole twice daily for 4 months with minimal impact on her symptoms. Fortu nately, her symptoms are only mildly bothersome and she is not having any difficulty breathing or swallowing. At this point, she will decrease the omeprazole to once a day and then after several weeks she may discontinue the medication altogether if her symptoms have not changed/worsened off the medica tion. She should maintain diet and lifestyle modifications directed at minimizing acid reflux into the throat as previously discussed. I will see her on an as-needed basis in the future. During today's office visit, 20 minutes were spent [id number] with Vicenta Burns and 15 minutes were spent counseling her regarding her globus pharyngeus complaints with suspected laryngopharyngeal refluxas above. This excluded the 5 minutes required for flexible laryngoscopy exam. Reji Grossman MD documented in this encounter Plan of Treatment Not on filedocumented as of this encounter Visit Diagnoses Diagnosis Globus pharyngeus - Primary Gastrointestinal malfunction arising fro m mental factors Laryngopharyngeal reflux (LPR) Other diseases of larynx documented in this encounter Care Teams Extension Professor Relationship Specialty Start Date End Date Jenny Guerra MD PCP - General 08/12/[address] [place] [phone] documented as of this encounter
--- OUTSIDE RECORDS SUMMARY | 2021-10-10 00:14 | XMS_ITS | Clinical Summary ---
:1970 Author Organization [facility] Address [address] [place] [address] Care Team Providers Name Role Phone Jenny Guerra MD Primary Care Provider Allergies No known active allergies Medications No known medications Active Problems No known active problems Social History Tobacco Use Types Packs/Day Years Used Date Never Smoker Smokeless Tobacco: Never Used Tobacco Cessation: Counseling Given: No Alcohol Use Standard Drinks/Week Comments No 0 (1 standard drink = 0.6 oz pure alcoho l) Sex Assigned at Date Recorded Not on file Plan of Treatment Not on file Insurance Payer Benefit Plan Subscriber ID Effective Phone Address Typ e / Group Dates MEDICAID ACO MEDICAID ACO [id number] 2021-Pres [phone] [address] Medicaid [place] ent [address] [facility] [id number] (Work) Care Teams Hand Pleater Relationship Specialty Start Date End Date Jenny Guerra MD PCP - General 08/12/[address] [place] [phone]
--- OUTSIDE RECORDS SUMMARY | 2021-10-10 00:14 | XMS_ITS | Encounter Summary ---
:1970 Author Organization [facility] Address [address] [place] [address] Care Team Providers Name Role Phone Unknown, Provider Primary Care Provider Encounter Details Date Type Department Care Team Description 08/08/2015 Results Only [facility] Luis Kaminski, [address] [place] [address] (Wo rk) Social History Tobacco Use Types Packs/Day Years Used Date Never Assessed Sex Assigned at Date Recorded Not on file documented as of this encounter Plan of Treatment Not on filedocumented as of this encounter Procedures Procedure Name Priority Date/Time Associated Diagnosis Comme [facility] SURGICAL PATHOLOGY Routine 08/08/2015 11:01 Resul ts for this EDT procedure are i n the results section. documented in this encounter Results SURGICAL PATHOLOGY (08/08/2015 11:01 EDT) Pathology Report: SURGICAL PATHOLOGY REPORT [facility] Reports generated via electronic interface contain jeremias ginal data; LABORATORY however they are lacking the format of the original re port. SERVICES Caution should be taken when reading/interpreting unfo rmatted reports. Name: ? EDOUARD RUGGIERO ? Accession #: ? [id number] ? : ? 1970 (Age: [age]) ??F ? Collect Date: ? 08/08/2015 ? Location: ? [facility] ? Receive Date: ? 08/08/19 16 ? Provider: LUIS KAMINSKI DO Copy to: IBETH HOLM MD ? Final Pathologic Diagnosis: SKIN OF BUDDHISM, LEFT, SHAVE BIOPSY: - Seborrheic keratosis. ?? Document reviewed and electronically signed by: KATHLEEN AVILES MD Report ??Date: 08/10/2015 12:56 By the signature above, the attending physician certif ies that he/she has personally conducted a gross and/or microscopic examin ation of the described specimens and rendered or confirmed the above diagnosi s. Specimen(s) Received: Left taoist Clinical History: Non-healing skin lesion; clinical diagnosis code: D49. 2 Gross Description: ? Received in formalin labelled with proper patient identification (initials L, J) and left taoist is a shave biopsy of a t an and granular papule (1.2 x 0.7 x 0.5 cm). The specimen is inked, serially section ed, and is entirely submitted in 1. Leatha Frazier 08/09/2015 2:38 PM End of Report Specimen Performing Organization Address City/State/ZIP Code Phon e Number [facility] [address] [place] [address] SERVICES documented in this encounter Visit Diagnoses Not on filedocumented in this encounter Care Teams Program Director Group Work Relationship Specialty Start Date End Date Unknown, Provider, PCP - General 02/15/15 08/11/15 documented as of this encounter
--- OUTSIDE RECORDS SUMMARY | 2021-10-10 00:14 | XMS_ITS | Encounter Summary ---
:1970 Author Organization [facility] Address [address] [place] [address] Care Team Providers Name Role Phone Jenny Guerra MD Primary Care Provider Encounter Details Date Type Department Care Team Description 08/31/2020 Lab Requisition [facility] Outr Resulting Lab, Pathology & Laboratory Provider [facility] [address] [place] [address] Social History Tobacco Use Types [...] Name Priority Date/Time Associated Diagnosis Comme nts HEPATITIS C AB W Routine 08/31/2020 8:23 EDT Resu lts for this REFLEX TO HCV RNA procedure are in BY PCR the results section. documented in this encounter Results HEPATITIS C AB W REFLEX TO HCV RNA BY PCR (08/31/2020 8:23 EDT) Pathologist Sig nature Hep C Antibody Negative Negative [facility] SERVICES Specimen Blood - Venous blood (substance) Performing Organization Address City/State/ZIP Code Phon e Number [facility] [address] [place] [address] SERVICES documented in this encounter Visit Diagnoses Not on filedocumented in this encounter Care Teams Lean [employer] Senior Specialist Relationship Specialty Start Date End Date Jenny Guerra MD PCP - General 08/12/[address] [place] [phone] documented as of this encounter
--- OUTSIDE RECORDS SUMMARY | 2021-10-10 00:14 | XMS_ITS | Encounter Summary ---
:1970 Author Organization [facility] Address [address] [place] [address] Care Team Providers Name Role Phone Jenny Guerra MD Primary Care Provider Encounter Details Date Type Department Care Team Description 08/31/2020 Lab Requisition [facility] Outr Resulting Lab, Pathology & Laboratory Provider [facility] [address] [place] [address] Social History Tobacco Use Types [...] Procedure Name Priority Date/Time Associated Comments Diagnosis HIV 1/2 ANTIGEN AND Routine 08/31/2020 8:23 EDT R esults for this ANTIBODY, 4TH procedure are in GENERATION the results section. documented in this encounter Results HIV 1/2 ANTIGEN AND ANTIBODY, 4TH GENERATION (08/31/2020 8:23 EDT) HIV 1 and 2 Negative Negative [facility] Antibody/p24 Comment: LABORATORY Antigen, 4th If acute HIV-1 infection is suspected in a high risk ??patient, submit plasma specimen for HIV-1 RNA quantitation test. SERV ICES Generation Fourth Generation assay performed on the Siemens MemberPlaneta ur. Specimen Blood - Venous blood (substance) Performing Organization Address City/State/ZIP Code Phon e Number [facility] [address] [place] [address] SERVICES documented in this encounter Visit Diagnoses Not on filedocumented in this encounter Care Teams Clinical Program Manager Relationship Specialty Start Date End Date Jenny Guerra MD PCP - General 08/12/[address] [place] [phone] documented as of this encounter
--- OUTSIDE RECORDS SUMMARY | 2021-10-10 00:14 | XMS_ITS | Encounter Summary ---
:1970 Author Organization [facility] Address [address] [place] [address] Care Team Providers Name Role Phone Jenny Guerra MD Primary Care Provider Reason for Visit Reason Comments Other globus Encounter Details Date Type Department Care Team Description 01/18/2016 Office Visit [facility] Reji Grossman s pharyngeus (Primary Dx); ENT- [facility] MD Vren Laryngopharyngeal reflux (LPR) 111 [facility] [address] [phone] [facility] [address] [place] [address] Social History Tobacco Use Types Packs/Day Years Used Date Never Smoker Tobacco Cessation: Counseling Given: No Alcohol Use Standard Drinks/Week Comments No 0 (1 standard drink = 0.6 oz pure alcoho l) Sex Assigned at Date Recorded Not on file documented as of this encounter Ordered Prescriptions Prescription Sig Dispensed Refills Start Date End Date omeprazole (PRILOSEC) 40 Take 1 Cap by mouth 60 Cap 11 11/16/2016 mg capsule BEFORE BREAKFAST & DINNER. documented in this encounter Progress Notes Reji Grossman MD - 01/18/2016 0815 EDT Subjective: Patient ID: Vicenta Burns is an 45 y.o. female. Chief Complaint Patient presents with ??? Other globus Denzel Guajardo has requested that I see Vicenta Burns in consultation regarding lump in throat sensation. HPI Vicenta Burns is seen today with 1 year of a sensation of a lump in her throat. This was gradual in onset. She also notes intermittent hoarseness, worse with increased voice use. No dysphagia, cough or weight loss. She denies classic GERD symptoms. No history of sinusitis or allergies. No dyspnea or stridor. No otalgia or hemoptysis. Laryngoscopy with Dr. Guajardo showed no lesions but was consistent with LPR/GERD. She did not note improvement in throat symptoms with omeprazole 40 mg once a day for several months. She was increased to BID dosing on the PPI for several weeks without change and has since stopped the medication. No esophagram or pH testing to date. She drinks 1-2 coffees a day but no alcohol. No smoking. History reviewed. No pertinent past medical history. History reviewed. No pertinent past surgical history. History reviewed. No pertinent family history. Social Social History Social History ??? Marital status: Spouse name: N/A ??? Number of children: N/A ??? Years of education: N/A Occupational History ??? Not on file. Social History Main Topics ??? Smoking status: Never Smoker ??? Smokeless tobacco: Not on file ??? Alcohol use No ??? Drug use: Not on file ??? Sexual activity: Not on file Other Topics Concern ??? Not on file Social History Narrative ??? No narrative on file No outpatient prescriptions have been marked as taking for the 01/18/16 encounter (Office Visit) with Reji Grossman MD. No Known Allergies Review of Systems Constitutional: Positive for weight loss. Negative for chills, fever and malaise/fatigue. HENT: Negative for congestion, ear pain, hearing loss, sore throat and tinnitus. Eyes: Negative for blurred vision, double vision and photophobia. Respiratory: Negative for cough, hemoptysis, shortness of breath and wheezing. Cardiovascular: Negative for chest pain, palpitations, claudication and leg swelling. Gastrointestinal: Negative for heartburn. Musculoskeletal: Negative for joint pain and myalgias. Skin: Negative for rash. Neurological: Negative for sensory change, focal weakness and headaches. Endo/Heme/Allergies: Negative for environmental allergies. Does not bruise/bleed easily. - See HPI Objective: There were no vitals taken for [...] LYMPH NODES: No pathologic cervical lymphadenopathy noted RESPIRATORY: LUNGS: Not examined CARDIOVASCULAR: CARDIOVASCULAR: Not examined NEUROLOGIC: NEUROLOGIC: Normal mood and affect Endoscopy Procedure Note Pre-procedure Diagnosis: Globus sensation Post-procedure Diagnosis: same Indications: Macroglossia preventing mirror examination Excessive gag reflex - preventing mirror examination [...] pooling of secretions Supraglottis: Normal Posterior Commissure: Erythematous Right True Vocal Fold: Normal Left True Vocal Fold: Normal Vocal Fold Mobility: Normal bilaterally Assessment: Encounter Diagnoses Name Primary? Globus pharyngeus Yes ??? Laryngopharyngeal reflux (LPR) Plan: Her constellation of throat symptoms as well as the mild. Nonspecific posterior laryngeal erythema on laryngoscopy is consistent with globus pharyngeus complaints secondary to laryngopharyngeal reflux.It is unclear why she has not responded to initial therapy with a proton pump inhibitor. She took the omeprazole twice daily but only for 3 weeks and this is likely not an adequate duration of treatment. We discussed options of resuming the proton pump inhibitor at twice daily dosing for minimum of 3-4 months versus proceeding with a 24-hour ambulatory dual pH probe study. She prefers to try the medication first but will contact my office if she decides to proceed with pH study earlier. Otherwise, Iwill see her back in 3-4 months for follow-up. In the meantime, she was encouraged to eliminate caffeine from her diet and an LPR handout was reviewed and provided. She was reassured that laryngoscopy and neck exam demonstrate no masses or concerning pathology. documented in this encounter Plan of Treatment Not on filedocumented as of this encounter Visit Diagnoses Diagnosis Globus pharyngeus - Primary Gastrointestinal malfunction arising fro m mental factors Laryngopharyngeal reflux (LPR) Other diseases of larynx documented in this encounter Care Teams Corporate Analyst Relationship Specialty Start Date End Date Jenny Guerra MD PCP - General 08/12/[address] [place] [phone] documented as of this encounter
--- OUTSIDE RECORDS SUMMARY | 2021-10-10 00:14 | XMS_ITS | Encounter Summary ---
:1970 Author Organization [facility] Address [address] [place] [address] Care Team Providers Name Role Phone Jenny Guerra MD Primary Care Provider Reason for Visit Reason Onset Date Comments Other 11/16/2016 Calcium Encounter Details Date Type Department Care Team Description 11/16/2016 Telephone [facility] ENT- Reji Grossman, Other (Calcium) [facility] 111 [facility] [address] [place] [address] [facility] [phone] [facility] [address] [place] [address] (Wo rk) Social History Tobacco Use Types Packs/Day Years Used Date Never Smoker Alcohol Use Standard Drinks/Week Comments No 0 (1 standard drink = 0.6 oz pure alcoho l) Sex Assigned at Date Recorded Not on file documented as of this encounter Miscellaneous Notes Telephone Encounter - Solange Strickland RN - 11/16/2016 1505 EDT Spoke with patient relayed Dr. Grossman recommendation for calcium supplement and to confirm with her PCP. Patient verbalized understanding and agreed. Telephone Encounter - Reji Grossman MD - 11/16/2016 1040 EDT A standard dose calcium supplement once a day should not be a problem. She should confirm this with her primary care provider however. Reji Grossman MD elephone Encounter - Radha Parnell - 11/16/[address] Grossman told her to drink milk or something else with calcium in it, however she says she does not drink or eat that kind of stuff. She was hoping she could take a calcium vitamin instead, but was wondering if this is okay due to her having kidney stones? documented in this encounter Plan of Treatment Not on filedocumented as of this encounter Visit Diagnoses Not on filedocumented in this encounter Care Teams Servicenow Administrator Developer Relationship Specialty Start Date End Date Jenny Guerra MD PCP - General 08/12/[address] [place] [phone] documented as of this encounter
--- OUTSIDE RECORDS SUMMARY | 2021-10-10 00:14 | XMS_ITS | Encounter Summary ---
:1970 Author Organization [facility] Address [address] [place] [address] Care Team Providers Name Role Phone Unavailable Primary Care Provider Unavailable Encounter Details Date Type Department Care Team Description 05/07/2014 Results Only [facility] Jenny Holm MD Laboratory Services - [address] [facility] [address] [place], [place] [address] [facility] [address] [place] [address] [phone] Social History Tobacco Use Types Packs/Day Years Used Date Never Assessed Sex Assigned at Date Recorded Not on file documented as of this encounter Plan of Treatment Not on filedocumented as of this encounter Procedures Procedure Name Priority Date/Time Associated Diagnosis Comme nts PAP TEST- RESULT Routine 05/07/2014 0:00 EST Resu lts for this ONLY procedure are i n the results section. documented in this encounter Results PAP TEST- RESULT ONLY (05/07/2014 0:00 EST) Pathology Report: CYTOPATHOLOGY REPORT [facility] Reports generated via electronic interface contain jeremias ginal data; SERVICES however they are lacking the format of the original re port. Caution should be taken when reading/interpreting unfo rmatted reports. Name: ? EDOUARD RUGGIERO ? Accession #: ? [id number] ? : ? 1970 (Age: 43) ??F ?Collect Da te: ? 05/07/2014 ? Location: ? [facility] ? Receive Date: ? 015 ? Provider: JENNY HOLM MD Copy to: ? Final Report SPECIMEN ADEQUACY ? Satisfactory for Evaluation - transformation zone component present GENERAL CATEGORIZATION ? Negative for Intraepithelial Lesion or Malignan cy ?? Last Menstrual Period: 04/23/14 Specimen/Source: ??Pap Test, Cervix/Endocervix, ThinPr ep Imaging System with manual evaluation Document reviewed and electronically signed by: ? ROSALVA Rodrigues(ASCP) ? Report ??Date: 05/17/2014 09:23 HPV with Pap Test ? Date Ordered: ? 05/17/2014 ? Status: ?? Signed Out ?Date Complete: ? 05/19/2014 ? By: ??S ystem Interface ? Date Reported: ? 05/19/2014 ? Interpretation RESULT: Negative for HPV. No E6 or E7 mRNA is detected from HPV types 16,18,31,3 3,35, 39,45,51,52,56,58,59,66, and 68 by nitrocellulose maker media lizeth amplification. Comments Document reviewed and electronically signed by: ? System Interface ? Report date: 05/19/2014 By the signature above, the attending physician certif ies that he/she has personally conducted a gross and/or microscopic examin ation of the described specimens and rendered or confirmed the above diagnosi s. End of Report Specimen Performing Organization Address City/State/ZIP Code Phon e Number [facility] [address] [place] [id number] SERVICES documented in this encounter Visit Diagnoses Not on filedocumented in this encounter
--- OUTSIDE RECORDS SUMMARY | 2021-10-10 00:14 | XMS_ITS | Encounter Summary ---
:1970 Author Organization [facility] Address [address] [place] [address] Care Team Providers Name Role Phone Unavailable Primary Care Provider Unavailable Encounter Details Date Type Department Care Team Description 04/15/2006 Results Only [facility] - Jenny Raza MD conversion [address] [place] [phone] (Wo rk) Social History Tobacco Use Types Packs/Day Years Used Date Never Assessed Sex Assigned at Date Recorded Not on file documented as of this encounter Plan of Treatment Not on filedocumented as of this encounter Procedures Procedure Name Priority Date/Time Associated Diagnosis Comme nts CYTOPATHOLOGY Routine 04/15/2006 0:00 EST Results for this procedure are i n the results section . documented in this encounter Results CYTOPATHOLOGY (04/15/2006 0:00 EST) Pathology Report: CYTOPATHOLOGY REPORT [facility] Reports generated via electronic interface contain jeremias ginal data; however they are lacking the format of the original re port. Caution should be taken when reading/interpreting unfo rmatted reports. Name: ? EDOUARD RUGGIERO ? Accession #: ? [id number] : ? 1970 (Age: 35) ??F ?Collect Date: ? 03/26 Location: ? [facility] ? Receive Date : ? 04/16/2006 Provider: ?JENNY HOLM MD Copy to: ? Specimen/Source: ? ThinPrep Pap Test, Cervix/Endocervix, processed on [employer] ThinPrep Imaging System, with manual evaluation Last Menstrual Period: ? Hormonal/Contraceptive Status: ? Control Pills Other: ? HPVA - HPV testing requested if ASC-US on the current ThinPrep Pap test. ? SPECIMEN ADEQUACY ? Satisfactory for Evaluation - transformation zone component present GENERAL CATEGORIZATION ? Negative for Intraepithelial Lesion or Malignan cy ? Document reviewed and electronically signed by: ? ROSALVA Rodrigues(ASCP) ? Report Date: ??04/17/2006 15:08 End of Report Specimen Performing Organization Address City/State/ZIP Code Phon e Number [facility] [address] [place] [address] SERVICES [facility] [address] [place] [address] documented in this encounter Visit Diagnoses Not on filedocumented in this encounter
--- OUTSIDE RECORDS SUMMARY | 2021-10-10 00:14 | XMS_ITS | Encounter Summary ---
:1970 Author Organization [facility] Address [address] [place] [address] Care Team Providers Name Role Phone Jenny Holm MD Primary Care Provider Encounter Details Date Type Department Care Team Description 08/21/2018 Results Only [facility] Jenny Holm MD [phone] [address] [place] [address] (Wo rk) Social History Tobacco Use Types [...] Diagnosis Comme nts PAP TEST- RESULT Routine 08/21/2018 0:00 EDT Resu lts for this ONLY procedure are i n the results section. documented in this encounter Results PAP TEST- RESULT ONLY (08/21/2018 0:00 EDT) Pathology Report: CYTOPATHOLOGY REPORT [facility] Reports generated via electronic interface contain jeremias ginal data; SERVICES however they are lacking the format of the original re port. Caution should be taken when reading/interpreting unfo rmatted reports. Name: ? EDOUARD RUGGIERO ? Accession #: ? [id number] ? : ? 1970 (Age: [age]) ??F ?Collect Date: ? 08/21/2018 ? Location: ? [facility] ? Receive Date: ? 08/23/19 19 ? Provider: JENNY HOLM MD Copy to: ? Final Report SPECIMEN ADEQUACY ? Satisfactory for Evaluation - transformation zone component present GENERAL CATEGORIZATION ? Negative for Intraepithelial Lesion or Malignan cy ?? Last Menstrual Period: 2016 Other: Additional clinical information: Z00.00 Z12.4 Z 11.51 Specimen/Source: ??Pap Test, Cervix, ThinPrep Imaging System with manual evaluation Document reviewed and electronically signed by: ? Rossy Falcon, CT(ASCP)(IAC) ? Report ??Date: 08/26/2018 14:40 HPV with Pap Test ? Date Ordered: ? 08/26/2018 ? Status: ?? S igned Out ?Date Complete: ? 08/27/2018 ? By: ??Sys tem Interface ? Date Reported: ? 08/27/2018 ? Interpretation RESULT: Negative for HPV. No E6 or E7 mRNA is detected from HPV types 16,18,31,3 3,35, 39,45,51,52,56,58,59,66, and 68 by maintenance shop technician media lizeth amplification. Comments Document reviewed and electronically signed by: ? System Interface ? Report date: 08/27/2018 By the signature above, the attending physician certif ies that he/she has personally conducted a gross and/or microscopic examin ation of the described specimens and rendered or confirmed the above diagnosi s. End of Report Specimen Performing Organization Address City/State/ZIP Code Phon e Number [facility] [address] [place] [address] SERVICES documented in this encounter Visit Diagnoses Not on filedocumented in this encounter Care Teams Metal Cleaner Relationship Specialty Start Date End Date Jenny Holm MD PCP - General 08/12/[address] [place] [phone] documented as of this encounter
--- OUTSIDE RECORDS SUMMARY | 2021-10-10 00:14 | XMS_ITS | Encounter Summary ---
:[address] [facility] Address [address] [place] [address] Care Team Providers Name Role Phone Unavailable Primary Care Provider Unavailable Encounter Details Date Type Department Care Team Description 02/07/2011 Results Only [facility] Jenny Holm MD Laboratory Services - [address] [facility] [address] [place], [place] [address] [facility] [phone] [place] [address] [phone] Social History Tobacco Use Types Packs/Day Years Used Date Never Assessed Sex Assigned at Date Recorded Not on file documented as of this encounter Plan of Treatment Not on filedocumented as of this encounter Procedures Procedure Name Priority Date/Time Associated Diagnosis Comme nts PAP TEST- RESULT Routine 02/07/2011 0:00 EST Resu lts for this ONLY procedure are i n the results section. documented in this encounter Results PAP TEST- RESULT ONLY (02/07/2011 0:00 EST) Pathology Report: CYTOPATHOLOGY REPORT [facility] Reports generated via electronic interface contain jeremias ginal data; however they are lacking the format of the original re port. Caution should be taken when reading/interpreting unfo rmatted reports. Name: ? EDOUARD RUGGIERO ? Accession #: ? [id number] : ? 1970 (Age: 40) ??F ?Collect Date: ? 01/23 Location: ? [facility] ? Receive Date : ? 02/08/2011 Provider: ?JENNY HOLM MD Copy to: ? Specimen/Source: ? Pap Test, Cervix/Endocervix, ThinPrep Imaging System with manual evaluation Last Menstrual Period: ? 01/31/2011 ? SPECIMEN ADEQUACY ? Satisfactory for Evaluation - transformation zone component present GENERAL CATEGORIZATION ? Negative for Intraepithelial Lesion or Malignan cy ? Document reviewed and electronically signed by: ? ROSALVA Alfred(ASCP) ? Report Date: ??02/14/2011 12:51 End of Report Specimen Performing Organization Address City/State/ZIP Code Phon e Number [facility] [address] [place] [address] SERVICES [facility] [address] [place] [address] documented in this encounter Visit Diagnoses Not on filedocumented in this encounter
--- OUTSIDE RECORDS SUMMARY | 2021-10-10 00:15 | XMS_ITS | Encounter Summary ---
:1970 Author Organization [facility] Address [address] [place] [address] Care Team Providers Name Role Phone Unavailable Primary Care Provider Unavailable Encounter Details Date Type Department Care Team Description 01/18/2003 Results Only [facility] - Jenny Raza MD conversion [address] [place] [phone] (Wo rk) Social History Tobacco Use Types Packs/Day Years Used Date Never Assessed Sex Assigned at Date Recorded Not on file documented as of this encounter Plan of Treatment Not on filedocumented as of this encounter Procedures Procedure Name Priority Date/Time Associated Diagnosis Comme nts CYTOPATHOLOGY Routine 01/18/2003 0:00 EST Results for this procedure are i n the results section . documented in this encounter Results CYTOPATHOLOGY (01/18/2003 0:00 EST) Pathology Report: CYTOPATHOLOGY REPORT [facility] Reports generated via electronic interface contain jeremias ginal data; however they are lacking the format of the original re port. Caution should be taken when reading/interpreting unfo rmatted reports. Name: ? EDOUARD RUGGIERO ? Accession #: ? [id number] : ? 1970 (Age: 32) ??F ?Collect Date: ? 12/24 Location: ? [facility] ? Receive Date : ? 01/20/2003 Provider: ?JENNY HOLM MD Copy to: ? Specimen/Source: ?ThinPrep Pap Test, Cervix/ Endocervix Last Menstrual Period: ? 11/25 Other: ? HPVA - HPV testing requested if ASC-US on the current ThinPrep Pap test. ? SPECIMEN ADEQUACY ? Satisfactory for Evaluation - transformation zone component present GENERAL CATEGORIZATION ? Negative for Intraepithelial Lesion or Malignan cy ? Document reviewed and electronically signed by: ? ROSALVA Rodrigues(ASCP) ? Report Date: ??01/25/2003 13:17 End of Report Specimen Performing Organization Address City/State/ZIP Code Phon e Number [facility] [address] [place] [phone] SERVICES [facility] [address] [place] [address] documented in this encounter Visit Diagnoses Not on filedocumented in this encounter
--- OUTSIDE RECORDS SUMMARY | 2021-10-10 00:15 | XMS_ITS | Encounter Summary ---
:1970 Author Organization [facility] Address [address] [place] [address] Care Team Providers Name Role Phone Unavailable Primary Care Provider Unavailable Encounter Details Date Type Department Care Team Description 01/24/2004 Results Only [facility] - Jenny Raza MD conversion [address] [place] [phone] (Wo rk) Social History Tobacco Use Types Packs/Day Years Used Date Never Assessed Sex Assigned at Date Recorded Not on file documented as of this encounter Plan of Treatment Not on filedocumented as of this encounter Procedures Procedure Name Priority Date/Time Associated Diagnosis Comme nts CYTOPATHOLOGY Routine 01/24/2004 0:00 EST Results for this procedure are i n the results section . documented in this encounter Results CYTOPATHOLOGY (01/24/2004 0:00 EST) Pathology Report: CYTOPATHOLOGY REPORT [facility] Reports generated via electronic interface contain jeremias ginal data; however they are lacking the format of the original re port. Caution should be taken when reading/interpreting unfo rmatted reports. Name: ? EDOUARD RUGGIERO ? Accession #: ? [id number] : ? 1970 (Age: 33) ??F ?Collect Date: ? 110 03/2003 Location: ? [facility] ? Receive Date : ? 01/26/2004 Provider: ?JENNY HOLM MD Copy to: ? Specimen/Source: ?ThinPrep Pap Test, Cervix/ Endocervix Last Menstrual Period: ? Other: ? HPVA - HPV testing requested if ASC-US on the current ThinPrep Pap test. ? SPECIMEN ADEQUACY ? Satisfactory for Evaluation - transformation zone component present - scant squamous epithelial component secondary to exc essive inflammation GENERAL CATEGORIZATION ? Negative for Intraepithelial Lesion or Malignan cy ? Document reviewed and electronically signed by: ? Gail James, SCT(ASCP) ? Report Date: ??01/31/2004 15:38 End of Report Specimen Performing Organization Address City/State/ZIP Code Phon e Number [facility] [address] [place] [address] SERVICES [facility] [address] [place] [address] documented in this encounter Visit Diagnoses Not on filedocumented in this encounter
--- OUTSIDE RECORDS SUMMARY | 2021-10-10 00:15 | XMS_ITS | Encounter Summary ---
:1970 Author Organization [facility] Address [address] [place] [address] Care Team Providers Name Role Phone Unavailable Primary Care Provider Unavailable Encounter Details Date Type Department Care Team Description 12/29/2001 Results Only [facility] - Jenny Raza MD conversion [address] [place] [phone] (Wo rk) Social History Tobacco Use Types Packs/Day Years Used Date Never Assessed Sex Assigned at Date Recorded Not on file documented as of this encounter Plan of Treatment Not on filedocumented as of this encounter Procedures Procedure Name Priority Date/Time Associated Diagnosis Comme nts CYTOPATHOLOGY Routine 12/29/2001 0:00 EDT Results for this procedure are i n the results section . documented in this encounter Results CYTOPATHOLOGY (12/29/2001 0:00 EDT) Pathology Report: CYTOPATHOLOGY REPORT [facility] Reports generated via electronic interface contain jeremias ginal data; however they are lacking the format of the original re port. Caution should be taken when reading/interpreting unfo rmatted reports. Name: ? EDOUARD RUGGIERO ? Accession #: ? [id number] : ? 1970 (Age: 31) ??F ?Collect Date: ? 10/0 09/2001 Location: ? [facility] ? Receive Date : ? 12/31/2001 Provider: ?JENNY HOLM MD Copy to: ? Specimen/Source: ?ThinPrep Pap Test, Cervix/ Endocervix Last Menstrual Period: ? 11/24 Other: ? DHPV - HPV testing requested if ASCUS/AUDIE on the curr ent ThinPrep Pap test. ? SPECIMEN ADEQUACY ? Satisfactory for Evaluation - transformation zone component present GENERAL CATEGORIZATION ? Negative for Intraepithelial Lesion or Malignan cy ? Document reviewed and electronically signed by: ? Gail James, SCT(ASCP) ? Report Date: ??01/02/2002 11:02 End of Report Specimen Performing Organization Address City/State/ZIP Code Phon e Number [facility] [address] [place] [address] SERVICES [facility] [address] [place] [address] documented in this encounter Visit Diagnoses Not on filedocumented in this encounter
--- OUTSIDE RECORDS SUMMARY | 2021-10-10 00:15 | XMS_ITS | Encounter Summary ---
:1970 Author Organization [facility] Address [address] [place] [address] Care Team Providers Name Role Phone Unavailable Primary Care Provider Unavailable Encounter Details Date Type Department Care Team Description 09/06/1999 Results Only [facility] - Jenny Raza MD conversion [address] [place] [phone] (Wo rk) Social History Tobacco Use Types Packs/Day Years Used Date Never Assessed Sex Assigned at Date Recorded Not on file documented as of this encounter Plan of Treatment Not on filedocumented as of this encounter Procedures Procedure Name Priority Date/Time Associated Diagnosis Comme nts CYTOPATHOLOGY Routine 09/06/1999 0:00 EDT Results for this procedure are i n the results section . documented in this encounter Results CYTOPATHOLOGY (09/06/1999 0:00 EDT) Pathology Report: CYTOPATHOLOGY REPORT [facility] Reports generated via electronic interface contain jeremias ginal data; however they are lacking the format of the original re port. Caution should be taken when reading/interpreting unfo rmatted reports. Name: ? EDOUARD RUGGIERO ? Accession #: ? [id number] : ? 1970 (Age: 29) ??F ?Collect Date: ? 08/23 Location: ? [facility] ? Receive Date : ? 09/11/1999 Provider: ?JENNY HOLM MD Copy to: ? Specimen/Source: ?Conventional Pap Test, Cer vix/Endocervix Last Menstrual Period: ? 06/12/99 Menstrual/ Status: ? SPECIMEN ADEQUACY ? Satisfactory for evaluation but limited by obsc uring inflammation. GENERAL CATEGORIZATION ? Within Normal Limits ? Document reviewed and electronically signed by: ? ROSALVA Mathews(ASCP) ? Report Date: ??09/11/1999 09:52 End of Report Specimen Performing Organization Address City/State/ZIP Code Phon e Number [facility] [address] [place] [address] SERVICES [facility] [address] [place] [address] documented in this encounter Visit Diagnoses Not on filedocumented in this encounter
--- OUTSIDE RECORDS SUMMARY | 2021-10-10 00:15 | XMS_ITS | Encounter Summary ---
:1970 Author Organization [facility] Address [address] [place] [address] Care Team Providers Name Role Phone Unavailable Primary Care Provider Unavailable Encounter Details Date Type Department Care Team Description 03/10/2001 Results Only [facility] - Kaitlin Marley, PRODUCE RUNNER conversion [address] [phone] (Wo rk) Social History Tobacco Use Types Packs/Day Years Used Date Never Assessed Sex Assigned at Date Recorded Not on file documented as of this encounter Plan of Treatment Not on filedocumented as of this encounter Procedures Procedure Name Priority Date/Time Associated Diagnosis Comme nts CYTOPATHOLOGY Routine 03/10/2001 0:00 EST Results for this procedure are i n the results section . documented in this encounter Results CYTOPATHOLOGY (03/10/2001 0:00 EST) Pathology Report: CYTOPATHOLOGY REPORT [facility] Reports generated via electronic interface contain jeremias ginal data; however they are lacking the format of the original re port. Caution should be taken when reading/interpreting unfo rmatted reports. Name: ? EDOUARD RUGGIERO ? Accession #: ? [id number] : ? 1970 (Age: 30) ??F ?Collect Date: ? 02/22 Location: ? [facility] ? Receive Date : ? 03/13/2001 Provider: ?KAITLIN SMITH PRODUCE RUNNER Copy to: ? Specimen/Source: ?Conventional Pap Test, Cer vix/Endocervix Last Menstrual Period: ? 06/12/99 ? SPECIMEN ADEQUACY ? Satisfactory for evaluation. GENERAL CATEGORIZATION ? Within Normal Limits ? Document reviewed and electronically signed by: ? ROASLVA Walsh(ASCP) ? Report Date: ??03/14/2001 11:38 End of Report Specimen Performing Organization Address City/State/ZIP Code Phon e Number [facility] [address] [place] [address] SERVICES [facility] [address] [place] [address] documented in this encounter Visit Diagnoses Not on filedocumented in this encounter
--- OUTSIDE RECORDS SUMMARY | 2021-10-10 00:15 | XMS_ITS | Encounter Summary ---
:1970 Author Organization [facility] Address [address] [place] [address] Care Team Providers Name Role Phone Unavailable Primary Care Provider Unavailable Encounter Details Date Type Department Care Team Description 04/22/2000 Results Only [facility] - Jenny Raza MD conversion [address] [place] [phone] (Wo rk) Social History Tobacco Use Types Packs/Day Years Used Date Never Assessed Sex Assigned at Date Recorded Not on file documented as of this encounter Plan of Treatment Not on filedocumented as of this encounter Procedures Procedure Name Priority Date/Time Associated Diagnosis Comme nts CYTOPATHOLOGY Routine 04/22/2000 0:00 EST Results for this procedure are i n the results section . documented in this encounter Results CYTOPATHOLOGY (04/22/2000 0:00 EST) Pathology Report: CYTOPATHOLOGY REPORT [facility] Reports generated via electronic interface contain jeremias ginal data; however they are lacking the format of the original re port. Caution should be taken when reading/interpreting unfo rmatted reports. Name: ? EDOUARD RUGGIERO ? Accession #: ? [id number] : ? 1970 (Age: 29) ??F ?Collect Date: ? 03/26 Location: ? [facility] ? Receive Date : ? 04/24/2000 Provider: ?JENNY HOLM MD Copy to: ? Specimen/Source: ?ThinPrep Pap Test, Cervix/ Endocervix Last Menstrual Period: ? 06/12/99 Menstrual/ Status: ? Post ? SPECIMEN ADEQUACY ? Satisfactory for evaluation. GENERAL CATEGORIZATION ? Within Normal Limits ? Document reviewed and electronically signed by: ? Agueda Olsen, ??SCT(ASCP) ? Report Date: ??04/25/2000 09:59 End of Report Specimen Performing Organization Address City/State/ZIP Code Phon e Number [facility] [address] [place] [address] SERVICES [facility] [address] [place] [address] documented in this encounter Visit Diagnoses Not on filedocumented in this encounter
--- OUTSIDE RECORDS SUMMARY | 2021-10-10 00:15 | XMS_ITS | Encounter Summary ---
:1970 Author Organization [facility] Address [address] [place] [address] Care Team Providers Name Role Phone Unavailable Primary Care Provider Unavailable Encounter Details Date Type Department Care Team Description 04/16/2005 Results Only [facility] - Jenny Raza MD conversion [address] [place] [phone] (Wo rk) Social History Tobacco Use Types Packs/Day Years Used Date Never Assessed Sex Assigned at Date Recorded Not on file documented as of this encounter Plan of Treatment Not on filedocumented as of this encounter Procedures Procedure Name Priority Date/Time Associated Diagnosis Comme nts CYTOPATHOLOGY Routine 04/16/2005 0:00 EST Results for this procedure are i n the results section . documented in this encounter Results CYTOPATHOLOGY (04/16/2005 0:00 EST) Pathology Report: CYTOPATHOLOGY REPORT [facility] Reports generated via electronic interface contain jeremias ginal data; however they are lacking the format of the original re port. Caution should be taken when reading/interpreting unfo rmatted reports. Name: ? EDOUARD RUGGIERO ? Accession #: ? [id number] : ? 1970 (Age: 34) ??F ?Collect Date: ? 03/26 Location: ? [facility] ? Receive Date : ? 04/17/2005 Provider: ?JENNY HOLM MD Copy to: ? Specimen/Source: ? ThinPrep Pap Test, Cervix/Endocervix, processed on [employer] ThinPrep Imaging System, with manual evaluation Last Menstrual Period: ? 04/09/05 Other: ? HPVA - HPV testing requested if ASC-US on the current ThinPrep Pap test. ? SPECIMEN ADEQUACY ? Satisfactory for Evaluation - transformation zone component present GENERAL CATEGORIZATION ? Negative for Intraepithelial Lesion or Malignan cy ? Document reviewed and electronically signed by: ? ROSALVA Patel(ASCP) ? Report Date: ??04/18/2005 11:24 End of Report Specimen Performing Organization Address City/State/ZIP Code Phon e Number [facility] [address] [place] [address] SERVICES [facility] [address] [place] [address] documented in this encounter Visit Diagnoses Not on filedocumented in this encounter
--- NOTE | 2021-10-10 06:45 | DI.US_ITS ---
Exam(s) US RENAL EXAM: US RENAL CLINICAL HISTORY: monitoring renal stones and cyst, lt renal cyst, N20.0, N28.1 TECHNIQUE: Ultrasound of both kidneys performed using standard protocol. COMPARISON: CT CT ABDOMEN/ PELVIS CTA from 07/31/2018 US US RENAL from 09/21/2020 FINDINGS: RIGHT KIDNEY: Measures 9.5 cm in length. Multiple small cysts. Normal cortical thickness and corticomedullary diff erentiation .No solid masses Multiple bilateral hyperechoic echogenic foci, probably nonobstructive calculi. LEFT KIDNEY: Measures 10.5 cm in length. Pulse small cysts, largest measuring 1.5 x 1.1 cm normal cortical thickn ess and corticomedullary differentiaion. No solids masses. There also multiple hyperechoic echogenic foci in the left kidney, probably nonobstructive calculi. URINARY BLADDER: Prevoid volume is 32 cc Postvoid volume is 0 cc No evidence of bladder mass nor diverticuli. Ureterovesical jets: Only the left was identified IMPRESSION: 1. Kidneys are normal size. There are few small cysts in the kidneys. No solid renal masses. 2. There are echogenic foci in both kidneys which may be nonobstructive calculi. Note that there ar e no calculi in the kidney seen on CT scan of July 2018 DATA REPOSITORY:
== END ==
PROVIDERS: PCP Family Medicine; Visit Provider Nurse Practitioner Gerontology
DX: N28.1 Cyst of kidney, acquired
CPT/HCPCS: 76770

== ENCOUNTER → 2021-10-24 02:21 | Outpatient (CLI) | payer MEDICAID, SELFPAY ==
--- NOTE | 2021-10-24 08:19 | DI.MAMMO_ITS ---
Exam(s) MAMMO SCREENING EXAM: MAMMO SCREENING CLINICAL HISTORY: SCREENING, Z12.31 TECHNIQUE: Bilateral full field digital CC and MLO mammographic images were obtained with 3D tomosyn thesis and utilizing computer aided detection (CAD). COMPARISON: Available for comparison. FINDINGS: Masses/Architectural Distortion: No suspicious masses or areas of architectural distortion are identi fied. The nodule in the upper outer quadrant of the left breast is stable. Microcalcifications: No suspicious pleomorphic-type are seen. Skin Thickening/Nipple Retraction: None. IMPRESSION: 1. No significant interval change with no specific features of malignancy noted. 2. Unless there is more urgent need, screening mammography is recommended, as per [employer] guidelines. BI-RADS Category 2 - Benign Findings Breast Density - Category C - Heterogeneously dense Breast density category C or D implies that the patient has dense breast tissue. Dense breast tissue is very common and is not abnormal but dense breast tissue can make it harder to find cancer on a ma mmogram. Also, dense breast tissue may increase their breast cancer risk. This information about the result of the mammogram report was provided to the patient to raise their awareness. Use this report when you speak with the patient about their risks for breast cancer, which includes their family hist ory. At that time, you may recommend for more screening tests (Ultrasound or MRI) as they might be us eful based on their risk. A negative radiographic report should not delay biopsy if a dominant or clinically suspicious mass is present. Up to ten percent of cancers are not identified on mammography. A negative report may reinforce clinical impression. Adenosis and dense breasts may obscure an underlying neoplasm. False positive reports average 6 to 10%. Patient will receive a letter notifying them of these results.
== END ==
PROVIDERS: PCP Family Medicine; Visit Provider Family Medicine
DX: Z12.31 Encounter for screening mammogram for malignant neoplasm of breast (principal)
CPT/HCPCS: 77063; 77067

== ENCOUNTER 2021-12-15 00:50 | Outpatient (CLI) | payer MEDICAID, SELFPAY ==
[2021-12-15 08:43] LABS: Hemoglobin A1C 5.7 % (<5.7)
[2021-12-15 09:12] LABS: ALT 31 U/L (14-59); AST 21 U/L (15-37); Albumin 3.9 g/dL (3.4-5.0); Alkaline Phosphatase 57 U/L (46-116); Anion Gap 8.8 mmol/L (3-11); BUN 18 mg/dL (7-18); Bilirubin, Total 0.6 mg/dL (0.2-1.0); CO2 29.2 mmol/L (21.0-32.0); CREATININE 0.8 mg/dL (0.55-1.02); Calcium 9.3 mg/dL (8.5-10.1); Calculated LDL 82 mg/dL (<100); Chloride 107 mmol/L (98-107); Cholesterol 147 mg/dL (<200); Glucose 104 mg/dL (74-106); HDL Cholesterol 53 mg/dL (40-60); Potassium 3.9 mmol/L (3.5-5.1); Sodium 145 mmol/L (136-145); Triglyceride 64 mg/dL (<150)
== END 2021-12-15 00:51 | disposition home or self-care (01) ==
LOC: LBO 00:50
PROVIDERS: PCP Family Medicine; Visit Provider Family Medicine
DX: I10 Essential (primary) hypertension (principal); E78.5 Hyperlipidemia, unspecified; R73.03 Prediabetes
CPT/HCPCS: 36415; 80053; 80061; 83036

== ENCOUNTER → 2022-01-19 00:55 | Outpatient (CLI) | payer MEDICAID, SELFPAY ==
--- NOTE | 2022-01-19 08:30 | DI.CT_ITS ---
Exam(s) CT CHEST WO EXAM: CT CHEST WO CLINICAL HISTORY: MULTIPLE PULMONARY NODULES-REPEAT CT 01/2022, R91.8. TECHNIQUE: Imaging protocol: Axial computed tomography images were obtained and coronal and sagittal reformatted images were created and reviewed. COMPARISON: CT CT CHEST WO from 01/31/2021 FINDINGS: Tracheobronchial tree: Patent where visualized. Pulmonary parenchyma: No consolidation or dominant measurable mass. No architectural distortion. Ther e is a 5 mm nodule in the right lower lobe. There is a 5 mm nodule seen in the right middle lobe. N o new pulmonary nodules are seen. Mediastinum and Jeannie: No dominant adenopathy or fluid collection. The esophagus is unremarkable. Thyroid gland: Unremarkable. Pleura: No effusion or pneumothorax. Heart: The heart is not dilated. No coronary artery calcifications are seen. No pericardial effusion. Aorta: Thoracic aorta non-dilated. Minimal atherosclerosis. Upper abdomen: Unremarkable. Lymph nodes: Within normal limits. Soft tissues: Unremarkable. Bones:Within normal limits for the patient's age. IMPRESSION: 1. Stable pulmonary nodules. No new pulmonary nodules. 2. For low risk patients, no routine follow-up is recommended. For high risk patients (history of sm oking or other risk factors), a 12 month follow-up may be warranted. (Alana et al, 2017). RADIATION DOSE DELIVERED: 302.27mGy.cm Total DLP 302.27mGy.cm Total DLP DATA REPOSITORY: All CT scans at this facility are submitted to the National Radiology Data Registry (NRDR) Dose Index Registry (DIR) with the [employer] (A[employer]). RADIATION OPTIMIZATION: All CT scans at this facility use at least one of these dose optimization te chniques: automated exposure control; mA and/or kV adjustment per patient size (includes targeted exa ms where dose is matched to clinical indication); or iterative reconstruction.
== END ==
PROVIDERS: PCP Family Medicine; Visit Provider Family Medicine
DX: R91.8 Other nonspecific abnormal finding of lung field (principal)
CPT/HCPCS: 71250

== ENCOUNTER → 2022-03-01 01:06 | Outpatient (CLI) | payer MEDICAID, SELFPAY ==
--- NOTE | 2022-03-01 | DI.MRI_ITS ---
Exam(s) MR ANGIO BRAIN WO CLINICAL HISTORY: PULSATILE TINNITUS OF RT EAR, H93.A1. TECHNIQUE: Multiplanar multisequence MRA of the brain was performed. COMPARISON: None. FINDINGS: Carotid Arteries: No aneurysm, occlusion or significant stenosis. Anterior Cerebral Arteries: Right: No aneurysm, occlusion or significant stenosis. Left: No aneurysm, occlusion or significant stenosis. Middle Cerebral Arteries: Right: No aneurysm, occlusion or significant stenosis. Left: No aneurysm, occlusion or significant stenosis. Posterior Cerebral Arteries: Right: No aneurysm, occlusion or significant stenosis. Left: No aneurysm, occlusion or significant stenosis. Vertebral Arteries: Right: No aneurysm, occlusion or significant stenosis. Left: No aneurysm, occlusion or significant stenosis. Basilar Artery: No aneurysm, occlusion or significant stenosis. There are mucous retention cysts or polyps in the maxillary sinuses. There are few foci of hyperinte nse signal seen in the white matter on the FLAIR images likely reflect early small vessel ischemic di sease. IMPRESSION: Normal MRA examination of the [place]. DATA REPOSITORY:
--- NOTE | 2022-03-01 08:00 | DI.MRI_ITS ---
Exam(s) MR ANGIO NECK WO EXAM: MR ANGIO NECK WO CLINICAL HISTORY: PULSATILE TINNITUS OF RT EAR, H93.A1. TECHNIQUE: Multiplanar multisequence MRA of the Neck was performed. COMPARISON: None. FINDINGS: Common Carotid: Right: No dissection, occlusion or significant stenosis. Left: No dissection, occlusion or significant stenosis. External Carotid: Right: No evidence of occlusion or significant stenosis. Left: No evidence of occlusion or significant stenosis. Internal Carotid: Right: No dissection, occlusion or significant stenosis. Left: No dissection, occlusion or significant stenosis. Vertebral Artery: Right: No dissection, occlusion or significant stenosis. Left: No dissection, occlusion or significant stenosis. The visualized paraspinal soft tissues are unremarkable. IMPRESSION: Unremarkable MR angiogram of the neck. DATA REPOSITORY:
== END ==
PROVIDERS: PCP Family Medicine; Visit Provider Physician Assistant
DX: H93.A1 Pulsatile tinnitus, right ear (principal)
CPT/HCPCS: 70544; 70547

== ENCOUNTER 2022-05-03 19:20 | Outpatient (REF) | payer MEDICAID, SELFPAY ==
[2022-05-05 11:21] LABS: COVID-19 RT-PCR UVMMC Result Negative (Negative)
== END 2022-05-03 19:21 | disposition home or self-care (01) ==
LOC: LBN 19:20
PROVIDERS: PCP Family Medicine; Visit Provider Physician Assistant Medical
DX: Z20.822 Contact with and (suspected) exposure to COVID-19 (principal); J02.9 Acute pharyngitis, unspecified
CPT/HCPCS: U0003; 87070

== ENCOUNTER 2022-10-15 03:12 | Outpatient (CLI) | payer MEDICAID, SELFPAY ==
--- NOTE | 2022-10-15 06:30 | DI.US_ITS ---
Exam(s) US RENAL EXAM: US RENAL CLINICAL HISTORY: monitoring cysts and stones of kidneys,n28.1,n20.0. TECHNIQUE: Urrutia scale, color and spectral Doppler were used. COMPARISON: CT CT ABDOMEN/ PELVIS CTA from 07/31/2018 US US RENAL from 10/10/2021 FINDINGS: Renal size in cm: Right: 9.6. Left: 10.8. Echogenicity: Normal. Hydronephrosis: There is mild dilatation of the collecting systems bilaterally. Cyst or mass: Small cysts are seen in the left kidney. The largest measures 1.5 x 1.3 x 1.2 cm. Nephrolithiasis: There is bilateral nephrolithiasis. Other findings: None. Bladder:Normal. Ureteral jets: Right: Visualized and unremarkable. Left: Visualized and unremarkable. Prevoid vol:319 cc Postvoid vol:The patient was unable to void during the examination. Renal color flow: Symmetric and within normal limits. IMPRESSION: 1. Bilateral nephrolithiasis. 2. Left renal cysts. 3. Mild dilatation of the renal collecting systems bilaterally. Extrarenal pelves versus mild hydron ephrosis. Please correlate clinically. DATA REPOSITORY:
== END 2022-10-15 03:32 ==
LOC: DI 03:12
PROVIDERS: PCP Family Medicine; Visit Provider Nurse Practitioner Gerontology
DX: N20.0 Calculus of kidney (principal); N28.1 Cyst of kidney, acquired; R93.41 Abnormal radiologic findings on diagnostic imaging of renal pelvis, ureter, or bladder
CPT/HCPCS: 76770

== ENCOUNTER 2023-01-03 01:12 | Outpatient (CLI) | payer MEDICAID, SELFPAY ==
[2023-01-03 09:55] LABS: Anion Gap 9.3 mmol/L (3-11); BUN 13 mg/dL (7-18); CO2 26.7 mmol/L (21.0-32.0); CREATININE 0.7 mg/dL (0.55-1.02); Calcium 9.3 mg/dL (8.5-10.1); Calculated LDL 97 mg/dL (<100); Chloride 104 mmol/L (98-107); Cholesterol 168 mg/dL (<200); Estimated GFR 103.35 (mL/min/1.73m2); Glucose 112 mg/dL (74-106); HDL Cholesterol 56 mg/dL (40-60); Hemoglobin A1C 5.8 % (<5.7); Potassium 3.6 mmol/L (3.5-5.1); Sodium 140 mmol/L (136-145); Triglyceride 79 mg/dL (<150)
== END 2023-01-03 01:13 | disposition home or self-care (01) ==
LOC: LBO 01:12
PROVIDERS: PCP Family Medicine; Visit Provider Family Medicine
DX: E78.5 Hyperlipidemia, unspecified (principal); I10 Essential (primary) hypertension; R73.03 Prediabetes
CPT/HCPCS: 36415; 80048; 80061; 83036

== ENCOUNTER → 2023-03-06 03:20 | Outpatient (CLI) | payer MEDICAID, SELFPAY ==
--- NOTE | 2023-03-06 08:20 | DI.MAMMO_ITS ---
Exam(s) MAMMO SCREENING EXAM: MAMMO SCREENING CLINICAL HISTORY: SCREENING MAMMO FOR BREAST CANCER Z12.31 TECHNIQUE: Mammograms were interpreted according to the usual protocol including computer analysis w [employer] CAD system, tomosynthesis and C-view imaging. COMPARISON: 2013 through 2021 FINDINGS: The breasts are composed of heterogeneously dense fibroglandular densities, Breast Density category C . No suspicious masses or suspicious microcalcifications are seen. Stable nodule upper outer quadrant left breast. No skin thickening or abnormal axillary lymph nodes are seen. There has been no significant change from prior exams. IMPRESSION: BI-RADS Category 2 - Negative Mammogram with benign findings. Yearly screening mammography is recom mended. Breast Density Category C, heterogeneously Dense. The mammogram demonstrates the patient's breast tissue is dense. Dense breast tissue is very common a nd is not abnormal but dense breast tissue can make it harder to find cancer on a mammogram. Also, de nse breast tissue may increase breast cancer risk. This information about the result of the mammogram report was provided to the patient to raise their awareness. Use this report when you speak with the patient about their risks for breast cancer, which includes their family history. At that time, you may recommend additional screening tests (Ultrasound or MRI) as they might be useful based on their r isk. A negative radiographic report should not delay biopsy if a dominant or clinically suspicious mass is present. Up to ten percent of cancers are not identified on mammography. A negative report may reinforce clinical impression. Adenosis and dense breasts may obscure an underlying neoplasm. False positive reports average 6 to 10%.
== END ==
PROVIDERS: PCP Family Medicine; Visit Provider Family Medicine
DX: Z12.31 Encounter for screening mammogram for malignant neoplasm of breast (principal)
CPT/HCPCS: 77063; 77067

== ENCOUNTER → 2023-05-09 03:17 | Outpatient (CLI) | payer MEDICAID, SELFPAY ==
--- NOTE | 2023-05-09 07:30 | DI.US_ITS ---
APPROVED REPORT EXAM: Comprehensive 2D, Doppler, and color-flow Echocardiogram Patient Location: Out-Patient Finish Machine Tender: Marilin Voss RDCS (AE) Indications: Cardiac Murmur Other Information Study Quality: Good Conclusion Normal left ventricular wall thickness and chamber size. EF is 60%. Wall motion is normal. Normal right ventricular size and systolic function Both atria are normal in size There are no structural valvular abnormalities There is trace aortic, mitral, and tricuspid regurgitation Estimated right ventricular systolic pressure is 21 mmHg Wall motion Left Ventricle The left ventricle is normal size. The left ventricular systolic function is normal. The left ventric ular ejection fraction is within the normal range. There is normal left ventricular wall thickness. T here is normal LV segmental wall motion. There is no ventricular septal defect visualized. LVEF is 60 %. Right Ventricle The right ventricle is normal size. The right ventricular systolic function is normal. Atria The left atrium size is normal. The right atrium size is normal. The interatrial septum is intact wit h no evidence for an atrial septal defect. Aortic Valve The aortic valve is normal in structure. Aortic valve is trileaflet. There is no aortic valvular sten osis. Trace aortic regurgitation. Mitral Valve The mitral valve is normal in structure. No evidence of mitral valve stenosis. Trace mitral regurgita tion. Tricuspid Valve The tricuspid valve is normal in structure. There is no tricuspid valve stenosis. Trace tricuspid reg urgitation. The RVSP is 21.4 mmHg. Pulmonic Valve The pulmonary valve is normal in structure. There is no pulmonic valvular stenosis. There is no pulmo wilner valvular regurgitation. Great Vessels The aortic root is normal in size. The ascending aorta is mildly dilated. Aortic arch is normal in ca liber. IVC is normal in size and collapses >50% with inspiration. Pericardium There is no pericardial effusion. 2D Dimensions IVSD d PLAX 0.81 cm F: 0.6-1.0 Ao Root d 2.40 cm F: 2.7 - 3.3 LVPW d PLAX 0.80 cm F: 0.6 - 1.0 Ao Asc Diam d 3.27 cm F: 2.3 - 3.1 LVID d PLAX 4.06 cm F: 3.8 - 5.2 LVDs 2.75 cm F: 2.2 - 3.5 LV EF Teichholz 61.0 % FS 32.27 % LV EDV (Teich) 72.3 mL LV ESV (Teich) 28.2 mL M-Mode TAPSE 2.16 cm (M/F) >1.7 Auto EF LV EDV A4C 61.2 mL LV EDV A2C 86.7 mL LV EDV BP 72.4 mL LV ESV A4C 26.7 mL LV ESV A2C 33.3 mL LV ESV BP 29.3 mL LVEF(%) A4C 56.4 % LVEF(%) A2C 61.5 % LVEF(%) BP 59.5 % LV SV A4C 34.5 ml LV SV A2C 53.3 ml LV SV BP 43.0 ml LV CO A4C 1.9 L/min LV CO A2C 2.9 L/min LV CO BP 2.4 L/min HR A4C 55.90 BPM HR A2C 55.13 BPM LV EDV Index (BP) LV Strain Long Pk Overal Avg (s) 19.87 RV Strain Global Peak Long. Strain A4C 20.75 Global Peak Long. Strain A4C FW 24.85 LA Volume LA Length A4C 4.6 cm LA Length A2C 4.8 cm LA Area A4C s 11.68 cm2 LA Area A2C s 17.04 cm2 LA Vol A4C A-L 25.35 mL LA Vol A2C A-L 51.56 mL LA Vol Biplane A-L 37.0 mL LA Vol/BSA A4C A-L LA Vol/BSA A2C A-L LA Vol/BSA BP A-L 26.6 mL/m2 LA Vol A4C MOD 23.8 mL LA Vol A2C MOD 49.5 mL LA Vol BP MOD 35.0 mL RA Volume RA Area A4C 10.5 cm2 RA ESV A4C (A-L) 22.9mL RA Vol/BSA A4C A-L RA Length A4C 4.1 cm RA ESV A4C (MOD) 21.8mL LV Diastology MV E' medial 0.066 (>0.07 m/s) MV E Vmax 0.73 (0.4-1.3 m/s) MV E/E' MED 10.97 (<14) MV A Vmax 0.80 (0.4-1.3 m/s) MV E' lateral 0.098 (>0.1 m/s) E/A Ratio 0.9 MV E/E' LAT 7.46 (<14) MV E' Average 0.082 m/s MV E/E'(average) 8.88 Aortic Valve AoV Vmax 1.50 m/s LVOT Vmax 1.26 m/s AoV Peak Grad 31.9 mmHg LVOT Peak Grad 6.3 mmHg AoV Area (Vmax) 2.14 cm2 LVOT VTI 0.279 m AoV VTI 0.365 m LVOT Mean Grad 3.2 mmHg AoV Mean Lico. 1.00 m/s LVOT SV 70.96 mL AoV Mean Grad 4.7 mmHg LVOT Diam s 1.80 cm AoV Area (VTI) 1.94 cm2 AV Regurg Peak Gr. 54.85 mmHg Velocity Ratio 0.84 AR Decel Davidson 0.8m/sec2 AR DT 4582 msec AR PHT 1329 msec AR Vmax 3.70 m/s Mitral Valve MV DT 233 (160-240 msec) MV Vmax TIPS 0.85 m/s MV Mean Grad 1.4 (<2mmHg) MV VTI 0.365 m Pulmonary Valve PV Vmax 0.95 (0.5-1.5 m/s) RVOT Vmax 0.80 m/s PV Peak Grad 3.6 mmHg RVOT Peak Gr. 2.6 mmHg PV Mean Lico 0.66 m/s RVOT VTI 0.157 m PV Mean Grad 2.0 mmHg RVOT Mean Gr. 1.6 mmHg Tricuspid Valve RA Pressure 3.00 mmHg TR Vmax 2.15 m/s TV S' 0.12 m/s TR Peak Grad 18.4 mmHg RVSP (TR) 21.4 mmHg
== END ==
PROVIDERS: PCP Family Medicine; Visit Provider Family Medicine
DX: R01.1 Cardiac murmur, unspecified (principal)
CPT/HCPCS: 93306

== ENCOUNTER 2023-08-07 09:24 | Outpatient (REF) | payer MEDICAID, SELFPAY ==
--- NOTE | 2023-08-07 08:10 | PAPFT_PTH ---
PATIENT: Vicenta Burns LOC: NCN #:[id number] AGE/SX: 53/F ROOM: RE08/07/[address]: Jenny Guerra : 1970 BED: DIS: 08/07/2023 SPEC #: [id number] RECD: 08/08/23 13:02 STATUS: AXEL MONTOYA #: [id number] GERARDO: 08/07/23 08:[address]: Jenny Guerra DEPT: [facility] Cytology RECD BY: Irma Lam Tissues: 1 - CX/ENDOCX FOR PAP SMEARS Procedures: PAP THIN PREP/[facility] Screening HPV DNA PROBE Comments: [id number]
== END 2023-08-07 09:25 | disposition home or self-care (01) ==
LOC: NCHCN 09:24
PROVIDERS: PCP Family Medicine; Visit Provider Family Medicine
DX: Z01.419 Encounter for gynecological examination (general) (routine) without abnormal findings (principal); Z12.4 Encounter for screening for malignant neoplasm of cervix
CPT/HCPCS: 88142; 87624

== ENCOUNTER 2023-12-16 02:14 | Outpatient (CLI) | payer MEDICAID, SELFPAY ==
--- NOTE | 2023-12-16 06:30 | DI.US_ITS ---
Exam(s) US RENAL EXAM: US RENAL CLINICAL HISTORY: monitoring cyst and calculi lt renal cyst, kidney stones, N28.1, N20.0. TECHNIQUE: Urrutia scale, color and spectral Doppler were used. COMPARISON: US US RENAL from 10/15/2022 FINDINGS: Renal size in cm: Right: 9.9. Left: 10.1. Echogenicity: Normal. Hydronephrosis: There is mild dilatation of the left renal collecting system again seen. This signif icantly improves with minimal residual left renal collecting system dilatation following voiding. Cyst or mass: Stable left renal cyst. Nephrolithiasis: Echogenic foci seen in the kidneys bilaterally. The largest is seen on the left and measures 7 mm. Other findings: None. Bladder:Normal. Ureteral jets: Right: Not visualized on this examination. Left: Visualized and unremarkable. Prevoid vol:17 cc Postvoid vol:0 cc Renal color flow: Symmetric and within normal limits. IMPRESSION: 1. Stable bilateral nephrolithiasis and left renal cyst. 2. Minimal residual left renal collecting system dilatation following voiding. This is unchanged com pared to the prior examination. DATA REPOSITORY:
== END 2023-12-16 02:34 ==
LOC: DI 02:14
PROVIDERS: PCP Family Medicine; Visit Provider Nurse Practitioner Gerontology
DX: N20.0 Calculus of kidney
CPT/HCPCS: 76770

== ENCOUNTER 2024-02-14 02:43 | Outpatient (CLI) | payer MEDICAID, SELFPAY ==
[2024-02-14 12:08] LABS: Hemoglobin A1C 5.8 % (<5.7)
[2024-02-14 12:44] LABS: ALT 29 U/L (14-59); AST 21 U/L (15-37); Albumin 4.1 g/dL (3.4-5.0); Alkaline Phosphatase 60 U/L (46-116); Anion Gap 8.8 mmol/L (3-11); BUN 14 mg/dL (7-18); Bilirubin, Total 0.79 mg/dL (0.2-1.0); CO2 29.2 mmol/L (21.0-32.0); CREATININE 0.7 mg/dL (0.55-1.02); Calcium 9.1 mg/dL (8.5-10.1); Chloride 106 mmol/L (98-107); Estimated GFR 102.71 (mL/min/1.73m2); Glucose 99 mg/dL (74-106); Potassium 3.6 mmol/L (3.5-5.1); Sodium 144 mmol/L (136-145); Total Protein 8.1 g/dL (6.4-8.2)
== END 2024-02-14 02:44 | disposition home or self-care (01) ==
LOC: LBO 02:43
PROVIDERS: PCP Family Medicine; Visit Provider Family Medicine
DX: I10 Essential (primary) hypertension (principal); R73.03 Prediabetes
CPT/HCPCS: 36415; 80053; 83036

== ENCOUNTER 2024-03-23 01:41 | Outpatient (CLI) | payer MEDICAID, SELFPAY ==
--- NOTE | 2024-03-23 | DI.MAMMO_ITS ---
Exam(s) MAMMO SCREENING EXAM: MAMMO SCREENING CLINICAL HISTORY: Screening, Z12.31. TECHNIQUE: Bilateral full field digital CC and MLO mammographic images were obtained with 3D tomosyn thesis and utilizing computer aided detection (CAD). COMPARISON: Prior mammograms dating back to 2015 were reviewed. FINDINGS: Fibroglandular tissue pattern is again noted be moderately dense. Nodular density in the left breast is unchanged from 2015. There are no new spiculated masses nor new malignant appearing microcalcification groups. There is no significant architectural distortion nor skin thickening-retraction. IMPRESSION: Stable benign findings. No radiographic evidence of malignancy. BI-RADS Category 2 - Benign Findings Breast Density - Category C - Heterogeneously dense Breast density Category C or D implies that the patient has dense breast tissue. Dense breast tissue can make it harder to find cancer on a mammogram. Dense breast tissue is also associated with an incr eased risk of breast cancer. This information about the result of the mammogram report was provided to the patient to raise their awareness. Use this report when you speak with the patient about their risks for breast cancer, which includes their family history. At that time, you may recommend additional screening tests (Ultrasoun d or MRI) as these tests may add significant information. A negative radiographic report should not delay biopsy if a dominant or clinically suspicious mass is present. Up to ten percent of cancers are not identified on mammography. A negative report may reinforce clinical impression. Adenosis and dense breasts may obscure an underlying neoplasm. False positive reports average 6 to 10%. Patient will receive a letter notifying them of these results.
== END 2024-03-23 02:01 ==
LOC: DI 01:41
PROVIDERS: PCP Family Medicine; Visit Provider Family Medicine
DX: Z12.31 Encounter for screening mammogram for malignant neoplasm of breast (principal); R92.333 Mammographic heterogeneous density, bilateral breasts; D24.2 Benign neoplasm of left breast
CPT/HCPCS: 77063; 77067

== ENCOUNTER 2024-12-07 00:04 | Outpatient (CLI) | payer MEDICAID, SELFPAY ==
--- NOTE | 2024-12-07 05:00 | DI.US_ITS ---
Exam(s) US RENAL EXAM: US RENAL CLINICAL HISTORY: monitoring calculi,lt renal cyst, kidney stones,n28.1,n20.0. TECHNIQUE: Urrutia scale, color and spectral Doppler were used. COMPARISON: US US RENAL from 12/16/2023 FINDINGS: Renal size in cm: Right: 9.8. Left: 10.8. Echogenicity: Normal. Hydronephrosis: There is stable mild dilatation of the left renal collecting system. Cyst or mass: There are stable left renal cysts. Nephrolithiasis: There is bilateral nephrolithiasis. The largest stone is seen in the inferior pole of the left kidney and measures 7 mm. Other findings: None. Bladder:There is diffuse thickening of the wall of the urinary bladder. Ureteral jets: Right: The right ureteral jet was not visualized. Left: Visualized and unremarkable. Prevoid vol:58 cc Postvoid vol:2 cc Renal color flow: Symmetric and within normal limits. IMPRESSION: 1. Stable mild dilatation of the left renal collecting system. 2. Bilateral nephrolithiasis. 3. Diffuse thickening of the wall of the urinary bladder. This may be due to underdistention, but cystitis should also be considered. 4. Nonvisualization of the right ureteral jet. This was not visualized on the last examination. DATA REPOSITORY:
== END 2024-12-07 00:24 ==
PROVIDERS: PCP Family Medicine; Visit Provider Nurse Practitioner Gerontology
DX: N20.0 Calculus of kidney
CPT/HCPCS: 76770

== ENCOUNTER 2025-02-24 10:59 | Outpatient (REF) | payer MEDICAID, SELFPAY ==
[2025-02-24 18:10] LABS: Microalb ug/mg Crea 7.3 ug/mg Cr
== END 2025-02-24 11:00 | disposition home or self-care (01) ==
LOC: NCHCN 10:59
PROVIDERS: PCP Family Medicine; Visit Provider Family Medicine
DX: I10 Essential (primary) hypertension (principal)
CPT/HCPCS: 82043; 82570